=== PATIENT | female | born 1940 | race Caucasian/White ===

== ENCOUNTER 2021-09-15 10:25 | Outpatient (REF) | payer MEDICARE, SELFPAY ==
[2021-09-15 12:50] LABS: Folate 6.4 ng/mL (> or = 4.0); Vitamin B12 269 pg/mL (200-900)
== END 2021-09-15 10:26 | disposition home or self-care (01) ==
LOC: HO.LAB 10:25
PROVIDERS: PCP Physician Assistant; Visit Provider Psychiatry & Neurology Neurology
DX: I67.89 Other cerebrovascular disease (principal)
CPT/HCPCS: 36415; 82607; 82746; 84443

== ENCOUNTER 2023-06-29 12:28 | Inpatient (IN) | payer MEDICARE, SELFPAY ==
--- NOTE | ~2023-06-29 | CT_ITS ---
EXAMINATION: CT abdomen pelvis wo IV con CLINICAL INFORMATION: Reason for Exam L flank pain COMPARISON: No prior CT available for comparison. TECHNIQUE: Multidetector volumetric imaging was performed from the superior aspect of the liver through the pubic symphysis noncontrasted study Sagittal and coronal reformatted images were obtained on the technologist's workstation. This CT examination was performed using dose optimization techniques as appropriate, variously including the following: *Automated exposure control *Adjustment of mA and/or kV according to patient size (this includes techniques or standardized protocols for targeted exams where dose is matched to indication/reason for exam; i.e. extremities or head) *Use of iterative reconstruction technique DLP: 721 mGy-cm FINDINGS: Exam limited by breathing motion artifact. LOWER THORAX: Included lung bases are clear. HEPATOBILIARY: There is a 2 cm hypodense area adjacent to the gallbladder, not well characterized due to lack of contrast concerning for possible liver lesion, this may require correlation with follow-up imaging starting with ultrasound and/or contrast enhanced cross-sectional imaging. GALLBLADDER: Gallbladder is distended, there is thickening of gallbladder wall and pericystic fat stranding, combined raising concern for acute cholecystitis, this can be assessed with ultrasound or HIDA scan. SPLEEN: Spleen is normal in size. PANCREAS: No focal mass or ductal dilatation. STOMACH AND GASTROINTESTINAL TRACT: Stomach is grossly unremarkable. There is diverticulosis without evidence of acute diverticulitis. Appendix not well visualized no secondary sign to suggest acute appendicitis. ADRENALS: No adrenal nodules. KIDNEYS/URETERS: No hydronephrosis, stones or solid mass lesions. URINARY BLADDER: Partially decompressed. PELVIC VISCERA: There is a free fluid in the dependent portion of the pelvis PERITONEUM: There is no free air. LYMPH NODES: No lymphadenopathy. VASCULAR:Abdominal aorta normal in size, no aneurysm found. BONES, ABDOMINAL WALL AND SOFT TISSUES: Advanced spondylosis of the area lumbar spine with vacuum phenomenon at multiple levels. No fractures. CT/CT abdomen pelvis wo IV con IMPRESSION: Exam limited by motion artifact. 1. Gallbladder is very distended, there is thickening of gallbladder wall and pericystic fat stranding, combined raising CONCERN FOR ACUTE CHOLECYSTITIS, this can be assessed with ultrasound or HIDA scan, surgical evaluation recommended.. 2. Indeterminant 2 cm hypodense lesion in the right lobe of the liver for which additional imaging is warranted. Consider ultrasound and/or contrast enhanced dynamic MRI or CT scan.. 3. Diverticulosis without evidence of acute diverticulitis. 4. There is a small amount of free fluid in the dependent portion of the pelvis. (Referring physician staff is being called, by physician staff assistance, to be alerted of the above critical findings and recommendations.) 06/29/2023 5:37 PM
--- NOTE | ~2023-06-29 | XR_ITS ---
EXAMINATION: XR CHEST CLINICAL INFORMATION: Malaise COMPARISON: None available. TECHNIQUE: 2 views of the chest were obtained. FINDINGS: Lungs are clear. No pulmonary vascular congestion. There is no pleural effusion. The heart size is normal. The cardiac and mediastinal contours are normal. There are calcifications of the thoracic aorta. There are multilevel degenerative changes of dorsal spine. XR/XR chest 2V IMPRESSION: Unremarkable examination.
--- NOTE | ~2023-06-29 | US_ITS ---
EXAMINATION: US ABDOMEN LIMITED CLINICAL INFORMATION: Acalculus cholecystitis. COMPARISON: CT abdomen/pelvis earlier on same day. TECHNIQUE: Real-time imaging of the right upper quadrant abdominal viscera. FINDINGS: PANCREAS: Pancreatic tail is obscured secondary to shadowing from overlying bowel gas. The visualized portions of the head and body are within normal limits. LIVER: There is a 1.8 x 1 x 1.4 cm simple appearing right hepatic lobe cyst. The liver is normal in size. The liver contour is normal. Parenchymal echogenicity is normal. There is no intrahepatic biliary duct dilatation seen. GALLBLADDER: Cholelithiasis with diffuse gallbladder wall thickening measuring up to 0.9 cm. Trace pericholecystic free fluid. Negative Navarro's sign. COMMON BILE DUCT: Normal in caliber measuring 0.3 cm in diameter. RIGHT KIDNEY: Atrophic. No hydronephrosis. No renal calculi or focal parenchymal lesions. The kidney measures 8 cm in maximum dimension. FREE FLUID: None. US/US abdomen limited IMPRESSION: 1. Cholelithiasis with diffuse gallbladder wall thickening and trace pericholecystic free fluid suspicious for acute cholecystitis in the appropriate clinical setting. 2. Atrophic right kidney.
--- NOTE | ~2023-06-29 | IR_ITS ---
EXAMINATION: Cholecystostomy tube placement CLINICAL INFORMATION: cholecystitis COMPARISON: ct abdomen and pelvis 06/29/23 TECHNIQUE/FINDINGS: All elements of maximal sterile barrier technique followed including use of cap, mask, sterile gown, sterile gloves, a sterile full body drape and hand hygiene. The patient was placed supine on the fluoroscopy table. Preliminary ultrasound demonstrates distended gallbladder with thickened white in concordance with images on recent cross-sectional imaging. A site was marked and the right upper abdomen was sterilely prepped and draped. The gallbladder was accessed with a 21 gauge micropuncture needle under direct ultrasound guidance. The needle was exchanged for a transitional dilator. Contrast injection demonstrates distended gallbladder without with intraluminal filling defects compatible with known gallstones. A sample was obtained for culture and sensitivity. The tract was dilated and an 8 Marshallese pigtail drainage catheter was placed. The pigtails formed within the gallbladder. Contrast injection demonstrated satisfactory position of the tube. The contents of the gallbladder were aspirated. The external portion of the catheter was secured with 3-0 suture and the catheter was maintained to gravity bag drainage. The patient tolerated the procedure well with no immediate competitions. FLUOROSCOPY TIME: 1.5 minutes DOSE AREA PRODUCT: 18 uGy-m2 (microgray-meter squared) IR/IR drain peritoneum IMPRESSION: Cholecystostomy tube placement
--- NOTE | ~2023-06-29 | XR_ITS ---
EXAMINATION: XR HIP, RIGHT CLINICAL INFORMATION: Pain COMPARISON: None available. TECHNIQUE: Frontal view of pelvis. Two views of the right hip. FINDINGS: No fracture. No dislocation. No focal bone lesion. Mild joint narrowing of the hip joints bilateral. No bone erosions or periarticular calcification. Significant disc height narrowing vacuum disc changes at L3-L4 and L4-L5 with vertebral endplate spurs. XR/XR hip RT w PEL1V IMPRESSION: 1. No acute abnormality. 2. Mild degenerative joint narrowing of the hip joints bilateral.
[2023-06-29 13:11] VITALS: BP 127/54; PULSE 56; RESP 18; TEMP 37.6; O2SAT 98; BMI 33.5
--- NOTE | 2023-06-29 13:22 | ED.GENADULT ---
HPI - General Adult General Chief complaint: General Medical Stated complaint: R Side Pain X 2 Days Time Seen by Provider: 06/29/23 15:55 Source: patient Mode of arrival: ambulatory Limitations: no limitations History of Present Illness HPI narrative: Patient with history of hypertension high cholesterol 82 years old otherwise healthy noticed right upper quadrant right flank discomfort since yesterday feel nauseated vomited once in eat much when last 24 hours no fever no chills never had similar pain in the past no history of kidney stone no urinary discomfort Related Data Home Medications Medication Instructions Recorded Confirmed aspirin 81 mg chewable tablet 81 mg PO DAILY 06/29/23 06/29/23 atorvastatin 10 mg tablet 10 mg PO BEDTIME 06/29/23 06/29/23 hydrochlorothiazide 25 mg tablet 25 mg PO QAM 06/29/23 06/29/23 lisinopril 20 mg tablet 20 mg PO DAILY 06/29/23 06/29/23 metoprolol tartrate 50 mg tablet 50 mg PO BID 06/29/23 06/29/23 pantoprazole 20 mg tablet,delayed 20 mg PO DAILY 06/29/23 06/29/23 release Allergies Allergy/AdvReac Type Severity Reaction Status Date / Time No Known Allergies Allergy Verified 06/29/23 13:11 Review of Systems Review of Systems: Yes all other systems are reviewed and are negative PMFSH Past Medical History Medical History Hyperlipidemia Hypertension Social History Social History Advance Directives: No Advance Directives Information Provided: No Physical Exam ED Vital Signs: Vital Signs - 24 hr 06/29/23 13:11 06/29/23 16:07 06/29/23 17:15 Temperature 99.7 F 98.2 F 98.4 F Pulse Rate 56 59 Respiratory Rate 18 19 Blood Pressure 127/54 L 110/72 Pulse Oximetry 98 97 Oxygen Delivery Method Room Air Room Air 06/29/23 18:29 Temperature 99.4 F Pulse Rate 58 Respiratory Rate 20 Blood Pressure 124/40 L Pulse Oximetry 96 Oxygen Delivery Method Room Air BMI result Body Mass Index 33.5 Appearance: Alert. Oriented X3. No acute distress. Eyes: No pallor or icterus ENT: Pharynx normal. Oral Mucosa moist Neck: Normal inspection. Neck supple. CVS: Normal heart rate and rhythm. Pulses normal. Respiratory: No respiratory distress. Equal air entry bilateral, no wheezing/rales/rhonchi Abdomen: Soft tenderness in right upper quadrant with guarding no rebound tenderness Navarro sign positive+ Bowel sounds are present, no mass palpable, no CVA tenderness Skin: Skin warm and dry. Normal skin color. Normal skin turgor. Extremities: No lower extremity edema. No calf tenderness Neuro: Oriented X 3. No motor deficit. No sensory deficit.No cerebellar signs , cranial nerves II-XII intact Course Course Course Narrative: This is an RME: Additional HPI, ROS, PE not included below will be deferred to primary provider. This is a 82-year-old female, with a history of hypertension, hyperlipidemia, presenting to the emergency department with complaints of right hip pain x2 days. She also endorses decreased appetite, vomiting last night, general malaise. On arrival, vital signs within normal limits. She did take Tylenol prior to arrival. Temperature 99.7?. Denies urinary symptoms Plan: Labs, EKG, chest x-ray, right hip x-ray Medications Administered Discontinued Medications Generic Name Dose Route Start Last Admin Trade Name Freq PRN Reason Stop Dose Admin Sodium Chloride 1,000 mls @ 999 mls/hr 06/29/23 16:09 06/29/23 18:25 Ns IV 06/29/23 17:09 Infused .Q1H1M ONE Infusion Piperacillin Sod/Tazobactam 50 mls @ 100 mls/hr 06/29/23 16:35 06/29/23 18:25 Sod 3.375 gm/ Sodium Chloride IV 06/29/23 17:04 Infused ONCE ONE Infusion Magnesium Sulfate/Dextrose 1 gm in 100 mls @ 300 mls/hr 06/29/23 18:00 06/29/23 18:56 Magnesium Sulfate/D5w IV 06/29/23 18:19 300 mls/hr ONCE ONE Administration Medical Decision Making Medical Decision Making [facility] Narrative: Patient with acute cholecystitis elevated WBC count , case discussed with Dr. Jones surgeon will be admitting patient to her service for cholecystectomy in a.m.. Differential Diagnosis Differential Diagnoses: The differential diagnosis associated with the presentation includes Lab Data [facility] Lab Attestation statement: I reviewed the patient's lab results. 06/29/23 14:15 06/29/23 14:15 Labs: Lab Results 06/29/23 06/29/23 06/29/23 Range/Units 14:12 14:14 14:15 WBC 22.9 H (4.8-10.8) X10*3/uL RBC 3.93 L (4.20-5.50) X10*6/uL Hgb 11.8 L (12.0-16.0) g/dl Hct 35.6 L (37.0-47.0) % MCV 90.6 (80.0-98.0) fL MCH 30.0 (27.0-33.0) pg MCHC 33.1 (31.0-35.0) g/dl RDW 11.6 (11.0-16.0) % Plt Count 220 (160-400) X10*3/uL MPV 10.7 (9.4-12.3) fL Immature Gran % (Auto) 0.8 H (0.0-0.4) % Neut % (Auto) 84.9 H (45-73) % Lymph % (Auto) 3.8 L (20-40) % [place] % (Auto) 10.3 (2-11) % Eos % (Auto) 0.1 (0-4) % Baso % (Auto) 0.1 (0-2) % Lymph # (Auto) 0.9 L (1.2-4.9) X10*3/uL [place] # (Auto) 2.4 H (0.1-1.2) X10*3/uL Eos # (Auto) 0.0 (0.0-0.4) X10*3/uL Baso # (Auto) 0.0 (0.0-0.2) X10*3/uL Abs Immat Gran (auto) 0.18 H (0.00-0.03) X10*3/uL Absolute Neuts (auto) 19.4 H (2.0-8.3) x10*3/uL Absolute Nucleated RBC 0.000 (0.0-0.012) X10*3/uL Nucleated RBC % (auto) 0.0 (0.0-0.2) /100WBC Smear Tech's Comments VERIFIED Sodium 136 (135-145) mmol/L Potassium 4.0 (3.3-5.1) mmol/L Chloride 101 (96-108) mmol/L Carbon Dioxide 24 (22-29) mmol/L Anion Gap 15 (12-20) BUN 31 H (9-16) mg/dL Creatinine 1.85 H (0.5-1.4) mg/dL Estim Creat Clear Calc 24.3 Estimated GFR 26 Random Glucose 105 (60-115) mg/dL Lactic Acid (0.5-2.0) mmol/L Calcium 9.9 (8.4-10.2) mg/dL Magnesium 1.4 L* (1.6-2.6) mg/dL Total Bilirubin 1.1 H (0.0-1.0) mg/dL Direct Bilirubin 0.4 (0.0-0.5) mg/dL AST 19 (5-31) U/L ALT 12 (0-31) U/L Alkaline Phosphatase 57 (39-117) U/L Troponin I High Sens 45.3 H (<3.5-17.0) ng/L Total Protein 7.3 (6.5-8.0) g/dL Albumin 3.9 (3.5-5.0) g/dL Lipase 15 (8-78) U/L Urine Color Yellow Urine Appearance Cloudy Urine pH 5.5 (5.0-9.0) Ur Specific [place] 1.015 (1.005-1.025) Urine Protein Negative (Neg-Trace) mg/dL Urine Glucose (UA) Negative (Negative) mg/dL Urine Ketones Negative (Negative) mg/dL Urine Blood Trace H (Negative) Urine Nitrite Negative (Negative) Ur Leukocyte Esterase Trace H (Negative) Urine RBC 3-5 H (0-2) /HPF Urine WBC 0-5 (0-5) /HPF Ur Squamous Epith Cells >20 (0-2) /HPF Urine Bacteria 3+ (None Seen) Hyaline Casts 3-5 (0-2) /LPF Influenza Type A (PCR) NEGATIVE (Negative) Influenza Type B (PCR) NEGATIVE (Negative) RSV RNA Qual (PCR) NEGATIVE (Negative) SARS-CoV-2 RNA (RT-PCR) NEGATIVE (Negative) 06/29/23 Range/Units 16:57 WBC (4.8-10.8) X10*3/uL RBC (4.20-5.50) X10*6/uL Hgb (12.0-16.0) g/dl Hct (37.0-47.0) % MCV (80.0-98.0) fL MCH (27.0-33.0) pg MCHC (31.0-35.0) g/dl RDW (11.0-16.0) % Plt Count (160-400) X10*3/uL MPV (9.4-12.3) fL Immature Gran % (Auto) (0.0-0.4) % Neut % (Auto) (45-73) % Lymph % (Auto) (20-40) % [place] % (Auto) (2-11) % Eos % (Auto) (0-4) % Baso % (Auto) (0-2) % Lymph # (Auto) (1.2-4.9) X10*3/uL [place] # (Auto) (0.1-1.2) X10*3/uL Eos # (Auto) (0.0-0.4) X10*3/uL Baso # (Auto) (0.0-0.2) X10*3/uL Abs Immat Gran (auto) (0.00-0.03) X10*3/uL Absolute Neuts (auto) (2.0-8.3) x10*3/uL Absolute Nucleated RBC (0.0-0.012) X10*3/uL Nucleated RBC % (auto) (0.0-0.2) /100WBC Smear Tech's Comments Sodium (135-145) mmol/L Potassium (3.3-5.1) mmol/L Chloride (96-108) mmol/L Carbon Dioxide (22-29) mmol/L Anion Gap (12-20) BUN (9-16) mg/dL Creatinine (0.5-1.4) mg/dL Estim Creat Clear Calc Estimated GFR Random Glucose (60-115) mg/dL Lactic Acid 1.7 (0.5-2.0) mmol/L Calcium (8.4-10.2) mg/dL Magnesium (1.6-2.6) mg/dL Total Bilirubin (0.0-1.0) mg/dL Direct Bilirubin (0.0-0.5) mg/dL AST (5-31) U/L ALT (0-31) U/L Alkaline Phosphatase (39-117) U/L Troponin I High Sens (<3.5-17.0) ng/L Total Protein (6.5-8.0) g/dL Albumin (3.5-5.0) g/dL Lipase (8-78) U/L Urine Color Urine Appearance Urine pH (5.0-9.0) Ur Specific [place] (1.005-1.025) Urine Protein (Neg-Trace) mg/dL Urine Glucose (UA) (Negative) mg/dL Urine Ketones (Negative) mg/dL Urine Blood (Negative) Urine Nitrite (Negative) Ur Leukocyte Esterase (Negative) Urine RBC (0-2) /HPF Urine WBC (0-5) /HPF Ur Squamous Epith Cells (0-2) /HPF Urine Bacteria (None Seen) Hyaline Casts (0-2) /LPF Influenza Type A (PCR) (Negative) Influenza Type B (PCR) (Negative) RSV RNA Qual (PCR) (Negative) SARS-CoV-2 RNA (RT-PCR) (Negative) Independent Interpretation I performed an independent interpretation of an: EKG, Ultrasound and CT Scan Interpretation: Normal sinus rhythm heart rate 62 beats per minute normal interval normal axis no acute ST T wave changes no acute ischemia Radiology Impression Discussion of test interpretation with radiology: I have reviewed the radiologist's reading. Radiologist Impression: [place] [id number] Ultrasound Report Signed Patient: Fabiola Gilliam MR#: [id number] : 1940 Acct:[id number] Age/Sex: 82 / F ADM Date: 06/29/23 Loc: .ED Attending Dr: Ordering Physician: Aníbal San MD Date of Service: 06/29/23 Procedure(s): US abdomen limited Accession Number(s): [id number] cc: Anne Balderas MD; Aníbal San MD~ EXAMINATION: US ABDOMEN LIMITED CLINICAL INFORMATION: Acalculus cholecystitis. COMPARISON: CT abdomen/pelvis earlier on same day. TECHNIQUE: Real-time imaging of the right upper quadrant abdominal viscera. FINDINGS: PANCREAS: Pancreatic tail is obscured secondary to shadowing from overlying bowel gas. The visualized portions of the head and body are within normal limits. LIVER: There is a 1.8 x 1 x 1.4 cm simple appearing right hepatic lobe cyst. The liver is normal in size. The liver contour is normal. Parenchymal echogenicity is normal. There is no intrahepatic biliary duct dilatation seen. GALLBLADDER: Cholelithiasis with diffuse gallbladder wall thickening measuring up to 0.9 cm. Trace pericholecystic free fluid. Negative Navarro's sign. COMMON BILE DUCT: Normal in caliber measuring 0.3 cm in diameter. RIGHT KIDNEY: Atrophic. No hydronephrosis. No renal calculi or focal parenchymal lesions. The kidney measures 8 cm in maximum dimension. FREE FLUID: None. US/US abdomen limited IMPRESSION: 1. Cholelithiasis with diffuse gallbladder wall thickening and trace pericholecystic free fluid suspicious for acute cholecystitis in the appropriate clinical setting. 2. Atrophic right kidney. CT/CT abdomen pelvis wo IV con IMPRESSION: Exam limited by motion artifact. 1. Gallbladder is very distended, there is thickening of gallbladder wall and pericystic fat stranding, combined raising CONCERN FOR ACUTE CHOLECYSTITIS, this can be assessed with ultrasound or HIDA scan, surgical evaluation recommended.. 2. Indeterminant 2 cm hypodense lesion in the right lobe of the liver for which additional imaging is warranted. Consider ultrasound and/or contrast enhanced dynamic MRI or CT scan.. 3. Diverticulosis without evidence of acute diverticulitis. 4. There is a small amount of free fluid in the dependent portion of the pelvis. Discharge Plan Discharge Clinical Impression: Acute calculous cholecystitis Patient Disposition: Admitted As Inpatient
--- NOTE | 2023-06-29 13:23 | ECG_ITS ---
Test Reason : CP Blood Pressure : / mmHG Vent. Rate : 056 BPM Atrial Rate : 056 BPM P-R Int : 202 ms QRS Dur : 070 ms QT Int : 426 ms P-R-T Axes : 044 -14 037 degrees QTc Int : 411 ms Sinus bradycardia Possible Left atrial enlargement Minimal voltage criteria for LVH, may be normal variant ( R in aVL ) Borderline ECG No previous ECGs available Referred By: Zeynep Ornelas Electronically Signed By:ANA LUISA VÁZQUEZ
[2023-06-29 14:20] LABS: Basophils Percent Auto 0.1 % (0-2); Eosinophils Percent Auto 0.1 % (0-4); Hematocrit 35.6 % (37.0-47.0); Hemoglobin 11.8 g/dl (12.0-16.0); Imm Gran Abs Auto 0.18 X10*3/uL (0.00-0.03); Imm Gran Pct Auto 0.8 % (0.0-0.4); Lymphocytes Absolute Auto 0.9 X10*3/uL (1.2-4.9); Lymphocytes Percent Auto 3.8 % (20-40); MANUAL DIFF FLAG SCAN; Mean Corpuscular HGB Conc 33.1 g/dl (31.0-35.0); Mean Corpuscular Volume 90.6 fL (80.0-98.0); Mean Platelet Volume 10.7 fL (9.4-12.3); Monocytes Absolute Auto 2.4 X10*3/uL (0.1-1.2); Monocytes Percent Auto 10.3 % (2-11); Neutrophils Absolute Auto 19.4 x10*3/uL (2.0-8.3); Neutrophils Percent Auto 84.9 % (45-73); Platelet Count 220 X10*3/uL (160-400); Red Blood Count 3.93 X10*6/uL (4.20-5.50); Red Cell Distribution Width 11.6 % (11.0-16.0); SCAN SMEAR FLAG 1; White Blood Count 22.9 X10*3/uL (4.8-10.8)
[2023-06-29 14:27] LABS: Appearance Urine Cloudy; Color Urine Yellow; Glucose Urine UA Negative (Negative); Leukocyte Esterase Urine Trace (Negative); Nitrite Urine Negative (Negative); PH 5.5 (5.0-9.0); Specific Gravity - Urine 1.015 (1.005-1.025); UMIC TRIGGER UACC YES; Urine Blood Trace (Negative); Urine Ketones Negative (Negative); Urine Protein Negative (Neg-Trace)
[2023-06-29 14:40] LABS: Bacteria Urine 3+ (None Seen); Squamous Epithelial Cell Urine >20 /HPF (0-2); WBC Urine 0-5 /HPF (0-5)
[2023-06-29 14:40] LABS: SLIDE REVIEW VERIFIED
[2023-06-29 14:41] LABS: Alanine Aminotransferase 12 U/L (0-31); Albumin Level 3.9 g/dL (3.5-5.0); Alkaline Phosphatase 57 U/L (39-117); Anion Gap 15 (12-20); Aspartate Amino Transferase 19 U/L (5-31); Bilirubin Direct 0.4 mg/dL (0.0-0.5); Bilirubin Total 1.1 mg/dL (0.0-1.0); Blood Urea Nitrogen 31 mg/dL (9-16); Calcium 9.9 mg/dL (8.4-10.2); Carbon Dioxide 24 mmol/L (22-29); Chloride 101 mmol/L (96-108); Creatinine Clr Calc Pharmacy 24.3; Estimated Glomerular Filt Rate 26; Glucose Random 105 mg/dL (60-115); Lipase 15 U/L (8-78); Magnesium 1.4 mg/dL (1.6-2.6); Sodium 136 mmol/L (135-145); Total Protein 7.3 g/dL (6.5-8.0)
[2023-06-29 14:45] LABS: Troponin-I High Sensitivity 45.3 ng/L (<3.5-17.0)
[2023-06-29 15:10] LABS: Influenza A PCR NEGATIVE (Negative); Influenza B PCR NEGATIVE (Negative); Resp Syncy Virus RNA Qual PCR NEGATIVE (Negative); SARS COV2 PCR INHOUSE NEGATIVE (Negative)
[2023-06-29 16:07] VITALS: BP 110/72; PULSE 59; RESP 19; TEMP 36.8; O2SAT 97
[2023-06-29] MEDS: 0.9 % Sodium Chloride 1,000 ML 999 ML IV (17:08)
[2023-06-29] MEDS: Piperacillin Sodium/Tazobactam 3.375 GM in 0.9 % Sodium Chloride 50 ML IV (17:08)
[2023-06-29 17:15] VITALS: TEMP 36.9
[2023-06-29 17:15] LABS: Lactic Acid 1.7 mmol/L (0.5-2.0)
[2023-06-29 18:29] VITALS: BP 124/40; PULSE 58; RESP 20; TEMP 37.4; O2SAT 96
--- NOTE | 2023-06-29 18:38 | ECG_ITS ---
Test Reason : PREOP Blood Pressure : / mmHG Vent. Rate : 062 BPM Atrial Rate : 062 BPM P-R Int : 194 ms QRS Dur : 074 ms QT Int : 436 ms P-R-T Axes : 039 -07 028 degrees QTc Int : 442 ms Normal sinus rhythm Normal ECG When compared with ECG of 29-JUN-2023 13:56, No significant change was found Referred By: Aníbal San Electronically Signed By:ANA LUISA VÁZQUEZ
[2023-06-29] MEDS: Magnesium Sulfate/D5W 1 GM/100 ML PIGGYBACK IV (18:56)
--- NOTE | 2023-06-29 19:12 | PHA.MEDREC ---
Addendum entered by Sandie Cardoso RPh 06/29/23 20:13: Sister called to confirm all medications. Original Note: Pharmacy Consult ? Medication Reconciliation Pharmacy has completed the medication reconciliation. Patient's daughter confirmed medications by on claim history. Reports there are two medications that are BID but unsure about the other besides metoprolol. I entered all medications as prescribed, patient daughter will call to confirm if any changes if when she goes home. Sandie Cardoso, PharmD
--- NOTE | 2023-06-29 19:41 | PC.NURSE ---
assumed care of pt at 1900
[2023-06-29] MEDS: ondansetron HCL 4 MG/2 ML VIAL IVPUSH (20:13)
[2023-06-29] MEDS: Morphine Sulfate 4 MG/ML CARTRIDGE IVPUSH (20:13)
[2023-06-29 20:14] VITALS: BP 118/48; PULSE 60; RESP 22; TEMP 36.8; O2SAT 94
[2023-06-29 20:30] LABS: Troponin-I High Sensitivity 38.2 ng/L (<3.5-17.0)
--- NOTE | 2023-06-29 21:28 | PM.HPGS ---
History of Present Illness History of Present Illness Date of Service: 06/29/23 Chief complaint: Abdominal pain Narrative: Fabiola Gilliam is a 82 year old female who came into the emergency room because she was having right-sided abdominal pain with reported nausea and vomiting over the last several days. I discussed her case with the ER doctor who gave me some history but the patient herself is somewhat confused. Her sister was able to clarify some questions. Patient lives independently but her sister who is also her power of criminal defense attorney lives in the floor above and checks on her frequently. Patient has never had any significant abdominal pain like this before and so when she was brought here workup was carried out in her white count was noted to be elevated at 22 creatinine elevated 1.8 and her troponins elevated at 45. She was tender in the right upper quadrant. Imaging carried out consisted of CT scan of her abdomen and pelvis as well as right upper quadrant ultrasound which showed findings consistent with cholecystitis entailing thickening of the gallbladder wall some fatty stranding and pericholecystic fluid and tenderness. Patient has had potentially D&C in the past according to her sister. Patient is too confused to get a reliable history. She does have vascular dementia as per her sister Review of Systems Review of Systems: Yes Unobtainable due to mental status PMFSH Past Medical History Medical History Hyperlipidemia Hypertension Social History Social History Smoked in Last 30 Days: No Use of substances other than those prescribed or required for medical reasons: No Advance Directives: No Advance Directives Information Provided: No Meds Allergies Allergy/AdvReac Type Severity Reaction Status Date / Time No Known Allergies Allergy Verified 06/29/23 13:11 Active Medications: Current Medications Piperacillin Sod/Tazobactam (Sod 2.25 gm/ Sodium Chloride) 50 mls @ 100 mls/hr IV Q6H ANDREW Acetaminophen (Ofirmev) 1,000 mg in 100 mls @ 400 mls/hr IV Q6H PRN PRN Reason: Pain, Moderate(Pain Scale 4-6) Metoprolol Tartrate (Metoprolol Tartrate 50 Mg Tablet) 50 mg PO BID ANDREW; Protocol Ondansetron HCl (Ondansetron Hcl 4 Mg/2 Ml Vial) 4 mg IVPUSH RQ6H PRN PRN Reason: Nausea and Vomiting Sodium Chloride (0.9 % Sodium Chloride Flush 3 Ml Syringe) 3 ml IVFLUSH QSHIFT [facility] Home Medications Medication Instructions Recorded Confirmed Last Taken Type aspirin 81 mg chewable tablet 81 mg PO DAILY 06/29/23 06/29/23 06/29/23 History atorvastatin 10 mg tablet 10 mg PO BEDTIME 06/29/23 06/29/23 06/28/23 History hydrochlorothiazide 25 mg tablet 25 mg PO BEDTIME 06/29/23 06/29/23 06/28/23 History lisinopril 20 mg tablet 20 mg PO DAILY 06/29/23 06/29/23 06/29/23 History metoprolol tartrate 50 mg tablet 50 mg PO BID 06/29/23 06/29/23 06/29/23 History pantoprazole 20 mg tablet,delayed 20 mg PO DAILY 06/29/23 06/29/23 06/29/23 History release Physical Exam Vital Signs: Vital Signs: Last Vital Signs Temp 98.3 F 06/29/23 20:14 Pulse 60 06/29/23 20:14 Resp 22 H 06/29/23 20:14 BP 118/48 L 06/29/23 20:14 Pulse Ox 94 06/29/23 20:14 O2 Del Method Room Air 06/29/23 20:14 BMI result Body Mass Index 33.5 Const: General: cooperative, healthy appearing, comfortable, no acute distress and well developed HEENT: Head: Yes normal to inspection Eyes: Other: Nonicteric Neck: Neck: Yes normal visual inspection and Yes supple Resp: Effort & Inspection: normal respiratory effort Auscultation: clear to auscultation bilaterally Cardio: Rate: regular rate Rhythm: regular rhythm GI: Other: Abdomen is soft nondistended she is tendon the mid epigastric area to the right upper quadrant with some guarding no rebound no peritonitis. Skin: Other: Nonicteric Extrem: General: Yes normal to inspection Psych: Appearance: grossly normal Mental Status: other (Patient is confused but pleasant follows commands and is somewhat verbal ) Affect: normal affect Attitude: cooperative Thought process: Word salad present (speech) Insight: Limited insight present (Psych) Judgement: Limited judgement present (Psych) Results Results Labs: Short CBC 06/29/23 Range/Units 14:15 WBC 22.9 H (4.8-10.8) X10*3/uL Hgb 11.8 L (12.0-16.0) g/dl Hct 35.6 L (37.0-47.0) % Plt Count 220 (160-400) X10*3/uL BMP 06/29/23 14:15 Sodium 136 Potassium 4.0 Chloride 101 Carbon Dioxide 24 BUN 31 H Creatinine 1.85 H Calcium 9.9 Cardiac Enzymes 06/29/23 Range/Units 20:04 Total Creatine Kinase 66 (26-140) U/L Liver Function 06/29/23 Range/Units 14:15 Total Bilirubin 1.1 H (0.0-1.0) mg/dL Direct Bilirubin 0.4 (0.0-0.5) mg/dL AST 19 (5-31) U/L ALT 12 (0-31) U/L Alkaline Phosphatase 57 (39-117) U/L Albumin 3.9 (3.5-5.0) g/dL Urine 06/29/23 Range/Units 14:12 Urine Color Yellow Urine Appearance Cloudy Urine pH 5.5 (5.0-9.0) Ur Specific [place] 1.015 (1.005-1.025) Urine Protein Negative (Neg-Trace) mg/dL Urine Glucose (UA) Negative (Negative) mg/dL Abdomen CT scan report/results: report reviewed and image reviewed CT scan - pelvis: report reviewed and image reviewed Additional studies: [place] [id number] Ultrasound Report Signed Patient: Fabiola Gilliam MR#: [id number] : 1940 Acct:[id number] Age/Sex: 82 / F ADM Date: 06/29/23 Loc: .ED Attending Dr: Ordering Physician: Aníbal San MD Date of Service: 06/29/23 Procedure(s): US abdomen limited Accession Number(s): [id number] cc: Anne Balderas MD; Aníbal San MD~ EXAMINATION: US ABDOMEN LIMITED CLINICAL INFORMATION: Acalculus cholecystitis. COMPARISON: CT abdomen/pelvis earlier on same day. TECHNIQUE: Real-time imaging of the right upper quadrant abdominal viscera. FINDINGS: PANCREAS: Pancreatic tail is obscured secondary to shadowing from overlying bowel gas. The visualized portions of the head and body are within normal limits. LIVER: There is a 1.8 x 1 x 1.4 cm simple appearing right hepatic lobe cyst. The liver is normal in size. The liver contour is normal. Parenchymal echogenicity is normal. There is no intrahepatic biliary duct dilatation seen. GALLBLADDER: Cholelithiasis with diffuse gallbladder wall thickening measuring up to 0.9 cm. Trace pericholecystic free fluid. Negative Navarro's sign. COMMON BILE DUCT: Normal in caliber measuring 0.3 cm in diameter. RIGHT KIDNEY: Atrophic. No hydronephrosis. No renal calculi or focal parenchymal lesions. The kidney measures 8 cm in maximum dimension. FREE FLUID: None. US/US abdomen limited IMPRESSION: 1. Cholelithiasis with diffuse gallbladder wall thickening and trace pericholecystic free fluid suspicious for acute cholecystitis in the appropriate clinical setting. 2. Atrophic right kidney. [place] [address] CT Scan Report Signed with Addenda Patient: Fabiola Gilliam MR#: [id number] : 1940 Acct:[id number] Age/Sex: 82 / F ADM Date: 06/29/23 Loc: .ED Attending Dr: Ordering Physician: Aníbal San MD Date of Service: 06/29/23 Procedure(s): CT abdomen pelvis wo IV con Accession Number(s): [id number] cc: Anne Balderas MD; Aníbal San MD~ ADDENDUMThis critical result was discussed with Aníbal San by telephone at 06/29/2023 5:48 PM and it was ascertained that the content and urgency of the report was understood at the time of direct communication. Addendum Dictated By: Twin Hopkins MD Addendum Signed By: <Electronically signed by Twin Hopkins MD in OV> 06/29/23 2218 Addendum Cosigned By: DD/ TD/TT: / EXAMINATION: CT abdomen pelvis wo IV con CLINICAL INFORMATION: Reason for Exam L flank pain COMPARISON: No prior CT available for comparison. TECHNIQUE: Multidetector volumetric imaging was performed from the superior aspect of the liver through the pubic symphysis noncontrasted study Sagittal and coronal reformatted images were obtained on the technologist's workstation. This CT examination was performed using dose optimization techniques as appropriate, variously including the following: *Automated exposure control *Adjustment of mA and/or kV according to patient size (this includes techniques or standardized protocols for targeted exams where dose is matched to indication/reason for exam; i.e. extremities or head) *Use of iterative reconstruction technique DLP: 721 mGy-cm FINDINGS: Exam limited by breathing motion artifact. LOWER THORAX: Included lung bases are clear. HEPATOBILIARY: There is a 2 cm hypodense area adjacent to the gallbladder, not well characterized due to lack of contrast concerning for possible liver lesion, this may require correlation with follow-up imaging starting with ultrasound and/or contrast enhanced cross-sectional imaging. GALLBLADDER: Gallbladder is distended, there is thickening of gallbladder wall and pericystic fat stranding, combined raising concern for acute cholecystitis, this can be assessed with ultrasound or HIDA scan. SPLEEN: Spleen is normal in size. PANCREAS: No focal mass or ductal dilatation. STOMACH AND GASTROINTESTINAL TRACT: Stomach is grossly unremarkable. There is diverticulosis without evidence of acute diverticulitis. Appendix not well visualized no secondary sign to suggest acute appendicitis. ADRENALS: No adrenal nodules. KIDNEYS/URETERS: No hydronephrosis, stones or solid mass lesions. URINARY BLADDER: Partially decompressed. PELVIC VISCERA: There is a free fluid in the dependent portion of the pelvis PERITONEUM: There is no free air. LYMPH NODES: No lymphadenopathy. VASCULAR:Abdominal aorta normal in size, no aneurysm found. BONES, ABDOMINAL WALL AND SOFT TISSUES: Advanced spondylosis of the area lumbar spine with vacuum phenomenon at multiple levels. No fractures. CT/CT abdomen pelvis wo IV con IMPRESSION: Exam limited by motion artifact. 1. Gallbladder is very distended, there is thickening of gallbladder wall and pericystic fat stranding, combined raising CONCERN FOR ACUTE CHOLECYSTITIS, this can be assessed with ultrasound or HIDA scan, surgical evaluation recommended.. 2. Indeterminant 2 cm hypodense lesion in the right lobe of the liver for which additional imaging is warranted. Consider ultrasound and/or contrast enhanced dynamic MRI or CT scan.. 3. Diverticulosis without evidence of acute diverticulitis. 4. There is a small amount of free fluid in the dependent portion of the pelvis. (Referring physician staff is being called, by physician staff assistance, to be alerted of the above critical findings and recommendations.) 06/29/2023 5:37 PM Assessment and Plan (1) Acute calculous cholecystitis: Status: Acute (2) Elevated troponin: Status: Acute Plan 82-year-old female comes in with history of right upper quadrant pain tenderness and some nausea vomiting. She has vascular dementia and is confused that is hard to get a good story from her. Workup here revealed white count elevated 22,000 creatinine elevated and her troponins elevated. She is tender in the right upper quadrant. CT scan and ultrasound are consistent with findings of acute cholecystitis. In discussion with the ER physician as well as the hospitalist we decided to repeat the troponin of 45 and it was still elevated 38. This is somewhat improved. Patient denies any chest pain shortness for breath but she is also pleasantly confused although I think that she would be able to confirm if she did have the symptoms. Her sister agrees to this. In discussion with anesthesia it was decided that we would get another trending troponin tomorrow and treat her with IV resuscitation as well as IV antibiotics and reassess. Anesthesia is concerned about elevated demand for her surgery and I agree I think at this point tonight there has no emergent requirement for any surgical intervention. She may improve with antibiotics alone she may need more for cardiac workup and we may even consider the option of a cholecystostomy tube if her risks outweigh her benefits when it comes to surgery. An extensive discussion was had with patient's sister Danna who is her power of criminal defense attorney at phone number [phone]. At this point plan is to treat her medically get a hospitalist consultation re-evaluate her blood work and troponin tomorrow EKG is needed and continue with IV Zosyn overnight. Patient's sister understands and agrees with the above plan Quality Stroke Does the patient have a stroke diagnosis?: No VTE Prior VTE?: No VTE Risk Level:: Surgical - moderate VTE Device Contraindication: N/A - Device Ordered VTE Drug Contraindication: N/A - Med Ordered Procedures Date of Service Date of Service: 06/29/23
[2023-06-29] MEDS: Enoxaparin Sodium 30 MG/0.3 ML SYRINGE SUBCUT (21:55)
[2023-06-29] MEDS: Metoprolol Tartrate 50 MG TABLET PO (21:55)
[2023-06-29] MEDS: 0.9 % Sodium Chloride 500 ML 100 ML IV (21:57)
[2023-06-29 22:00] VITALS: BP 137/59; PULSE 71; RESP 16; TEMP 37.4; O2SAT 92
[2023-06-29] MEDS: Piperacillin Sodium/Tazobactam 2.25 GM in 0.9 % Sodium Chloride 50 ML IV (22:07)
--- NOTE | 2023-06-29 23:34 | MHC.EDTECH ---
pt continues to try to get out of bed. Camera 35 placed in room. Charge nurse Cintia jaimes.
--- NOTE | 2023-06-30 01:49 | PC.NURSE ---
pt is sleeping at this time, no sign of distress.
[2023-06-30] MEDS: Piperacillin Sodium/Tazobactam 2.25 GM in 0.9 % Sodium Chloride 50 ML IV ×3 (05:05→22:26)
[2023-06-30] MEDS: 0.9 % Sodium Chloride Flush 3 ML SYRINGE IVFLUSH ×3 (05:07→18:15)
--- NOTE | 2023-06-30 05:23 | PC.NURSE ---
pt repositioned and medicated per mar.
--- NOTE | 2023-06-30 06:09 | MHC.EDTECH ---
patient voided large amount
--- NOTE | 2023-06-30 06:10 | PC.NURSE ---
pt assisted to the bathroom, pt voided, assisted bathroom.
[2023-06-30] MEDS: 0.9 % Sodium Chloride 1,000 ML 999 ML IV (06:23)
--- NOTE | 2023-06-30 06:26 | PC.NURSE ---
Notifued Dr. De Jesus regarding pt low bp 80/50, fluid bolus ordered.
[2023-06-30 06:36] VITALS: BP 85/53; PULSE 62; RESP 18; TEMP 36.8; O2SAT 94
--- NOTE | 2023-06-30 06:46 | PC.NURSE ---
Notified provider of 02 being in the high 80's, O2 order placed by provider, pt placed on 2L
[2023-06-30 06:48] VITALS: BP 96/48; O2SAT 98
[2023-06-30 06:59] VITALS: BP 99/43
[2023-06-30 07:07] LABS: Hematocrit 30.6 % (37.0-47.0); Mean Corpuscular HGB Conc 32.7 g/dl (31.0-35.0); Mean Corpuscular Hemoglobin 30.4 pg (27.0-33.0); Mean Platelet Volume 11.8 fL (9.4-12.3); Platelet Count 170 X10*3/uL (160-400); Red Blood Count 3.29 X10*6/uL (4.20-5.50); Red Cell Distribution Width 11.9 % (11.0-16.0); White Blood Count 24.7 X10*3/uL (4.8-10.8)
[2023-06-30 07:33] LABS: Troponin-I High Sensitivity 36.6 ng/L (<3.5-17.0)
[2023-06-30 07:38] LABS: Alanine Aminotransferase 20 U/L (0-31); Albumin Level 3.1 g/dL (3.5-5.0); Alkaline Phosphatase 56 U/L (39-117); Anion Gap 15 (12-20); Aspartate Amino Transferase 29 U/L (5-31); Bilirubin Total 1.2 mg/dL (0.0-1.0); Blood Urea Nitrogen 33 mg/dL (9-16); Calcium 9.1 mg/dL (8.4-10.2); Carbon Dioxide 21 mmol/L (22-29); Chloride 104 mmol/L (96-108); Creatinine Clr Calc Pharmacy 26.4; Estimated Glomerular Filt Rate 28; Glucose Random 72 mg/dL (60-115); Potassium 3.4 mmol/L (3.3-5.1); Sodium 137 mmol/L (135-145); Total Protein 5.7 g/dL (6.5-8.0)
[2023-06-30 08:08] LABS: Band Neutrophils Percent 11 % (3-5); Lymphocytes Absolute Manual 1.2 X10*3/uL (1.2-4.9); Lymphocytes Percent Manual 5 % (20-40); Monocytes Absolute Manual 1.2 X10*3/uL (0.1-1.2); Monocytes Percent Manual 5 % (2-11); Neutrophils Absolute Manual 22.2 X10*3/uL (2.0-8.3); Neutrophils Percent Manual 79 % (45-73)
[2023-06-30 08:09] LABS: Acanthocytes 1+ (0-2) /OIF; Burr Cells 1+ (0-2) /OIF; Platelet Estimate NORMAL (NORMAL); Platelet Morphology Comment NORMAL; RBC Morphology NOTED
--- NOTE | 2023-06-30 08:11 | P.PNGS_ITS ---
Subjective Subjective Date of Service: 07/01/23 Interval history: state she is ok does have dementia answers some simple questions Physical Exam 2 Vital Signs: Vital Signs: Last Vital Signs Temp 98.2 F 06/30/23 06:36 Pulse 62 06/30/23 06:36 Resp 18 06/30/23 06:36 BP 99/43 L 06/30/23 06:59 Pulse Ox 98 06/30/23 06:48 O2 Del Method Nasal Cannula 06/30/23 06:48 O2 Flow Rate 2 06/30/23 06:48 BMI result Body Mass Index 33.5 Const: General: comfortable and no acute distress Resp: Effort & Inspection: normal respiratory effort Cardio: Rate: regular rate GI: Palpation (GI): Soft to palpation, not firm, Tenderness to palpation present (GI) (some tenderness on RUQ) and no guarding Objective Data Active Medications Enoxaparin Sodium (Enoxaparin Sodium 30 Mg/0.3 Ml Syringe) 30 mg SUBCUT Q24H [facility] Last Admin: 06/29/23 21:55 Dose: 30 mg Documented By: CHARLIE Famotidine (Famotidine/Pf 20 Mg/2 Ml Vial) 20 mg IVPUSH BID [facility] Piperacillin Sod/Tazobactam (Sod 2.25 gm/ Sodium Chloride) 50 mls @ 100 mls/hr IV Q6H [facility] Last Infusion: 06/30/23 06:28 Dose: Infused Documented By: JAVIER Acetaminophen (Ofirmev) 1,000 mg in 100 mls @ 400 mls/hr IV Q6H PRN PRN Reason: Pain, Moderate(Pain Scale 4-6) Metoprolol Tartrate (Metoprolol Tartrate 50 Mg Tablet) 50 mg PO BID [facility]; Protocol Last Admin: 06/29/23 21:55 Dose: 50 mg Documented By: CHARLIE Metoprolol Tartrate (Metoprolol Tartrate 50 Mg Tablet) 50 mg PO BID [facility]; Protocol Ondansetron HCl (Ondansetron Hcl 4 Mg/2 Ml Vial) 4 mg IVPUSH RQ6H PRN PRN Reason: Nausea and Vomiting Sodium Chloride (0.9 % Sodium Chloride Flush 3 Ml Syringe) 3 ml IVFLUSH QSHIFT [facility] Last Admin: 06/30/23 05:07 Dose: 3 ml Documented By: JAVIER Labs 07/01/23 06:22 07/01/23 06:22 Labs: Laboratory Results - last 24 hr 06/29/23 06/29/23 06/29/23 14:12 14:14 14:15 MCV 90.6 MCH 30.0 MCHC 33.1 RDW 11.6 Plt Count 220 MPV 10.7 Immature Gran % (Auto) 0.8 H Neut % (Auto) 84.9 H Lymph % (Auto) 3.8 L [place] % (Auto) 10.3 Eos % (Auto) 0.1 Baso % (Auto) 0.1 Lymph # (Auto) 0.9 L [place] # (Auto) 2.4 H Eos # (Auto) 0.0 Baso # (Auto) 0.0 Abs Immat Gran (auto) 0.18 H Absolute Neuts (auto) 19.4 H Absolute Nucleated RBC 0.000 Nucleated RBC % (auto) 0.0 Neutrophils % (Manual) Band Neutrophils % Lymphocytes % (Manual) Monocytes % (Manual) Abs Neuts (Manual) Lymphocytes # (Manual) Monocytes # (Manual) Platelet Estimate Plt Morphology Comment RBC Morphology [facility] [place] Cells Acanthocytes (Spur) Smear Tech's Comments VERIFIED Anion Gap 15 Estim Creat Clear Calc 24.3 Estimated GFR 26 Random Glucose 105 Lactic Acid Calcium 9.9 Magnesium 1.4 L* Total Bilirubin 1.1 H Direct Bilirubin 0.4 AST 19 ALT 12 Alkaline Phosphatase 57 Total Creatine Kinase Troponin I High Sens 45.3 H Total Protein 7.3 Albumin 3.9 Lipase 15 Urine Color Yellow Urine Appearance Cloudy Urine pH 5.5 Ur Specific [place] 1.015 Urine Protein Negative Urine Glucose (UA) Negative Urine Ketones Negative Urine Blood Trace H Urine Nitrite Negative Ur Leukocyte Esterase Trace H Urine RBC 3-5 H Urine WBC 0-5 Ur Squamous Epith Cells >20 Urine Bacteria 3+ Hyaline Casts 3-5 Influenza Type A (PCR) NEGATIVE Influenza Type B (PCR) NEGATIVE RSV RNA Qual (PCR) NEGATIVE SARS-CoV-2 RNA (RT-PCR) NEGATIVE Blood Type Antibody Screen 06/29/23 06/29/23 06/29/23 16:57 19:05 20:04 MCV MCH MCHC RDW Plt Count MPV Immature Gran % (Auto) Neut % (Auto) Lymph % (Auto) [place] % (Auto) Eos % (Auto) Baso % (Auto) Lymph # (Auto) [place] # (Auto) Eos # (Auto) Baso # (Auto) Abs Immat Gran (auto) Absolute Neuts (auto) Absolute Nucleated RBC Nucleated RBC % (auto) Neutrophils % (Manual) Band Neutrophils % Lymphocytes % (Manual) Monocytes % (Manual) Abs Neuts (Manual) Lymphocytes # (Manual) Monocytes # (Manual) Platelet Estimate Plt Morphology Comment RBC Morphology Chris Cells Acanthocytes (Spur) Smear Tech's Comments Anion Gap Estim Creat Clear Calc Estimated GFR Random Glucose Lactic Acid 1.7 Calcium Magnesium Total Bilirubin Direct Bilirubin AST ALT Alkaline Phosphatase Total Creatine Kinase 66 Troponin I High Sens 38.2 H Total Protein Albumin Lipase Urine Color Urine Appearance Urine pH Ur Specific [place] Urine Protein Urine Glucose (UA) Urine Ketones Urine Blood Urine Nitrite Ur Leukocyte Esterase Urine RBC Urine WBC Ur Squamous Epith Cells Urine Bacteria Hyaline Casts Influenza Type A (PCR) Influenza Type B (PCR) RSV RNA Qual (PCR) SARS-CoV-2 RNA (RT-PCR) Blood Type A Positive Antibody Screen NEGATIVE 06/30/23 06/30/23 04:46 06:54 MCV 93.0 MCH 30.4 MCHC 32.7 RDW 11.9 Plt Count 170 MPV 11.8 Immature Gran % (Auto) Cancelled Neut % (Auto) Cancelled Lymph % (Auto) Cancelled [place] % (Auto) Cancelled Eos % (Auto) Cancelled Baso % (Auto) Cancelled Lymph # (Auto) Cancelled [place] # (Auto) Cancelled Eos # (Auto) Cancelled Baso # (Auto) Cancelled Abs Immat Gran (auto) Cancelled Absolute Neuts (auto) Cancelled Absolute Nucleated RBC 0.000 Nucleated RBC % (auto) 0.0 Neutrophils % (Manual) 79 H Band Neutrophils % 11 H Lymphocytes % (Manual) 5 L Monocytes % (Manual) 5 Abs Neuts (Manual) 22.2 H Lymphocytes # (Manual) 1.2 Monocytes # (Manual) 1.2 Platelet Estimate NORMAL Plt Morphology Comment NORMAL RBC Morphology NOTED Chris Cells 1+ (0-2) Acanthocytes (Spur) 1+ (0-2) Smear Tech's Comments Anion Gap 15 Estim Creat Clear Calc 26.4 Estimated GFR 28 Random Glucose 72 Lactic Acid Calcium 9.1 D Magnesium Total Bilirubin 1.2 H Direct Bilirubin AST 29 ALT 20 Alkaline Phosphatase 56 Total Creatine Kinase Troponin I High Sens 36.6 H Total Protein 5.7 L Albumin 3.1 L Lipase Urine Color Urine Appearance Urine pH Ur Specific [place] Urine Protein Urine Glucose (UA) Urine Ketones Urine Blood Urine Nitrite Ur Leukocyte Esterase Urine RBC Urine WBC Ur Squamous Epith Cells Urine Bacteria Hyaline Casts Influenza Type A (PCR) Influenza Type B (PCR) RSV RNA Qual (PCR) SARS-CoV-2 RNA (RT-PCR) Blood Type Antibody Screen Procedures Date of Service Date of Service: 07/01/23 Progress Note: A&P Assessment and plan (1) Acute calculous cholecystitis: Status: Acute Assessment and Plan: I have reviewed her imaging studies - GB distended, wall thickened, c/w acute cholecystitis she does have some tenderness on RUQ troponin elevated dw her HCP Danna - best to avoid surgery for now will send for IR cholecystostomy explained to Danna this option - she says understands and agrees with this pt othewie comfortable IV abx Time Spent With Patient Time: Total time managing care of this patient today ____ minutes. Quality Stroke Does the patient have a stroke diagnosis?: No VTE Prior VTE?: No VTE Risk Level:: Surgical - moderate VTE Device Contraindication: N/A - Device Ordered VTE Drug Contraindication: N/A - Med Ordered
--- NOTE | 2023-06-30 08:43 | P.CONHOSP_ITS ---
History of Present Illness Data of Consult Service Date: 06/30/23 Primary Care Provider: Anne Solis MD HPI Reason for consult: pre-op eval The patient is an 82 year old female with a PMH of vascular dementia and HTN who presented to [facility] [place] [facility] on 06/28 with complaints of RUQ abdominal pain. She has been diagonsed with acute cholecystitis and been admitted under the general surgical services. Medical consult has been requested for pre-operative evaluation. Pt is seen and examined in the ED. She reports some RUQ soreness. She denies chest pain. She denies history of CAD/CA. D/w patients sister, Danna over the phone. No known history of CA/CAD. Was on metoprolol/lisinopril for BP for years. In the recent past few years, has been diagnosed with vascular dementia. Review of Systems 2 Review of Systems: Negative except HPI/interval history. PMFSH Medical History Hyperlipidemia Hypertension Social History Patient Tobacco Use Status: Never used Tobacco Smoked in Last 30 Days: No Use of substances other than those prescribed or required for medical reasons: No Advance Directives: No Advance Directives Information Provided: No Nutrition Risks: No Nutritional Risk Meds Allergies Allergy/AdvReac Type Severity Reaction Status Date / Time No Known Allergies Allergy Verified 06/29/23 13:11 Active Medications: Current Medications Enoxaparin Sodium (Enoxaparin Sodium 30 Mg/0.3 Ml Syringe) 30 mg SUBCUT Q24H [facility] Last Admin: 06/29/23 21:55 Dose: 30 mg Famotidine (Famotidine/Pf 20 Mg/2 Ml Vial) 20 mg IVPUSH BID [facility] Piperacillin Sod/Tazobactam (Sod 2.25 gm/ Sodium Chloride) 50 mls @ 100 mls/hr IV Q6H [facility] Last Infusion: 06/30/23 06:28 Dose: Infused Acetaminophen (Ofirmev) 1,000 mg in 100 mls @ 400 mls/hr IV Q6H PRN PRN Reason: Pain, Moderate(Pain Scale 4-6) Dextrose/Sodium Chloride (D5ns) 1,000 mls @ 100 mls/hr IVCONT .Q10H [facility] Metoprolol Tartrate (Metoprolol Tartrate 50 Mg Tablet) 50 mg PO BID [facility]; Protocol Last Admin: 06/29/23 21:55 Dose: 50 mg Ondansetron HCl (Ondansetron Hcl 4 Mg/2 Ml Vial) 4 mg IVPUSH RQ6H PRN PRN Reason: Nausea and Vomiting Sodium Chloride (0.9 % Sodium Chloride Flush 3 Ml Syringe) 3 ml IVFLUSH QSHIFT [facility] Last Admin: 06/30/23 05:07 Dose: 3 ml Home Medications Medication Instructions Recorded Confirmed Last Taken Type aspirin 81 mg chewable tablet 81 mg PO DAILY 06/29/23 06/29/23 06/29/23 History atorvastatin 10 mg tablet 10 mg PO BEDTIME 06/29/23 06/29/23 06/28/23 History hydrochlorothiazide 25 mg tablet 25 mg PO BEDTIME 06/29/23 06/29/23 06/28/23 History lisinopril 20 mg tablet 20 mg PO DAILY 06/29/23 06/29/23 06/29/23 History metoprolol tartrate 50 mg tablet 50 mg PO BID 06/29/23 06/29/23 06/29/23 History pantoprazole 20 mg tablet,delayed 20 mg PO DAILY 06/29/23 06/29/23 06/29/23 History release Physical Exam 2 Vital Signs and Narrative: Vital Signs: Last Vital Signs Temp 98.2 F 06/30/23 06:36 Pulse 62 06/30/23 06:36 Resp 18 06/30/23 06:36 BP 99/43 L 06/30/23 06:59 Pulse Ox 98 06/30/23 06:48 O2 Del Method Nasal Cannula 06/30/23 06:48 O2 Flow Rate 2 06/30/23 06:48 BMI result Body Mass Index 33.5 Const: Other: General - no acute distress, appears comfortable Cardiovascular - regular rate and rhythm, S1-S2 Lungs - normal respiratory effort, clear to auscultation bilaterally, no wheezing Abdomen - RUQ ttp without rebound Extremities - no edema bilaterally Neuro - awake and alert, no focal deficits; oriented to self at this time only Results Labs 06/30/23 04:46 06/30/23 06:54 Labs: Laboratory Results - last 24 hr 06/29/23 06/29/23 06/29/23 14:12 14:14 14:15 MCV 90.6 MCH 30.0 MCHC 33.1 RDW 11.6 Plt Count 220 MPV 10.7 Immature Gran % (Auto) 0.8 H Neut % (Auto) 84.9 H Lymph % (Auto) 3.8 L [place] % (Auto) 10.3 Eos % (Auto) 0.1 Baso % (Auto) 0.1 Lymph # (Auto) 0.9 L [place] # (Auto) 2.4 H Eos # (Auto) 0.0 Baso # (Auto) 0.0 Abs Immat Gran (auto) 0.18 H Absolute Neuts (auto) 19.4 H Absolute Nucleated RBC 0.000 Nucleated RBC % (auto) 0.0 Neutrophils % (Manual) Band Neutrophils % Lymphocytes % (Manual) Monocytes % (Manual) Abs Neuts (Manual) Lymphocytes # (Manual) Monocytes # (Manual) Platelet Estimate Plt Morphology Comment RBC Morphology Chris Cells Acanthocytes (Spur) Smear Tech's Comments VERIFIED Anion Gap 15 Estim Creat Clear Calc 24.3 Estimated GFR 26 Random Glucose 105 Lactic Acid Calcium 9.9 Magnesium 1.4 L* Total Bilirubin 1.1 H Direct Bilirubin 0.4 AST 19 ALT 12 Alkaline Phosphatase 57 Total Creatine Kinase Troponin I High Sens 45.3 H Total Protein 7.3 Albumin 3.9 Lipase 15 Urine Color Yellow Urine Appearance Cloudy Urine pH 5.5 Ur Specific [place] 1.015 Urine Protein Negative Urine Glucose (UA) Negative Urine Ketones Negative Urine Blood Trace H Urine Nitrite Negative Ur Leukocyte Esterase Trace H Urine RBC 3-5 H Urine WBC 0-5 Ur Squamous Epith Cells >20 Urine Bacteria 3+ Hyaline Casts 3-5 Influenza Type A (PCR) NEGATIVE Influenza Type B (PCR) NEGATIVE RSV RNA Qual (PCR) NEGATIVE SARS-CoV-2 RNA (RT-PCR) NEGATIVE Blood Type Antibody Screen 06/29/23 06/29/23 06/29/23 16:57 19:05 20:04 MCV MCH MCHC RDW Plt Count MPV Immature Gran % (Auto) Neut % (Auto) Lymph % (Auto) [place] % (Auto) Eos % (Auto) Baso % (Auto) Lymph # (Auto) [place] # (Auto) Eos # (Auto) Baso # (Auto) Abs Immat Gran (auto) Absolute Neuts (auto) Absolute Nucleated RBC Nucleated RBC % (auto) Neutrophils % (Manual) Band Neutrophils % Lymphocytes % (Manual) Monocytes % (Manual) Abs Neuts (Manual) Lymphocytes # (Manual) Monocytes # (Manual) Platelet Estimate Plt Morphology Comment RBC Morphology Chris Cells Acanthocytes (Spur) Smear Tech's Comments Anion Gap Estim Creat Clear Calc Estimated GFR Random Glucose Lactic Acid 1.7 Calcium Magnesium Total Bilirubin Direct Bilirubin AST ALT Alkaline Phosphatase Total Creatine Kinase 66 Troponin I High Sens 38.2 H Total Protein Albumin Lipase Urine Color Urine Appearance Urine pH Ur Specific [place] Urine Protein Urine Glucose (UA) Urine Ketones Urine Blood Urine Nitrite Ur Leukocyte Esterase Urine RBC Urine WBC Ur Squamous Epith Cells Urine Bacteria Hyaline Casts Influenza Type A (PCR) Influenza Type B (PCR) RSV RNA Qual (PCR) SARS-CoV-2 RNA (RT-PCR) Blood Type A Positive Antibody Screen NEGATIVE 06/30/23 06/30/23 04:46 06:54 MCV 93.0 MCH 30.4 MCHC 32.7 RDW 11.9 Plt Count 170 MPV 11.8 Immature Gran % (Auto) Cancelled Neut % (Auto) Cancelled Lymph % (Auto) Cancelled [place] % (Auto) Cancelled Eos % (Auto) Cancelled Baso % (Auto) Cancelled Lymph # (Auto) Cancelled [place] # (Auto) Cancelled Eos # (Auto) Cancelled Baso # (Auto) Cancelled Abs Immat Gran (auto) Cancelled Absolute Neuts (auto) Cancelled Absolute Nucleated RBC 0.000 Nucleated RBC % (auto) 0.0 Neutrophils % (Manual) 79 H Band Neutrophils % 11 H Lymphocytes % (Manual) 5 L Monocytes % (Manual) 5 Abs Neuts (Manual) 22.2 H Lymphocytes # (Manual) 1.2 Monocytes # (Manual) 1.2 Platelet Estimate NORMAL Plt Morphology Comment NORMAL RBC Morphology NOTED Chris Cells 1+ (0-2) Acanthocytes (Spur) 1+ (0-2) Smear Tech's Comments Anion Gap 15 Estim Creat Clear Calc 26.4 Estimated GFR 28 Random Glucose 72 Lactic Acid Calcium 9.1 D Magnesium Total Bilirubin 1.2 H Direct Bilirubin AST 29 ALT 20 Alkaline Phosphatase 56 Total Creatine Kinase Troponin I High Sens 36.6 H Total Protein 5.7 L Albumin 3.1 L Lipase Urine Color Urine Appearance Urine pH Ur Specific [place] Urine Protein Urine Glucose (UA) Urine Ketones Urine Blood Urine Nitrite Ur Leukocyte Esterase Urine RBC Urine WBC Ur Squamous Epith Cells Urine Bacteria Hyaline Casts Influenza Type A (PCR) Influenza Type B (PCR) RSV RNA Qual (PCR) SARS-CoV-2 RNA (RT-PCR) Blood Type Antibody Screen Imaging Radiologist's Impressions: Impressions Chest X-Ray 06/29/23 13:45 IMPRESSION: Unremarkable examination. Hip/Pelvis X-Ray 06/29/23 13:45 IMPRESSION: 1. No acute abnormality. 2. Mild degenerative joint narrowing of the hip joints bilateral. Abdomen/Pelvis CT 06/29/23 16:30 IMPRESSION: Exam limited by motion artifact. 1. Gallbladder is very distended, there is thickening of gallbladder wall and pericystic fat stranding, combined raising CONCERN FOR ACUTE CHOLECYSTITIS, this can be assessed with ultrasound or HIDA scan, surgical evaluation recommended.. 2. Indeterminant 2 cm hypodense lesion in the right lobe of the liver for which additional imaging is warranted. Consider ultrasound and/or contrast enhanced dynamic MRI or CT scan.. 3. Diverticulosis without evidence of acute diverticulitis. 4. There is a small amount of free fluid in the dependent portion of the pelvis. (Referring physician staff is being called, by physician staff assistance, to be alerted of the above critical findings and recommendations.) 06/29/2023 5:37 PM Abdomen Ultrasound 06/29/23 17:45 IMPRESSION: 1. Cholelithiasis with diffuse gallbladder wall thickening and trace pericholecystic free fluid suspicious for acute cholecystitis in the appropriate clinical setting. 2. Atrophic right kidney. Assessment and Plan (1) Acute calculous cholecystitis: Status: Acute Plan 82 yo F with vascular dementia admitted for acute camila. Medical consult requested for pre-op eval. 1. Acute cholecystitis Discussed with Dr. Guaman and patient's sister, Danna. The plan is for IR guided cholecystostomy tube. I think this is most appropriate given the patients underlying vascular dementia. continue antibiotics 2. HTN on multiple meds at home, will hold them for now given soft BP start IVF 3. Elevated trop Flat x 3; EKG without ischemic changes; no history of CAD per history likely demand mediated 4. NEAL vs CKD SCr 1.85 on admission, 1.71 today; no baseline for comparsion for now, hold DELORES IVF as above 5. Vascular dementia monitor for behavioral changes stable at this time Will follow with you.
[2023-06-30 09:06] VITALS: BP 91/46; PULSE 56; RESP 18; TEMP 37.1; O2SAT 98
--- NOTE | 2023-06-30 11:33 | MHC.CM.PN ---
CM MET WITH PT AND SISTER AT BEDSIDE PT LIVES ALONE, HER SISTER LIVES NEXT DOOR PT IS INDEPENDENT WITH CARE AND HAS NO DME OR SERVICES PT HAS A HCP NAMING HER SISTER AND FRIEND, SHANI, COPY REQUESTED PCP: JESSICA AYON IMM DELIVERED DCP: HOME NO SERVICES VIA [facility]
[2023-06-30] MEDS: Famotidine/PF 20 MG/2 ML VIAL IVPUSH ×2 (12:57→22:27)
[2023-06-30] MEDS: Dextrose 5 % and 0.9 % NaCl 1,000 ML 100 ML IVCONT (12:58)
--- NOTE | 2023-06-30 13:04 | PC.NURSE ---
patient resting quietly in room with even and unlabored respirations. IV in LAC had infiltrated - IV removed and site was wrapped. New IV established in patient's right forearm, medicated per the MAR w/ antibiotics infusing. no other complaints at this time, repositioned in bed. awaiting IR.
--- NOTE | 2023-06-30 14:33 | PC.NURSE ---
patient is off unit at this time, in IR. plan to return to ED
--- NOTE | 2023-06-30 15:47 | PC.NURSE ---
+ blood culture results called to this nurse from lab. gram+ cocci with chain. Results relayed to Dr. Forte.
--- NOTE | 2023-06-30 16:28 | PC.NURSE ---
patient back from IR, resting quietly in room. family at bedside, provided patient with ice chips
--- NOTE | 2023-06-30 16:35 | PM.EVENT ---
Event Note Date of Service: 06/30/23 Event Note: IR tube cholecystostomy done this afternoon she appears comfortable a little sore on tube site tube draining thin bilious fluid abd soft continue IV abx drain care ok to advance diet sister Danna at bedside Time Spent With Patient Time: Total time managing care of this patient today ____ minutes.
[2023-06-30] MEDS: vancomycin/NS 2,000 MG/500 ML PLAST..BAG 250 MG IV (18:16)
[2023-06-30 18:18] VITALS: BP 121/71; PULSE 63; RESP 16; TEMP 37; O2SAT 94
--- NOTE | 2023-06-30 18:22 | PC.NURSE ---
patient advanced to regular diet, eating dinner at this time. offering no complaints. iv antibiotics infusing, call tomas within reach
--- NOTE | 2023-06-30 19:30 | PC.NURSE ---
Assumed care of pt. Pt lying on stretcher, pleasantly confused, no acute distress. Pt IV access limited d/t difficult access and existing small gauge (22g R FA). Vanco on pump continuing to have issues. Additional access obtained as charted, Dextrose restarted, vanco continuing to run, Zosyn delayed d/t lack of additional access. Planning for report for admission.
--- NOTE | 2023-06-30 19:30 | PHA.PROG ---
Admission Date/Time: June 29, 2023 21:03 Indication: Bacteremia Weight in k.451 kg Adjusted body weight in K.2 kg [place] body weight in K.7 Obesity Dosing Indication % IBW: 162% Serum Creatinine - Last 168 Hours 06/29/23 06/30/23 14:15 06:54 Creatinine 1.85 H 1.71 H Estimated CrCl and GFR - Last 168 Hours 06/29/23 06/30/23 14:15 06:54 Estim Creat Clear Calc 24.3 26.4 Estimated GFR 26 28 Vancomycin Loading Dose: 2000 mg Current Vancomycin Dosing Regimen: 750 mg Q24H Date and Time for next Vancomycin Level to be drawn: 07/01 @ 1600 Pharmacist Comments on Vancomycin Plan: patient received an adequate load dose in the ER on 06/29 @ 1816 [place] dose vancomycin 750 mg Q24H is scheduled to start 06/30 @ 1800. Predicted AUC 456 with a trough of 15.6 level will be drawn prior to 3rd dose to access for safety and efficacy due to patient's age and renal function Pharmacy will monitor renal function daily Sandie Cardoso PharmD Vancomycin dosing will take advantage of [employer] as a clinical decision support tool that uses Bayesian modeling to calculate individual patient's pharmacokinetic parameters and forecast the patient's drug concentration time course with the target goal AUC 24 range of 400 - 600 mg/L/hr.
--- NOTE | 2023-06-30 20:56 | PC.NURSE ---
Addendum entered by Cristiano Harrison RN 06/30/23 21:05: Dextrose restarted on existing 22g IV, disconnected by previous shift d/t single IV access. Original Note: Vancomycin continuing to run d./t minimal IV access and 22g limitations on R FA. Second IV access obtained by this RN and Renan running at this time.
[2023-06-30] MEDS: Enoxaparin Sodium 30 MG/0.3 ML SYRINGE SUBCUT (22:26)
[2023-07-01 00:07] VITALS: BP 112/34; PULSE 68; RESP 24; TEMP 36.9; O2SAT 100
[2023-07-01 00:37] VITALS: BP 104/51; PULSE 70; RESP 18; TEMP 36.6; O2SAT 98
[2023-07-01] MEDS: Dextrose 5 % and 0.9 % NaCl 1,000 ML 100 ML IVCONT (00:55)
[2023-07-01 03:38] VITALS: BP 101/55; PULSE 66; RESP 16; TEMP 36.5; O2SAT 98
[2023-07-01] MEDS: Piperacillin Sodium/Tazobactam 2.25 GM in 0.9 % Sodium Chloride 50 ML IV ×4 (04:05→22:34)
[2023-07-01] MEDS: OLANZapine 10 MG VIAL 5 MG IM (05:32)
--- NOTE | 2023-07-01 06:12 | PC.NURSE ---
530 am pt trying to get out of bed uncooperative , refusing care little aggressive md notified and security because she has drain placed yesterday for safety . zyprexa 5 mg im ordered and given we will monitor .
[2023-07-01] MEDS: Acetaminophen 1,000 MG/100 ML PIGGYBACK 400 MG IV (06:29)
[2023-07-01 06:32] LABS: Hematocrit 31.1 % (37.0-47.0); Hemoglobin 10.3 g/dl (12.0-16.0); Mean Corpuscular HGB Conc 33.1 g/dl (31.0-35.0); Mean Corpuscular Hemoglobin 30.1 pg (27.0-33.0); Mean Corpuscular Volume 90.9 fL (80.0-98.0); Mean Platelet Volume 11.2 fL (9.4-12.3); Platelet Count 174 X10*3/uL (160-400); Red Blood Count 3.42 X10*6/uL (4.20-5.50); Red Cell Distribution Width 11.8 % (11.0-16.0); White Blood Count 17.7 X10*3/uL (4.8-10.8)
[2023-07-01 06:45] LABS: Anion Gap 12 (12-20); Blood Urea Nitrogen 33 mg/dL (9-16); Calcium 9.2 mg/dL (8.4-10.2); Carbon Dioxide 22 mmol/L (22-29); Chloride 105 mmol/L (96-108); Creatinine Clr Calc Pharmacy 29.6; Estimated Glomerular Filt Rate 33; Glucose Random 111 mg/dL (60-115); Potassium 3.2 mmol/L (3.3-5.1); Sodium 136 mmol/L (135-145)
[2023-07-01 07:38] VITALS: BP 95/53; PULSE 75; RESP 16; TEMP 36.1; O2SAT 98
--- NOTE | 2023-07-01 08:11 | P.PNGS_ITS ---
Subjective Subjective Date of Service: 07/02/23 Interval history: confused, with dementia IR tube cholecystostomy done yesterday otherwise seem comfortable Physical Exam 2 Vital Signs: Vital Signs: Last Vital Signs Temp 96.9 F 07/01/23 07:38 Pulse 75 07/01/23 07:38 Resp 16 07/01/23 07:38 BP 95/53 L 07/01/23 07:38 Pulse Ox 98 07/01/23 07:38 O2 Del Method Room Air 07/01/23 07:38 O2 Flow Rate 2 07/01/23 03:38 BMI result Body Mass Index 33.5 Const: Other: confused General: no acute distress Resp: Effort & Inspection: normal respiratory effort Cardio: Rate: regular rate GI: Other: tube cholecystostomy in place , output bilious Palpation (GI): Soft to palpation, not firm and no guarding Objective Data Active Medications Enoxaparin Sodium (Enoxaparin Sodium 30 Mg/0.3 Ml Syringe) 30 mg SUBCUT Q24H [facility] Last Admin: 06/30/23 22:26 Dose: 30 mg Documented By: RILEY Famotidine (Famotidine/Pf 20 Mg/2 Ml Vial) 20 mg IVPUSH BID [facility] Last Admin: 06/30/23 22:27 Dose: 20 mg Documented By: RILEY Acetaminophen (Ofirmev) 1,000 mg in 100 mls @ 400 mls/hr IV Q6H PRN PRN Reason: Pain, Moderate(Pain Scale 4-6) Last Admin: 07/01/23 06:29 Dose: 400 mls/hr Documented By: VIKY Dextrose/Sodium Chloride (D5ns) 1,000 mls @ 100 mls/hr IVCONT .Q10H [facility] Last Admin: 07/01/23 06:23 Dose: Not Given Documented By: VIKY Non-Admin Reason: IV Running Vancomycin HCl 750 mg/ Sodium (Chloride) 265 mls @ 265 mls/hr IV Q24H [facility] Piperacillin Sod/Tazobactam (Sod 2.25 gm/ Sodium Chloride) 50 mls @ 100 mls/hr IV Q6H [facility] Last Infusion: 07/01/23 04:48 Dose: Infused Documented By: VIKY Metoprolol Tartrate (Metoprolol Tartrate 50 Mg Tablet) 50 mg PO BID [facility]; Protocol Last Admin: 06/29/23 21:55 Dose: 50 mg Documented By: CHARLIE Ondansetron HCl (Ondansetron Hcl 4 Mg/2 Ml Vial) 4 mg IVPUSH RQ6H PRN PRN Reason: Nausea and Vomiting Pharmacy Consult (Consult Rx Vancomycin Dosing) 1 each MISCELLANE DAILY PRN PRN Reason: Consult order Sodium Chloride (0.9 % Sodium Chloride Flush 3 Ml Syringe) 3 ml IVFLUSH QSHIFT [facility] Last Admin: 07/01/23 01:05 Dose: Not Given Documented By: VIKY Non-Admin Reason: IV Running Labs 07/02/23 05:52 07/02/23 05:52 Labs: Laboratory Results - last 24 hr 07/01/23 06:22 MCV 90.9 MCH 30.1 MCHC 33.1 RDW 11.8 Plt Count 174 MPV 11.2 Absolute Nucleated RBC 0.000 Nucleated RBC % (auto) 0.0 Anion Gap 12 Estim Creat Clear Calc 29.6 Estimated GFR 33 Random Glucose 111 Calcium 9.2 Microbiology Microbiology Results: Microbiology 06/29/23 17:04 Blood Culture - Preliminary Blood - Venous Prelim: GPC Gram Stain only 06/29/23 16:53 Blood Culture - Preliminary Blood - Venous Prelim: GPC Gram Stain only Procedures Date of Service Date of Service: 07/02/23 Progress Note: A&P Assessment and plan (1) Acute calculous cholecystitis: Status: Acute Assessment and Plan: S/P tube cholecystostomy WBC down looks well has dementia IV abx blood cultures - positive for gm positive dw sister Danna Time Spent With Patient Time: Total time managing care of this patient today ____ minutes. Quality Stroke Does the patient have a stroke diagnosis?: No VTE Prior VTE?: No VTE Risk Level:: Surgical - moderate VTE Device Contraindication: N/A - Device Ordered VTE Drug Contraindication: N/A - Med Ordered
[2023-07-01] MEDS: Potassium Chloride ER 20 MEQ TAB.ER.PRT PO (08:55)
[2023-07-01] MEDS: Famotidine/PF 20 MG/2 ML VIAL IVPUSH ×2 (08:55→20:01)
[2023-07-01] MEDS: 0.9 % Sodium Chloride Flush 3 ML SYRINGE IVFLUSH ×3 (09:03→23:40)
--- NOTE | 2023-07-01 09:25 | HE.PHANOTE ---
Re: Vanco Based on current renal status continue dose at 750 mg q24h. Next trough 07/01 at 1600.
[2023-07-01] MEDS: Potassium Chloride Packet 20 MEQ PACKET 40 MEQ PO ×2 (10:41→12:12)
--- NOTE | 2023-07-01 13:32 | HO.PM.IMPN ---
Subjective Subjective Date of Service: 07/01/23 Interval History: Being followed for hypertension, elevated troponin and NEAL Patient with underlying vascular dementia sitting comfortably, denies pain eating breakfast, no nausea, no vomiting no acute events overnight. Review of Systems Unable to obtain review of system due to dementia. Physical Exam Vital Signs: Vital Signs: Last Vital Signs Temp 96.9 F 07/01/23 07:38 Pulse 75 07/01/23 07:38 Resp 16 07/01/23 07:38 BP 95/53 L 07/01/23 07:38 Pulse Ox 98 07/01/23 07:38 O2 Del Method Room Air 07/01/23 07:38 O2 Flow Rate 2 07/01/23 03:38 BMI result Body Mass Index 33.5 Const: Other: General patient resting comfortably in no acute distress. Neck supple, no JVD. CVS regular rate rhythm, Respiratory lungs clear to auscultation, no respiratory distress, no wheeze, no rhonchi. Gastrointestinal abdomen soft, non tender, bowel sounds audible, no right upper quadrant tenderness to palpation, SAVITA drain in place with serosanguineous drainage Extremities no edema. Neuro non focal,moving all 4 extremity speech clear. Skin no rash Impaired insight Objective Data Active Medications Enoxaparin Sodium (Enoxaparin Sodium 30 Mg/0.3 Ml Syringe) 30 mg SUBCUT Q24H [facility] Last Admin: 06/30/23 22:26 Dose: 30 mg Documented By: RILEY Famotidine (Famotidine/Pf 20 Mg/2 Ml Vial) 20 mg IVPUSH BID [facility] [place] Last Admin: 07/01/23 08:55 Dose: 20 mg Documented By: ELLIOT Acetaminophen (Ofirmev) 1,000 mg in 100 mls @ 400 mls/hr IV Q6H PRN PRN Reason: Pain, Moderate(Pain Scale 4-6) Last Infusion: 07/01/23 08:40 Dose: Infused Documented By: ELLIOT Dextrose/Sodium Chloride (D5ns) 1,000 mls @ 100 mls/hr IVCONT .Q10H [facility] [place] Last Infusion: 07/01/23 08:41 Dose: Infused Documented By: ELLIOT Vancomycin HCl 750 mg/ Sodium (Chloride) 265 mls @ 265 mls/hr IV Q24H [facility] [place] Piperacillin Sod/Tazobactam (Sod 2.25 gm/ Sodium Chloride) 50 mls @ 100 mls/hr IV Q6H [facility] Last Infusion: 07/01/23 11:56 Dose: Infused Documented By: DIONE Metoprolol Tartrate (Metoprolol Tartrate 50 Mg Tablet) 50 mg PO BID [facility]; Protocol Last Admin: 06/29/23 21:55 Dose: 50 mg Documented By: CHARLIE Ondansetron HCl (Ondansetron Hcl 4 Mg/2 Ml Vial) 4 mg IVPUSH RQ6H PRN PRN Reason: Nausea and Vomiting Pharmacy Consult (Consult Rx Vancomycin Dosing) 1 each MISCELLANE DAILY PRN PRN Reason: Consult order Sodium Chloride (0.9 % Sodium Chloride Flush 3 Ml Syringe) 3 ml IVFLUSH QSHIFT [facility] Last Admin: 07/01/23 09:03 Dose: 3 ml Documented By: ELLIOT Labs 07/01/23 06:22 07/01/23 06:22 Labs: Laboratory Results - last 24 hr 07/01/23 06:22 MCV 90.9 MCH 30.1 MCHC 33.1 RDW 11.8 Plt Count 174 MPV 11.2 Absolute Nucleated RBC 0.000 Nucleated RBC % (auto) 0.0 Anion Gap 12 Estim Creat Clear Calc 29.6 Estimated GFR 33 Random Glucose 111 Calcium 9.2 Microbiology Microbiology Results: Microbiology 06/29/23 17:04 Blood Culture - Preliminary Blood - Venous Streptococcus species 06/29/23 16:53 Blood Culture - Preliminary Blood - Venous Streptococcus species 06/30/23 15:00 Gram Stain - Final Gallbladder Routine Culture - Preliminary No growth to date. Assessment and Plan (1) Acute calculous cholecystitis: Status: Acute (2) Elevated troponin: Status: Acute Plan 82 yo F with vascular dementia admitted for acute camila. Medical consult requested for pre-op eval. 1. Acute cholecystitis with Streptococcus bacteremia. Denies pain tolerating diet, WBC trending down s/p IR guided cholecystostomy tube. continue iv antibiotics follow final blood culture report Continue IV vanco and Zosyn day 2 DC IV fluids 2. HTN BP remains soft will continue to hold antihypertensive 3. Elevated trop Flat x 3; EKG without ischemic changes; no history of CAD per history likely demand mediated 4. NEAL vs CKD SCr 1.85 on admission, slowly trending down 1.52 today ,no baseline for comparsion Continue to hold DELORES, avoid hypotension, DC IV fluid to avoid fluid overload Follow BMP. 5. Vascular dementia monitor for behavioral changes stable at this time Will continue to follow Quality Stroke Does the patient have a stroke diagnosis?: No VTE Prior VTE?: No VTE Risk Level:: Surgical - moderate VTE Device Contraindication: N/A - Device Ordered VTE Drug Contraindication: N/A - Med Ordered
[2023-07-01 15:03] VITALS: BP 106/66; PULSE 75; RESP 16; TEMP 36.4; O2SAT 96
[2023-07-01 18:39] VITALS: BP 137/58; PULSE 55; RESP 16; TEMP 36.4; O2SAT 96
[2023-07-01] MEDS: vancomycin HCL 750 MG in 0.9 % Sodium Chloride 250 ML 265 MG IV (20:01)
[2023-07-01] MEDS: Enoxaparin Sodium 30 MG/0.3 ML SYRINGE SUBCUT (22:35)
[2023-07-02 04:00] VITALS: BP 112/56; PULSE 65; RESP 16; TEMP 36.2; O2SAT 96
[2023-07-02] MEDS: Piperacillin Sodium/Tazobactam 2.25 GM in 0.9 % Sodium Chloride 50 ML IV (05:03)
[2023-07-02 06:30] LABS: Hematocrit 28.8 % (37.0-47.0); Hemoglobin 9.4 g/dl (12.0-16.0); Mean Corpuscular HGB Conc 32.6 g/dl (31.0-35.0); Mean Corpuscular Hemoglobin 29.7 pg (27.0-33.0); Mean Corpuscular Volume 91.1 fL (80.0-98.0); Mean Platelet Volume 11.5 fL (9.4-12.3); Platelet Count 187 X10*3/uL (160-400); Red Blood Count 3.16 X10*6/uL (4.20-5.50); Red Cell Distribution Width 11.9 % (11.0-16.0); White Blood Count 9.3 X10*3/uL (4.8-10.8)
[2023-07-02 06:59] LABS: Anion Gap 12 (12-20); Blood Urea Nitrogen 30 mg/dL (9-16); Calcium 9.5 mg/dL (8.4-10.2); Carbon Dioxide 22 mmol/L (22-29); Chloride 110 mmol/L (96-108); Creatinine Clr Calc Pharmacy 25.4; Estimated Glomerular Filt Rate 27; Glucose Random 90 mg/dL (60-115); Potassium 4.9 mmol/L (3.3-5.1); Sodium 139 mmol/L (135-145)
[2023-07-02 07:38] VITALS: BP 104/59; PULSE 63; RESP 18; TEMP 36.6; O2SAT 97
--- NOTE | 2023-07-02 07:49 | PM.PNGS ---
Subjective Subjective Date of Service: 07/02/23 <April Vinson PA-C - Last Filed: 07/02/23 07:52> 07/02/23 <Tadeo Guaman MD - Last Filed: 07/02/23 08:58> Interval history: No events overnight. Denies pain. <April Vinson PA-C - Last Filed: 07/02/23 07:52> Physical Exam Vital Signs: Vital Signs: Last Vital Signs Temp 97.8 F 07/02/23 07:38 Pulse 63 07/02/23 07:38 Resp 18 07/02/23 07:38 BP 104/59 L 07/02/23 07:38 Pulse Ox 97 07/02/23 07:38 O2 Del Method Room Air 07/02/23 07:38 O2 Flow Rate 2 07/01/23 03:38 BMI result Body Mass Index 33.5 <April Vinson PA-C - Last Filed: 07/02/23 07:52> Const: General: comfortable, no acute distress and alert <April Vinson PA-C - Last Filed: 07/02/23 07:52> Resp: Effort & Inspection: normal respiratory effort <April Vinson PA-C - Last Filed: 07/02/23 07:52> GI: Other: drain intact, dressing changed, scant bilious output <April Vinson PA-C - Last Filed: 07/02/23 07:52> Inspection: No distended <April Vinson PA-C - Last Filed: 07/02/23 07:52> Palpation (GI): Soft to palpation, nontender, no guarding and not rigid <April Vinson PA-C - Last Filed: 07/02/23 07:52> Skin: General skin exam: no rashes or lesions noted and no jaundice <April Vinson PA-C - Last Filed: 07/02/23 07:52> Objective Data Active Medications Enoxaparin Sodium (Enoxaparin Sodium 30 Mg/0.3 Ml Syringe) 30 mg SUBCUT Q24H [facility] Last Admin: 07/01/23 22:35 Dose: 30 mg Documented By: KATE Famotidine (Famotidine/Pf 20 Mg/2 Ml Vial) 20 mg IVPUSH BID [facility] Last Admin: 07/01/23 20:01 Dose: 20 mg Documented By: KATE Acetaminophen (Ofirmev) 1,000 mg in 100 mls @ 400 mls/hr IV Q6H PRN PRN Reason: Pain, Moderate(Pain Scale 4-6) Last Infusion: 07/01/23 08:40 Dose: Infused Documented By: ELLIOT Vancomycin HCl 750 mg/ Sodium (Chloride) 265 mls @ 265 mls/hr IV Q24H [facility] Last Infusion: 07/01/23 21:07 Dose: Infused Documented By: KATE Piperacillin Sod/Tazobactam (Sod 2.25 gm/ Sodium Chloride) 50 mls @ 100 mls/hr IV Q6H [facility] Last Infusion: 07/02/23 05:33 Dose: Infused Documented By: NORM Ondansetron HCl (Ondansetron Hcl 4 Mg/2 Ml Vial) 4 mg IVPUSH RQ6H PRN PRN Reason: Nausea and Vomiting Pharmacy Consult (Consult Rx Vancomycin Dosing) 1 each MISCELLANE DAILY PRN PRN Reason: Consult order Sodium Chloride (0.9 % Sodium Chloride Flush 3 Ml Syringe) 3 ml IVFLUSH QSHIFT [facility] Last Admin: 07/01/23 23:40 Dose: 3 ml Documented By: NORM <April Vinson PA-C - Last Filed: 07/02/23 07:52> Labs CBC & Chem 7: 07/02/23 05:52 07/02/23 05:52 <April Vinson PA-C - Last Filed: 07/02/23 07:52> Labs: Laboratory Results - last 24 hr 07/02/23 05:52 MCV 91.1 MCH 29.7 MCHC 32.6 RDW 11.9 Plt Count 187 MPV 11.5 Absolute Nucleated RBC 0.000 Nucleated RBC % (auto) 0.0 Anion Gap 12 Estim Creat Clear Calc 25.4 Estimated GFR 27 Random Glucose 90 Calcium 9.5 <April Vinson PA-C - Last Filed: 07/02/23 07:52> Microbiology Microbiology Results: Microbiology 06/29/23 17:04 Blood Culture - Final Blood - Venous Viridans streptococcus group 06/29/23 16:53 Blood Culture - Final Blood - Venous Viridans streptococcus group 06/30/23 15:00 Gram Stain - Final Gallbladder Routine Culture - Preliminary No growth to date. <April Vinson PA-C - Last Filed: 07/02/23 07:52> Procedures Date of Service Date of Service: 07/02/23 <April Vinson PA-C - Last Filed: 07/02/23 07:52> 07/02/23 <Tadeo Guaman MD - Last Filed: 07/02/23 08:58> Progress Note: A&P Assessment and plan (1) Acute calculous cholecystitis: Status: Acute <April Vinson PA-C - Last Filed: 07/02/23 07:52> Assessment and Plan: Feels comfortable Denies abdominal pain Tolerating diet Drain in place Continue IV antibiotics - blood cultures positive Looks well Has dementia as baseline Sister Danna motta Seen and examined independently <Tadeo Guaman MD - Last Filed: 07/02/23 08:58> Assessment and Plan: S/p cholecystostomy tube 06/30/23. Clinically improving, abd remains benign. WBC now normalized. 2 positive BC for strep. Await hospitalist input regarding abx. Cr trending back up this morning. Keep drain in place. <April Vinson PA-C - Last Filed: 07/02/23 07:52> Time Spent With Patient Time: Total time managing care of this patient today ____ minutes. <April Vinson PA-C - Last Filed: 07/02/23 07:52> Quality Stroke Does the patient have a stroke diagnosis?: No <April Vinson PA-C - Last Filed: 07/02/23 07:52> VTE Prior VTE?: No <April Vinson PA-C - Last Filed: 07/02/23 07:52> VTE Risk Level:: Surgical - moderate <April Vinson PA-C - Last Filed: 07/02/23 07:52> VTE Device Contraindication: N/A - Device Ordered <April Vinson PA-C - Last Filed: 07/02/23 07:52> VTE Drug Contraindication: N/A - Med Ordered <April Vinson PA-C - Last Filed: 07/02/23 07:52>
[2023-07-02] MEDS: cefTRIAXone sodium 2 GM in 0.9 % Sodium Chloride 50 ML IV (09:00)
[2023-07-02] MEDS: 0.9 % Sodium Chloride Flush 3 ML SYRINGE IVFLUSH ×3 (09:00→23:55)
[2023-07-02] MEDS: Famotidine/PF 20 MG/2 ML VIAL IVPUSH (09:01)
--- NOTE | 2023-07-02 13:32 | MHC.CM.PN ---
EMR REVIEWED AND PER MD, PT IS NOT MEDICALLY CLEARED FOR DC . CM MET WITH PT AND SISTERS WHO CHOOSE [facility] NEED[facility]. REFERRAL SENT. CM WILL CONTINUE TO FOLLOW FOR ANY CHANGE IN DC NEEDS/PLAN.
--- NOTE | 2023-07-02 14:09 | P.PNIM_ITS ---
Subjective Subjective Date of Service: 07/02/23 Interval History: Being followed for acute cholecystitis and bacteremia Patient complaining of abdominal pain, tolerating diet no nausea, no vomiting, no acute issues overnight. Review of Systems All other systems reviewed and negative. Physical Exam 2 Vital Signs: Vital Signs: Last Vital Signs Temp 97.8 F 07/02/23 07:38 Pulse 63 07/02/23 07:38 Resp 18 07/02/23 07:38 BP 104/59 L 07/02/23 07:38 Pulse Ox 97 07/02/23 07:38 O2 Del Method Room Air 07/02/23 07:38 O2 Flow Rate 2 07/01/23 03:38 BMI result Body Mass Index 33.5 Const: Other: General patient resting comfortably in no acute distress. Neck supple, no JVD. CVS regular rate rhythm, Respiratory lungs clear to auscultation, no respiratory distress, no wheeze, no rhonchi. Gastrointestinal abdomen soft, non tender, bowel sounds audible, no right upper quadrant tenderness to palpation, SAVITA drain in place with serosanguineous drainage Extremities no edema. Neuro non focal,moving all 4 extremity speech clear. Skin no rash Impaired insight Objective Data Active Medications Enoxaparin Sodium (Enoxaparin Sodium 30 Mg/0.3 Ml Syringe) 30 mg SUBCUT Q24H [facility] Last Admin: 07/01/23 22:35 Dose: 30 mg Documented By: KATE Famotidine (Famotidine/Pf 20 Mg/2 Ml Vial) 20 mg IVPUSH BID [facility] Last Admin: 07/02/23 09:01 Dose: 20 mg Documented By: DIVYA Acetaminophen (Ofirmev) 1,000 mg in 100 mls @ 400 mls/hr IV Q6H PRN PRN Reason: Pain, Moderate(Pain Scale 4-6) Last Infusion: 07/01/23 08:40 Dose: Infused Documented By: ELLIOT Ceftriaxone Sodium 2 gm/ (Sodium Chloride) 50 mls @ 100 mls/hr IV Q24H [facility] Last Infusion: 07/02/23 09:32 Dose: Infused Documented By: DIVYA Ondansetron HCl (Ondansetron Hcl 4 Mg/2 Ml Vial) 4 mg IVPUSH RQ6H PRN PRN Reason: Nausea and Vomiting Sodium Chloride (0.9 % Sodium Chloride Flush 3 Ml Syringe) 3 ml IVFLUSH QSHIFT [facility] Last Admin: 07/02/23 09:00 Dose: 3 ml Documented By: DIVYA Labs 07/02/23 05:52 07/02/23 05:52 Labs: Laboratory Results - last 24 hr 07/02/23 05:52 MCV 91.1 MCH 29.7 MCHC 32.6 RDW 11.9 Plt Count 187 MPV 11.5 Absolute Nucleated RBC 0.000 Nucleated RBC % (auto) 0.0 Anion Gap 12 Estim Creat Clear Calc 25.4 Estimated GFR 27 Random Glucose 90 Calcium 9.5 Microbiology Microbiology Results: Microbiology 06/30/23 15:00 Gram Stain - Final Gallbladder Routine Culture - Preliminary Culture in progress. 06/29/23 17:04 Blood Culture - Final Blood - Venous Viridans streptococcus group 06/29/23 16:53 Blood Culture - Final Blood - Venous Viridans streptococcus group Assessment and Plan (1) Elevated troponin: Status: Acute (2) Acute calculous cholecystitis: Status: Acute (3) Bacteremia: Status: Acute Plan 82 yo F with vascular dementia admitted for acute camila. Medical consult requested for pre-op eval. 1. Acute cholecystitis with Streptococcus viridans bacteremia Denies pain tolerating diet, WBC normalized s/p IR guided cholecystostomy tube. Will DC IV vanco and Zosyn day 3, will place on IV ceftriaxone Repeat blood cultures x2 2. HTN BP remains soft will continue to hold antihypertensive 3. Elevated trop Flat x 3; EKG without ischemic changes; no history of CAD per history likely demand mediated 4. NEAL vs CKD SCr 1.85 on admission, creatinine fluctuating and remains elevated 1.77 Continue to hold DELORES, avoid hypotension, DC IV fluid to avoid fluid overload Follow BMP. 5. Vascular dementia monitor for behavioral changes stable at this time 6. Mild acute hypokalemia repleted and normalized 7. Class 1 obesity recommend low-calorie diet. Will continue to follow Quality Stroke Does the patient have a stroke diagnosis?: No VTE Prior VTE?: No VTE Risk Level:: Surgical - moderate VTE Device Contraindication: N/A - Device Ordered VTE Drug Contraindication: N/A - Med Ordered
--- NOTE | 2023-07-02 14:43 | P.F2F_ITS ---
Service Date Service Date: 07/02/23 Encounter Date of encounter: 07/02/23 Reasons for Services Signs and symptoms assessed: has tube cholecystostomy dementia Reason for senior care: other (drain care) Homebound: Leaving the home is medically contraindicated at this time without the asist of a device and/or another person due th the listed conditions above and below. Reason homebound: unsteady gait / fall risk and cognitively impaired / unsafe Certification: Based on the above findings, I certify that this patient is confined to the home and needs intermittent senior care care, physical therapy and/or speech therapy, or continues to need occupational therapy. The patient is under my care, and I have initiated the establishment of the plan of care. The patient will be followed by a physician who will periodically review the plan of care. Time Spent With Patient Time: Total time managing care of this patient today ____ minutes.
[2023-07-02 15:42] VITALS: BP 126/79; PULSE 85; RESP 18; TEMP 36.9; O2SAT 100
[2023-07-02 23:59] VITALS: BP 140/64; PULSE 82; RESP 18; TEMP 36.6; O2SAT 95
[2023-07-03 03:28] VITALS: BP 136/63; PULSE 75; RESP 14; TEMP 36.4; O2SAT 95
[2023-07-03 06:28] LABS: Anion Gap 13 (12-20); Blood Urea Nitrogen 22 mg/dL (9-16); Calcium 9.3 mg/dL (8.4-10.2); Carbon Dioxide 22 mmol/L (22-29); Chloride 111 mmol/L (96-108); Estimated Glomerular Filt Rate 34; Glucose Random 86 mg/dL (60-115); Potassium 4.2 mmol/L (3.3-5.1); Sodium 142 mmol/L (135-145)
[2023-07-03 07:55] VITALS: BP 132/65; PULSE 86; RESP 16; TEMP 36.2; O2SAT 97
[2023-07-03] MEDS: Famotidine 20 MG TABLET PO (09:56)
[2023-07-03] MEDS: cefTRIAXone sodium 2 GM in 0.9 % Sodium Chloride 50 ML IV (09:56)
[2023-07-03] MEDS: 0.9 % Sodium Chloride Flush 3 ML SYRINGE IVFLUSH ×3 (10:25→23:50)
--- NOTE | 2023-07-03 11:40 | P.PNGS_ITS ---
Subjective Subjective Date of Service: 07/03/23 Interval history: pt is confused and not able to speak in a clear and consistent conversation she denies any abdominal pain Physical Exam 2 Vital Signs: Vital Signs: Last Vital Signs Temp 97.2 F 07/03/23 07:55 Pulse 86 07/03/23 07:55 Resp 16 07/03/23 07:55 BP 132/65 07/03/23 07:55 Pulse Ox 97 07/03/23 07:55 O2 Del Method Room Air 07/03/23 07:55 O2 Flow Rate 2 07/01/23 03:38 BMI result Body Mass Index 33.5 Const: General: cooperative, healthy appearing, comfortable and no acute distress Eyes: Other: nonicteric Resp: Effort & Inspection: normal respiratory effort and able to speak in complete sentences Auscultation: clear to auscultation bilaterally Cardio: Rate: regular rate Rhythm: regular rhythm GI: Other: abdomen is soft nondistended tender a little around the drain area - thin bilious material in the drain L Psych: Appearance: grossly normal Mental Status: other Affect: normal affect Attitude: cooperative Thought process: Word salad present (speech) Insight: Poor insight present (Psych) Judgement: Poor judgement present (Psych) Objective Data Active Medications Enoxaparin Sodium (Enoxaparin Sodium 30 Mg/0.3 Ml Syringe) 30 mg SUBCUT Q24H [facility] Last Admin: 07/02/23 22:03 Dose: Not Given Documented By: ALANA Non-Admin Reason: Patient Refused Famotidine (Famotidine 20 Mg Tablet) 20 mg PO DAILY [facility] Last Admin: 07/03/23 09:56 Dose: 20 mg Documented By: ANA LILIA Ceftriaxone Sodium 2 gm/ (Sodium Chloride) 50 mls @ 100 mls/hr IV Q24H [facility] Last Infusion: 07/03/23 10:26 Dose: Infused Documented By: ANA LILIA Ondansetron HCl (Ondansetron Hcl 4 Mg/2 Ml Vial) 4 mg IVPUSH RQ6H PRN PRN Reason: Nausea and Vomiting Sodium Chloride (0.9 % Sodium Chloride Flush 3 Ml Syringe) 3 ml IVFLUSH QSHIFT [facility] Last Admin: 07/03/23 10:25 Dose: 3 ml Documented By: ANA LILIA Labs 07/02/23 05:52 07/03/23 05:20 Labs: Laboratory Results - last 24 hr 07/03/23 05:20 Hold Purple Top SEE NOTE Anion Gap 13 Estim Creat Clear Calc 31.0 Estimated GFR 34 Random Glucose 86 Calcium 9.3 Microbiology Microbiology Results: Microbiology 07/02/23 08:59 Blood Culture - Preliminary Blood - Venous No growth after 24 hours. 07/02/23 08:59 Blood Culture - Preliminary Blood - Venous No growth after 24 hours. 06/30/23 15:00 Gram Stain - Final Gallbladder Routine Culture - Preliminary Culture in progress. 06/29/23 17:04 Blood Culture - Final Blood - Venous Viridans streptococcus group 06/29/23 16:53 Blood Culture - Final Blood - Venous Viridans streptococcus group Procedures Date of Service Date of Service: 07/03/23 Progress Note: A&P Assessment and plan (1) Acute calculous cholecystitis: Status: Acute Plan 82 year old female with acute cholecystitis and having elevated troponins at the time of presentation therefore dedcision was made to not undergo surgery but to treat with drainage and iv antibx. Pt doing better with wbc improved and earting and drinking. Med team changing antibx to ceftin to manage strep viridans bacteremia. I'm concerned with the pt going back to live on her own as she is markedly confused and will have to keep the drain in place for a few weeks before the next decision to either pull tube or carry out delayed lap camila. Discussed with the sister who says pt seemed to be functioning better before this episode. She may benefit from a stay in short term rehab. Will discuss with care management team Time Spent With Patient Time: Total time managing care of this patient today ____ minutes. Quality Stroke Does the patient have a stroke diagnosis?: No VTE Prior VTE?: No VTE Risk Level:: Surgical - moderate VTE Device Contraindication: N/A - Device Ordered VTE Drug Contraindication: N/A - Med Ordered
--- NOTE | 2023-07-03 12:17 | P.PNIM_ITS ---
Subjective Subjective Date of Service: 07/03/23 Interval History: Being followed for acute cholecystitis status post cholecyctostomy tube and bacteremia Patient is sitting on chair eating breakfast, underlying dementia, unable to obtain reliable history but patient denies pain, no fever chills noted, no nausea vomiting. Review of Systems Unable to obtain review of system due to dementia Physical Exam 2 Vital Signs: Vital Signs: Last Vital Signs Temp 97.2 F 07/03/23 07:55 Pulse 86 07/03/23 07:55 Resp 16 07/03/23 07:55 BP 132/65 07/03/23 07:55 Pulse Ox 97 07/03/23 07:55 O2 Del Method Room Air 07/03/23 07:55 O2 Flow Rate 2 07/01/23 03:38 BMI result Body Mass Index 33.5 Const: Other: General patient resting comfortably in no acute distress. Neck supple, no JVD. CVS regular rate rhythm, Respiratory lungs clear to auscultation, no respiratory distress, no wheeze, no rhonchi. Gastrointestinal abdomen soft, non tender, bowel sounds audible, no right upper quadrant tenderness to palpation, SAVITA drain in place with serosanguineous drainage Extremities no edema. Neuro non focal,moving all 4 extremity,speech clear. Skin no rash Impaired insight Objective Data Active Medications Enoxaparin Sodium (Enoxaparin Sodium 30 Mg/0.3 Ml Syringe) 30 mg SUBCUT Q24H [facility] Last Admin: 07/02/23 22:03 Dose: Not Given Documented By: ALANA Non-Admin Reason: Patient Refused Famotidine (Famotidine 20 Mg Tablet) 20 mg PO DAILY [facility] Last Admin: 07/03/23 09:56 Dose: 20 mg Documented By: ANA LILIA Ceftriaxone Sodium 2 gm/ (Sodium Chloride) 50 mls @ 100 mls/hr IV Q24H [facility] Last Infusion: 07/03/23 10:26 Dose: Infused Documented By: ANA LILIA Ondansetron HCl (Ondansetron Hcl 4 Mg/2 Ml Vial) 4 mg IVPUSH RQ6H PRN PRN Reason: Nausea and Vomiting Sodium Chloride (0.9 % Sodium Chloride Flush 3 Ml Syringe) 3 ml IVFLUSH QSHIFT [facility] Last Admin: 07/03/23 10:25 Dose: 3 ml Documented By: ANA LILIA Labs 07/02/23 05:52 07/03/23 05:20 Labs: Laboratory Results - last 24 hr 07/03/23 05:20 Hold Purple Top SEE NOTE Anion Gap 13 Estim Creat Clear Calc 31.0 Estimated GFR 34 Random Glucose 86 Calcium 9.3 Microbiology Microbiology Results: Microbiology 07/02/23 08:59 Blood Culture - Preliminary Blood - Venous No growth after 24 hours. 07/02/23 08:59 Blood Culture - Preliminary Blood - Venous No growth after 24 hours. 06/30/23 15:00 Gram Stain - Final Gallbladder Routine Culture - Preliminary Culture in progress. Assessment and Plan (1) Bacteremia: Status: Acute (2) Elevated troponin: Status: Acute (3) Acute calculous cholecystitis: Status: Acute Plan 82 yo F with vascular dementia admitted for acute camila. Medical consult requested for pre-op eval. 1. Acute cholecystitis with Streptococcus viridans bacteremia Denies pain tolerating diet, WBC normalized s/p IR guided cholecystostomy tube. s/p IV vanco and Zosyn day 3, now on IV ceftriaxone d2 Repeat blood cultures x2 neg x 24h, will transition to by mouth Ceftin 500mg bid for total 2 weeks 2. HTN BP trending up, will resume metoprolol 50 b.i.d. will continue to hold lisinopril and hydrochlorothiazide 3. Elevated trop Flat x 3; EKG without ischemic changes; no history of CAD per history likely demand mediated 4. NEAL vs CKD SCr 1.85 on admission, creatinine improved to 1.45. Continue to hold DELORES, avoid hypotension, DC IV fluid to avoid fluid overload Follow BMP. 5. Vascular dementia monitor for behavioral changes stable at this time 6. Mild acute hypokalemia repleted and normalized. 7. Class 1 obesity recommend low-calorie diet. Will continue to follow Quality Stroke Does the patient have a stroke diagnosis?: No VTE Prior VTE?: No VTE Risk Level:: Surgical - moderate VTE Device Contraindication: N/A - Device Ordered VTE Drug Contraindication: N/A - Med Ordered
[2023-07-03 15:06] VITALS: BP 157/72; PULSE 99; RESP 18; TEMP 36.1; O2SAT 98
[2023-07-03 20:00] VITALS: BP 145/67; PULSE 99; RESP 16; TEMP 36.4; O2SAT 98
[2023-07-03] MEDS: Haloperidol Lactate 5 MG/ML VIAL 3 MG IM (21:57)
--- NOTE | 2023-07-03 22:02 | PC.NURSE ---
Addendum entered by Rashida Bacon RN 07/03/23 22:24: Patient talking with sister,took her medications Addendum entered by Rashida Bacon RN 07/03/23 22:10: Patient sister Danna came in to visit,patient sitting in the chair at present,calm,talking with sister Original Note: Patient became anxious,restless,,uncooperative,barricaded door with chair ,would not let sitter open the door,RN was able to talk to patient open the door and called patient sister to talk with the patient ,patient started hitting staff with the phone,code assist was called,patient seen by Dr. Weinstein,IM Haldol was administered,sitter with patient,will monitor.
[2023-07-03] MEDS: Metoprolol Tartrate 50 MG TABLET PO (22:15)
[2023-07-03] MEDS: Enoxaparin Sodium 30 MG/0.3 ML SYRINGE SUBCUT (22:17)
[2023-07-04 04:00] VITALS: BP 135/62; PULSE 66; RESP 16; TEMP 36.3; O2SAT 94
--- NOTE | 2023-07-04 06:36 | PC.NURSE ---
0635- no further behavioral issues or episodes during 2300-0635time of this shift. Patient rested quietly in bed, sitter at bedside at all times. Patients sister also was visiting at start of this shift for comfort and left at approx., 2325. vss, cholecystostomy drain emptied for 10ml sanguineous drng.
[2023-07-04 06:44] LABS: Hematocrit 26.7 % (37.0-47.0); Hemoglobin 8.9 g/dl (12.0-16.0); Mean Corpuscular HGB Conc 33.3 g/dl (31.0-35.0); Mean Corpuscular Hemoglobin 30.7 pg (27.0-33.0); Mean Corpuscular Volume 92.1 fL (80.0-98.0); Mean Platelet Volume 10.4 fL (9.4-12.3); Platelet Count 216 X10*3/uL (160-400); Red Cell Distribution Width 11.9 % (11.0-16.0); White Blood Count 7.7 X10*3/uL (4.8-10.8)
[2023-07-04 06:53] LABS: Anion Gap 10 (12-20); Blood Urea Nitrogen 20 mg/dL (9-16); Calcium 9.5 mg/dL (8.4-10.2); Carbon Dioxide 24 mmol/L (22-29); Chloride 111 mmol/L (96-108); Estimated Glomerular Filt Rate 34; Glucose Random 79 mg/dL (60-115); Sodium 141 mmol/L (135-145)
[2023-07-04 07:50] LABS: Iron 29 mcg/dL (30-160); Percent Iron Saturation 19 % (15-50); Total Iron Binding Capacity 156 mcg/dL (228-428); Unsaturated Iron Binding 127 ug/dL
[2023-07-04 07:53] VITALS: BP 110/51; PULSE 66; RESP 16; TEMP 36.7; O2SAT 98
[2023-07-04 08:10] LABS: Ferritin 240 ng/mL (10-250)
[2023-07-04] MEDS: 0.9 % Sodium Chloride Flush 3 ML SYRINGE IVFLUSH ×3 (08:44→23:56)
[2023-07-04] MEDS: Famotidine 20 MG TABLET PO (08:44)
[2023-07-04] MEDS: cefTRIAXone sodium 2 GM in 0.9 % Sodium Chloride 50 ML IV (08:44)
[2023-07-04] MEDS: Metoprolol Tartrate 50 MG TABLET PO ×2 (08:44→19:27)
[2023-07-04] MEDS: Docusate Sodium 100 MG CAPSULE PO ×2 (11:01→19:27)
--- NOTE | 2023-07-04 13:41 | PM.PNGS ---
Subjective Subjective Date of Service: 07/04/23 Interval history: The patient says she is fine and not having any pain Physical Exam Vital Signs: Vital Signs: Last Vital Signs Temp 98.0 F 07/04/23 07:53 Pulse 66 07/04/23 07:53 Resp 16 07/04/23 07:53 BP 110/51 L 07/04/23 07:53 Pulse Ox 98 07/04/23 07:53 O2 Del Method Room Air 07/04/23 07:53 O2 Flow Rate 2 07/01/23 03:38 BMI result Body Mass Index 33.5 Const: General: cooperative, healthy appearing, comfortable, no acute distress and confusion Orientation/consciousness: confusion GI: Other: Abdomen is soft nondistended nontender drain has collection of pile and that is that looks clean Skin: Other: Nonicteric Neuro: General: confusion Objective Data Active Medications Acetaminophen (Acetaminophen 325 Mg Tablet) 650 mg PO Q6H PRN PRN Reason: Pain, Mild (Pain Scale 1-3) Docusate Sodium (Docusate Sodium 100 Mg Capsule) 100 mg PO BID [facility] Last Admin: 07/04/23 11:01 Dose: 100 mg Documented By: ANA LILIA Enoxaparin Sodium (Enoxaparin Sodium 30 Mg/0.3 Ml Syringe) 30 mg SUBCUT Q24H [facility] Last Admin: 07/03/23 22:17 Dose: 30 mg Documented By: RONALD Famotidine (Famotidine 20 Mg Tablet) 20 mg PO DAILY [facility] Last Admin: 07/04/23 08:44 Dose: 20 mg Documented By: ANA LILIA Ceftriaxone Sodium 2 gm/ (Sodium Chloride) 50 mls @ 100 mls/hr IV Q24H [facility] Last Infusion: 07/04/23 09:19 Dose: Infused Documented By: ANA LILIA Metoprolol Tartrate (Metoprolol Tartrate 50 Mg Tablet) 50 mg PO BID [facility]; Protocol Last Admin: 07/04/23 08:44 Dose: 50 mg Documented By: ANA LILIA Ondansetron HCl (Ondansetron Hcl 4 Mg/2 Ml Vial) 4 mg IVPUSH RQ6H PRN PRN Reason: Nausea and Vomiting Oxycodone HCl (Oxycodone Hcl Immed Release 5 Mg Tablet) 5 mg PO Q6H PRN PRN Reason: Pain, Moderate(Pain Scale 4-6) Polyethylene Glycol (Polyethylene Glycol 3350 17 Gm Powd.Pack) 17 gm PO DAILY [facility] Sodium Chloride (0.9 % Sodium Chloride Flush 3 Ml Syringe) 3 ml IVFLUSH QSHIFT [facility] Last Admin: 07/04/23 08:44 Dose: 3 ml Documented By: ANA LILIA Labs 07/04/23 05:28 07/04/23 05:28 Labs: Laboratory Results - last 24 hr 07/04/23 05:28 MCV 92.1 MCH 30.7 MCHC 33.3 RDW 11.9 Plt Count 216 MPV 10.4 Absolute Nucleated RBC 0.000 Nucleated RBC % (auto) 0.0 Anion Gap 10 L Estim Creat Clear Calc 31.0 Estimated GFR 34 Random Glucose 79 Calcium 9.5 Iron 29 L TIBC 156 L % Saturation 19 Unsat Iron Binding 127 Ferritin 240 Microbiology Microbiology Results: Microbiology 07/02/23 08:59 Blood Culture - Preliminary Blood - Venous No growth after 48 hours. 07/02/23 08:59 Blood Culture - Preliminary Blood - Venous No growth after 48 hours. 06/30/23 15:00 Gram Stain - Final Gallbladder Routine Culture - Final Haemophilus parainfluenzae Procedures Date of Service Date of Service: 07/04/23 Progress Note: A&P Assessment and plan (1) Acute calculous cholecystitis: Status: Acute Assessment and Plan: 82-year-old female doing very well status post interventional I placed cholecystostomy tube treated with antibiotics. Tolerating diet walking around. She may be at her baseline confusion were maybe a little worse but I do not think that it is safe for her to go home alone. Her she is under 1-1 observation so sure that she does not pull out her drain I discussion was had with case management and they will talk to her sister tomorrow and try to come up with a plan for her. her sister seems to think that she is fine and is at her baseline. She says that the patient had been driving and staying on her own in her apartment and cooking etc. I have significant concerns about this. From a medical perspective she is doing well and can be DC with a cholecystostomy tube in place and p.o. antibiotics and follow-up in the surgical clinic in a week Time Spent With Patient Time: Total time managing care of this patient today ____ minutes. Quality Stroke Does the patient have a stroke diagnosis?: No VTE Prior VTE?: No VTE Risk Level:: Surgical - moderate VTE Device Contraindication: N/A - Device Ordered VTE Drug Contraindication: N/A - Med Ordered
--- NOTE | 2023-07-04 13:54 | MHC.CM.PN ---
EMR REVIEWED, PER SURGICAL CONCERNS REGARDING DC PLAN TO HOME PT IS ALONE IN APT W/NEW CHOLEY TUBE, SURGICAL QUESTIONING IF PT SHOULD HAVE STR STAY, CM HAS PLACED A REFERRAL TO LOCAL SNF'S, PT NOT YET MEDICALLY CLEARED AND CM WILL FOLLOW UP W/FAMILY WEDNESDAY.
--- NOTE | 2023-07-04 14:01 | P.PNIM_ITS ---
Subjective Subjective Date of Service: 07/04/23 Interval History: Being followed for cholecystitis status post cholecystostomy tube placement and Streptococcus viridans bacteremia Patient with baseline dementia difficult to obtain history. Does complain of right upper quadrant abdominal pain, no fever documented, no nausea, no vomiting, no bowel movement. No acute events overnight. Review of Systems Unable to obtain due to underlying dementia. Physical Exam 2 Vital Signs: Vital Signs: Last Vital Signs Temp 98.0 F 07/04/23 07:53 Pulse 66 07/04/23 07:53 Resp 16 07/04/23 07:53 BP 110/51 L 07/04/23 07:53 Pulse Ox 98 07/04/23 07:53 O2 Del Method Room Air 07/04/23 07:53 O2 Flow Rate 2 07/01/23 03:38 BMI result Body Mass Index 33.5 Const: Other: General patient resting comfortably in no acute distress. Neck supple, no JVD. CVS regular rate rhythm, Respiratory lungs clear to auscultation, no respiratory distress, no wheeze, no rhonchi. Gastrointestinal abdomen soft, mild tender at site of kailash drain, bowel sounds audible, KAILASH drain in place with persistent serosanguineous drainage Extremities no edema. Neuro non focal,moving all 4 extremity,speech clear. Skin no rash Impaired insight Objective Data Active Medications Acetaminophen (Acetaminophen 325 Mg Tablet) 650 mg PO Q6H PRN PRN Reason: Pain, Mild (Pain Scale 1-3) Docusate Sodium (Docusate Sodium 100 Mg Capsule) 100 mg PO BID [facility] Last Admin: 07/04/23 11:01 Dose: 100 mg Documented By: ANA LILIA Enoxaparin Sodium (Enoxaparin Sodium 30 Mg/0.3 Ml Syringe) 30 mg SUBCUT Q24H [facility] Last Admin: 07/03/23 22:17 Dose: 30 mg Documented By: RONALD Famotidine (Famotidine 20 Mg Tablet) 20 mg PO DAILY [facility] Last Admin: 07/04/23 08:44 Dose: 20 mg Documented By: ANA LILIA Ceftriaxone Sodium 2 gm/ (Sodium Chloride) 50 mls @ 100 mls/hr IV Q24H [facility] Last Infusion: 07/04/23 09:19 Dose: Infused Documented By: ANA LILIA Metoprolol Tartrate (Metoprolol Tartrate 50 Mg Tablet) 50 mg PO BID [facility]; Protocol Last Admin: 07/04/23 08:44 Dose: 50 mg Documented By: ANA LILIA Ondansetron HCl (Ondansetron Hcl 4 Mg/2 Ml Vial) 4 mg IVPUSH RQ6H PRN PRN Reason: Nausea and Vomiting Oxycodone HCl (Oxycodone Hcl Immed Release 5 Mg Tablet) 5 mg PO Q6H PRN PRN Reason: Pain, Moderate(Pain Scale 4-6) Polyethylene Glycol (Polyethylene Glycol 3350 17 Gm Powd.Pack) 17 gm PO DAILY [facility] Sodium Chloride (0.9 % Sodium Chloride Flush 3 Ml Syringe) 3 ml IVFLUSH QSHIFT [facility] Last Admin: 07/04/23 08:44 Dose: 3 ml Documented By: ANA LILIA Labs 07/04/23 05:28 07/04/23 05:28 Labs: Laboratory Results - last 24 hr 07/04/23 05:28 MCV 92.1 MCH 30.7 MCHC 33.3 RDW 11.9 Plt Count 216 MPV 10.4 Absolute Nucleated RBC 0.000 Nucleated RBC % (auto) 0.0 Anion Gap 10 L Estim Creat Clear Calc 31.0 Estimated GFR 34 Random Glucose 79 Calcium 9.5 Iron 29 L TIBC 156 L % Saturation 19 Unsat Iron Binding 127 Ferritin 240 Microbiology Microbiology Results: Microbiology 07/02/23 08:59 Blood Culture - Preliminary Blood - Venous No growth after 48 hours. 07/02/23 08:59 Blood Culture - Preliminary Blood - Venous No growth after 48 hours. 06/30/23 15:00 Gram Stain - Final Gallbladder Routine Culture - Final Haemophilus parainfluenzae Assessment and Plan (1) Bacteremia: Status: Acute (2) Elevated troponin: Status: Acute (3) Acute calculous cholecystitis: Status: Acute Plan 82 yo F with vascular dementia admitted for acute camila. Medical consult requested for pre-op eval. 1. Acute cholecystitis with Streptococcus viridans bacteremia tolerating diet, WBC normalized s/p IR guided cholecystostomy tube. s/p IV vanco and Zosyn day 3, now on IV ceftriaxone d3/14 Repeat blood cultures x2 neg x 48h, will transition to by mouth Ceftin 500mg bid for total 2 weeks upon dc Continue Tylenol, added oxycodone for pain, added stool softeners recommend ambulation Disposition as per General surgery 2. HTN BP stable cont. metoprolol 50 b.i.d. will continue to hold lisinopril and hydrochlorothiazide due to NEAL/will DC lisinopril and hydrochlorothiazide upon discharge 3. Elevated trop Flat x 3; EKG without ischemic changes; no history of CAD per history likely demand mediated 4. NEAL vs CKD SCr 1.85 on admission, creatinine improved to 1.45 unchanged since yesterday. Continue to hold DELORES, avoid hypotension, DC IV fluid to avoid fluid overload Follow BMP. 5. Vascular dementia monitor for behavioral changes stable at this time 6. Mild acute hypokalemia repleted and normalized. 7. Class 1 obesity recommend low-calorie diet. 8. DVT prophylaxis with Lovenox Will continue to follow Quality Stroke Does the patient have a stroke diagnosis?: No VTE Prior VTE?: No VTE Risk Level:: Surgical - moderate VTE Device Contraindication: N/A - Device Ordered VTE Drug Contraindication: N/A - Med Ordered
[2023-07-04 15:25] VITALS: BP 132/60; PULSE 69; RESP 18; TEMP 36.7; O2SAT 97
[2023-07-04 18:50] VITALS: BP 143/90; PULSE 100; RESP 16; TEMP 36.2; O2SAT 98
[2023-07-04] MEDS: Enoxaparin Sodium 30 MG/0.3 ML SYRINGE SUBCUT (19:27)
[2023-07-05 04:00] VITALS: BP 165/72; PULSE 80; RESP 16; TEMP 36.1; O2SAT 97
[2023-07-05] MEDS: Omeprazole 20 MG CAPSULE.DR PO (05:30)
[2023-07-05 07:05] VITALS: BP 143/68; PULSE 92; RESP 17; TEMP 36.3; O2SAT 98
[2023-07-05] MEDS: polyethylene glycoL 3350 17 GM POWD.PACK PO (08:55)
[2023-07-05] MEDS: Docusate Sodium 100 MG CAPSULE PO ×2 (08:55→19:49)
[2023-07-05] MEDS: Metoprolol Tartrate 50 MG TABLET PO ×2 (08:55→19:49)
[2023-07-05] MEDS: 0.9 % Sodium Chloride Flush 3 ML SYRINGE IVFLUSH (08:55)
--- NOTE | 2023-07-05 11:35 | MHC.CM.PN ---
Addendum entered by Alicia Roberson RN 07/05/23 16:18: COPY OF HCP PLACED IN PAPER CHART AND UPLOADED TO [facility] Addendum entered by Alicia Roberson RN 07/05/23 16:16: PT rec trial of STR, eventual LTC vs home w/ private care. CM reviewed with sister Danna. STR prefereces are 1) [facility] and 2) [facility]. Referrals updated via [facility]. Danna is aware patient will need to be without a sitter for 24 hrs before a facility will accept. Danna will continue to work on setting up private in home care. Addendum entered by Alicia Roberson RN 07/05/23 15:43: Patient's sister's name is Danna. Original Note: CM met with patient's sister Tanya, who reports she is HCP and will bring in copy. Verbal consent received from patient to speak with Tanya. Patient w/ dx dementia, but lives alone and functions independently at baseline. Sister lives in same building. Patient now w/ increased confusion and some agitation. SAVITA drain in place. Family questioning need for [facility] MD to order eval. Additionally, discussed alternate plan to return home with new VNA. - sister to stay with patient, family looking into hiring [employer]. Referral placed to [facility]. Plan to follow up with family after PT eval.
--- NOTE | 2023-07-05 12:18 | P.PNIM_ITS ---
Subjective Subjective Date of Service: 07/05/23 Interval History: No acute issues overnight. Remains pleasantly confused Review of Systems Denies chest pain Denies shortness of breath Denies nausea vomiting diarrhea Denies fever chills Physical Exam 2 Vital Signs: Vital Signs: Last Vital Signs Temp 97.4 F 07/05/23 07:05 Pulse 92 07/05/23 07:05 Resp 17 07/05/23 07:05 BP 143/68 H 07/05/23 07:05 Pulse Ox 98 07/05/23 07:05 O2 Del Method Room Air 07/05/23 07:05 O2 Flow Rate 2 07/01/23 03:38 BMI result Body Mass Index 33.5 Const: Other: Awake alert confused no acute distress Resp: Other: Clear to auscultation bilaterally no rales rhonchi or wheezes Cardio: Other: No S4; positive S1-S2; no S3 murmurs rubs or gallops GI: Other: Soft nontender nondistended normoactive bowel sounds. Cholecystostomy site clean dry and intact Extrem: Other: No edema bilaterally Objective Data Active Medications Acetaminophen (Acetaminophen 325 Mg Tablet) 650 mg PO Q6H PRN PRN Reason: Pain, Mild (Pain Scale 1-3) Docusate Sodium (Docusate Sodium 100 Mg Capsule) 100 mg PO BID [facility] Last Admin: 07/05/23 08:55 Dose: 100 mg Documented By: ANA LILIA Enoxaparin Sodium (Enoxaparin Sodium 30 Mg/0.3 Ml Syringe) 30 mg SUBCUT Q24H [facility] Last Admin: 07/04/23 19:27 Dose: 30 mg Documented By: RONALD Ceftriaxone Sodium 2 gm/ (Sodium Chloride) 50 mls @ 100 mls/hr IV Q24H [facility] Last Admin: 07/05/23 11:48 Dose: Not Given Documented By: ANA LILIA Non-Admin Reason: No Access Metoprolol Tartrate (Metoprolol Tartrate 50 Mg Tablet) 50 mg PO BID [facility]; Protocol Last Admin: 07/05/23 08:55 Dose: 50 mg Documented By: ANA LILIA Omeprazole (Omeprazole 20 Mg Capsule.) 20 mg PO DAILY@0630 [facility] Last Admin: 07/05/23 05:30 Dose: 20 mg Documented By: ERLINDA Ondansetron HCl (Ondansetron Hcl 4 Mg/2 Ml Vial) 4 mg IVPUSH RQ6H PRN PRN Reason: Nausea and Vomiting Oxycodone HCl (Oxycodone Hcl Immed Release 5 Mg Tablet) 5 mg PO Q6H PRN PRN Reason: Pain, Moderate(Pain Scale 4-6) Polyethylene Glycol (Polyethylene Glycol 3350 17 Gm Powd.Pack) 17 gm PO DAILY [facility] Last Admin: 07/05/23 08:55 Dose: 17 gm Documented By: ANA LILIA Sodium Chloride (0.9 % Sodium Chloride Flush 3 Ml Syringe) 3 ml IVFLUSH QSHIFT [facility] Last Admin: 07/05/23 08:55 Dose: 3 ml Documented By: ANA LILIA Labs 07/04/23 05:28 07/04/23 05:28 Microbiology Microbiology Results: Microbiology 07/02/23 08:59 Blood Culture - Preliminary Blood - Venous No growth after 48 hours. 07/02/23 08:59 Blood Culture - Preliminary Blood - Venous No growth after 48 hours. 06/30/23 15:00 Gram Stain - Final Gallbladder Routine Culture - Final Haemophilus parainfluenzae Assessment and Plan (1) Acute calculous cholecystitis: Status: Acute (2) Elevated troponin: Status: Acute Plan 82 yo F with vascular dementia admitted for acute camila. Doing well post IR cholecystostomy tube 1. Acute cholecystitis -s/p IR guided cholecystostomy tube. -s/p IV vanco and Zosyn day 3; has lost IV access. Will switch to Ceftin 250 b.i.d. for 14 days -continue Tylenol, added oxycodone for pain, added stool softeners recommend ambulation 2. HTN -acceptable control on current therapies -at back DELORES inhibitor and thiazide when appropriate 3. NEAL vs CKD -responded to volume -IV fluids DC secondary to euvolemia -follow renals/divalents 5. Vascular dementia -at baseline -PT eval; hopeful short-term rehab Will continue to follow Quality Stroke Does the patient have a stroke diagnosis?: No VTE Prior VTE?: No VTE Risk Level:: Surgical - moderate VTE Device Contraindication: N/A - Device Ordered VTE Drug Contraindication: N/A - Med Ordered
--- NOTE | 2023-07-05 13:45 | PM.PNGS ---
Subjective Subjective Date of Service: 07/05/23 Interval history: Has been doing very well Good oral intake Denies abdominal pain Physical Exam Vital Signs: Vital Signs: Last Vital Signs Temp 97.4 F 07/05/23 07:05 Pulse 92 07/05/23 07:05 Resp 17 07/05/23 07:05 BP 143/68 H 07/05/23 07:05 Pulse Ox 98 07/05/23 07:05 O2 Del Method Room Air 07/05/23 07:05 O2 Flow Rate 2 07/01/23 03:38 BMI result Body Mass Index 33.5 Const: General: comfortable and no acute distress Resp: Effort & Inspection: normal respiratory effort Cardio: Rate: regular rate GI: Other: IR drain in place Palpation (GI): Soft to palpation, not firm and nontender Objective Data Active Medications Acetaminophen (Acetaminophen 325 Mg Tablet) 650 mg PO Q6H PRN PRN Reason: Pain, Mild (Pain Scale 1-3) Docusate Sodium (Docusate Sodium 100 Mg Capsule) 100 mg PO BID [facility] Last Admin: 07/05/23 08:55 Dose: 100 mg Documented By: ANA LILIA Enoxaparin Sodium (Enoxaparin Sodium 30 Mg/0.3 Ml Syringe) 30 mg SUBCUT Q24H [facility] Last Admin: 07/04/23 19:27 Dose: 30 mg Documented By: RONALD Ceftriaxone Sodium 2 gm/ (Sodium Chloride) 50 mls @ 100 mls/hr IV Q24H [facility] Last Admin: 07/05/23 11:48 Dose: Not Given Documented By: ANA LILIA Non-Admin Reason: No Access Metoprolol Tartrate (Metoprolol Tartrate 50 Mg Tablet) 50 mg PO BID [facility]; Protocol Last Admin: 07/05/23 08:55 Dose: 50 mg Documented By: ANA LILIA Omeprazole (Omeprazole 20 Mg Capsule.Dr) 20 mg PO DAILY@0630 [facility] Last Admin: 07/05/23 05:30 Dose: 20 mg Documented By: ERLINDA Ondansetron HCl (Ondansetron Hcl 4 Mg/2 Ml Vial) 4 mg IVPUSH RQ6H PRN PRN Reason: Nausea and Vomiting Oxycodone HCl (Oxycodone Hcl Immed Release 5 Mg Tablet) 5 mg PO Q6H PRN PRN Reason: Pain, Moderate(Pain Scale 4-6) Polyethylene Glycol (Polyethylene Glycol 3350 17 Gm Powd.Pack) 17 gm PO DAILY [facility] Last Admin: 07/05/23 08:55 Dose: 17 gm Documented By: ANA LILIA Sodium Chloride (0.9 % Sodium Chloride Flush 3 Ml Syringe) 3 ml IVFLUSH QSHIFT [facility] Last Admin: 07/05/23 08:55 Dose: 3 ml Documented By: ANA LILIA Labs 07/04/23 05:28 07/04/23 05:28 Microbiology Microbiology Results: Microbiology 07/02/23 08:59 Blood Culture - Preliminary Blood - Venous No growth after 48 hours. 07/02/23 08:59 Blood Culture - Preliminary Blood - Venous No growth after 48 hours. Procedures Date of Service Date of Service: 07/05/23 Progress Note: A&P Assessment and plan (1) Acute calculous cholecystitis: Status: Acute Assessment and Plan: Status post IR drain for cholecystostomy tube Doing very well Small amounts of bilious fluid and drain Tolerating diet well No fever Awaiting PT eval for discharge planning Possible DC tomorrow Discussed with Danna her sister Time Spent With Patient Time: Total time managing care of this patient today ____ minutes. Quality Stroke Does the patient have a stroke diagnosis?: No VTE Prior VTE?: No VTE Risk Level:: Surgical - moderate VTE Device Contraindication: N/A - Device Ordered VTE Drug Contraindication: N/A - Med Ordered
[2023-07-05 14:34] LABS: OBS Int Ctl Valid YES; OBS1 NEGATIVE (NEGATIVE)
--- NOTE | 2023-07-05 15:01 | PC.NURSE ---
IV to Rt AC kinked and difficult flush. IV was inserted by ultrasound. Dr. Sarabia notified. Ok to leave IV out. Plan to change antibiotics to PO.
[2023-07-05 15:28] VITALS: BP 151/71; PULSE 78; RESP 20; TEMP 36.4; O2SAT 98
--- NOTE | 2023-07-05 16:12 | MHC.CLN ---
NUTRITION CONSULT FOR FAMILY REQUEST TO SPEAK WITH RD. MET WITH PATIENT AND HER SISTER AVELINA. SISTER WANTED INFORMATION ABOUT GALLBLADDER NUTRITION. ADVISED THAT MD ORDERED REGULAR DIET FOR PATIENT AND APPEARS TO BE TOLERATING WELL. PROVIDED HANDOUT AND DISCUSSION ABOUT AVOIDING HIGHER FAT FOODS AND EATING SMALLER MEALS.
[2023-07-05 19:46] VITALS: BP 138/63; PULSE 95; RESP 16; TEMP 36.6; O2SAT 99
[2023-07-05] MEDS: Enoxaparin Sodium 30 MG/0.3 ML SYRINGE SUBCUT (19:49)
[2023-07-05] MEDS: Acetaminophen 325 MG TABLET 650 MG PO (20:59)
[2023-07-05] MEDS: Melatonin 3 MG TABLET 6 MG PO (20:59)
[2023-07-06 04:00] VITALS: BP 149/68; PULSE 65; RESP 17; TEMP 36; O2SAT 97
[2023-07-06 05:46] LABS: MANUAL DIFF FLAG NO
[2023-07-06 05:58] LABS: Basophils Absolute Auto 0.1 X10*3/uL (0.0-0.2); Basophils Percent Auto 0.5 % (0-2); Eosinophils Absolute Auto 0.6 X10*3/uL (0.0-0.4); Eosinophils Percent Auto 6.5 % (0-4); Hematocrit 29.7 % (37.0-47.0); Hemoglobin 9.9 g/dl (12.0-16.0); Imm Gran Abs Auto 0.18 X10*3/uL (0.00-0.03); Imm Gran Pct Auto 1.9 % (0.0-0.4); Lymphocytes Absolute Auto 2.3 X10*3/uL (1.2-4.9); Lymphocytes Percent Auto 24.2 % (20-40); Mean Corpuscular HGB Conc 33.3 g/dl (31.0-35.0); Mean Corpuscular Hemoglobin 30.3 pg (27.0-33.0); Mean Corpuscular Volume 90.8 fL (80.0-98.0); Mean Platelet Volume 9.8 fL (9.4-12.3); Monocytes Absolute Auto 1.2 X10*3/uL (0.1-1.2); Monocytes Percent Auto 12.1 % (2-11); Neutrophils Absolute Auto 5.2 x10*3/uL (2.0-8.3); Neutrophils Percent Auto 54.8 % (45-73); Platelet Count 271 X10*3/uL (160-400); Red Blood Count 3.27 X10*6/uL (4.20-5.50); White Blood Count 9.5 X10*3/uL (4.8-10.8)
[2023-07-06 06:18] LABS: Alanine Aminotransferase 13 U/L (0-31); Alkaline Phosphatase 54 U/L (39-117); Anion Gap 13 (12-20); Aspartate Amino Transferase 14 U/L (5-31); Bilirubin Total 0.4 mg/dL (0.0-1.0); Blood Urea Nitrogen 18 mg/dL (9-16); Carbon Dioxide 24 mmol/L (22-29); Chloride 108 mmol/L (96-108); Creatinine Clr Calc Pharmacy 31.7; Estimated Glomerular Filt Rate 35; Glucose Fasting 89 mg/dL (60-99); Potassium 4.1 mmol/L (3.3-5.1); Sodium 141 mmol/L (135-145); Total Protein 5.9 g/dL (6.5-8.0)
[2023-07-06 08:01] VITALS: BP 143/63; PULSE 62; RESP 20; TEMP 36.3; O2SAT 98
--- NOTE | 2023-07-06 08:27 | PC.NURSE ---
Pt steady on her feet. Okay to wonder in the room per MD Sarabia. VMT to alert staff if patient exits the room to notify staff.
[2023-07-06] MEDS: Metoprolol Tartrate 50 MG TABLET PO (08:47)
[2023-07-06] MEDS: cefuroxime axetiL 250 MG TABLET PO (08:48)
--- NOTE | 2023-07-06 09:01 | P.PNGS_ITS ---
Subjective Subjective Date of Service: 07/12/23 Interval history: Feels well Tolerating diet Denies complaints Has baseline dementia Physical Exam 2 Vital Signs: Vital Signs: Last Vital Signs Temp 97.3 F 07/06/23 08:01 Pulse 62 07/06/23 08:01 Resp 20 07/06/23 08:01 BP 143/63 H 07/06/23 08:01 Pulse Ox 98 07/06/23 08:01 O2 Del Method Room Air 07/06/23 08:01 O2 Flow Rate 2 07/01/23 03:38 BMI result Body Mass Index 33.5 Const: Other: Has dementia but does answer some questions General: comfortable and no acute distress Neck: Neck: Yes no lymphadenopathy Resp: Auscultation: clear to auscultation bilaterally Cardio: Rhythm: regular rhythm GI: Other: IR cholecystostomy tube in place, scanty output Palpation (GI): Soft to palpation, nontender and no guarding Objective Data Active Medications Acetaminophen (Acetaminophen 325 Mg Tablet) 650 mg PO Q6H PRN PRN Reason: Pain, Mild (Pain Scale 1-3) Last Admin: 07/05/23 20:59 Dose: 650 mg Documented By: MEEK Cefuroxime Axetil (Cefuroxime Axetil 250 Mg Tablet) 250 mg PO BID [facility] Last Admin: 07/06/23 08:48 Dose: 250 mg Documented By: JA Docusate Sodium (Docusate Sodium 100 Mg Capsule) 100 mg PO BID [facility] Last Admin: 07/06/23 08:49 Dose: Not Given Documented By: JA Non-Admin Reason: mult loose stools yestersay Enoxaparin Sodium (Enoxaparin Sodium 30 Mg/0.3 Ml Syringe) 30 mg SUBCUT Q24H [facility] Last Admin: 07/05/23 19:49 Dose: 30 mg Documented By: MEEK Melatonin (Melatonin 3 Mg Tablet) 6 mg PO BEDTIME PRN PRN Reason: insomnia Last Admin: 07/05/23 20:59 Dose: 6 mg Documented By: MEEK Metoprolol Tartrate (Metoprolol Tartrate 50 Mg Tablet) 50 mg PO BID [facility]; Protocol Last Admin: 07/06/23 08:47 Dose: 50 mg Documented By: JA Omeprazole (Omeprazole 20 Mg Capsule.) 20 mg PO DAILY@0630 [facility] Last Admin: 07/06/23 06:33 Dose: Not Given Documented By: MEEK Non-Admin Reason: Patient Refused Ondansetron HCl (Ondansetron Hcl 4 Mg/2 Ml Vial) 4 mg IVPUSH RQ6H PRN PRN Reason: Nausea and Vomiting Oxycodone HCl (Oxycodone Hcl Immed Release 5 Mg Tablet) 5 mg PO Q6H PRN PRN Reason: Pain, Moderate(Pain Scale 4-6) Polyethylene Glycol (Polyethylene Glycol 3350 17 Gm Powd.Pack) 17 gm PO DAILY [facility] Last Admin: 07/06/23 08:47 Dose: Not Given Documented By: JA Non-Admin Reason: mult loose stools yesterday Sodium Chloride (0.9 % Sodium Chloride Flush 3 Ml Syringe) 3 ml IVFLUSH QSHIFT [facility] Last Admin: 07/06/23 07:34 Dose: Not Given Documented By: JA Non-Admin Reason: No Access Labs 07/06/23 05:14 07/06/23 05:14 Labs: Laboratory Results - last 24 hr 07/05/23 07/06/23 14:07 05:14 MCV 90.8 MCH 30.3 MCHC 33.3 RDW 12.0 Plt Count 271 D MPV 9.8 Immature Gran % (Auto) 1.9 H Neut % (Auto) 54.8 Lymph % (Auto) 24.2 [place] % (Auto) 12.1 H Eos % (Auto) 6.5 H Baso % (Auto) 0.5 Lymph # (Auto) 2.3 [place] # (Auto) 1.2 Eos # (Auto) 0.6 H Baso # (Auto) 0.1 Abs Immat Gran (auto) 0.18 H Absolute Neuts (auto) 5.2 Absolute Nucleated RBC 0.000 Nucleated RBC % (auto) 0.0 Anion Gap 13 Estim Creat Clear Calc 31.7 Estimated GFR 35 Fasting Glucose 89 Calcium 10.0 Total Bilirubin 0.4 AST 14 ALT 13 Alkaline Phosphatase 54 Total Protein 5.9 L Albumin 3.0 L Stool Occult Blood NEGATIVE Procedures Date of Service Date of Service: 07/12/23 Progress Note: A&P Assessment and plan (1) Acute calculous cholecystitis: Status: Acute Assessment and Plan: Status post IR cholecystostomy tube Looks well Has baseline dementia Awaiting further eval for placement As per case management coordinator, if she does not require sitter for over 24 hours, may be able to transferred to rehab Her sister Danna was updated Time Spent With Patient Time: Total time managing care of this patient today ____ minutes. Quality Stroke Does the patient have a stroke diagnosis?: No VTE Prior VTE?: No VTE Risk Level:: Surgical - moderate VTE Device Contraindication: N/A - Device Ordered VTE Drug Contraindication: N/A - Med Ordered
--- NOTE | 2023-07-06 11:25 | MHC.CM.PN ---
EMR reviewed. Per MD rounds patient is medically cleared for dc. CM met with patient and sister/HCP Danna. Both prefer plan to dc home w02/11 family support and [facility]. MD aware and agreeable to plan. [facility] informed of dc. IMM delivered. Danna will provide transportation at 3pm. RN and aware.
--- NOTE | 2023-07-06 13:13 | PM.DS ---
DS: Providers Provider Date of Service: 07/06/23 Date of admission: 06/29/23 21:03 Date of discharge: 07/06/23 Primary care physician: Anne Solis MD Consults: 06/29/23 21:29 Consult to Hospitalist Routine Comment: Consulting Provider: Hospitalist Reason For Exam: preop clearance and elevated troponins DS: Diagnosis Discharge Diagnosis (1) Acute calculous cholecystitis: Status: Acute (2) Bacteremia: Status: Acute DS: Summary Hospital Course Hospital Course: 82-year-old female comes in with history of right upper quadrant pain tenderness and some nausea vomiting. She has vascular dementia and is confused that is hard to get a good story from her. Workup here revealed white count elevated 22,000 creatinine elevated and her troponins elevated. She is tender in the right upper quadrant. CT scan and ultrasound are consistent with findings of acute cholecystitis. In discussion with the ER physician as well as the hospitalist we decided to repeat the troponin of 45 and it was still elevated 38. This is somewhat improved. Patient denies any chest pain shortness for breath but she is also pleasantly confused although I think that she would be able to confirm if she did have the symptoms. Her sister agrees to this. In discussion with anesthesia it was decided that we would get another trending troponin tomorrow and treat her with IV resuscitation as well as IV antibiotics and reassess. Anesthesia is concerned about elevated demand for her surgery and I agree I think at this point tonight there has no emergent requirement for any surgical intervention. She may improve with antibiotics alone she may need more for cardiac workup and we may even consider the option of a cholecystostomy tube if her risks outweigh her benefits when it comes to surgery. An extensive discussion was had with patient's sister Danna who is her power of banking attorney at phone number [phone]. Hospital course Admitted to general medical floor and started on IV ceftriaxone. As per surgery as stated above patient underwent a percutaneous nephrostomy tube on 06/30/2023 without incident. She did well in the postprocedure. It maintained on ceftriaxone. She did demonstrate some generalized confusion and a moderate degree of aphasia during her course. Ultimately blood cultures grew out strep for adhesions it was sensitive to ceftriaxone. Long discussion with sister and patient and at this time she is medically acceptable for discharge to home given the support she can be provided by family. Discussed with surgery all in agreement. We will go home to complete 14 day course of Ceftin and follow-up in office with surgery for tube removal. Time Attestation Discharge Coordination Time (in mins): 35 Quality: Safe Use of Opioids Does Pt have an Active Cancer Diagnosis on the Problem List?: No Quality: Stroke Does the patient have a stroke diagnosis?: No Physical Exam Vital Signs: Vital Signs: Last Vital Signs Temp 97.3 F 07/06/23 08:01 Pulse 62 07/06/23 08:01 Resp 20 07/06/23 08:01 BP 143/63 H 07/06/23 08:01 Pulse Ox 98 07/06/23 08:01 O2 Del Method Room Air 07/06/23 08:01 O2 Flow Rate 2 07/01/23 03:38 BMI result Body Mass Index 33.5 Const: Other: Awake alert confused no acute distress Resp: Other: Clear to auscultation bilaterally no rales rhonchi or wheezes Cardio: Other: No S4; positive S1-S2; no S3 murmurs rubs or gallops GI: Other: Soft nontender nondistended normoactive bowel sounds. Cholecystostomy site clean dry and intact Extrem: Other: No edema bilaterally DS: Data Data Completed and Pending Labs on day of discharge: Laboratory Results - last 24 hr 07/05/23 07/06/23 14:07 05:14 WBC 9.5 RBC 3.27 L Hgb 9.9 L Hct 29.7 L MCV 90.8 MCH 30.3 MCHC 33.3 RDW 12.0 Plt Count 271 D MPV 9.8 Immature Gran % (Auto) 1.9 H Neut % (Auto) 54.8 Lymph % (Auto) 24.2 [place] % (Auto) 12.1 H Eos % (Auto) 6.5 H Baso % (Auto) 0.5 Lymph # (Auto) 2.3 [place] # (Auto) 1.2 Eos # (Auto) 0.6 H Baso # (Auto) 0.1 Abs Immat Gran (auto) 0.18 H Absolute Neuts (auto) 5.2 Absolute Nucleated RBC 0.000 Nucleated RBC % (auto) 0.0 Sodium 141 Potassium 4.1 Chloride 108 Carbon Dioxide 24 Anion Gap 13 BUN 18 H Creatinine 1.42 H Estim Creat Clear Calc 31.7 Estimated GFR 35 Fasting Glucose 89 Calcium 10.0 Total Bilirubin 0.4 AST 14 ALT 13 Alkaline Phosphatase 54 Total Protein 5.9 L Albumin 3.0 L Stool Occult Blood NEGATIVE Preliminary micro results at discharge 07/02/23 08:59 Blood Culture - Preliminary Blood - Venous No growth after 48 hours. 07/02/23 08:59 Blood Culture - Preliminary Blood - Venous No growth after 48 hours. Discharge Plan Discharge Anticipated Discharge Date/Time: 07/04/23 14:00 Patient Disposition: Home Health Service Discharge Diagnosis: cholecystitis, dementia Referrals: Tadeo Guaman MD [Physician] - 1 Week Discharge Medications: New amoxicillin-pot clavulanate 875-125 mg tablet 1 tab PO BID Qty: 14 0RF Continued atorvastatin 10 mg tablet 10 mg PO BEDTIME lisinopril 20 mg tablet 20 mg PO DAILY pantoprazole 20 mg tablet,delayed release (DR/EC) 20 mg PO DAILY metoprolol tartrate 50 mg tablet 50 mg PO BID aspirin 81 mg Tablet,Chewable 81 mg PO DAILY hydrochlorothiazide 25 mg tablet 25 mg PO BEDTIME Discharge Orders: Discharge Order (Routine); Ordered 07/06/23 Ordered By: Anthony Sarabia Diet: Advance to usual diet Activity on Discharge: No heavy lifting Stand Alone Forms: Patient Portal Discharge page Care Plan Goals: return to baseline treat cholecystitis Health Concerns: dementia cholecysititis Plan of Treatment: tube cholecystostomy oral abx Assessment: doing well
--- NOTE | 2023-07-06 13:24 | W.MHC.F2F ---
Service Date Service Date: 07/06/23 Encounter Date of encounter: 07/06/23 Encounter: Acute hospitalization Reasons for Services Signs and symptoms assessed: Underwent percutaneous cholecystostomy tube; dressing will need changes in tube will need to be monitored. Will also need home PT for increased strengthening Reason for long-term: other (Per acute he is drain dressing changes and monitoring site) Reason for physical therapy: home safety and mobility, gait/transfer training and ADL training Homebound: Leaving the home is medically contraindicated at this time without the asist of a device and/or another person due th the listed conditions above and below. Reason homebound: unsteady gait / fall risk, cognitively impaired / unsafe and unable to drive Certification: Based on the above findings, I certify that this patient is confined to the home and needs intermittent long-term care, physical therapy and/or speech therapy, or continues to need occupational therapy. The patient is under my care, and I have initiated the establishment of the plan of care. The patient will be followed by a physician who will periodically review the plan of care. Time Spent With Patient Time: Total time managing care of this patient today ____ minutes.
== END 2023-07-06 15:46 | disposition home health service (06) | DRG 445 ==
LOC: HO.ED 19:12 → HO.EDOVER 21:12 → HO.S3 06-30 19:37
PROVIDERS: Family Medicine; Hospitalist; Physician Assistant Medical; Student in an Organized Health Care Education/Training Program; Surgery; Admitting Provider Surgery; Emergency Provider Internal Medicine; PCP Internal Medicine; Visit Provider Surgery
DX: K80.00 Calculus of gallbladder with acute cholecystitis without obstruction (principal); N17.9 Acute kidney failure, unspecified; R78.81 Bacteremia; I12.9 Hypertensive chronic kidney disease with stage 1 through stage 4 chronic kidney disease, or unspecified chronic kidney disease; E87.6 Hypokalemia; E78.00 Pure hypercholesterolemia, unspecified; N18.9 Chronic kidney disease, unspecified; E66.8 Other obesity; Z68.33 Body mass index [BMI] 33.0-33.9, adult; Z71.3 Dietary counseling and surveillance; B95.4 Other streptococcus as the cause of diseases classified elsewhere; F01.50 Vascular dementia, unspecified severity, without behavioral disturbance, psychotic disturbance, mood disturbance, and anxiety; Z20.822 Contact with and (suspected) exposure to COVID-19; Z79.82 Long term (current) use of aspirin; Z79.899 Other long term (current) drug therapy
CPT/HCPCS: 0241U; 36415; 49406; 71046; 73502; 74176; 76705; 80048; 80053; 80076; 81001; 82272; 82550; 82728; 83540; 83605; 83690; 83735; 84484; 85007; 85025; 85027; 86850; 86900; 86901; 87040; 87070; 87077; 87185; 87186; 87205; 93005; 97162; 99285; C1729; C1894; J0131; J0696; J1630; J1650; J2270; J2359; J2405; J2543; J3370; J3475

== ENCOUNTER → 2023-06-29 13:23 | Outpatient (BNV) | payer MEDICARE, SELFPAY | PROVIDERS: Emergency Provider Internal Medicine; PCP Internal Medicine; Visit Provider Internal Medicine | DX: Z01.818 Encounter for other preprocedural examination (principal); R10.817 Generalized abdominal tenderness | CPT/HCPCS: 93010 ==

== ENCOUNTER 2023-06-29 21:03 | Outpatient (BNV) | payer MEDICARE, SELFPAY | END 2023-06-30 14:15 | PROVIDERS: Admitting Provider Surgery; Emergency Provider Internal Medicine; PCP Internal Medicine; Visit Provider Student in an Organized Health Care Education/Training Program | DX: K80.00 Calculus of gallbladder with acute cholecystitis without obstruction (principal) | CPT/HCPCS: 47490 ==

== ENCOUNTER → 2023-06-29 21:03 | Outpatient (BNV) | payer MEDICARE, SELFPAY | PROVIDERS: Admitting Provider Surgery; Emergency Provider Internal Medicine; PCP Internal Medicine; Visit Provider Family Medicine | DX: K80.00 Calculus of gallbladder with acute cholecystitis without obstruction (principal); R78.81 Bacteremia | CPT/HCPCS: 99223; 99232; 99233; 99239; G0180 ==

== ENCOUNTER → 2023-06-29 21:03 | Outpatient (BNV) | payer MEDICARE, SELFPAY | PROVIDERS: Admitting Provider Surgery; Emergency Provider Internal Medicine; PCP Internal Medicine; Visit Provider Surgery | DX: K80.00 Calculus of gallbladder with acute cholecystitis without obstruction (principal) | CPT/HCPCS: 99223; 99232; 99499; G0180 ==

== ENCOUNTER 2023-07-14 08:38 | Outpatient (AMB) | payer MEDICARE, SELFPAY ==
--- NOTE | 2023-07-14 08:39 | A.OFFVIS_ITS ---
Intake Vital Signs 07/14/23 08:46 Weight 187 lb BP 137/63 Blood Pressure Location Rt brachial Position Sitting Pulse 95 Intake Visit Reasons: cholecystitis, [facility] Inpatient Intake Note: This patient presents for cholecystitis, [facility] Inpatient follow-up. Pt c/o; reports no complaints at this time, reports [facility] nurse did wound care yesterday 07/13/2023. 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 She was admitted to the hospital last 06/29/2023 for acute cholecystitis with gallstones. She had elevated troponin at that time. She therefore had an IR gastrostomy tube placed. She did not have any problems during her admission and had been doing well. She was discharged on July 05. She had positive blood cultures with strep viridans on admission but repeat blood cultures on July 01 was negative. She has been doing well at home. There has been no fever. She has good oral intake. She has her cholecystostomy tube in place. She has cognitive issues from vascular dementia. She is able to ambulate and lives alone but her sister lives 1 floor above her. [facility] Medical History (Updated 07/14/23 @ 09:12 by Tadeo Guaman MD) Vascular dementia Cholecystitis Hyperlipidemia Hypertension Social History Household Members: Unknown / Unable to assess Housing: Unknown / Unable to assess Comment: 1:1 sitter Patient Tobacco Use Status: Never used Tobacco service: No Review of Systems Const Denies chills and Denies fever(s) Card Denies chest pain, Denies dyspnea and Denies dyspnea on exertion Resp Denies cough, Denies dyspnea and Denies dyspnea on exertion GI Denies hematochezia and Denies change in bowel habits Denies hematuria Musc Denies back pain and Denies limited range of motion Neuro Details: Has dementia Denies focal weakness and Denies convulsions Psych Denies depression and Denies mood swings Physical Exam Vital Signs: Last Vital Signs Pulse 95 07/14/23 08:46 BP 137/63 07/14/23 08:46 Const Other: Ambulating General: comfortable and no acute distress Neck Neck: Yes no lymphadenopathy Resp Auscultation: clear to auscultation bilaterally Cardio Rhythm: regular rhythm GI Other: Cholecystostomy tube in place, output clear, with a tinge of green Palpation (GI): Soft to palpation, nontender and no guarding Assessment & Plan Assessment & Plan (1) Cholecystitis: Code(s): K81.9 - Cholecystitis, unspecified Plan: She has a cholecystostomy tube in place by IR. I have I told the sister Danna that I would probably keep this a longer as would expect the output to have a deeper tinge of green. I explained to her care of the IR drain. She seems to be doing well and does not have any abdominal complaints. Her abdomen is soft and benign. Her sister also states that she would like to avoid any surgery for Fabiola as best as possible. I will see her again next week and hopefully remove the drain. Coding Level of Care Code Est Pt Level 3 (42312) Diagnoses Cholecystitis K81.9
[2023-07-14 08:46] VITALS: BP 137/63; PULSE 95
== END 2023-07-14 09:13 | disposition home or self-care (01) ==
PROVIDERS: PCP Internal Medicine; Visit Provider Surgery
DX: K81.9 Cholecystitis, unspecified (principal)
CPT/HCPCS: 99213

== ENCOUNTER → 2023-07-14 08:38 | Outpatient (BNVA) | payer MEDICARE, SELFPAY | PROVIDERS: PCP Internal Medicine; Visit Provider Surgery | DX: K81.9 Cholecystitis, unspecified (principal) | CPT/HCPCS: 99212 ==

== ENCOUNTER 2023-07-21 14:26 | Outpatient (AMB) | payer MEDICARE, SELFPAY ==
--- NOTE | 2023-07-21 14:31 | MHC.OFFVIS ---
Intake Vital Signs 07/21/23 14:42 Weight 184 lb BP 124/58 L Blood Pressure Location Rt brachial Position Sitting Pulse 69 Intake Visit Reasons: cholecystitis, 1 wk follow up Intake Note: This patient presents for a one week follow-up cholecystitis, possible drain removal. Pt c/o; reports no complaints. 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 She still has her IR cholecystostomy tube in place She feels well overall. She has good oral intake. She denies episodes of pain. Her sister Danna has brought monitoring of her drain output. There has been scanty output for the past few days and it appears to have some tinge of seen. [facility] Medical History Vascular dementia Cholecystitis Hyperlipidemia Hypertension Surgical History Hx of surgical procedure (~06/29/23) Social History Household Members: Unknown / Unable to assess Housing: Unknown / Unable to assess Comment: 1:1 sitter Patient Tobacco Use Status: Never used Tobacco service: No Review of Systems Const Denies chills and Denies fever(s) Card Denies chest pain, Denies dyspnea and Denies dyspnea on exertion Resp Denies cough, Denies dyspnea and Denies dyspnea on exertion GI Denies hematochezia and Denies change in bowel habits Denies hematuria Musc Denies back pain and Denies limited range of motion Neuro Details: Has dementia Denies focal weakness and Denies convulsions Psych Denies depression and Denies mood swings Physical Exam Vital Signs: Last Vital Signs Pulse 69 07/21/23 14:42 BP 124/58 L 07/21/23 14:42 Const Other: Ambulating General: comfortable and no acute distress Resp Effort & Inspection: normal respiratory effort Cardio Rate: regular rate GI Other: Drain in place, output scanty, with a little bit of thin greenish color Palpation (GI): Soft to palpation, not firm and nontender Assessment & Plan Assessment & Plan (1) Cholecystitis: Code(s): K81.9 - Cholecystitis, unspecified Plan: Status post IR cholecystostomy tube. She is doing very well. She is scanty thin, slightly bilious output. I therefore removed the cholecystostomy tube I advised her to stay away from fatty and oily food. She is significant cognitive difficulties so sister Danna says that she is going to check on her frequently. I will see her again in the office in about 3 weeks. Coding Level of Care Code Est Pt Level 2 (87346) Diagnoses Cholecystitis K81.9
[2023-07-21 14:42] VITALS: BP 124/58; PULSE 69
== END 2023-07-21 15:11 | disposition home or self-care (01) ==
PROVIDERS: PCP Internal Medicine; Visit Provider Surgery
DX: K81.9 Cholecystitis, unspecified (principal)
CPT/HCPCS: 99212

== ENCOUNTER → 2023-07-21 14:26 | Outpatient (BNVA) | payer MEDICARE, SELFPAY | PROVIDERS: PCP Internal Medicine; Visit Provider Surgery | DX: K81.9 Cholecystitis, unspecified (principal) | CPT/HCPCS: 99212 ==

== ENCOUNTER → 2023-08-04 13:39 | Outpatient (BNVA) | payer MEDICARE, SELFPAY | PROVIDERS: PCP Internal Medicine; Visit Provider Surgery ==

== ENCOUNTER 2023-08-05 10:29 | Outpatient (AMB) | payer MEDICARE, SELFPAY ==
--- NOTE | 2023-08-05 10:31 | A.OFFVIS_ITS ---
Intake Visit Reasons: cholecystitis, 2 wk follow up Intake Note: This patient presents for a two week follow-up for cholecystitis. Pt c/o; reports no changes. 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 She continues to do well at home. She has good oral intake. She denies any abdominal pain. She says she feels well overall. [facility] Medical History Vascular dementia Cholecystitis Hyperlipidemia Hypertension Surgical History Hx of surgical procedure (~06/29/23) Social History Household Members: Unknown / Unable to assess Housing: Unknown / Unable to assess Comment: 1:1 sitter Patient Tobacco Use Status: Never used Tobacco service: No Review of Systems Const Denies chills and Denies fever(s) Card Denies chest pain, Denies dyspnea and Denies dyspnea on exertion Resp Denies cough, Denies dyspnea and Denies dyspnea on exertion GI Denies hematochezia and Denies change in bowel habits Denies hematuria Musc Denies back pain and Denies limited range of motion Neuro Details: Has had difficulty with speaking, memory Denies focal weakness and Denies convulsions Psych Denies depression and Denies mood swings Physical Exam Const General: comfortable and no acute distress Eyes Sclerae: sclerae normal Resp Effort & Inspection: normal respiratory effort GI Palpation (GI): Soft to palpation, not firm, nontender and no guarding Assessment & Plan Assessment & Plan (1) Cholecystitis: Code(s): K81.9 - Cholecystitis, unspecified Category: Medical Plan: She continues to do well after I had pulled out her cholecystostomy tube. She denies any abdominal pain Her abdomen is soft and benign I will see her again in the office in about 2 months to see how she is doing. I also explained to her sister that she may need to take on a bigger role with care because of the patient's cognitive issues at this time. Coding Level of Care Code Est Pt Level 3 (59051) Diagnoses Cholecystitis K81.9
== END 2023-08-05 10:54 | disposition home or self-care (01) ==
PROVIDERS: PCP Internal Medicine; Visit Provider Surgery
DX: K81.9 Cholecystitis, unspecified (principal)
CPT/HCPCS: 99213

== ENCOUNTER → 2023-08-05 10:29 | Outpatient (BNVA) | payer MEDICARE, SELFPAY | PROVIDERS: PCP Internal Medicine; Visit Provider Surgery | DX: K81.9 Cholecystitis, unspecified (principal) | CPT/HCPCS: 99212 ==

== ENCOUNTER → 2023-09-13 10:25 | Outpatient (BNVA) | payer MEDICARE, SELFPAY | PROVIDERS: PCP Internal Medicine; Visit Provider Surgery ==

== ENCOUNTER 2023-09-16 08:55 | Outpatient (AMB) | payer MEDICARE, SELFPAY ==
--- NOTE | 2023-09-16 09:00 | A.OFFVIS_ITS ---
Vital Signs 09/16/23 09:03 Weight 177 lb 0.005 oz Intake Visit Reasons: cholecystitis, 2 month f/u Intake Note: This patient presents for a two month follow-up for cholecystitis. Patient c/o; reports no complaints. Program Clerk Required: No Accompanied by: Other Relationship Allergies No Known Allergies Allergy (Verified 09/16/23 09:03) Medication List - Last Reconciled 09/16/23 by Tadeo Guaman MD amoxicillin-pot clavulanate 875-125 mg 1 tab PO BID aspirin 81 mg PO DAILY atorvastatin 10 mg PO BEDTIME hydrochlorothiazide 25 mg PO BEDTIME lisinopril 20 mg PO DAILY metoprolol tartrate 50 mg PO BID pantoprazole 20 mg PO DAILY HPI HPI cholecystitis, 2 month f/u: Details: She is here for follow-up for a previous cholecystitis with a cholecystostomy tube in place. She has been doing well since I last saw her in 07/31/2023. Her sister says his she has had no abdominal complaints. She has good oral intake She still lives independently but continues to have significant cognitive issues. She seems to have aphasia as well and has difficulty expressing himself with words. [facility] Medical History Vascular dementia Cholecystitis Hyperlipidemia Hypertension Surgical History Hx of surgical procedure (~06/29/23) Social History Household Members: Unknown / Unable to assess Housing: Unknown / Unable to assess Comment: 1:1 sitter Patient Tobacco Use Status: Never used Tobacco service: No Review of Systems Const Denies chills and Denies fever(s) Card Denies chest pain at rest GI Denies abdominal pain Musc Denies abnormal gait Neuro Details: Difficulty with speech, Denies abnormal gait and Reports memory loss Psych Reports memory loss Physical Exam Const General: comfortable and no acute distress Resp Effort & Inspection: normal respiratory effort Cardio Rate: regular rate GI Palpation (GI): Soft to palpation, not firm, nontender and no guarding Assessment & Plan Assessment & Plan (1) Cholecystitis: Code(s): K81.9 - Cholecystitis, unspecified Category: Medical Plan: She continues to do well after cholecystostomy tube placement and removal for cholecystitis. She has good oral intake. He denies any GI complaints. She has no abdominal pain. She does continue to have significant cognitive issues with memory loss as well as difficulty with speech. Her sister says that she otherwise is independent but her sister lives next to her in the same building She wants to see me again in about 6 months. Coding Level of Care Code Est Pt Level 3 (74193) Diagnoses Cholecystitis K81.9
== END 2023-09-16 09:22 | disposition home or self-care (01) ==
PROVIDERS: PCP Internal Medicine; Visit Provider Surgery
DX: K81.9 Cholecystitis, unspecified (principal)
CPT/HCPCS: 99213

== ENCOUNTER → 2023-09-16 08:55 | Outpatient (BNVA) | payer MEDICARE, SELFPAY | PROVIDERS: PCP Internal Medicine; Visit Provider Surgery | DX: K81.9 Cholecystitis, unspecified (principal); Z90.49 Acquired absence of other specified parts of digestive tract | CPT/HCPCS: 99212 ==

== ENCOUNTER 2024-01-17 13:16 | Inpatient (IN) | payer MEDICARE, SELFPAY ==
--- NOTE | ~2024-01-17 | US_ITS ---
EXAMINATION: US ABDOMEN LIMITED CLINICAL INFORMATION: Elevated liver enzymes. COMPARISON: 06/29/[address] TECHNIQUE: Real-time imaging of the right upper quadrant abdominal viscera. FINDINGS: PANCREAS: The visualized pancreas is unremarkable. LIVER: There is a 1.7 cm cyst in the medial right lobe of the liver. The liver is normal in size. The liver contour is normal. There is diffusely increased liver parenchymal echogenicity. No focal hepatic lesion. There is no intrahepatic biliary duct dilatation seen. GALLBLADDER: The gallbladder is relatively decompressed with cholelithiasis present. COMMON BILE DUCT: Normal in caliber measuring 0.5 cm in diameter. RIGHT KIDNEY: No hydronephrosis. No renal calculi or focal parenchymal lesions. The kidney measures 7 cm in maximum dimension. FREE FLUID: None. US/US abdomen limited IMPRESSION: 1. Diffusely increased liver parenchymal echogenicity suggests underlying hepatocellular disease. No focal hepatic lesions. 2. Cholelithiasis. Electronically signed by: Stuart Gonzalez MD 01/17/2024 03:26 PM EDT
--- NOTE | ~2024-01-17 | CT_ITS ---
EXAMINATION: CT ABDOMEN AND PELVIS WITHOUT CONTRAST CLINICAL INFORMATION: Abnormal liver function tests. COMPARISON: Abdominal ultrasound 01/17/2024. TECHNIQUE: Multidetector volumetric imaging was performed from the superior aspect of the liver through the pubic symphysis. Sagittal and coronal reformatted images were obtained on the technologist's workstation. This CT examination was performed using dose optimization techniques as appropriate, variously including the following: *Automated exposure control *Adjustment of mA and/or kV according to patient size (this includes techniques or standardized protocols for targeted exams where dose is matched to indication/reason for exam; i.e. extremities or head) *Use of iterative reconstruction technique DLP: 614 mGy-cm FINDINGS: LUNG BASES: No pulmonary consolidation noted in the visualized lung bases LIVER, GALLBLADDER, AND BILIARY TREE: The liver is normal in size, shape, and attenuation. No focal hepatic lesion or biliary ductal dilatation is present. Gallbladder demonstrates diffuse mural thickening 2 with a 5 mm. No pericholecystic fluid collections identified. No radiodense gallstones noted. Benign-appearing 1.7 cm diameter cyst within the right lobe of the liver is partially visualized. No biliary duct dilatation noted. PANCREAS: Unremarkable. SPLEEN: Unremarkable. ADRENAL GLANDS: Unremarkable. KIDNEYS AND URETERS: The kidneys are normal in size, shape, and attenuation. No hydronephrosis, hydroureter, or calculi seen. No perinephric stranding. BLADDER: Unremarkable. GASTROINTESTINAL TRACT: Moderate sigmoid diverticulosis. Normal appearance of the appendix. No free intraperitoneal fluid or gas collections. Normal appearance of the stomach and duodenum ABDOMINAL WALL: No abdominal wall hernias. Mild chronic dermal thickening of the umbilicus unchanged compared with 06/29/2023. LYMPH NODES: Normal. VASCULAR: Moderate scattered calcific atherosclerosis PELVIC VISCERA: Unremarkable. OSSEOUS STRUCTURES: No suspicious skeletal lesions. Multilevel intervertebral disc space narrowing, vacuum phenomenon, endplate osteophytosis and facet hypertrophic changes of the visualized thoracic and lumbar spine. No vertebral body compression deformities. CT/CT abdomen pelvis wo IV con IMPRESSION: *Diffuse mural thickening of the gallbladder. In the correct clinical setting, findings could represent acute cholecystitis. Gallbladder wall thickening may also be secondary to hypoproteinemia and diffuse adenomyomatosis. No biliary duct dilatation noted. No pericholecystic fluid collections or inflammatory changes identified. *Moderate sigmoid diverticulosis. Fleischner guidelines were followed. Electronically signed by: Minh Rodriguez MD 01/18/2024 01:27 AM EDT RP
--- NOTE | ~2024-01-17 | MR_ITS ---
EXAMINATION: MR/MRCP ABDOMEN WITHOUT CONTRAST CLINICAL INFORMATION: Follow up abnormal CT and ultrasound with thick wall of the gallbladder and stones COMPARISON: CT and ultrasound from January 27, 2024 TECHNIQUE: Multiplanar multi sequential MRI /MRCP of the abdomen without contrast was obtained . FINDINGS: LUNG BASES: The visualized lung bases are unremarkable. GALLBLADDER: Gallbladder is abnormal, distended by multiple stones including single impacted stone measured 2.7 cm. CBD measured hepatic 1.3 cm with at least 4 stones seen in the CBD measured between 0.5-0.7 cm. LIVER AND BILIARY TREE: Liver revealed fatty infiltration with signal drop] out of phase sequence. No suspicious liver lesion. PANCREAS: Unremarkable SPLEEN: Unremarkable ADRENAL GLANDS: Unremarkable KIDNEYS AND URETERS: Unremarkable. GASTROINTESTINAL TRACT: Unremarkable. LYMPH NODES: No lymphadenopathy. VASCULAR: Unremarkable ABDOMINAL WALL: Unremarkable. OSSEOUS STRUCTURES: There are multilevel degenerative changes seen lumbar spine with mild dextroscoliosis. MR/MR MRCP IMPRESSION: 1. Cholelithiasis and choledocholithiasis. 2. Fatty infiltration of the liver. Electronically signed by: Jane Marquez MD 01/19/2024 04:07 PM EDT
[2024-01-17 13:23] VITALS: BP 98/50; PULSE 73; RESP 16; TEMP 36.6; O2SAT 98; BMI 29.3
--- NOTE | 2024-01-17 13:23 | ED.ABDPAIN ---
HPI - Abdominal Pain General Chief Complaint: Nausea/Vomiting/Diarrhea Stated Complaint: abnormal labs Time Seen by Provider: 01/17/24 22:31 Source: patient and family ( Sister) Mode of arrival: ambulatory Limitations: no limitations History of Present Illness ED Provider: DR. Rodriguez HPI narrative: 83 yo female with history of vascular dementia, CKD, cholecystitis s/p perc camila tube in June who presents to the ER for evaluation of elevated liver enzymes on outpatient labs, patient with her sister patient is a poor historian as per sister that is her baseline, declined abdominal pain had few episodes of vomiting over the past week, patient was managed by Dr. Guaman for acute cholecystitis using cholecystostomy tube that was discontinued now. Patient admitted that she has a decreased p.o. intake, normal bowel movement. Related Data Home Medications ?Medication ?Instructions ?Recorded ?Confirmed aspirin 81 mg chewable tablet 81 mg PO DAILY 06/29/23 09/16/23 atorvastatin 10 mg tablet 10 mg PO BEDTIME 06/29/23 09/16/23 hydrochlorothiazide 25 mg tablet 25 mg PO BEDTIME 06/29/23 09/16/23 lisinopril 20 mg tablet 20 mg PO DAILY 06/29/23 09/16/23 metoprolol tartrate 50 mg tablet 50 mg PO BID 06/29/23 09/16/23 pantoprazole 20 mg tablet,delayed 20 mg PO DAILY 06/29/23 09/16/23 release Previous Rx's ?Medication ?Instructions ?Recorded amoxicillin 875 mg-potassium 1 tab PO BID #14 tabs 07/02/23 clavulanate 125 mg tablet Allergies Allergy/AdvReac Type Severity Reaction Status Date / Time No Known Allergies Allergy Verified 01/17/24 13:25 Review of Systems Review of Systems All other systems are reviewed and are negative Constitutional: Reports as per HPI and Reports no additional constitutional complaints Eyes: Reports as per HPI and Reports no additional eye complaints Reports system reviewed and no additional complaints, except as documented Cardiovascular: Reports as per HPI and Reports no additional cardiovascular complaints Respiratory: Reports as per HPI and Reports no additional respiratory complaints Gastrointestinal: Reports as per HPI and Reports no additional gastrointestinal complaints Genitourinary: Reports no additional female genitourinary complaints Musculoskeletal: Reports no additional musculoskeletal complaints Skin/Breast: Reports system reviewed and no additional complaints, except as docu Psychiatric: Reports no additional psychiatric complaints Endocrine: Reports no additional endocrine complaints Hematologic/Lymphatic: Reports no additional hematologic/lymphatic complaints Allergic/Immunologic: Reports no additional allergic/immunologic complaints Reports system reviewed and no additional complaints, except as documented and Reports Abnormal speech present [facility] Past Medical History Medical History Vascular dementia Cholecystitis Hyperlipidemia Hypertension Surgical History Hx of surgical procedure (~06/29/23) Social History Social History Household Members: Unknown / Unable to assess Housing: Unknown / Unable to assess Comment: 1:1 sitter Patient Tobacco Use Status: Never used Tobacco Smoked in Last 30 Days: No Use of substances other than those prescribed or required for medical reasons: No Advance Directives: No Advance Directives Information Provided: No Do you have a plan to hurt others: No Plan service: No Physical Exam ED Vital Signs: Vital Signs - 24 hr 01/17/24 13:23 01/17/24 20:38 01/18/24 00:37 Temperature 98 F 98.1 F 98.1 F Pulse Rate 73 70 68 Respiratory Rate 16 18 16 Blood Pressure 98/50 L 118/40 L 105/29 L Pulse Oximetry 98 99 97 Oxygen Delivery Method Room Air Room Air BMI result Body Mass Index 29.3 Vital signs have been reviewed and appear to be correct. Blood pressure elevated. Heart rate normal. Respiratory rate normal. Temperature normal. Oxygen saturation normal. Appearance: Alert. Oriented X3. No acute distress. Head: Normal external exam. Normocephalic. Atraumatic. No Lane signs noted. No raccoon eyes noted Eyes: PERRLA. EOMI. Conjunctiva and sclera normal. Eyelids normal. ENT: TM's Normal. Pharynx normal. Uvula midline. Moist mucous membranes. No trismus noted. No drooling noted. No muffled voice noted. Neck: Normal inspection. Neck supple. FROM. No adenopathy. Thyroid Normal. No meningeal signs. No neck mass noted. CVS: Normal heart rate and rhythm. Heart sound normal. No murmurs noted. Pulses normal throughout. Respiratory: No respiratory distress. Painless inspiration. Breath sounds normal. No wheezes/rales/rhonchi noted. Chest nontender. No accessory muscle usage noted or decreased air movement noted. Abdomen: Soft and nontender. Bowel sounds normal in all 4 quadrants. No distention noted. No organomegaly noted. No visible injury noted. Back: No CVA tenderness. Full range of motion noted. Skin: Skin warm and dry. Normal skin color. Normal skin turgor. No rashes/lesions/lacerations noted. Extremities: No lower extremity edema. Extremities exhibit normal range of motion. Extremities nontender. Neuro: Oriented X 3. Cranial nerve exam: II-XII are grossly intact No motor deficit. No sensory deficit. Reflexes normal. Course Course Course Narrative: This is a Rapid Medical Examination (RME) performed by Marva Ferrara PA-C in triage. Full HPI, ROS, assessment and treatment plan per primary provider in the Main ED. 83 yo female with history of vascular dementia, CKD, cholecystitis s/p perc camila tube in June who presents to the ER for evaluation of elevated liver enzymes on outpatient labs. she has vomited a few times this week and she has had decreased PO intake. unclear if she had any pain, poor historian. Labs outpatient were T bili 1.7, AST/ALT 400/500 per provider at [place]. on exam her abd is soft and nontender. presents with her sister who helps provide history. Plan: labs, RUQ U/S Reevaluation(s) Reevaluation #1: 83-year-old female came in with decreased p.o. intake, found to have transaminitis with NEAL, UTI, cholecystitis. 1. Case discussed with Dr. Lantigua because the other medical comorbidity suggested to admit the patient to the medical service and he will consult. 2. Ceftriaxone for UTI. There is no sepsis or septic shock. Case discussed with Dr. De Jesus who will admit the patient. Time: 01:48 Medical Decision Making Differential Diagnosis Differential Diagnoses: The differential diagnosis associated with the presentation includes ( UTI, pyelonephritis, cholecystitis, sepsis, dehydration, electrolyte derangement, severe anemia, transaminitis, acute hepatitis.) Admission/Observation Consideration of admission/observation: Escalation of care including admission/observation considered Consult Healthcare Provider Management of the patient was discussed with: Hospitalist ( Dr. De Jesus) and Interface Engineer ( Dr. Lantigua) Lab Data MDM Lab Attestation statement: I reviewed the patient's lab results. 01/17/24 17:26 01/17/24 17:26 Labs: Lab Results 01/17/24 01/17/24 01/17/24 Range/Units 17:26 20:37 22:43 WBC 11.9 H (4.8-10.8) X10*3/uL RBC 3.57 L (4.20-5.50) X10*6/uL Hgb 10.6 L (12.0-16.0) g/dl Hct 32.6 L (37.0-47.0) % MCV 91.3 (80.0-98.0) fL MCH 29.7 (27.0-33.0) pg MCHC 32.5 (31.0-35.0) g/dl RDW 12.6 (11.0-16.0) % Plt Count 299 (160-400) X10*3/uL MPV 10.1 (9.4-12.3) fL Immature Gran % (Auto) 0.6 H (0.0-0.4) % Neut % (Auto) 66.3 (45-73) % Lymph % (Auto) 19.2 L (20-40) % [place] % (Auto) 8.3 (2-11) % Eos % (Auto) 5.1 H (0-4) % Baso % (Auto) 0.5 (0-2) % Lymph # (Auto) 2.3 (1.2-4.9) X10*3/uL [place] # (Auto) 1.0 (0.1-1.2) X10*3/uL Eos # (Auto) 0.6 H (0.0-0.4) X10*3/uL Baso # (Auto) 0.1 (0.0-0.2) X10*3/uL Abs Immat Gran (auto) 0.07 H (0.00-0.03) X10*3/uL Absolute Neuts (auto) 7.9 (2.0-8.3) x10*3/uL Absolute Nucleated RBC 0.000 (0.0-0.012) X10*3/uL Nucleated RBC % (auto) 0.0 (0.0-0.2) /100WBC PT 10.9 (10.9-12.4) SEC INR 0.9 (0.9-1.1) APTT 30.7 (26.0-36.8) SEC Sodium 140 (135-145) mmol/L Potassium 4.2 (3.3-5.1) mmol/L Chloride 103 (96-108) mmol/L Carbon Dioxide 27 (22-29) mmol/L Anion Gap 14 (12-20) BUN 40 H (9-16) mg/dL Creatinine 2.33 H (0.5-1.4) mg/dL Estim Creat Clear Calc 17.1 Estimated GFR 20 Random Glucose 119 H (60-115) mg/dL Calcium 10.6 H (8.4-10.2) mg/dL Magnesium 1.7 (1.6-2.6) mg/dL Total Bilirubin 1.6 H (0.0-1.0) mg/dL Direct Bilirubin 1.0 H (0.0-0.5) mg/dL AST 157 H (5-31) U/L ALT 207 H (0-31) U/L Alkaline Phosphatase 307 H (39-117) U/L Ammonia 35 (13-55) umol/L Total Protein 7.2 (6.5-8.0) g/dL Albumin 3.7 (3.5-5.0) g/dL Urine Color Dark Yellow Urine Appearance Cloudy Urine pH 5.5 (5.0-9.0) Ur Specific [place] 1.015 (1.005-1.025) Urine Protein Negative (Neg-Trace) mg/dL Urine Glucose (UA) Negative (Negative) mg/dL Urine Ketones Negative (Negative) mg/dL Urine Blood Negative (Negative) Urine Nitrite Positive H (Negative) Ur Leukocyte Esterase Moderate (2+) H (Negative) Urine RBC 0-2 (0-2) /HPF Urine WBC >50 H (0-5) /HPF Ur Squamous Epith Cells 6-10 (0-2) /HPF Urine Bacteria 4+ (None Seen) Hyaline Casts 3-5 (0-2) /LPF Independent Interpretation I performed an independent interpretation of an: Ultrasound ( Abdomen:. Diffusely increased liver parenchymal echogenicity suggests underlying hepatocellular disease. No focal hepatic lesions. 2. Cholelithiasis.) and CT Scan ( abdomen pelvis:*Diffuse mural thickening of the gallbladder. In the correct clinical setting, findings could represent acute cholecystitis. Gallbladder wall thickening may also be secondary to hypoproteinemia and diffuse adenomyomatosis. No biliary duct dilatation noted. No pericholecystic flui) Radiology Impression Discussion of test interpretation with radiology: I have reviewed the radiologist's reading. Medications Administered Discontinued Medications Generic Name Dose Route Start Last Admin Trade Name Freq PRN Reason Stop Dose Admin Sodium Chloride 1,000 mls @ 999 mls/hr 01/17/24 23:02 01/18/24 00:27 Ns IV 01/18/24 00:02 999 mls/hr .Q1H1M ONE Administration Ceftriaxone Sodium 1 gm/ 50 mls @ 100 mls/hr 01/18/24 00:12 01/18/24 01:03 Sodium Chloride IV 01/18/24 00:41 Infused ONCE ONE Infusion Discharge Plan Discharge Clinical Impression: NEAL (acute kidney injury), Acute UTI, Transaminitis, Acute cholecystitis Patient Disposition: Admitted As Inpatient Print Language: Palauan
[2024-01-17 17:32] LABS: MANUAL DIFF FLAG NO
[2024-01-17 17:33] LABS: Basophils Absolute Auto 0.1 X10*3/uL (0.0-0.2); Basophils Percent Auto 0.5 % (0-2); Eosinophils Absolute Auto 0.6 X10*3/uL (0.0-0.4); Eosinophils Percent Auto 5.1 % (0-4); Hematocrit 32.6 % (37.0-47.0); Hemoglobin 10.6 g/dl (12.0-16.0); Imm Gran Abs Auto 0.07 X10*3/uL (0.00-0.03); Imm Gran Pct Auto 0.6 % (0.0-0.4); Lymphocytes Absolute Auto 2.3 X10*3/uL (1.2-4.9); Lymphocytes Percent Auto 19.2 % (20-40); Mean Corpuscular HGB Conc 32.5 g/dl (31.0-35.0); Mean Corpuscular Hemoglobin 29.7 pg (27.0-33.0); Mean Corpuscular Volume 91.3 fL (80.0-98.0); Mean Platelet Volume 10.1 fL (9.4-12.3); Monocytes Percent Auto 8.3 % (2-11); Neutrophils Absolute Auto 7.9 x10*3/uL (2.0-8.3); Neutrophils Percent Auto 66.3 % (45-73); Platelet Count 299 X10*3/uL (160-400); Red Blood Count 3.57 X10*6/uL (4.20-5.50); Red Cell Distribution Width 12.6 % (11.0-16.0); White Blood Count 11.9 X10*3/uL (4.8-10.8)
[2024-01-17 17:49] LABS: Alanine Aminotransferase 207 U/L (0-31); Albumin Level 3.7 g/dL (3.5-5.0); Alkaline Phosphatase 307 U/L (39-117); Anion Gap 14 (12-20); Aspartate Amino Transferase 157 U/L (5-31); Bilirubin Total 1.6 mg/dL (0.0-1.0); Blood Urea Nitrogen 40 mg/dL (9-16); Calcium 10.6 mg/dL (8.4-10.2); Carbon Dioxide 27 mmol/L (22-29); Chloride 103 mmol/L (96-108); Creatinine Clr Calc Pharmacy 17.1; Estimated Glomerular Filt Rate 20; Glucose Random 119 mg/dL (60-115); Magnesium 1.7 mg/dL (1.6-2.6); Potassium 4.2 mmol/L (3.3-5.1); Sodium 140 mmol/L (135-145); Total Protein 7.2 g/dL (6.5-8.0)
[2024-01-17 18:11] LABS: INTERNATIONAL NORM RATIO 0.9 (0.9-1.1); Prothrombin Time 10.9 SEC (10.9-12.4)
[2024-01-17 18:14] LABS: Partial Thromboplastin Time 30.7 SEC (26.0-36.8)
[2024-01-17 20:38] VITALS: BP 118/40; PULSE 70; RESP 18; TEMP 36.7; O2SAT 99
[2024-01-17 20:59] LABS: Ammonia 35 umol/L (13-55)
--- NOTE | 2024-01-17 21:44 | PC.NURSE ---
Addendum entered by Rachael Arce RN 01/17/24 21:47: Given water to encourage urine sample. Original Note: Patient sitting quietly on stretcher w/ sister at bedside. Patient unable to explain why she is in the ED, does not answer questions appropriately, this is her baseline per sister at bedside ([facility] dementia). Does follow commands appropiately. Per sister, patient sent into ED by PCP d/t elevated lab values, patient previously complained to family about vague nausea symptoms. Sister states that patient lives in an apartment by herself, however is in the same building as her sister.
[2024-01-17 23:41] LABS: Appearance Urine Cloudy; Color Urine Dark Yellow; Glucose Urine UA Negative (Negative); Leukocyte Esterase Urine Moderate (2+) (Negative); Nitrite Urine Positive (Negative); PH 5.5 (5.0-9.0); Specific Gravity - Urine 1.015 (1.005-1.025); UMIC TRIGGER UACC YES; Urine Blood Negative (Negative); Urine Ketones Negative (Negative); Urine Protein Negative (Neg-Trace)
[2024-01-17 23:43] LABS: Bacteria Urine 4+ (None Seen); RBC Urine 0-2 /HPF (0-2); UACC Culture Trigger YES; WBC Urine >50 /HPF (0-5)
[2024-01-18] VITALS (8 sets, daily range): BP systolic 102–137; BP diastolic 29–63; PULSE 65–104; RESP 15–18; TEMP 36.6–37; O2SAT 97–99; BMI 29.3
[2024-01-18] MEDS: 0.9 % Sodium Chloride 1,000 ML 999 ML IV (00:27)
[2024-01-18] MEDS: cefTRIAXone sodium 1 GM in 0.9 % Sodium Chloride 50 ML IV (00:33)
--- NOTE | 2024-01-18 02:11 | PM.IMHP ---
History of Present Illness Date of Service: 01/18/24 Chief Complaint: Poor po intake This is a 83-year-old female with pertinent history of vascular dementia, hypertension, mixed hyperlipidemia, gastroesophageal reflux disease, history of acute cholecystitis status post cholecystostomy tube, chronic kidney disease presents to the emergency department for evaluation of abnormal labs. Patient states she has been feeling unwell for the last 1 week. She is a poor historian due to vascular dementia. History obtained with the help of sister at bedside and ER provider. Patient does report poor p.o. intake and episodes of nonbloody emesis. Unclear if she has any urinary symptoms. Patient got blood work done at PCP's office and she was told that her liver enzymes and kidney function is altered and hence she was asked to come to the ER. No chest pain, palpitations, shortness of breath. In the emergency department, CT with gallbladder wall thickening. Liver enzymes and creatinine found to be elevated. Review of Systems Constitutional: Constitutional: Reports fatigue, Reports malaise, Reports poor appetite and Reports weakness Cardiovascular: Cardiovascular: Reports no additional cardiovascular complaints Respiratory: Respiratory: Reports no additional respiratory complaints Gastrointestinal: Gastrointestinal: Reports nausea and Reports vomiting Neurologic: Reports weakness Endocrine: Endocrine: Reports fatigue [facility] Medical History Vascular dementia Cholecystitis Hyperlipidemia Hypertension Pertinent family history: Not significant due to age Surgical History Hx of surgical procedure (~06/29/23) Social History Household Members: Unknown / Unable to assess Housing: Unknown / Unable to assess Comment: 1:1 sitter Patient Tobacco Use Status: Never used Tobacco Smoked in Last 30 Days: No Use of substances other than those prescribed or required for medical reasons: No Advance Directives: No Advance Directives Information Provided: No Do you have a plan to hurt others: No Plan service: No Meds Allergies Allergy/AdvReac Type Severity Reaction Status Date / Time No Known Allergies Allergy Verified 01/17/24 13:25 Home Medications ?Medication ?Instructions ?Recorded ?Confirmed ?Last Taken ?Type aspirin 81 mg chewable tablet 81 mg PO DAILY 06/29/23 09/16/23 06/29/23 History atorvastatin 10 mg tablet 10 mg PO BEDTIME 06/29/23 09/16/23 06/28/23 History hydrochlorothiazide 25 mg tablet 25 mg PO BEDTIME 06/29/23 09/16/23 06/28/23 History lisinopril 20 mg tablet 20 mg PO DAILY 06/29/23 09/16/23 06/29/23 History metoprolol tartrate 50 mg tablet 50 mg PO BID 06/29/23 09/16/23 06/29/23 History pantoprazole 20 mg tablet,delayed 20 mg PO DAILY 06/29/23 09/16/23 06/29/23 History release Physical Exam Vital Signs and Narrative: Vital Signs: Last Vital Signs Temp 98.1 F 01/18/24 00:37 Pulse 68 01/18/24 00:37 Resp 16 01/18/24 00:37 BP 105/29 L 01/18/24 00:37 Pulse Ox 97 01/18/24 00:37 O2 Del Method Room Air 01/18/24 00:37 BMI result Body Mass Index 29.3 Elderly female lying in bed in no distress Neck supple, no JVD Regular rate and rhythm, S1-S2 heard Regular breath sounds bilaterally, no wheezing or crackles appreciated Abdomen soft nontender, no guarding, no rigidity Patient is awake, alert and oriented x2 ; no focal motor deficit Psych: Normal mood No pedal edema Results Labs 01/17/24 17:26 01/17/24 17:26 Labs: Laboratory Results - last 24 hr 01/17/24 01/17/24 01/17/24 17:26 20:37 22:43 MCV 91.3 MCH 29.7 MCHC 32.5 RDW 12.6 Plt Count 299 MPV 10.1 Immature Gran % (Auto) 0.6 H Neut % (Auto) 66.3 Lymph % (Auto) 19.2 L [place] % (Auto) 8.3 Eos % (Auto) 5.1 H Baso % (Auto) 0.5 Lymph # (Auto) 2.3 [place] # (Auto) 1.0 Eos # (Auto) 0.6 H Baso # (Auto) 0.1 Abs Immat Gran (auto) 0.07 H Absolute Neuts (auto) 7.9 Absolute Nucleated RBC 0.000 Nucleated RBC % (auto) 0.0 PT 10.9 INR 0.9 APTT 30.7 Anion Gap 14 Estim Creat Clear Calc 17.1 Estimated GFR 20 Random Glucose 119 H Calcium 10.6 H Magnesium 1.7 Total Bilirubin 1.6 H Direct Bilirubin 1.0 H AST 157 H ALT 207 H Alkaline Phosphatase 307 H Ammonia 35 Total Protein 7.2 Albumin 3.7 Urine Color Dark Yellow Urine Appearance Cloudy Urine pH 5.5 Ur Specific [place] 1.015 Urine Protein Negative Urine Glucose (UA) Negative Urine Ketones Negative Urine Blood Negative Urine Nitrite Positive H Ur Leukocyte Esterase Moderate (2+) H Urine RBC 0-2 Urine WBC >50 H Ur Squamous Epith Cells 6-10 Urine Bacteria 4+ Hyaline Casts 3-5 Imaging Radiologist's Impressions: Impressions Abdomen Ultrasound 01/17/24 14:24 IMPRESSION: 1. Diffusely increased liver parenchymal echogenicity suggests underlying hepatocellular disease. No focal hepatic lesions. 2. Cholelithiasis. Electronically signed by: Stuart Gonzalez MD 01/17/2024 03:26 PM EDT RP Abdomen/Pelvis CT 01/17/24 23:25 IMPRESSION: *Diffuse mural thickening of the gallbladder. In the correct clinical setting, findings could represent acute cholecystitis. Gallbladder wall thickening may also be secondary to hypoproteinemia and diffuse adenomyomatosis. No biliary duct dilatation noted. No pericholecystic fluid collections or inflammatory changes identified. *Moderate sigmoid diverticulosis. Fleischner guidelines were followed. Electronically signed by: Minh Rodriguez MD 01/18/2024 01:27 AM EDT RP Assessment and Plan (1) NEAL (acute kidney injury): Status: Acute (2) Acute UTI: Status: Acute Plan This is a 83-year-old female with pertinent history of vascular dementia, hypertension, mixed hyperlipidemia, gastroesophageal reflux disease, history of acute cholecystitis status post cholecystostomy tube, chronic kidney disease presents to the emergency department for evaluation of abnormal labs. #. Acute kidney injury on CKD: Resuscitated with IV crystalloids in the ER. Monitor creatinine and urine output. Avoid nephrotoxins. #. Acute UTI: Initiated IV Rocephin. No sepsis #. Gallbladder wall thickening on imaging: ?acute cholecystitis on imaging. General surgery consulted in the ER, appreciate assistance. On empiric IV antibiotics. Elevated liver enzymes including alk-phos, obtaining MRCP #. Hypertension: Hold hydrochlorothiazide and lisinopril in the setting of NEAL #. Vascular dementia: Maintain sleep-wake cycle #. Mixed hyperlipidemia: Hold statin in the setting of elevated liver enzymes #. Gastroesophageal reflux disease: On PPI Med rec pending DVT prophylaxis: Lovenox Full code. Discussed with sister and patient at bedside Admit as inpatient and will require two night minimum hospital stay for monitoring of kidney function, IV antibiotics (as above), which is not possible in a lesser acute setting. Quality Stroke Does the patient have a stroke diagnosis?: No VTE Prior VTE?: No VTE Risk Level:: Medical - moderate - high VTE Device Contraindication: Treatment Not Indicated VTE Drug Contraindication: N/A - Med Ordered
[2024-01-18] MEDS: metroNIDAZOLE/NS 500 MG/100 ML PIGGYBACK 100 MG IV ×3 (02:53→18:10)
[2024-01-18 04:54] LABS: MANUAL DIFF FLAG NO
[2024-01-18 04:55] LABS: Basophils Absolute Auto 0.1 X10*3/uL (0.0-0.2); Basophils Percent Auto 0.6 % (0-2); Eosinophils Absolute Auto 0.7 X10*3/uL (0.0-0.4); Eosinophils Percent Auto 7.4 % (0-4); Hematocrit 29.4 % (37.0-47.0); Hemoglobin 9.5 g/dl (12.0-16.0); Imm Gran Abs Auto 0.05 X10*3/uL (0.00-0.03); Imm Gran Pct Auto 0.5 % (0.0-0.4); Lymphocytes Percent Auto 19.7 % (20-40); Mean Corpuscular HGB Conc 32.3 g/dl (31.0-35.0); Mean Corpuscular Hemoglobin 29.5 pg (27.0-33.0); Mean Corpuscular Volume 91.3 fL (80.0-98.0); Mean Platelet Volume 10.7 fL (9.4-12.3); Monocytes Percent Auto 9.5 % (2-11); Neutrophils Absolute Auto 6.2 x10*3/uL (2.0-8.3); Neutrophils Percent Auto 62.3 % (45-73); Platelet Count 252 X10*3/uL (160-400); Red Blood Count 3.22 X10*6/uL (4.20-5.50); Red Cell Distribution Width 12.6 % (11.0-16.0)
--- NOTE | 2024-01-18 04:59 | PC.NURSE ---
pt ambulates to bathroom with steady gait, pt placed in hospital bed and bed alarm on for safety. pt is axoxself at baseline, follows commands appropriately. call tomas within reach.
[2024-01-18 05:16] LABS: Alanine Aminotransferase 153 U/L (0-31); Albumin Level 3.1 g/dL (3.5-5.0); Alkaline Phosphatase 263 U/L (39-117); Anion Gap 14 (12-20); Aspartate Amino Transferase 102 U/L (5-31); Bilirubin Total 1.1 mg/dL (0.0-1.0); Blood Urea Nitrogen 37 mg/dL (9-16); Calcium 9.7 mg/dL (8.4-10.2); Carbon Dioxide 24 mmol/L (22-29); Chloride 107 mmol/L (96-108); Creatinine Clr Calc Pharmacy 20.7; Estimated Glomerular Filt Rate 25; Glucose Random 96 mg/dL (60-115); Potassium 4.5 mmol/L (3.3-5.1); Sodium 140 mmol/L (135-145); Total Protein 6.2 g/dL (6.5-8.0)
--- NOTE | 2024-01-18 06:20 | PC.NURSE ---
pt previously calm/cooperative, following commands appropriately. now oob refusing to go back to room. attempt to ask if needs bathroom. pt only states no unable to redirect. made aware.
--- NOTE | 2024-01-18 06:31 | PC.NURSE ---
per MD approval offered pt pudding/apple sauce/juice/water/jello and pt refusing all po intake. refusing to take po zyprexa.
[2024-01-18] MEDS: LORazepam 2 MG/ML VIAL 0.5 MG IVPUSH (06:41)
[2024-01-18] MEDS: 0.9 % Sodium Chloride Flush 3 ML SYRINGE IVFLUSH ×3 (08:21→21:11)
--- NOTE | 2024-01-18 08:23 | PC.NURSE ---
Patient refusing to stay in room. Patient got dressed and was trying to leave. Have an elopement bracelet on her.
--- NOTE | 2024-01-18 08:40 | PM.CNGS ---
History of Present Illness Consult details Consult date: 01/18/24 <April Vinson PA-C - Last Filed: 01/18/24 09:26> Requesting physician: Jackson De Jesus <PRESTON Chiang Last Filed: 01/18/24 09:26> Narrative: 83-year-old female with PMH of vascular dementia, hypertension, mixed hyperlipidemia, chronic kidney disease presents to the emergency department for evaluation of abnormal labs. History is obtained from EMR. She was apparently found to have elevated liver enzymes on outpatient labs at her PCPs office and was asked to come to the ED. She had a few episodes of vomiting with poor PO intake over the past week per sister. The patient currently denies any abdominal pain. She has history of acute cholecystitis and requiring IR cholecystostomy tube placement here in June 2023. Work up in the ED included CBC, BMP, LFTs which was significant for mild leukocytosis of 11 which has normalized. Direct/indirect bilirubin of 1.6/1, AST/ALT 157/207. ABD US showed gallstones, decompressed gallbladder with diffusely increased liver parenchymal echogenicity suggests underlying hepatocellular disease, new from prior imaging in June 2023. CT abd/pelvis was also obtained which showed gallbladder demonstrates diffuse mural thickening, no biliary ductal dilatation. She was admitted to the hospitalist service for further treatment. She was also found to have NEAL, acute UTI. General surgery was consulted for possible acute cholecystitis, elevated LFTs. <PRESTON Chiang Last Filed: 01/18/24 09:26> Review of Systems Review of Systems: Yes Unobtainable due to mental condition <PRESTON Chiang Last Filed: 01/18/24 09:26> [facility] Past Medical History Medical History: Medical History Vascular dementia Cholecystitis Hyperlipidemia Hypertension <PRESTON Chiang Last Filed: 01/18/24 09:26> Surgical History Surgical History: Surgical History Hx of surgical procedure (~06/29/23) <PERSTON Chiang Last Filed: 01/18/24 09:26> Social History Social History: Social History Household Members: None Housing: House Do you presently have visiting nurse or other home services: No Comment: 1:1 sitter Patient Tobacco Use Status: Never used Tobacco service: No <April Vinson PA-C - Last Filed: 01/18/24 09:26> Meds Allergies/Adverse reactions: Allergies Allergy/AdvReac Type Severity Reaction Status Date / Time No Known Allergies Allergy Verified 01/17/24 13:25 <PRESTON Chiang Last Filed: 01/18/24 09:26> Active Medications: Current Medications Acetaminophen (Acetaminophen 325 Mg Tablet) 650 mg PO Q6H PRN PRN Reason: Pain, Mild (Pain Scale 1-3), fever or headache Calcium Carbonate (Calcium Carbonate 750 Mg Tab.Chew) 750 mg PO Q4H PRN PRN Reason: Heartburn Enoxaparin Sodium (Enoxaparin Sodium 30 Mg/0.3 Ml Syringe) 30 mg SUBCUT Q24H ANDREW Ceftriaxone Sodium 1 gm/ (Sodium Chloride) 50 mls @ 100 mls/hr IV Q24H ANDREW Metronidazole (Flagyl) 500 mg in 100 mls @ 100 mls/hr IV Q8H [facility] Last Infusion: 01/18/24 03:53 Dose: Infused Magnesium Hydroxide (Milk Of Magnesia 30 Ml Oral.Susp) 30 ml PO DAILY PRN PRN Reason: Constipation Melatonin (Melatonin 3 Mg Tablet) 6 mg PO BEDTIME PRN PRN Reason: Insomnia Ondansetron HCl (Ondansetron Hcl 4 Mg/2 Ml Vial) 4 mg IVPUSH Q8H PRN PRN Reason: Nausea and Vomiting Sodium Chloride (0.9 % Sodium Chloride Flush 3 Ml Syringe) 3 ml IVFLUSH QSHIFT [facility] Last Admin: 01/18/24 08:21 Dose: 3 ml <PRESTON Chiang Last Filed: 01/18/24 09:26> Home medications: Home Medications ?Medication ?Instructions ?Recorded ?Confirmed ?Last Taken ?Type atorvastatin 10 mg tablet 10 mg PO BEDTIME 06/29/23 01/18/2424 History hydrochlorothiazide 25 mg tablet 25 mg PO BEDTIME 06/29/23 01/18/24 06/28/23 History metoprolol tartrate 50 mg tablet 50 mg PO BID 06/29/23 01/18/24 06/29/23 History sertraline 25 mg tablet 25 mg PO DAILY 01/18/24 01/18/24 Unknown History <PRESTON Chiang Last Filed: 01/18/24 09:26> Physical Exam Vital Signs: Vital Signs: Last Vital Signs Temp 98.4 F 01/18/24 08:26 Pulse 104 H 01/18/24 08:26 Resp 16 01/18/24 08:26 BP 117/60 01/18/24 08:26 Pulse Ox 99 01/18/24 08:26 O2 Del Method Room Air 01/18/24 08:26 BMI result Body Mass Index 29.3 <PRESTON Chiang Last Filed: 01/18/24 09:26> Const: General: comfortable, no acute distress and alert <PRESTON Chiang Last Filed: 01/18/24 09:26> Resp: Effort & Inspection: normal respiratory effort <PRESTON Chiang Last Filed: 01/18/24 09:26> GI: Inspection: No distended <April Vinson PA-C Last Filed: 01/18/24 09:26> Palpation (GI): Soft to palpation, nontender and no guarding <PRESTON Chiang Last Filed: 01/18/24 09:26> Skin: General skin exam: no rashes or lesions noted and no jaundice <PRESTON Chiang Last Filed: 01/18/24 09:26> Neuro: General: moves all extremities <PRESTON Chiang Last Filed: 01/18/24 09:26> Results Labs Result diagrams: 01/18/24 04:21 01/18/24 04:21 <PRESTON Chiang Last Filed: 01/18/24 09:26> Labs: Abnormal lab results 01/17/24 01/17/24 01/18/24 Range/Units 17:26 22:43 04:21 WBC 11.9 H (4.8-10.8) X10*3/uL RBC 3.57 L 3.22 L (4.20-5.50) X10*6/uL Hgb 10.6 L 9.5 L (12.0-16.0) g/dl Hct 32.6 L 29.4 L (37.0-47.0) % Immature Gran % (Auto) 0.6 H 0.5 H (0.0-0.4) % Lymph % (Auto) 19.2 L 19.7 L (20-40) % Eos % (Auto) 5.1 H 7.4 H (0-4) % Eos # (Auto) 0.6 H 0.7 H (0.0-0.4) X10*3/uL Abs Immat Gran (auto) 0.07 H 0.05 H (0.00-0.03) X10*3/uL BUN 40 H 37 H (9-16) mg/dL Creatinine 2.33 H 1.92 H (0.5-1.4) mg/dL Random Glucose 119 H (60-115) mg/dL Calcium 10.6 H (8.4-10.2) mg/dL Total Bilirubin 1.6 H 1.1 H (0.0-1.0) mg/dL Direct Bilirubin 1.0 H (0.0-0.5) mg/dL AST 157 H 102 H (5-31) U/L ALT 207 H 153 H (0-31) U/L Alkaline Phosphatase 307 H 263 H (39-117) U/L Total Protein 6.2 L (6.5-8.0) g/dL Albumin 3.1 L (3.5-5.0) g/dL Urine Nitrite Positive H (Negative) Ur Leukocyte Esterase Moderate (2+) H (Negative) Urine WBC >50 H (0-5) /HPF Short CBC 01/17/24 01/18/24 Range/Units 17:26 04:21 WBC 11.9 H 10.0 (4.8-10.8) X10*3/uL Hgb 10.6 L 9.5 L (12.0-16.0) g/dl Hct 32.6 L 29.4 L (37.0-47.0) % Plt Count 299 252 (160-400) X10*3/uL BMP 01/17/24 01/18/24 17:26 04:21 Sodium 140 140 Potassium 4.2 4.5 Chloride 103 107 Carbon Dioxide 27 24 BUN 40 H 37 H Creatinine 2.33 H 1.92 H Calcium 10.6 H 9.7 D Liver Function 01/17/24 01/18/24 Range/Units 17:26 04:21 Total Bilirubin 1.6 H 1.1 H (0.0-1.0) mg/dL Direct Bilirubin 1.0 H (0.0-0.5) mg/dL AST 157 H 102 H (5-31) U/L ALT 207 H 153 H (0-31) U/L Alkaline Phosphatase 307 H 263 H (39-117) U/L Albumin 3.7 3.1 L (3.5-5.0) g/dL Urine 01/17/24 Range/Units 22:43 Urine Color Dark Yellow Urine Appearance Cloudy Urine pH 5.5 (5.0-9.0) Ur Specific [place] 1.015 (1.005-1.025) Urine Protein Negative (Neg-Trace) mg/dL Urine Glucose (UA) Negative (Negative) mg/dL All other labs normal. <April Vinson PA-C - Last Filed: 01/18/24 09:26> Imaging Abdomen CT scan report/results: report reviewed and image reviewed <April Vinson PA-C - Last Filed: 01/18/24 09:26> Assessment and Plan (1) Transaminitis: Status: Acute <April Vinson PA-C - Last Filed: 01/18/24 09:26> Patient is well known to me She had a previous cholecystostomy tube for question of cholecystitis She was sent to the ER for abnormal LFTs Current exam does not reveal any tenderness in her upper quadrant She had elevated transaminases Overall findings do not suggest CBD obstruction Follow LFTs Okay to have clear liquids Abdomen is soft and benign No surgical intervention planned at this time Pt has vascular dementia - does not provide any history Seen and examined independently dw sister Araceli <Tadeo Guaman MD - Last Filed: 01/18/24 12:42> 83-year-old female with PMH of vascular dementia, hypertension, mixed hyperlipidemia, chronic kidney disease presenting with elevated LFTs with CT scan showing diffuse mural gallbladder wall thickening without gallbladder distention, pericholecystic fluid. Unclear if wall thickening is secondary to acute cholecystitis as she is clinically appearing well with a benign, nontender abdomen. Can have clear liquids. Recommend just trending LFTs as they are already improving. Will continue to follow but currently would hold off on any further intervention. <April Vinson PA-C - Last Filed: 01/18/24 09:26> Procedures Date of Service Date of Service: 01/18/24 <April Vinson PA-C - Last Filed: 01/18/24 09:26> 01/18/24 <Tadeo Guaman MD - Last Filed: 01/18/24 12:42>
[2024-01-18] MEDS: Enoxaparin Sodium 30 MG/0.3 ML SYRINGE SUBCUT (10:21)
--- NOTE | 2024-01-18 11:41 | PM.EVENT ---
Event Note Date of Service: 01/18/24 Event Note: seen and evaluated this morning feels comfortable denies pain, nausea or vomiting to do MRCP GI following IVF Ceftriaxone and Flagyl pending Med rec Time Spent With Patient Time: Total time managing care of this patient today ____ minutes.
--- NOTE | 2024-01-18 12:33 | PHA.MEDREC ---
Addendum entered by Latrice Gale RPh 01/18/24 12:50: Reviewed by [facility]; med rec done based off claim history Original Note: Pharmacy Consult ? Medication Reconciliation Pharmacy has completed the medication reconciliation. Tried calling patient sister Danna a few times today and phone just kept on ringing and I was not able to leave a Voicemail for her to call back. I utilized pharmacy to confirm Atorvastatin 10mg 1 tab @bedtime filled 11/17 for 90 days, Hydrochlorothiazide 25mg 1 tab @bedtime filled 01/16 for 30 days, Metoprolol 50mg 1 tab BID filled 01/07 for 90 and Sertraline 25mg 1 tab daily filled 12/26 for 30 days. She had Pantoprazole 20mg 1 daily last filled 10/23 for 30 days, Lisinopril 20mg 1 tablet daily last filled 09/07 for 30 days, Aspirin 81mg 1 tab daily with no claims and Amoxicillin-Pot Clavulanate 875mg-125mg 1 BID filled 07/03 for 7 days, I did not add these to the med rec due to claims not being recent, but we will update if patient calls back or ends up coming in.
--- NOTE | 2024-01-18 13:21 | MHC.CM.PN ---
CM assessment completed w/ patient's sister/HCP, Danna, via telephone. Patient w/ dx dementia. IMM delivered. Copy left at bedside per request. Patient lives in an apartment alone. Danna lives in upstairs apartment and visits w/ patient daily, stays w/ patient PRN. Patient is independent in ADL's, sister assists w/ iADL's. No services at this time. Sister has reached out to [facility] to request services. Referral sent via [employer]. No DME. PCP Anne Solis MD HCP on file and verified. DP: Goal is home w/ family support. Family is not open to STR. Would be agreeable to [facility] services if recommended. Referral sent via [employer]. Sister to transport home. CM will continue to follow. Of note- sister reports they are touring [facility] for eventual move.
[2024-01-18] MEDS: Metoprolol Tartrate 50 MG TABLET PO (21:10)
[2024-01-19] MEDS: metroNIDAZOLE/NS 500 MG/100 ML PIGGYBACK 100 MG IV ×3 (01:52→17:41)
[2024-01-19 03:24] VITALS: BP 140/68; PULSE 59; RESP 16; TEMP 36.1; O2SAT 98
[2024-01-19 06:30] LABS: Hematocrit 29.5 % (37.0-47.0); Hemoglobin 9.8 g/dl (12.0-16.0); Mean Corpuscular HGB Conc 33.2 g/dl (31.0-35.0); Mean Corpuscular Hemoglobin 29.9 pg (27.0-33.0); Mean Corpuscular Volume 89.9 fL (80.0-98.0); Mean Platelet Volume 10.5 fL (9.4-12.3); Platelet Count 257 X10*3/uL (160-400); Red Blood Count 3.28 X10*6/uL (4.20-5.50); Red Cell Distribution Width 12.6 % (11.0-16.0); White Blood Count 8.4 X10*3/uL (4.8-10.8)
[2024-01-19 06:38] LABS: Alanine Aminotransferase 150 U/L (0-31); Albumin Level 3.1 g/dL (3.5-5.0); Alkaline Phosphatase 358 U/L (39-117); Anion Gap 13 (12-20); Aspartate Amino Transferase 124 U/L (5-31); Bilirubin Direct 0.7 mg/dL (0.0-0.5); Bilirubin Total 1.2 mg/dL (0.0-1.0); Blood Urea Nitrogen 29 mg/dL (9-16); Calcium 9.6 mg/dL (8.4-10.2); Carbon Dioxide 24 mmol/L (22-29); Chloride 107 mmol/L (96-108); Creatinine Clr Calc Pharmacy 26.4; Estimated Glomerular Filt Rate 33; Glucose Random 95 mg/dL (60-115); Sodium 140 mmol/L (135-145)
[2024-01-19 07:25] VITALS: BP 135/66; PULSE 62; RESP 18; TEMP 36; O2SAT 99
--- NOTE | 2024-01-19 08:16 | P.PNGS_ITS ---
Subjective Subjective Date of Service: 01/19/24 <April Vinson PA-C - Last Filed: 01/19/24 08:18> 01/20/24 <Tadeo Guaman MD - Last Filed: 01/20/24 08:06> Interval history: Sleeping. Denies pain. <April Vinson PA-C - Last Filed: 01/19/24 08:18> Physical Exam 2 Vital Signs: Vital Signs: Last Vital Signs Temp 96.8 F 01/19/24 07:25 Pulse 62 01/19/24 07:25 Resp 18 01/19/24 07:25 BP 135/66 01/19/24 07:25 Pulse Ox 99 01/19/24 07:25 O2 Del Method Room Air 01/19/24 07:25 BMI result Body Mass Index 29.3 <April Vinson PA-C - Last Filed: 01/19/24 08:18> Const: General: comfortable and no acute distress <DIDI Chiang - Last Filed: 01/19/24 08:18> GI: Inspection: No distended <April Vinson PA-C - Last Filed: 01/19/24 08:18> Palpation (GI): Soft to palpation, nontender and no guarding <April Vinson PA-C - Last Filed: 01/19/24 08:18> Skin: General skin exam: no rashes or lesions noted and no jaundice < April Vinson PA-C - Last Filed: 01/19/24 08:18> Objective Data Active Medications Acetaminophen (Acetaminophen 325 Mg Tablet) 650 mg PO Q6H PRN PRN Reason: Pain, Mild (Pain Scale 1-3), fever or headache Calcium Carbonate (Calcium Carbonate 750 Mg Tab.Chew) 750 mg PO Q4H PRN PRN Reason: Heartburn Enoxaparin Sodium (Enoxaparin Sodium 30 Mg/0.3 Ml Syringe) 30 mg SUBCUT Q24H [facility] Last Admin: 01/18/24 10:21 Dose: 30 mg Documented By: DIVYA Ceftriaxone Sodium 1 gm/ (Sodium Chloride) 50 mls @ 100 mls/hr IV Q24H ANDREW Metronidazole (Flagyl) 500 mg in 100 mls @ 100 mls/hr IV Q8H [facility] Last Infusion: 01/19/24 02:56 Dose: Infused Documented By: LIDIA Magnesium Hydroxide (Milk Of Magnesia 30 Ml Oral.Susp) 30 ml PO DAILY PRN PRN Reason: Constipation Melatonin (Melatonin 3 Mg Tablet) 6 mg PO BEDTIME PRN PRN Reason: Insomnia Metoprolol Tartrate (Metoprolol Tartrate 50 Mg Tablet) 50 mg PO BID [facility]; Protocol Last Admin: 01/18/24 21:10 Dose: 50 mg Documented By: LIDIA Ondansetron HCl (Ondansetron Hcl 4 Mg/2 Ml Vial) 4 mg IVPUSH Q8H PRN PRN Reason: Nausea and Vomiting Sertraline HCl (Sertraline Hcl 25 Mg Tablet) 25 mg PO DAILY [facility] Sodium Chloride (0.9 % Sodium Chloride Flush 3 Ml Syringe) 3 ml IVFLUSH QSHIFT [facility] Last Admin: 01/18/24 21:11 Dose: 3 ml Documented By: LIDIA <April Vinson PA-C - Last Filed: 01/19/24 08:18> Labs CBC & Chem 7: 01/20/24 05:57 01/20/24 05:57 <April Vinson PA-C - Last Filed: 01/19/24 08:18> Labs: Laboratory Results - last 24 hr 01/19/24 06:00 MCV 89.9 MCH 29.9 MCHC 33.2 RDW 12.6 Plt Count 257 MPV 10.5 Absolute Nucleated RBC 0.000 Nucleated RBC % (auto) 0.0 Anion Gap 13 Estim Creat Clear Calc 26.4 Estimated GFR 33 Random Glucose 95 Calcium 9.6 Total Bilirubin 1.2 H Direct Bilirubin 0.7 H AST 124 H ALT 150 H Alkaline Phosphatase 358 H Total Protein 6.0 L Albumin 3.1 L <PRESTON Chiang Last Filed: 01/19/24 08:18> Microbiology Microbiology Results: Microbiology 01/18/24 00:33 Blood Culture - Preliminary Blood - Venous No growth after 24 hours. 01/18/24 00:27 Blood Culture - Preliminary Blood - Venous No growth after 24 hours. <April Vinson PA-C - Last Filed: 01/19/24 08:18> Procedures Date of Service Date of Service: 01/19/24 <April Vinson PA-C - Last Filed: 01/19/24 08:18> 01/20/24 <Tadeo Guaman MD - Last Filed: 01/20/24 08:06> Progress Note: A&P Assessment and plan (1) Transaminitis: Status: Acute <April Vinson PA-C - Last Filed: 01/19/24 08:18> Assessment and Plan: Abdominal exam remains benign No significant tenderness right upper quadrant LFTs still elevated MRCP shows suggestion of CBD stone GI eval for ERCP Seen and examined independently <Tadeo Guaman MD - Last Filed: 01/20/24 08:06> Assessment and Plan: Abd overall benign. MRCP shows CBD stones on my review, LFTs worsening. Recommend GI consult for possible ERCP. <April Vinson PA-C - Last Filed: 01/19/24 08:18> Time Spent With Patient Time: Total time managing care of this patient today ____ minutes. <April Vinson PA-C - Last Filed: 01/19/24 08:18> Quality Stroke Does the patient have a stroke diagnosis?: No <April Vinson PA-C - Last Filed: 01/19/24 08:18> VTE Prior VTE?: No <April Vinson PA-C - Last Filed: 01/19/24 08:18> VTE Risk Level:: Medical - moderate - high <April Vinson PA-C - Last Filed: 01/19/24 08:18> VTE Device Contraindication: Treatment Not Indicated <April Vinson PA-C - Last Filed: 01/19/24 08:18> VTE Drug Contraindication: N/A - Med Ordered <April Vinson PA-C - Last Filed: 01/19/24 08:18>
[2024-01-19] MEDS: Metoprolol Tartrate 50 MG TABLET PO ×2 (08:28→20:40)
[2024-01-19] MEDS: Sertraline HCL 25 MG TABLET PO (08:28)
[2024-01-19] MEDS: 0.9 % Sodium Chloride Flush 3 ML SYRINGE IVFLUSH ×3 (08:28→20:45)
[2024-01-19] MEDS: Enoxaparin Sodium 30 MG/0.3 ML SYRINGE SUBCUT (08:31)
--- NOTE | 2024-01-19 10:20 | HO.PM.IMPN ---
Subjective Subjective Date of Service: 01/19/24 Review of Systems Review of Systems: Yes Unobtainable due to mental condition Physical Exam Vital Signs: Vital Signs: Last Vital Signs Temp 96.8 F 01/19/24 07:25 Pulse 62 01/19/24 07:25 Resp 18 01/19/24 07:25 BP 135/66 01/19/24 07:25 Pulse Ox 99 01/19/24 07:25 O2 Del Method Room Air 01/19/24 07:25 BMI result Body Mass Index 29.3 General: Alert, expressive aphasia Resp: CTA bilateral, no accessory muscles used CVS: S1,S2,RRR GI: soft, non tender, non distended Neuro: motor grossly intact, alert Psych: flat affect, poor insight Objective Data Active Medications Acetaminophen (Acetaminophen 325 Mg Tablet) 650 mg PO Q6H PRN PRN Reason: Pain, Mild (Pain Scale 1-3), fever or headache Calcium Carbonate (Calcium Carbonate 750 Mg Tab.Chew) 750 mg PO Q4H PRN PRN Reason: Heartburn Enoxaparin Sodium (Enoxaparin Sodium 30 Mg/0.3 Ml Syringe) 30 mg SUBCUT Q24H [facility] Last Admin: 01/19/24 08:31 Dose: 30 mg Documented By: GINNY Ceftriaxone Sodium 1 gm/ (Sodium Chloride) 50 mls @ 100 mls/hr IV Q24H [facility] Metronidazole (Flagyl) 500 mg in 100 mls @ 100 mls/hr IV Q8H [facility] Last Admin: 01/19/24 09:21 Dose: 100 mls/hr Documented By: GINNY Magnesium Hydroxide (Milk Of Magnesia 30 Ml Oral.Susp) 30 ml PO DAILY PRN PRN Reason: Constipation Melatonin (Melatonin 3 Mg Tablet) 6 mg PO BEDTIME PRN PRN Reason: Insomnia Metoprolol Tartrate (Metoprolol Tartrate 50 Mg Tablet) 50 mg PO BID [facility]CLUD[facility]; Protocol Last Admin: 01/19/24 08:28 Dose: 50 mg Documented By: GINNY Ondansetron HCl (Ondansetron Hcl 4 Mg/2 Ml Vial) 4 mg IVPUSH Q8H PRN PRN Reason: Nausea and Vomiting Sertraline HCl (Sertraline Hcl 25 Mg Tablet) 25 mg PO DAILY [facility]CLUD[facility] Last Admin: 01/19/24 08:28 Dose: 25 mg Documented By: GINNY Sodium Chloride (0.9 % Sodium Chloride Flush 3 Ml Syringe) 3 ml IVFLUSH QSHIFT [facility] Last Admin: 01/19/24 08:28 Dose: 3 ml Documented By: GINNY Labs 01/19/24 06:00 01/19/24 06:00 Labs: Laboratory Results - last 24 hr 01/19/24 06:00 MCV 89.9 MCH 29.9 MCHC 33.2 RDW 12.6 Plt Count 257 MPV 10.5 Absolute Nucleated RBC 0.000 Nucleated RBC % (auto) 0.0 Anion Gap 13 Estim Creat Clear Calc 26.4 Estimated GFR 33 Random Glucose 95 Calcium 9.6 Total Bilirubin 1.2 H Direct Bilirubin 0.7 H AST 124 H ALT 150 H Alkaline Phosphatase 358 H Total Protein 6.0 L Albumin 3.1 L Microbiology Microbiology Results: Microbiology 01/18/24 00:33 Blood Culture - Preliminary Blood - Venous No growth after 24 hours. 01/18/24 00:27 Blood Culture - Preliminary Blood - Venous No growth after 24 hours. Assessment and Plan (1) NEAL (acute kidney injury): Status: Acute Plan 83F PMH vascular dementia, htn, hld, gerd, ckd III, presented with NEAL, elevated LFTs, lethargy, poor appetite NEAL on CKD III improved with ivf, monitor gb wall thickening, lfts elevated follow up gi, mrcp, labs vascular dementia at baseline dvt prophylaxis - lovenox full code reason for continued hospitalization:monitoring lfts Quality Stroke Does the patient have a stroke diagnosis?: No VTE Prior VTE?: No VTE Risk Level:: Medical - moderate - high VTE Device Contraindication: Treatment Not Indicated VTE Drug Contraindication: N/A - Med Ordered
--- NOTE | 2024-01-19 13:11 | MHC.CM.PN ---
EMR reviewed and per MD rounds, pt is not medically cleared for discharge due to management of NEAL.
--- NOTE | 2024-01-19 15:26 | MHC.SHP ---
Pre-Procedural Eval Section A - 24 Hr Update-Section A only Date of Service: 01/19/24 The patient is an INPATIENT: Yes Changes since office visit: No Cold of Flu in the past 2 weeks, No New Medical Problems, No Changes in Medication and No Patient answered all questions The patient has been examined within 24 hours of the surgical procedure. The History & Physical has been completed within 30 days and I have reviewed it.: Yes Section B - Complete if H&P > 30 days Chief Complaint: Feeling Unwell Allergies: Allergies Allergy/AdvReac Type Severity Reaction Status Date / Time No Known Allergies Allergy Verified 01/17/24 13:25 Plan I have reviewed the history and physical and performed a pertinent physical examination on my patient. No changes have occurred unless specified. Time Spent With Patient Time: Total time managing care of this patient today ____ minutes.
--- NOTE | 2024-01-19 15:27 | PM.EVENT ---
Event Note Date of Service: 01/19/24 Event Note: GI consult dictated MRI appears to show multiple CBD stones. Final reading pending ERCP planned for 01/19. Risks and benefits discussed with patient and sister Danna Gilliam. Time Spent With Patient Time: Total time managing care of this patient today ____ minutes.
[2024-01-19 15:48] VITALS: BP 108/57; PULSE 68; RESP 18; TEMP 36.6; O2SAT 98
--- NOTE | 2024-01-19 16:22 | CONS_ITS ---
DATE OF SERVICE: 01/19/2024 REFERRING PHYSICIAN: April Vinson PA-C REASON FOR CONSULTATION: Common bile duct stones. HISTORY OF PRESENT ILLNESS: The patient is a pleasant 83-year-old woman, who was admitted to the hospital after presenting to the emergency room on January 17 with a 1-week history of feeling unwell with poor p.o. intake and vomiting. She was evaluated by her primary care provider with lab work showing elevated liver function tests as well as kidney functions and was sent to the emergency department. Imaging in the emergency department showed gallbladder wall thickening on CT. She did have a history of cholecystostomy tube placement in June, but never underwent cholecystectomy. Because of her elevated liver function tests, she underwent MRI imaging. The official reading is pending, but this does appear to show multiple filling defects consistent with common bile duct stones. The patient tolerated lunch today and has no complaints of abdominal pain. She provides very little history because of her underlying vascular dementia and the history is obtained from the chart and her sister, who was present. PAST MEDICAL HISTORY: 1. Vascular dementia. 2. Hypertension. 3. Hyperlipidemia. 4. Cholecystitis with cholecystostomy tube as above. CURRENT MEDICATIONS: Her current medication list is reviewed in the chart. ALLERGIES: THERE ARE NONE REPORTED. FAMILY HISTORY: This is reviewed in the electronic medical record and is noncontributory. SOCIAL HISTORY: There is no current tobacco, alcohol, or substance abuse. REVIEW OF SYSTEMS: SKIN: No pruritus. HEENT: Negative. CARDIOPULMONARY: She denies shortness of breath or chest pain. GASTROINTESTINAL: As above. GENITOURINARY: Negative. NEUROPSYCHIATRIC: Negative. PHYSICAL EXAMINATION: GENERAL: Shows a pleasant female, sitting in a chair. VITAL SIGNS: Reviewed in the electronic medical record and are stable. SKIN: Anicteric. HEENT: Shows no scleral icterus. NECK: Without lymphadenopathy or thyromegaly. LUNGS: Clear. HEART: Shows regular rate and rhythm. S1, S2. No murmur. ABDOMEN: Soft without focal masses or tenderness. Bowel sounds are present. No organomegaly is noted. EXTREMITIES: Without edema. LABORATORY DATA: Reviewed as are her imaging studies. IMPRESSION: Common bile duct stones. I have discussed ERCP with the patient and her sister. They appeared understand the risks and benefits and agreed to proceed. This will be arranged tentatively for tomorrow. Thanks for asking me to see her. I will follow her in the hospital with you. MD MARLON Jung/JAMARCUS / [phone]
[2024-01-19 20:00] VITALS: BP 118/60; PULSE 85; RESP 18; TEMP 36.6; O2SAT 98
[2024-01-19] MEDS: cefTRIAXone sodium 1 GM in 0.9 % Sodium Chloride 50 ML IV (20:38)
[2024-01-20] VITALS (11 sets, daily range): BP systolic 120–139; BP diastolic 55–67; PULSE 61–80; RESP 12–20; TEMP 36–36.9; O2SAT 95–98
[2024-01-20] MEDS: metroNIDAZOLE/NS 500 MG/100 ML PIGGYBACK 100 MG IV ×3 (02:15→17:51)
[2024-01-20 06:25] LABS: Alanine Aminotransferase 113 U/L (0-31); Alkaline Phosphatase 282 U/L (39-117); Anion Gap 12 (12-20); Aspartate Amino Transferase 66 U/L (5-31); Bilirubin Direct 0.5 mg/dL (0.0-0.5); Bilirubin Total 0.8 mg/dL (0.0-1.0); Blood Urea Nitrogen 27 mg/dL (9-16); Calcium 9.5 mg/dL (8.4-10.2); Carbon Dioxide 24 mmol/L (22-29); Chloride 107 mmol/L (96-108); Estimated Glomerular Filt Rate 32; Glucose Fasting 99 mg/dL (60-99); Magnesium 1.6 mg/dL (1.6-2.6); Sodium 139 mmol/L (135-145); Total Protein 5.8 g/dL (6.5-8.0)
[2024-01-20 06:44] LABS: Hematocrit 29.1 % (37.0-47.0); Hemoglobin 9.5 g/dl (12.0-16.0); Mean Corpuscular HGB Conc 32.6 g/dl (31.0-35.0); Mean Corpuscular Hemoglobin 29.8 pg (27.0-33.0); Mean Corpuscular Volume 91.2 fL (80.0-98.0); Mean Platelet Volume 10.6 fL (9.4-12.3); Platelet Count 280 X10*3/uL (160-400); Red Blood Count 3.19 X10*6/uL (4.20-5.50); Red Cell Distribution Width 12.9 % (11.0-16.0); White Blood Count 9.9 X10*3/uL (4.8-10.8)
[2024-01-20] MEDS: 0.9 % Sodium Chloride Flush 3 ML SYRINGE IVFLUSH ×3 (08:54→21:01)
--- NOTE | 2024-01-20 09:01 | HO.PM.IMPN ---
Subjective Subjective Date of Service: 01/20/24 Review of Systems Review of Systems: Yes Unobtainable due to mental condition Physical Exam Vital Signs: Vital Signs: Last Vital Signs Temp 97.0 F 01/20/24 07:34 Pulse 65 01/20/24 07:34 Resp 18 01/20/24 07:34 BP 134/61 01/20/24 07:34 Pulse Ox 97 01/20/24 07:34 O2 Del Method Room Air 01/20/24 07:34 BMI result Body Mass Index 29.3 General: Alert, expressive aphasia Resp: CTA bilateral, no accessory muscles used CVS: S1,S2,RRR GI: soft, non tender, non distended Neuro: motor grossly intact, alert Psych: flat affect, poor insight Objective Data Active Medications Acetaminophen (Acetaminophen 325 Mg Tablet) 650 mg PO Q6H PRN PRN Reason: Pain, Mild (Pain Scale 1-3), fever or headache Calcium Carbonate (Calcium Carbonate 750 Mg Tab.Chew) 750 mg PO Q4H PRN PRN Reason: Heartburn Enoxaparin Sodium (Enoxaparin Sodium 30 Mg/0.3 Ml Syringe) 30 mg SUBCUT Q24H [facility] Last Admin: 01/19/24 08:31 Dose: 30 mg Documented By: GINNY Ceftriaxone Sodium 1 gm/ (Sodium Chloride) 50 mls @ 100 mls/hr IV Q24H [facility] Last Infusion: 01/19/24 21:08 Dose: Infused Documented By: LEO Metronidazole (Flagyl) 500 mg in 100 mls @ 100 mls/hr IV Q8H [facility] Last Infusion: 01/20/24 03:17 Dose: Infused Documented By: LEO Magnesium Hydroxide (Milk Of Magnesia 30 Ml Oral.Susp) 30 ml PO DAILY PRN PRN Reason: Constipation Melatonin (Melatonin 3 Mg Tablet) 6 mg PO BEDTIME PRN PRN Reason: Insomnia Metoprolol Tartrate (Metoprolol Tartrate 50 Mg Tablet) 50 mg PO BID [facility]; Protocol Last Admin: 01/20/24 08:50 Dose: Not Given Documented By: BRODERICK Non-Admin Reason: NPO Ondansetron HCl (Ondansetron Hcl 4 Mg/2 Ml Vial) 4 mg IVPUSH Q8H PRN PRN Reason: Nausea and Vomiting Sertraline HCl (Sertraline Hcl 25 Mg Tablet) 25 mg PO DAILY [facility] Last Admin: 01/20/24 08:50 Dose: Not Given Documented By: BRODERICK Non-Admin Reason: NPO Sodium Chloride (0.9 % Sodium Chloride Flush 3 Ml Syringe) 3 ml IVFLUSH QSHIFT [facility] Last Admin: 01/20/24 08:54 Dose: 3 ml Documented By: BRODERICK Labs 01/20/24 05:57 01/20/24 05:57 Labs: Laboratory Results - last 24 hr 01/20/24 05:57 MCV 91.2 MCH 29.8 MCHC 32.6 RDW 12.9 Plt Count 280 MPV 10.6 Absolute Nucleated RBC 0.000 Nucleated RBC % (auto) 0.0 Anion Gap 12 Estim Creat Clear Calc 26.0 Estimated GFR 32 Fasting Glucose 99 Calcium 9.5 Magnesium 1.6 Total Bilirubin 0.8 Direct Bilirubin 0.5 AST 66 H ALT 113 H Alkaline Phosphatase 282 H Total Protein 5.8 L Albumin 3.0 L Microbiology Microbiology Results: Microbiology 01/17/24 Unknown Urine Culture - Final Urine clean catch - Clean Catch Midstream Klebsiella oxytoca 01/18/24 00:33 Blood Culture - Preliminary Blood - Venous No growth after 48 hours. 01/18/24 00:27 Blood Culture - Preliminary Blood - Venous No growth after 48 hours. Assessment and Plan (1) NEAL (acute kidney injury): Status: Acute Plan 83F PMH vascular dementia, htn, hld, gerd, ckd III, presented with NEAL, elevated LFTs, lethargy, poor appetite NEAL on CKD III Appears back to baseline gb wall thickening, lfts elevated, choledocholithiasis Plan for ERCP today vascular dementia at baseline dvt prophylaxis - lovenox full code reason for continued hospitalization: ERCP today Quality Stroke Does the patient have a stroke diagnosis?: No VTE Prior VTE?: No VTE Risk Level:: Medical - moderate - high VTE Device Contraindication: Treatment Not Indicated VTE Drug Contraindication: N/A - Med Ordered
--- NOTE | 2024-01-20 13:11 | P.CONAN_ITS ---
HPI - Anesthesia Eval Consult details Narrative: 83 yo F presenting for ERCP secondary to choledocholithiasis. Hx of expressive aphasia and dementia. PMFSH Active Problems Active Problems: All Active Problems Acute cholecystitis (Acute) Transaminitis (Acute) Acute UTI (Acute) NEAL (acute kidney injury) (Acute) Vascular dementia (Acute) Cholecystitis (Acute) Bacteremia (Acute) Elevated troponin (Acute) Past Medical History Medical History Vascular dementia Cholecystitis Hyperlipidemia Hypertension Family History Family history of problems with anesthesia: No Surgical History Surgical History Hx of surgical procedure (~06/29/23) History of Problems with Anesthesia: No Social History Social History Household Members: None Housing: House Do you presently have visiting nurse or other home services: No Comment: 1:1 sitter Patient Tobacco Use Status: Never used Tobacco service: No Meds Allergies Allergy/AdvReac Type Severity Reaction Status Date / Time No Known Allergies Allergy Verified 01/17/24 13:25 Active Medications: Current Medications Acetaminophen (Acetaminophen 325 Mg Tablet) 650 mg PO Q6H PRN PRN Reason: Pain, Mild (Pain Scale 1-3), fever or headache Calcium Carbonate (Calcium Carbonate 750 Mg Tab.Chew) 750 mg PO Q4H PRN PRN Reason: Heartburn Enoxaparin Sodium (Enoxaparin Sodium 30 Mg/0.3 Ml Syringe) 30 mg SUBCUT Q24H [facility] Last Admin: 01/19/24 08:31 Dose: 30 mg Ceftriaxone Sodium 1 gm/ (Sodium Chloride) 50 mls @ 100 mls/hr IV Q24H [facility] Last Infusion: 01/19/24 21:08 Dose: Infused Metronidazole (Flagyl) 500 mg in 100 mls @ 100 mls/hr IV Q8H [facility] Last Infusion: 01/20/24 11:43 Dose: Infused Magnesium Hydroxide (Milk Of Magnesia 30 Ml Oral.Susp) 30 ml PO DAILY PRN PRN Reason: Constipation Melatonin (Melatonin 3 Mg Tablet) 6 mg PO BEDTIME PRN PRN Reason: Insomnia Metoprolol Tartrate (Metoprolol Tartrate 50 Mg Tablet) 50 mg PO BID [facility]; Protocol Last Admin: 01/20/24 08:50 Dose: Not Given Ondansetron HCl (Ondansetron Hcl 4 Mg/2 Ml Vial) 4 mg IVPUSH Q8H PRN PRN Reason: Nausea and Vomiting Sertraline HCl (Sertraline Hcl 25 Mg Tablet) 25 mg PO DAILY [facility] Last Admin: 01/20/24 08:50 Dose: Not Given Sodium Chloride (0.9 % Sodium Chloride Flush 3 Ml Syringe) 3 ml IVFLUSH QSHIFT [facility] Last Admin: 01/20/24 08:54 Dose: 3 ml Home Medications ?Medication ?Instructions ?Recorded ?Confirmed ?Last Taken ?Type atorvastatin 10 mg tablet 10 mg PO BEDTIME 06/29/23 01/18/24 06/28/23 History hydrochlorothiazide 25 mg tablet 25 mg PO DAILY 06/29/23 01/18/24 06/28/23 History metoprolol tartrate 50 mg tablet 50 mg PO BID 06/29/23 01/18/24 06/29/23 History sertraline 25 mg tablet 25 mg PO DAILY 01/18/24 01/18/24 Unknown History Exam Exam Date and Time: 01/20/24 1300 Height,Weight and Vital Signs: Height 5 ft 3 in Weight 75 kg Last Vital Signs Temp 98.4 F 01/20/24 12:59 Pulse 80 01/20/24 12:59 Resp 18 01/20/24 12:59 BP 133/67 01/20/24 12:59 Pulse Ox 96 01/20/24 12:59 O2 Del Method Room Air 01/20/24 12:59 Pertinent Lab Results Pertinent Lab Results: Laboratory Tests 01/17/24 01/17/24 01/17/24 17:26 20:37 22:43 WBC 11.9 H RBC 3.57 L Hgb 10.6 L Hct 32.6 L MCV 91.3 MCH 29.7 MCHC 32.5 RDW 12.6 Plt Count 299 MPV 10.1 Immature Gran % (Auto) 0.6 H Neut % (Auto) 66.3 Lymph % (Auto) 19.2 L [place] % (Auto) 8.3 Eos % (Auto) 5.1 H Baso % (Auto) 0.5 Lymph # (Auto) 2.3 [place] # (Auto) 1.0 Eos # (Auto) 0.6 H Baso # (Auto) 0.1 Abs Immat Gran (auto) 0.07 H Absolute Neuts (auto) 7.9 Absolute Nucleated RBC 0.000 Nucleated RBC % (auto) 0.0 PT 10.9 INR 0.9 APTT 30.7 Sodium 140 Potassium 4.2 Chloride 103 Carbon Dioxide 27 Anion Gap 14 BUN 40 H Creatinine 2.33 H Estim Creat Clear Calc 17.1 Estimated GFR 20 Random Glucose 119 H Fasting Glucose Calcium 10.6 H Magnesium 1.7 Total Bilirubin 1.6 H Direct Bilirubin 1.0 H AST 157 H ALT 207 H Alkaline Phosphatase 307 H Ammonia 35 Total Protein 7.2 Albumin 3.7 Urine Color Dark Yellow Urine Appearance Cloudy Urine pH 5.5 Ur Specific [place] 1.015 Urine Protein Negative Urine Glucose (UA) Negative Urine Ketones Negative Urine Blood Negative Urine Nitrite Positive H Ur Leukocyte Esterase Moderate (2+) H Urine RBC 0-2 Urine WBC >50 H Ur Squamous Epith Cells 6-10 Urine Bacteria 4+ Hyaline Casts 3-5 01/18/24 01/19/24 01/20/24 04:21 06:00 05:57 WBC 10.0 8.4 9.9 RBC 3.22 L 3.28 L 3.19 L Hgb 9.5 L 9.8 L 9.5 L Hct 29.4 L 29.5 L 29.1 L MCV 91.3 89.9 91.2 MCH 29.5 29.9 29.8 MCHC 32.3 33.2 32.6 RDW 12.6 12.6 12.9 Plt Count 252 257 280 MPV 10.7 10.5 10.6 Immature Gran % (Auto) 0.5 H Neut % (Auto) 62.3 Lymph % (Auto) 19.7 L [place] % (Auto) 9.5 Eos % (Auto) 7.4 H Baso % (Auto) 0.6 Lymph # (Auto) 2.0 [place] # (Auto) 1.0 Eos # (Auto) 0.7 H Baso # (Auto) 0.1 Abs Immat Gran (auto) 0.05 H Absolute Neuts (auto) 6.2 Absolute Nucleated RBC 0.000 0.000 0.000 Nucleated RBC % (auto) 0.0 0.0 0.0 PT INR APTT Sodium 140 140 139 Potassium 4.5 4.0 4.0 Chloride 107 107 107 Carbon Dioxide 24 24 24 Anion Gap 14 13 12 BUN 37 H 29 H 27 H Creatinine 1.92 H 1.51 H 1.53 H Estim Creat Clear Calc 20.7 26.4 26.0 Estimated GFR 25 33 32 Random Glucose 96 95 Fasting Glucose 99 Calcium 9.7 D 9.6 9.5 Magnesium 1.6 Total Bilirubin 1.1 H 1.2 H 0.8 Direct Bilirubin 0.7 H 0.5 AST 102 H 124 H 66 H ALT 153 H 150 H 113 H Alkaline Phosphatase 263 H 358 H 282 H Ammonia Total Protein 6.2 L 6.0 L 5.8 L Albumin 3.1 L 3.1 L 3.0 L Urine Color Urine Appearance Urine pH Ur Specific [place] Urine Protein Urine Glucose (UA) Urine Ketones Urine Blood Urine Nitrite Ur Leukocyte Esterase Urine RBC Urine WBC Ur Squamous Epith Cells Urine Bacteria Hyaline Casts Airway Mallampati Class: II TM Dist: >3cm Neck ROM: Full Denture: Upper and Lower Heart: S1S2 Lungs: CTAB Assessment and Plan Assessment Anesthesia Assessment: Anesthesia Plan Discussed and Chart Reviewed Final Anesthetic Review Family History of Problems with Anesthesia: No History of Problems with Anesthesia: No NPO: Yes ASA Class: III Final Preanesthetic Review: No Changes in Pt Med Stat, Meds/Allgs Chart Reviewed, Consent Obtained/Reviewed (HCP phone consent - sister, Danna Gilliam) and Anes Risks/Benef Reviewed Patient Risk: Low Procedure Risk: Low Anesthetic Plan Anesthetic Plan: GA and Agree w/ Assess. and Plan Disposition: Standard PACU
--- NOTE | 2024-01-20 13:33 | MHC.SHP ---
Pre-Procedural Eval Section A - 24 Hr Update-Section A only Date of Service: 01/20/24 The patient is an INPATIENT: Yes The patient has been examined within 24 hours of the surgical procedure. The History & Physical has been completed within 30 days and I have reviewed it.: Yes Section B - Complete if H&P > 30 days Chief Complaint: Feeling Unwell Allergies: Allergies Allergy/AdvReac Type Severity Reaction Status Date / Time No Known Allergies Allergy Verified 01/17/24 13:25 Plan I have reviewed the history and physical and performed a pertinent physical examination on my patient. No changes have occurred unless specified. Time Spent With Patient Time: Total time managing care of this patient today ____ minutes.
--- NOTE | 2024-01-20 15:03 | PM.OP ---
Brief Operative Note Date of Service: 01/20/24 Pre-op diagnosis: CBD stones Post-op diagnosis: same Procedure: ERCP with sphincterotomy and removal of CBD stones Surgeon: Stuart Snow MD Anesthesia: GETA Was an Teacher Of Family And Consumer Science used for this Procedure?: No Estimated blood loss (mL): 2.0 Pathology: none sent Condition: stable Disposition: PACU
--- NOTE | 2024-01-20 15:12 | PM.EVENT ---
Event Note Date of Service: 01/20/24 Event Note: [id number] note dictated Findings: 1. Normal major papilla 2. Selective cholangiograms revealed multiple filling defects c/w stones in the extrahepatic bile duct.The intrahepatic ducts appeared normal. 3. Performed an approx. 10mm sphincterotomy 4. Multiple, > 6 stones pulled into the duodenum with a balloon catheter. There was no purulence. 5. F/U cholangiograms were negative for any filling defects and there was good drainage of bile and dye into the duodenum 6. The Pancreatic duct was cannulated with a wire but no dye was injected 7. 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 Rec: Observe. F/U labs in the AM. Start liquids 01/21/24 if stable.Continue antibiotics for another 24 hours but they can be discontinued after tomorrow from my standpoint. Hold Lovenox and all other blood thinners for 1 week. Call me if problems. D/W her sister, Danna. Thanks Time Spent With Patient Time: Total time managing care of this patient today ____ minutes.
--- NOTE | 2024-01-20 15:23 | P.PNGS_ITS ---
Subjective Subjective Date of Service: 01/21/24 Interval history: Underwent ERCP - CBD stones removed Appears comfortable Physical Exam 2 Vital Signs: Vital Signs: Last Vital Signs Temp 98.2 F 01/20/24 14:55 Pulse 71 01/20/24 15:15 Resp 16 01/20/24 15:15 BP 120/66 01/20/24 15:15 Pulse Ox 95 01/20/24 15:15 O2 Del Method Room Air 01/20/24 15:15 BMI result Body Mass Index 29.3 Const: General: comfortable and no acute distress Resp: Effort & Inspection: normal respiratory effort GI: Palpation (GI): Soft to palpation, not firm, nontender and no guarding Objective Data Active Medications Acetaminophen (Acetaminophen 325 Mg Tablet) 650 mg PO Q6H PRN PRN Reason: Pain, Mild (Pain Scale 1-3), fever or headache Calcium Carbonate (Calcium Carbonate 750 Mg Tab.Chew) 750 mg PO Q4H PRN PRN Reason: Heartburn Enoxaparin Sodium (Enoxaparin Sodium 30 Mg/0.3 Ml Syringe) 30 mg SUBCUT Q24H [facility] Last Admin: 01/19/24 08:31 Dose: 30 mg Documented By: GINNY Fentanyl (Fentanyl Citrate/Pf 100 Mcg/2 Ml Vial) 25 mcg IVPUSH Q5M PRN PRN Reason: Pain, Moderate to Severe (Pain Scale 4-10) Stop: 01/20/24 19:16 Haloperidol Lactate (Haloperidol Lactate 5 Mg/Ml Vial) 0.5 mg IVPUSH ONCE PRN PRN Reason: intractable nausea Stop: 01/20/24 19:16 Ceftriaxone Sodium 1 gm/ (Sodium Chloride) 50 mls @ 100 mls/hr IV Q24H [facility] Last Infusion: 01/19/24 21:08 Dose: Infused Documented By: LEO Metronidazole (Flagyl) 500 mg in 100 mls @ 100 mls/hr IV Q8H [facility] Last Infusion: 01/20/24 11:43 Dose: Infused Documented By: BRODERICK Magnesium Hydroxide (Milk Of Magnesia 30 Ml Oral.Susp) 30 ml PO DAILY PRN PRN Reason: Constipation Melatonin (Melatonin 3 Mg Tablet) 6 mg PO BEDTIME PRN PRN Reason: Insomnia Metoprolol Tartrate (Metoprolol Tartrate 50 Mg Tablet) 50 mg PO BID [facility]; Protocol Last Admin: 01/20/24 08:50 Dose: Not Given Documented By: BRODERICK Non-Admin Reason: NPO Naloxone HCl (Naloxone Hcl 0.4 Mg/Ml Vial) 0.04 mg IVPUSH Q5M PRN PRN Reason: Excessive sedation or RR < 8 Ondansetron HCl (Ondansetron Hcl 4 Mg/2 Ml Vial) 4 mg IVPUSH Q8H PRN PRN Reason: Nausea and Vomiting Sertraline HCl (Sertraline Hcl 25 Mg Tablet) 25 mg PO DAILY [facility] Last Admin: 01/20/24 08:50 Dose: Not Given Documented By: BRODERICK Non-Admin Reason: NPO Sodium Chloride (0.9 % Sodium Chloride Flush 3 Ml Syringe) 3 ml IVFLUSH QSHIFT [facility] Last Admin: 01/20/24 08:54 Dose: 3 ml Documented By: BRODERICK Labs 01/21/24 05:40 01/21/24 05:40 Labs: Laboratory Results - last 24 hr 01/20/24 05:57 MCV 91.2 MCH 29.8 MCHC 32.6 RDW 12.9 Plt Count 280 MPV 10.6 Absolute Nucleated RBC 0.000 Nucleated RBC % (auto) 0.0 Anion Gap 12 Estim Creat Clear Calc 26.0 Estimated GFR 32 Fasting Glucose 99 Calcium 9.5 Magnesium 1.6 Total Bilirubin 0.8 Direct Bilirubin 0.5 AST 66 H ALT 113 H Alkaline Phosphatase 282 H Total Protein 5.8 L Albumin 3.0 L Microbiology Microbiology Results: Microbiology 01/17/24 Unknown Urine Culture - Final Urine clean catch - Clean Catch Midstream Klebsiella oxytoca 01/18/24 00:33 Blood Culture - Preliminary Blood - Venous No growth after 48 hours. 01/18/24 00:27 Blood Culture - Preliminary Blood - Venous No growth after 48 hours. Procedures Date of Service Date of Service: 01/21/24 Progress Note: A&P Assessment and plan (1) Choledocholithiasis: Status: Acute Assessment and Plan: ERCP done - stones retrieved I have discussed excision of cholecystectomy with the patient's sister Danna She wants have the patient discharge with current admission She says she will have discussions with me about the option of cholecystectomy down the line She understands benefits, risks and alternatives of cholecystectomy Time Spent With Patient Time: Total time managing care of this patient today ____ minutes. Quality Stroke Does the patient have a stroke diagnosis?: No VTE Prior VTE?: No VTE Risk Level:: Medical - moderate - high VTE Device Contraindication: Treatment Not Indicated VTE Drug Contraindication: N/A - Med Ordered
--- NOTE | 2024-01-20 16:07 | PC.NURSE ---
Pt arrived back to [facility]3 at approximately 1545, at this time pt drowsy but alert to voice. Vital signs stable, all safety measures in place.
[2024-01-20] MEDS: cefTRIAXone sodium 1 GM in 0.9 % Sodium Chloride 50 ML IV (21:00)
[2024-01-20] MEDS: Metoprolol Tartrate 50 MG TABLET PO (21:01)
--- NOTE | 2024-01-20 21:35 | OP_ITS ---
DATE OF SERVICE: 01/20/2024 SURGEON: Stuart Snow MD INDICATIONS: The patient presents for evaluation of choledocholithiasis. Full consent has been obtained from the patient's sister Danna, including risks of bleeding, perforation, cholangitis, and pancreatitis. PREOPERATIVE DIAGNOSIS: Choledocholithiasis. POSTOPERATIVE DIAGNOSIS: Choledocholithiasis. PROCEDURE PERFORMED: ERCP with sphincterotomy and removal of common duct stones. ESTIMATED BLOOD LOSS: COMPLICATIONS: ANESTHESIA: General anesthesia and glucagon 0.5 mg IV x1 dose. ASSISTANTS: SPECIMENS: DESCRIPTION OF PROCEDURE: The patient was placed in the semiprone position. The [employer] therapeutic video duodenoscope was passed in the posterior oropharynx and upper esophagus. Advancement past the upper esophageal sphincter was difficult, and I felt she probably had a component of cricopharyngeal achalasia given her age of 83. However, I was able to past this with the scope. The scope was entered into the stomach and advanced to the pylorus. The duodenum was cannulated to the descending portion. The region of the major papilla was visualized and appeared normal, although the papilla was initially in a downward orientation. The papilla itself appeared normal without any mass or ulceration. Using a [employer] triple lumen sphincterotome over a straight guidewire I was able to achieve a selective cannulation of the biliary tree after a several millimeter precut sphincterotomy with the sphincterotome. Initial attempts at cannulation of the biliary tree yielded entry only into the pancreatic duct with the guidewire judging fluoroscopically. At that point, the precut sphincterotomy was performed yielding flow of bile. I then achieved a selective cannulation of the biliary tree over the guidewire without difficulty. Selective cholangiograms revealed multiple filling defects in the distal and mid-common bile duct. There was good filling of the intrahepatic ducts, which appeared normal and without any filling defects. The common hepatic duct had some relative narrowing but not a stricture. I felt this was probably in relation to her previous history of cholecystitis with placement of a cholecystostomy tube earlier in the year. At that point, I did extend the sphincterotomy to completion of approximately 10 mm. There was excellent drainage of bile and dye noted but without any purulence. There was no sign of any bleeding or perforation. I then used 12 and 15 mm balloons to sweep the bile duct and remove multiple, greater than 6, intact common duct stones, as well as some fragments. The 12 mm balloon pulled easily into the duodenum. Followup cholangiograms with good filling of the bile duct did not reveal any further filling defects. There was excellent drainage of bile and dye coming into the duodenum and the 12 mm balloon pulled easily into the duodenum as well. At that point, with no further filling defects noted, the scope was withdrawn from the patient. She tolerated the procedure well and was returned to the recovery area in stable condition. IMPRESSION: 1. Choledocholithiasis. 2. 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 PLAN: The patient will be observed. Her diet will be slowly advanced over the next day or 2. She will have followup laboratories tomorrow. All blood thinners including Lovenox should be held for at least a week. She has been evaluated by surgery but given her age and other comorbidities the plan is to hold off on cholecystectomy at this time. This has all been discussed with the patient's sister, Danna, in detail. She is comfortable with this plan. MD IGNACIO Delacruz/JAMARCUS / [id number] MTDD
[2024-01-21] MEDS: metroNIDAZOLE/NS 500 MG/100 ML PIGGYBACK 100 MG IV ×3 (01:48→17:12)
[2024-01-21 03:27] VITALS: BP 121/59; PULSE 60; RESP 16; TEMP 36.5; O2SAT 97
[2024-01-21 06:41] LABS: Hematocrit 31.4 % (37.0-47.0); Hemoglobin 10.2 g/dl (12.0-16.0); Mean Corpuscular HGB Conc 32.5 g/dl (31.0-35.0); Mean Corpuscular Hemoglobin 29.8 pg (27.0-33.0); Mean Corpuscular Volume 91.8 fL (80.0-98.0); Mean Platelet Volume 10.7 fL (9.4-12.3); Platelet Count 304 X10*3/uL (160-400); Red Blood Count 3.42 X10*6/uL (4.20-5.50); Red Cell Distribution Width 12.7 % (11.0-16.0); White Blood Count 12.4 X10*3/uL (4.8-10.8)
[2024-01-21 07:10] LABS: Alanine Aminotransferase 92 U/L (0-31); Albumin Level 3.1 g/dL (3.5-5.0); Alkaline Phosphatase 258 U/L (39-117); Anion Gap 14 (12-20); Aspartate Amino Transferase 51 U/L (5-31); Bilirubin Direct 0.5 mg/dL (0.0-0.5); Bilirubin Total 0.9 mg/dL (0.0-1.0); Blood Urea Nitrogen 32 mg/dL (9-16); Calcium 9.6 mg/dL (8.4-10.2); Carbon Dioxide 22 mmol/L (22-29); Chloride 108 mmol/L (96-108); Creatinine Clr Calc Pharmacy 25.1; Estimated Glomerular Filt Rate 31; Glucose Fasting 113 mg/dL (60-99); Potassium 4.3 mmol/L (3.3-5.1); Sodium 140 mmol/L (135-145); Total Protein 6.2 g/dL (6.5-8.0)
[2024-01-21 07:12] VITALS: BP 106/53; PULSE 71; RESP 16; TEMP 36.8; O2SAT 96
--- NOTE | 2024-01-21 08:29 | P.PNIM_ITS ---
Subjective Subjective Date of Service: 01/21/24 Interval History: no complaints Physical Exam 2 Vital Signs: Vital Signs: Last Vital Signs Temp 98.3 F 01/21/24 07:12 Pulse 71 01/21/24 07:12 Resp 16 01/21/24 07:12 BP 106/53 L 01/21/24 07:12 Pulse Ox 96 01/21/24 07:12 O2 Del Method Room Air 01/21/24 07:12 BMI result Body Mass Index 29.3 General: Alert, expressive aphasia Resp: CTA bilateral, no accessory muscles used CVS: S1,S2,RRR GI: soft, non tender, non distended Neuro: motor grossly intact, alert Psych: flat affect, poor insight Objective Data Active Medications Acetaminophen (Acetaminophen 325 Mg Tablet) 650 mg PO Q6H PRN PRN Reason: Pain, Mild (Pain Scale 1-3), fever or headache Calcium Carbonate (Calcium Carbonate 750 Mg Tab.Chew) 750 mg PO Q4H PRN PRN Reason: Heartburn Ceftriaxone Sodium 1 gm/ (Sodium Chloride) 50 mls @ 100 mls/hr IV Q24H [facility] Last Infusion: 01/20/24 21:46 Dose: Infused Documented By: JAYNA Metronidazole (Flagyl) 500 mg in 100 mls @ 100 mls/hr IV Q8H [facility] Last Infusion: 01/21/24 03:00 Dose: Infused Documented By: JAYNA Magnesium Hydroxide (Milk Of Magnesia 30 Ml Oral.Susp) 30 ml PO DAILY PRN PRN Reason: Constipation Melatonin (Melatonin 3 Mg Tablet) 6 mg PO BEDTIME PRN PRN Reason: Insomnia Metoprolol Tartrate (Metoprolol Tartrate 50 Mg Tablet) 50 mg PO BID [facility]; Protocol Last Admin: 01/20/24 21:01 Dose: 50 mg Documented By: JAYNA Naloxone HCl (Naloxone Hcl 0.4 Mg/Ml Vial) 0.04 mg IVPUSH Q5M PRN PRN Reason: Excessive sedation or RR < 8 Ondansetron HCl (Ondansetron Hcl 4 Mg/2 Ml Vial) 4 mg IVPUSH Q8H PRN PRN Reason: Nausea and Vomiting Sertraline HCl (Sertraline Hcl 25 Mg Tablet) 25 mg PO DAILY [facility] Last Admin: 01/20/24 08:50 Dose: Not Given Documented By: BRODERICK Non-Admin Reason: NPO Sodium Chloride (0.9 % Sodium Chloride Flush 3 Ml Syringe) 3 ml IVFLUSH QSHIFT [facility] Last Admin: 01/20/24 21:01 Dose: 3 ml Documented By: JAYNA Labs 01/21/24 05:40 01/21/24 05:40 Labs: Laboratory Results - last 24 hr 01/21/24 05:40 MCV 91.8 MCH 29.8 MCHC 32.5 RDW 12.7 Plt Count 304 MPV 10.7 Absolute Nucleated RBC 0.000 Nucleated RBC % (auto) 0.0 Anion Gap 14 Estim Creat Clear Calc 25.1 Estimated GFR 31 Fasting Glucose 113 H Calcium 9.6 Total Bilirubin 0.9 Direct Bilirubin 0.5 AST 51 H ALT 92 H Alkaline Phosphatase 258 H Total Protein 6.2 L Albumin 3.1 L Microbiology Microbiology Results: Microbiology 01/17/24 Unknown Urine Culture - Final Urine clean catch - Clean Catch Midstream Klebsiella oxytoca Assessment and Plan (1) NEAL (acute kidney injury): Status: Acute Plan 83F PMH vascular dementia, htn, hld, gerd, ckd III, presented with NEAL, elevated LFTs, lethargy, poor appetite NEAL on CKD III Appears back to baseline gb wall thickening, lfts elevated, choledocholithiasis s/p ERCP with sphincterotomy on 01/20/24 continue rocephin/flagyl, advanced to clears on 01/22/24 if stable plan to advance to solids and dc antibiotics outpatient follow up with surgery for possible elective cholecystectomy vascular dementia at baseline dvt prophylaxis - mechanical due to post ercp dispo - home with sister in same building 01/22/24 if stable full code reason for continued hospitalization: post ercp monitoring Quality Stroke Does the patient have a stroke diagnosis?: No VTE Prior VTE?: No VTE Risk Level:: Medical - moderate - high VTE Device Contraindication: Treatment Not Indicated VTE Drug Contraindication: N/A - Med Ordered
[2024-01-21] MEDS: Sertraline HCL 25 MG TABLET PO (08:46)
[2024-01-21] MEDS: 0.9 % Sodium Chloride Flush 3 ML SYRINGE IVFLUSH ×3 (08:48→20:28)
[2024-01-21 08:50] VITALS: BP 108/54; PULSE 68
--- NOTE | 2024-01-21 08:50 | HO.POSTANES ---
Post Anesthesia Evaluation Post Anesthesia Evaluation Date of Service: 01/20/24 Vital Signs: Vital Signs Temp Pulse Resp BP Pulse Ox O2 Del Method 01/21/24 07:12 98.3 F 71 16 106/53 L 96 Room Air 01/21/24 03:27 97.7 F 60 16 121/59 L 97 Room Air 01/20/24 21:01 80 125/60 Anesthesia: General Endotracheal-GETA Mental Status: Awake Pain Control: Satisfactory Nausea/Vomiting: None Hydration: Adequate Anesthesia-Related Issues: No Anes. Related Issues
--- NOTE | 2024-01-21 10:12 | MHC.CM.PN ---
Per MD rounds patient not medically cleared for dc. Advancing diet. Plan remains home w/ family support and VNA if indicated. CM will continue to follow.
[2024-01-21 11:51] VITALS: BP 111/52; PULSE 72
--- NOTE | 2024-01-21 12:04 | P.PNGS_ITS ---
Subjective Subjective Date of Service: 01/21/24 Interval history: Says she feels well No events reported after ERCP last night Has been tolerating diet - liquids Physical Exam 2 Vital Signs: Vital Signs: Last Vital Signs Temp 98.3 F 01/21/24 07:12 Pulse 72 01/21/24 11:51 Resp 16 01/21/24 07:12 BP 111/52 L 01/21/24 11:51 Pulse Ox 96 01/21/24 07:12 O2 Del Method Room Air 01/21/24 07:12 BMI result Body Mass Index 29.3 Const: General: comfortable and no acute distress Resp: Effort & Inspection: normal respiratory effort Cardio: Rate: regular rate GI: Palpation (GI): Soft to palpation, not firm, nontender and no guarding Objective Data Active Medications Acetaminophen (Acetaminophen 325 Mg Tablet) 650 mg PO Q6H PRN PRN Reason: Pain, Mild (Pain Scale 1-3), fever or headache Benzocaine (Throat Lozenge, Medicated Lozenge) 1 lozenge MUCOUS MEM Q2H PRN PRN Reason: Sore Throat Calcium Carbonate (Calcium Carbonate 750 Mg Tab.Chew) 750 mg PO Q4H PRN PRN Reason: Heartburn Ceftriaxone Sodium 1 gm/ (Sodium Chloride) 50 mls @ 100 mls/hr IV Q24H [facility] Last Infusion: 01/20/24 21:46 Dose: Infused Documented By: JAYNA Metronidazole (Flagyl) 500 mg in 100 mls @ 100 mls/hr IV Q8H [facility] Last Infusion: 01/21/24 11:44 Dose: Infused Documented By: BRODERICK Magnesium Hydroxide (Milk Of Magnesia 30 Ml Oral.Susp) 30 ml PO DAILY PRN PRN Reason: Constipation Melatonin (Melatonin 3 Mg Tablet) 6 mg PO BEDTIME PRN PRN Reason: Insomnia Metoprolol Tartrate (Metoprolol Tartrate 50 Mg Tablet) 50 mg PO BID [facility]; Protocol Last Admin: 01/21/24 08:50 Dose: Not Given Documented By: BRODERICK Non-Admin Reason: held for low BP Naloxone HCl (Naloxone Hcl 0.4 Mg/Ml Vial) 0.04 mg IVPUSH Q5M PRN PRN Reason: Excessive sedation or RR < 8 Ondansetron HCl (Ondansetron Hcl 4 Mg/2 Ml Vial) 4 mg IVPUSH Q8H PRN PRN Reason: Nausea and Vomiting Sertraline HCl (Sertraline Hcl 25 Mg Tablet) 25 mg PO DAILY [facility] Last Admin: 01/21/24 08:46 Dose: 25 mg Documented By: BRODERICK Sodium Chloride (0.9 % Sodium Chloride Flush 3 Ml Syringe) 3 ml IVFLUSH QSHIFT [facility] Last Admin: 01/21/24 08:48 Dose: 3 ml Documented By: BRODERICK Labs 01/21/24 05:40 01/21/24 05:40 Labs: Laboratory Results - last 24 hr 01/21/24 05:40 MCV 91.8 MCH 29.8 MCHC 32.5 RDW 12.7 Plt Count 304 MPV 10.7 Absolute Nucleated RBC 0.000 Nucleated RBC % (auto) 0.0 Anion Gap 14 Estim Creat Clear Calc 25.1 Estimated GFR 31 Fasting Glucose 113 H Calcium 9.6 Total Bilirubin 0.9 Direct Bilirubin 0.5 AST 51 H ALT 92 H Alkaline Phosphatase 258 H Total Protein 6.2 L Albumin 3.1 L Procedures Date of Service Date of Service: 01/21/24 Progress Note: A&P Assessment and plan (1) Choledocholithiasis: Status: Acute Assessment and Plan: Doing well after ERCP Bilirubin now normal Diet as tolerated Okay to discharge home - will follow as an outpatient Sister does not feel patient should have cholecystectomy at this time Time Spent With Patient Time: Total time managing care of this patient today ____ minutes. Quality Stroke Does the patient have a stroke diagnosis?: No VTE Prior VTE?: No VTE Risk Level:: Medical - moderate - high VTE Device Contraindication: Treatment Not Indicated VTE Drug Contraindication: N/A - Med Ordered
[2024-01-21 15:16] VITALS: BP 125/57; PULSE 80; RESP 16; TEMP 36.3; O2SAT 99
[2024-01-21 19:49] VITALS: BP 130/61; PULSE 81; RESP 16; TEMP 36.7; O2SAT 99
[2024-01-21] MEDS: Metoprolol Tartrate 50 MG TABLET PO (20:27)
[2024-01-21] MEDS: cefTRIAXone sodium 1 GM VIAL IVPUSH (20:27)
[2024-01-22] MEDS: metroNIDAZOLE/NS 500 MG/100 ML PIGGYBACK 100 MG IV (01:31)
[2024-01-22] MEDS: ondansetron HCL 4 MG/2 ML VIAL IVPUSH (02:29)
[2024-01-22 03:25] VITALS: BP 115/56; PULSE 65; RESP 16; TEMP 36.7; O2SAT 97
[2024-01-22 07:05] LABS: Hematocrit 28.1 % (37.0-47.0); Mean Corpuscular Hemoglobin 29.5 pg (27.0-33.0); Mean Corpuscular Volume 92.1 fL (80.0-98.0); Mean Platelet Volume 10.6 fL (9.4-12.3); Platelet Count 272 X10*3/uL (160-400); Red Blood Count 3.05 X10*6/uL (4.20-5.50); Red Cell Distribution Width 13.2 % (11.0-16.0); White Blood Count 11.7 X10*3/uL (4.8-10.8)
[2024-01-22 07:15] LABS: Alanine Aminotransferase 69 U/L (0-31); Alkaline Phosphatase 199 U/L (39-117); Anion Gap 12 (12-20); Aspartate Amino Transferase 38 U/L (5-31); Bilirubin Direct 0.5 mg/dL (0.0-0.5); Bilirubin Total 0.7 mg/dL (0.0-1.0); Blood Urea Nitrogen 30 mg/dL (9-16); Calcium 9.4 mg/dL (8.4-10.2); Carbon Dioxide 24 mmol/L (22-29); Chloride 107 mmol/L (96-108); Creatinine Clr Calc Pharmacy 27.1; Estimated Glomerular Filt Rate 34; Glucose Fasting 90 mg/dL (60-99); Potassium 3.6 mmol/L (3.3-5.1); Sodium 139 mmol/L (135-145); Total Protein 5.6 g/dL (6.5-8.0)
[2024-01-22 07:25] LABS: Magnesium 1.5 mg/dL (1.6-2.6)
[2024-01-22 07:34] VITALS: BP 121/58; PULSE 63; RESP 18; TEMP 36.4; O2SAT 99
[2024-01-22 07:45] VITALS: BP 121/58; PULSE 63
[2024-01-22] MEDS: Sertraline HCL 25 MG TABLET PO (07:45)
[2024-01-22] MEDS: Metoprolol Tartrate 50 MG TABLET PO (07:45)
[2024-01-22] MEDS: 0.9 % Sodium Chloride Flush 3 ML SYRINGE IVFLUSH (07:49)
--- NOTE | 2024-01-22 08:00 | HO.PM.IMPN ---
Subjective Subjective Date of Service: 01/22/24 Interval History: seen and examined no complaints Physical Exam Vital Signs: Vital Signs: Last Vital Signs Temp 97.5 F 01/22/24 07:34 Pulse 63 01/22/24 07:45 Resp 18 01/22/24 07:34 BP 121/58 L 01/22/24 07:45 Pulse Ox 99 01/22/24 07:34 O2 Del Method Room Air 01/22/24 07:34 BMI result Body Mass Index 29.3 Const: Other: General - no acute distress, appears comfortable Cardiovascular - regular rate and rhythm, S1-S2 Lungs - normal respiratory effort, clear to auscultation bilaterally, no wheezing Abdomen - soft, nontender, no rebound or guarding Extremities - no edema bilaterally Neuro - awake and alert, no focal deficits Objective Data Active Medications Acetaminophen (Acetaminophen 325 Mg Tablet) 650 mg PO Q6H PRN PRN Reason: Pain, Mild (Pain Scale 1-3), fever or headache Benzocaine (Throat Lozenge, Medicated Lozenge) 1 lozenge MUCOUS MEM Q2H PRN PRN Reason: Sore Throat Calcium Carbonate (Calcium Carbonate 750 Mg Tab.Chew) 750 mg PO Q4H PRN PRN Reason: Heartburn Ceftriaxone Sodium (Ceftriaxone Sodium 1 Gm Vial) 1 gm IVPUSH Q24H [facility] Last Admin: 01/21/24 20:27 Dose: 1 gm Documented By: ARNOLD Metronidazole (Flagyl) 500 mg in 100 mls @ 100 mls/hr IV Q8H [facility] Last Infusion: 01/22/24 02:37 Dose: Infused Documented By: ARNOLD Magnesium Hydroxide (Milk Of Magnesia 30 Ml Oral.Susp) 30 ml PO DAILY PRN PRN Reason: Constipation Melatonin (Melatonin 3 Mg Tablet) 6 mg PO BEDTIME PRN PRN Reason: Insomnia Metoprolol Tartrate (Metoprolol Tartrate 50 Mg Tablet) 50 mg PO BID [facility]; Protocol Last Admin: 01/22/24 07:45 Dose: 50 mg Documented By: JA Naloxone HCl (Naloxone Hcl 0.4 Mg/Ml Vial) 0.04 mg IVPUSH Q5M PRN PRN Reason: Excessive sedation or RR < 8 Ondansetron HCl (Ondansetron Hcl 4 Mg/2 Ml Vial) 4 mg IVPUSH Q8H PRN PRN Reason: Nausea and Vomiting Last Admin: 01/22/24 02:29 Dose: 4 mg Documented By: ARNOLD Sertraline HCl (Sertraline Hcl 25 Mg Tablet) 25 mg PO DAILY [facility] Last Admin: 01/22/24 07:45 Dose: 25 mg Documented By: JA Sodium Chloride (0.9 % Sodium Chloride Flush 3 Ml Syringe) 3 ml IVFLUSH QSHIFT [facility] Last Admin: 01/22/24 07:49 Dose: 3 ml Documented By: JA Labs 01/22/24 06:14 01/22/24 06:14 Labs: Laboratory Results - last 24 hr 01/22/24 06:14 MCV 92.1 MCH 29.5 MCHC 32.0 RDW 13.2 Plt Count 272 MPV 10.6 Absolute Nucleated RBC 0.000 Nucleated RBC % (auto) 0.0 Anion Gap 12 Estim Creat Clear Calc 27.1 Estimated GFR 34 Fasting Glucose 90 Calcium 9.4 Magnesium 1.5 L Total Bilirubin 0.7 Direct Bilirubin 0.5 AST 38 H ALT 69 H Alkaline Phosphatase 199 H Total Protein 5.6 L Albumin 3.0 L Assessment and Plan (1) NEAL (acute kidney injury): Status: Acute Plan 83F PMH vascular dementia, htn, hld, gerd, ckd III, presented with NEAL, elevated LFTs, lethargy, poor appetite NEAL on CKD III at baseline gb wall thickening, lfts elevated, choledocholithiasis s/p ERCP with sphincterotomy on 01/20/24 will advance to full liquids and solids today will d/c iv abx per gi recs vascular dementia at baseline dvt prophylaxis - mechanical due to post ercp dispo - home with sister in same building 01/22/24 if stable full code possible home today if tolerating diet Quality Stroke Does the patient have a stroke diagnosis?: No VTE Prior VTE?: No VTE Risk Level:: Medical - moderate - high VTE Device Contraindication: Treatment Not Indicated VTE Drug Contraindication: N/A - Med Ordered
--- NOTE | 2024-01-22 14:31 | P.DS_ITS ---
DS: Providers Provider Date of Service: 01/22/24 Date of admission: 01/18/24 02:08 Date of discharge: 01/22/24 Primary care physician: Anne Solis MD Consults: 01/18/24 02:20 Consult to General Surgery Routine Consulting Provider: [facility] Reason for consultation: ?acute cholecystitis 01/19/24 08:14 Consult to Gastroenterology Routine Consulting Provider: Stuart Snow Reason for consultation: CBD stones Has provider been notified: No DS: Diagnosis Discharge Diagnosis (1) NEAL (acute kidney injury): Status: Acute (2) Choledocholithiasis: Status: Acute (3) Vascular dementia: Status: Acute DS: Summary Hospital Course Hospital Course: HPI From admission H&P: This is a 83-year-old female with pertinent history of vascular dementia, hypertension, mixed hyperlipidemia, gastroesophageal reflux disease, history of acute cholecystitis status post cholecystostomy tube, chronic kidney disease presents to the emergency department for evaluation of abnormal labs. Patient states she has been feeling unwell for the last 1 week. She is a poor historian due to vascular dementia. History obtained with the help of sister at bedside and ER provider. Patient does report poor p.o. intake and episodes of nonbloody emesis. Unclear if she has any urinary symptoms. Patient got blood work done at PCP's office and she was told that her liver enzymes and kidney function is altered and hence she was asked to come to the ER. No chest pain, palpitations, shortness of breath. In the emergency department, CT with gallbladder wall thickening. Liver enzymes and creatinine found to be elevated. Hospital Course: Patient was started on intravenous fluids and was given supportive care for NEAL. She was noted to have abnormal LFTs and hence workup was pursued. Imaging studies showed gallbladder wall thickening and subsequently an MRCP was ordered which showed choledocholithiasis. Gastroenterology was consulted and the patient underwent an ERCP with stone removal. Post ERCP, the patient was initiate her on clear liquids and has now been advanced to solids which he is tolerating. She is pain-free. She was empirically treated with IV antibiotics. Of note, the patient did have Klebsiella growing in her urine which is sensitive to ceftriaxone. She has completed treatment in the hospital and will not require antibiotics at time of discharge. She should follow-up with the general surgeon for consideration of elective cholecystectomy. A referral to [facility] general surgery has been given. The patient will be discharged home per patient and family (sister) preference with VNA services. Time Attestation Discharge Coordination Time (in mins): 40 Quality: Safe Use of Opioids Does Pt have an Active Cancer Diagnosis on the Problem List?: No Quality: Stroke Does the patient have a stroke diagnosis?: No Physical Exam Vital Signs: Vital Signs: Last Vital Signs Temp 97.5 F 01/22/24 07:34 Pulse 63 01/22/24 07:45 Resp 18 01/22/24 07:34 BP 121/58 L 01/22/24 07:45 Pulse Ox 99 01/22/24 07:34 O2 Del Method Room Air 01/22/24 07:34 BMI result Body Mass Index 29.3 Const: Other: General - no acute distress, appears comfortable Cardiovascular - regular rate and rhythm, S1-S2 Lungs - normal respiratory effort, clear to auscultation bilaterally, no wheezing Abdomen - soft, nontender, no rebound or guarding Extremities - no edema bilaterally Neuro - awake and alert, no focal deficits DS: Data Data Completed and Pending Completed studies during hospitalization [Text1]: Procedures Drainage of Gallbladder with Drainage Device, Percutaneous Approach (06/29/23) Labs on day of discharge: Laboratory Results - last 24 hr 01/22/24 06:14 WBC 11.7 H RBC 3.05 L Hgb 9.0 L Hct 28.1 L MCV 92.1 MCH 29.5 MCHC 32.0 RDW 13.2 Plt Count 272 MPV 10.6 Absolute Nucleated RBC 0.000 Nucleated RBC % (auto) 0.0 Sodium 139 Potassium 3.6 Chloride 107 Carbon Dioxide 24 Anion Gap 12 BUN 30 H Creatinine 1.47 H Estim Creat Clear Calc 27.1 Estimated GFR 34 Fasting Glucose 90 Calcium 9.4 Magnesium 1.5 L Total Bilirubin 0.7 Direct Bilirubin 0.5 AST 38 H ALT 69 H Alkaline Phosphatase 199 H Total Protein 5.6 L Albumin 3.0 L Preliminary micro results at discharge 01/18/24 00:33 Blood Culture - Preliminary Blood - Venous No growth after 48 hours. 01/18/24 00:27 Blood Culture - Preliminary Blood - Venous No growth after 48 hours. Discharge Plan Discharge Anticipated Discharge Date/Time: 01/22/24 14:28 Patient Disposition: Home Health Service Discharge Diagnosis: Choledocholithiasis Referrals: Zah[facility] GEORGE [Outside] Trenton Lantigua MD [Physician] - 1 Week (call office for appt) Anne Balderas MD [Primary Care Provider] - 1 Week Discharge Medications: Continued atorvastatin 10 mg tablet 10 mg PO BEDTIME metoprolol tartrate 50 mg tablet 50 mg PO BID hydrochlorothiazide 25 mg tablet 25 mg PO DAILY sertraline 25 mg tablet 25 mg PO DAILY Discharge Orders: Discharge Order (Routine); Ordered 01/22/24 Ordered By: Good Forte Diet: Low fat, low cholesterol Activity on Discharge: As tolerated Stand Alone Forms: Patient Portal Discharge page Print Language: Iranian Care Plan Goals: To stay healthy and out of the hospital. Health Concerns: Gallstones Plan of Treatment: Eat a low fat diet Call surgical office for evaluation for possible cholecystectomy (removal of gall bladder) Assessment: see discharge summary
--- NOTE | 2024-01-22 14:36 | MHC.CM.PN ---
PT CLEARED TO DC [facility] SISTER WILL TRANSPORT
--- NOTE | 2024-01-22 15:02 | P.F2F_ITS ---
Service Date Service Date: 01/22/24 Encounter Date of encounter: 01/22/24 Reasons for Services Signs and symptoms assessed: GI assessment Reason for senior living: GI/ assessment MD Overseeing Care: Anne Solis Homebound: Leaving the home is medically contraindicated at this time without the asist of a device and/or another person due th the listed conditions above and below. Reason homebound: cognitively impaired / unsafe Certification: Based on the above findings, I certify that this patient is confined to the home and needs intermittent senior living care, physical therapy and/or speech therapy, or continues to need occupational therapy. The patient is under my care, and I have initiated the establishment of the plan of care. The patient will be followed by a physician who will periodically review the plan of care. Time Spent With Patient Time: Total time managing care of this patient today ____ minutes.
[2024-01-22 15:24] VITALS: BP 115/52; PULSE 74; RESP 18; TEMP 36.6; O2SAT 97
== END 2024-01-22 16:51 | disposition home health service (06) | DRG 445 ==
LOC: HO.ED 01-18 00:13 → HO.EDOVER 01-18 02:13 → HO.S3 01-18 07:42
PROVIDERS: Internal Medicine; Physician Assistant; Student in an Organized Health Care Education/Training Program; Admitting Provider Student in an Organized Health Care Education/Training Program; Emergency Provider Emergency Medicine; PCP Internal Medicine; Visit Provider Family Medicine
PROC: 0FC98ZZ Extirpation of Matter from Common Bile Duct, Via Natural or Artificial Opening Endoscopic (ICD-10-PCS; CPT 43260; principal; 2024-01-20 13:30)
DX: K80.50 Calculus of bile duct without cholangitis or cholecystitis without obstruction (principal); N17.9 Acute kidney failure, unspecified; N39.0 Urinary tract infection, site not specified; B96.1 Klebsiella pneumoniae [K. pneumoniae] as the cause of diseases classified elsewhere; K22.0 Achalasia of cardia; F01.50 Vascular dementia, unspecified severity, without behavioral disturbance, psychotic disturbance, mood disturbance, and anxiety; E78.2 Mixed hyperlipidemia; K21.9 Gastro-esophageal reflux disease without esophagitis; I12.9 Hypertensive chronic kidney disease with stage 1 through stage 4 chronic kidney disease, or unspecified chronic kidney disease; N18.30 Chronic kidney disease, stage 3 unspecified; Z79.899 Other long term (current) drug therapy
CPT/HCPCS: 36415; 74176; 74181; 76705; 80048; 80053; 80076; 81001; 81003; 82140; 83735; 85025; 85027; 85610; 85730; 87040; 87086; 87088; 87186; 99285; J0696; J1100; J1610; J1650; J1836; J2003; J2060; J2405; J2704; J3010; Q9967

== ENCOUNTER → 2024-01-18 02:08 | Outpatient (BNV) | payer MEDICARE, SELFPAY | PROVIDERS: Admitting Provider Student in an Organized Health Care Education/Training Program; Emergency Provider Emergency Medicine; PCP Internal Medicine; Visit Provider Student in an Organized Health Care Education/Training Program | DX: N17.9 Acute kidney failure, unspecified (principal); K80.50 Calculus of bile duct without cholangitis or cholecystitis without obstruction; F01.50 Vascular dementia, unspecified severity, without behavioral disturbance, psychotic disturbance, mood disturbance, and anxiety | CPT/HCPCS: 99223; 99232; 99239; 99499; G0180 ==

== ENCOUNTER → 2024-01-18 02:08 | Outpatient (BNV) | payer MEDICARE, SELFPAY | PROVIDERS: Admitting Provider Student in an Organized Health Care Education/Training Program; Emergency Provider Emergency Medicine; PCP Internal Medicine; Visit Provider Physician Assistant Surgical | DX: K80.50 Calculus of bile duct without cholangitis or cholecystitis without obstruction (principal) | CPT/HCPCS: 99222; 99231; 99232 ==

== ENCOUNTER 2024-02-02 14:41 | Outpatient (AMB) | payer MEDICARE, SELFPAY ==
--- NOTE | 2024-02-02 14:44 | A.OFFVIS_ITS ---
Vital Signs 02/02/24 14:46 Height 5 ft 5 in Weight 163 lb BMI 27.1 BP 128/72 Blood Pressure Location Rt brachial Position Sitting Intake Visit Reasons: Acute cholecystitis, hospital follow-up Intake Note: This patient presents for hospital follow-up for acute cholecystitis. Pt c/o; reports no complaints at this time. 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 She was admitted for weakness at that time and was noted to have elevated bilirubin. She underwent an ERCP because of a CBD stone She does not have any significant complaints at this time. She denies any abdominal pain. She does have significant dementia as well as aphasia. Her sister comes to her appointments with her. [facility] Medical History (Updated 02/02/24 @ 16:07 by Tadeo Guaman MD) Choledocholithiasis Acute cholecystitis Transaminitis Acute UTI NEAL (acute kidney injury) Vascular dementia Cholecystitis Hyperlipidemia Hypertension Surgical History Hx of surgical procedure (~06/29/23) Social History Household Members: None Housing: House Do you presently have visiting nurse or other home services: No Comment: 1:1 sitter Patient Tobacco Use Status: Never used Tobacco service: No Review of Systems Const Denies chills and Denies fever(s) Card Denies chest pain Resp Denies cough GI Denies abdominal pain Physical Exam Vital Signs: Last Vital Signs BP 128/72 02/02/24 14:46 BMI result Body Mass Index 27.1 Const Other: Appears comfortable but does have obvious dementia; she has aphasia and does not seem to answer questions appropriately Resp Effort & Inspection: normal respiratory effort Cardio Rate: regular rate GI Palpation (GI): Soft to palpation, not firm, nontender and no guarding Assessment & Plan Assessment & Plan (1) Choledocholithiasis: Code(s): K80.50 - Calculus of bile duct without cholangitis or cholecystitis without obstruction Category: Medical Plan: Status post ERCP and retrieval of CBD stones. She has been doing well since her hospital discharge. She has had no episode of the abdominal pain. I had a long discussion with her sister about the option of laparoscopic cholecystectomy possible open cholecystectomy. I reviewed the risks including but not limited to bleeding, infections, injury to other organs, inherent risks of anesthesia. She is hesitant to proceed with cholecystectomy at this time. I told him that they can think about it as there does not seem to be any urgency for now. She has another follow up with me in March. I will see her again at that time. Coding Level of Care Code Est Pt Level 3 (16694) Diagnoses Choledocholithiasis K80.50
[2024-02-02 14:46] VITALS: BP 128/72; BMI 27.1
== END 2024-02-02 16:06 | disposition home or self-care (01) ==
PROVIDERS: PCP Internal Medicine; Visit Provider Surgery
DX: K80.50 Calculus of bile duct without cholangitis or cholecystitis without obstruction (principal)
CPT/HCPCS: 99213

== ENCOUNTER → 2024-02-02 14:41 | Outpatient (BNVA) | payer MEDICARE, SELFPAY | PROVIDERS: PCP Internal Medicine; Visit Provider Surgery | DX: K80.50 Calculus of bile duct without cholangitis or cholecystitis without obstruction (principal) | CPT/HCPCS: 99212 ==

== ENCOUNTER 2024-03-15 10:51 | Outpatient (AMB) | payer MEDICARE, SELFPAY ==
--- NOTE | 2024-03-15 11:01 | MHC.OFFVIS ---
Vital Signs 03/15/24 11:02 Height 5 ft 5 in Weight 164 lb 2 oz BMI 27.3 BP 145/67 H Blood Pressure Location Rt brachial Position Sitting Pulse 55 Intake Visit Reasons: 6 month follow up cholecystitis Intake Note: This patient presents for six month follow up cholecystitis. Pt c/o; reports no complaints. 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 She had a drain placed at that time and this had been pulled out She continues to do well. She has had no episodes according to the sister Danna. She has had good oral intake. She continues to live in her own apartment although she has had steady cognitive decline. [facility] Medical History (Updated 03/15/24 @ 11:23 by Tadeo Guaman MD) Gallbladder disease Choledocholithiasis Acute cholecystitis Transaminitis Acute UTI NEAL (acute kidney injury) Vascular dementia Cholecystitis Hyperlipidemia Hypertension Surgical History Hx of surgical procedure (~06/29/23) Social History Household Members: None Housing: House Do you presently have visiting nurse or other home services: No Comment: 1:1 sitter Patient Tobacco Use Status: Never used Tobacco service: No Review of Systems Const Denies chills and Denies fever(s) Card Denies chest pain, Denies dyspnea and Denies dyspnea on exertion Resp Denies cough, Denies dyspnea and Denies dyspnea on exertion GI Denies hematochezia and Denies change in bowel habits Denies hematuria Musc Denies back pain and Denies limited range of motion Neuro Details: Memory loss Denies focal weakness and Denies convulsions Psych Denies depression and Denies mood swings Physical Exam Vital Signs: Last Vital Signs Pulse 55 03/15/24 11:02 BP 145/67 H 03/15/24 11:02 BMI result Body Mass Index 27.3 Const Other: Answers very simple questions although seems to have significant aphasia General: comfortable and no acute distress Resp Effort & Inspection: normal respiratory effort Cardio Rate: regular rate GI Palpation (GI): Soft to palpation, not firm and nontender Assessment & Plan Assessment & Plan (1) Gallbladder disease: Code(s): K82.9 - Disease of gallbladder, unspecified Category: Medical Plan: She had acute cholecystitis as June, treated with cholecystostomy tube drain. She has been doing well since that time after removal She has good oral intake. She denies any pain. She seems to be coming along although she has this steady decline with her cognitive functions She came with her sister Danna who criteria with decision making. We will continue with current management without any surgical intervention for now. She will come back to the office in about 3 months to be checked. Coding Level of Care Code Est Pt Level 3 (24192) Diagnoses Gallbladder disease K82.9
[2024-03-15 11:02] VITALS: BP 145/67; PULSE 55; BMI 27.3
--- OUTSIDE RECORDS SUMMARY | 2024-03-21 17:48 | XMS_ITS ---
Author Organization [facility] Address [address] [place] [address] Care Team Providers Care Coater Helper Name Role Phone Anne Balderas M.D. Primary Care Provider Unavailable Wilmer Mathews Jr Unavailable [phone] Stuart Snow Unavailable [phone] REASON FOR VISIT COMMONBILE DUCT STONE Encounters Encounter Location Date Provider Diagnosis [facility] Inpatient [address] [place], [place] [id number] 01/20/2024 Stuart Snow PLAN OF TREATMENT No Information
--- OUTSIDE RECORDS SUMMARY | 2024-03-21 17:48 | XMS_ITS | Patient Health Record ---
Author Organization [facility] Address [address] [place] [address] Care Team Providers Care Recovery Advocate Name Role Phone Anne Balderas M.D. Primary Care Provider Unavailable Wilmer Mathews Jr Unavailable Stuart Snow Unavailable [phone] REASON FOR REFERRAL No Information SOCIAL HISTORY Sex Assigned At : Social History Observation Description Sex Assigned At Unknown Encounters Encounter Location Date Provider Diagnosis [facility] [place] [address] [place], [place] [id number] 01/20/2024 Stuart Snow PLAN OF TREATMENT No Information Insurance Providers Payer Name Payer Address Payer Phone Subscriber Number Group Number Insured Name Patient Relationship to Insured Coverage Start Date Coverage End Date MEDICARE OF [place] [address] [place] [address] [id number] GERRY NEFF Self - patient is the insured MEDEX ATTN CLAIMS [address] [place] [address] [phone] [id number] GERRY NEFF Self - patient is the insured
== END 2024-03-15 11:23 | disposition home or self-care (01) ==
PROVIDERS: PCP Internal Medicine; Visit Provider Surgery
DX: K82.9 Disease of gallbladder, unspecified (principal)
CPT/HCPCS: 99213

== ENCOUNTER → 2024-03-15 10:51 | Outpatient (BNVA) | payer MEDICARE, SELFPAY | PROVIDERS: PCP Internal Medicine; Visit Provider Surgery | DX: K82.9 Disease of gallbladder, unspecified (principal) | CPT/HCPCS: 99212 ==

== ENCOUNTER 2024-06-15 13:18 | Outpatient (AMB) | payer MEDICARE, SELFPAY ==
[2024-06-15 13:19] VITALS: BMI 26.8
--- NOTE | 2024-06-15 13:19 | A.OFFVIS_ITS ---
Vital Signs 06/15/24 13:19 Height 5 ft 5 in Weight 161 lb BMI 26.8 Intake Visit Reasons: 3 month follow-up cholecystitis Intake Note: This patient presents for three month follow-up for Cholecystitis. Pt c/o; reports no complaints. 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 She denies complaints. She denies any pain or tenderness. According to her sister, she has good oral intake. She seems to be doing ?great?. She continues to have significant expressive aphasia. She has following a neurologist as well. [facility] Medical History Gallbladder disease Choledocholithiasis Acute cholecystitis Transaminitis Acute UTI NEAL (acute kidney injury) Vascular dementia Cholecystitis Hyperlipidemia Hypertension Surgical History Hx of surgical procedure (~06/29/23) Social History Household Members: None Housing: House Do you presently have visiting nurse or other home services: No Comment: 1:1 sitter Patient Tobacco Use Status: Never used Tobacco service: No Review of Systems Const Denies chills and Denies fever(s) Card Denies chest pain at rest Resp Denies cough GI Denies abdominal pain and Denies vomiting Physical Exam Const Other: Has expressive aphasia so with very limited responses to questions General: comfortable and no acute distress Resp Effort & Inspection: normal respiratory effort Cardio Rate: regular rate GI Palpation (GI): Soft to palpation, not firm, nontender and no guarding Assessment & Plan Assessment & Plan (1) Gallbladder disease: Code(s): K82.9 - Disease of gallbladder, unspecified Category: Medical Plan: She remains asymptomatic. According to her sister, she does not seem to have any GI complaints. She has expressive aphasia from her vascular dementia Her sister Danna has has expressed referenced for avoiding any surgical intervention as much as possible. I told Danna that they can see me in the office on a p.r.n. basis. They are welcome to call me if they have any concerns and if the want me to re-evaluate her. Coding Level of Care Code Est Pt Level 3 (62353) Diagnoses Gallbladder disease K82.9
--- OUTSIDE RECORDS SUMMARY | 2024-06-15 16:08 | XMS_ITS | Patient Health Record ---
Author Organization [facility] Address [address] [place] [address] Care Team Providers Care Conveyor Console Operator Name Role Phone Anne Balderas M.D. Primary Care Provider Unavailable Wilmer Mathews Jr Unavailable [phone] Stuart Snow Unavailable [phone] Results Component Value Reference Range Notes FL guidance in OR (Not yet r eviewed by provider) Interpretation: Performing Lab: Notes/Report: [facility] [address] [place] [address] Fluoroscopy Report Signed Patient: Fabiola Gilliam MR#: [id number] : 1940 Acct:[id number] Age/Sex: 83 / F ADM Date: 01/18/24 Loc: .S3 385-[address]: Good Forte MD Ordering Physician: Stuart Snow MD Date of Service: 01/20/24 Procedure(s): FL guidance in OR Accession Number(s): [id number] cc: Anne Balderas MD; Stuart Snow MD EXAMINATION: FLUORO GUIDANCE IN OR CLINICAL INFORMATION: ERCP. COMPARISON: None available. TECHNIQUE: Fluoroscopy supervised by: Dr. Stuart Snow. Fluoroscopy time: 5 minutes 0.9 seconds. Cumulative Dose: 43.794 mGy. DAP: 19.050 Gy-cm2 (maria-centimeter squared). Images: 7. FINDINGS: ERCP and stent placement FL/FL guidance in OR IMPRESSION: Fluoroscopy during procedure. Please see procedure report for additional information. Electronically signed by: Elizabeth Rivera MD 05/08/2024 04:50 PM [facility] Dictated By: Elizabeth Rivera MD Signed By: <Electronically signed by Elizabeht Rivera MD in OV> 05/08/24 1650 DD/ 1353 TD/TT: 01/20/24 145 Drawer In Jacquard Loom: ROB [address] [address] Fluoroscopy Report Signed Patient: Mohinder Gilliam MR#: [id number] : 1940 Acct:[id number] Age/Sex: 83 / F ADM Date: 01/18/24 Loc: [facility] 385-[address]: Good Forte MD Ordering Physician: Stuart Snow MD Date of Service: 01/20/24 Procedure(s): FL guidance in OR Accession Number(s): [id number] cc: Anne Balderas MD; Stuart Snow MD EXAMINATION: FLUORO GUIDANCE IN OR CLINICAL INFORMATION: ERCP. COMPARISON: None available. TECHNIQUE: Fluoroscopy supervis ed by: Dr. Stuart Snow. Fluoroscopy time: 5 minutes 0.9 seconds. Cumulative Dose: 43.794 mGy. DAP: 19.050 Gy-cm2 (maria-centimeter squared). Images: 7. FINDINGS: ERCP and stent placement F L/FL guidance in OR IMPRESSION: Fluoroscopy during p rocedure. Please see procedure report for additional information. Electronically lakeisha d by: Elizabeth Rivera MD 05/08/2024 04:50 PM EST Dictated By: Elizabeth Rivera MD Signed By: <Electron ically signed by Elizabeth Rivera MD in OV> 05/08/24 1650 DD/ 1353 TD/TT: 01/20/24 145 Drawer In Jacquard Loom: ROB Reason For Referral No Information Encounters Encounter Location Date Provider Diagnosis [facility] [place] [address] [place] [id number] 01/20/2024 Stuart Snow Plan Of Treatment Pending Test Test Name Order Date FL guidance in OR 01/20/2024 Insurance Providers Payer Name Payer Address Payer Phone Subscriber Number Group Number Insured Name Patient Relationship to Insured Coverage Start Date Coverage End Date MEDICARE OF [facility] [address] [address] [phone] [id number] FABILOA GILLIAM Self - patient is the insured MEDEX ATTN CLAIMS [address] [place] [address] [phone] [id number] FABIOLA GILLIAM Self - patient is the insured
--- OUTSIDE RECORDS SUMMARY | 2024-06-15 16:08 | XMS_ITS ---
Author Organization [facility] Address [address] [place] [address] Care Team Providers Care Gusset Folder Name Role Phone Harmony Solis M.D., Anne Primary Care Provider Unavailable Wilmer Mathews Jr Unavailable [phone] Stuart Snow Unavailable [phone] REASON FOR VISIT COMMONBILE DUCT STONE Encounters Encounter Location Date Provider Diagnosis [facility] Inpatient [address], [place] [phone] 01/20/2024 Stuart Snow Plan Of Treatment No Information Progress Notes * MACARIO NEFFANCEDOB: [birth year] (83 yo F)Acc No.[id number]:01/20/2024 Progress Notes Patient:?GERRY NEFF Provider:?Stuart Snow MD :1940???Age:83 Y???Sex:Female D ate:01/20/2024 Address:[address] [place], [place] [phone] Pcp:Radha Astudillo Subjective: * Chief Complaints: * ???1. COMMONBILE DUCT STONE. * Medical History:? Objective: * Vitals:? Assessment: Plan: * Treatment: * * The named appointment provid er may or may not be the originator of this progress note, and it is not deemed complete until electronically signed by the appointment provider. Sign off status: Pending * Provider:?Stuart Snow MD Date:? 024 Generated for Trent benitez/Brittany/eTransmitting on:?06/15/2024 04:07 PM EST
--- OUTSIDE RECORDS SUMMARY | 2024-06-15 16:08 | XMS_ITS | Clinical Summary ---
Author Organization [facility] [address] [place] [address] [address] [place] [address] Phone Care Team Providers Care Whiting Machine Operator Name Role Phone Anne Benavides MD Primary Care Prov ider Allergies No known active allergies Medications atorvastatin (LIPITOR) 10 mg tablet Take 1 tablet (10 mg total) by mouth 1 (one) time each day. 01/10/20 24 Active sertraline (ZOLOFT) 25 mg tablet TAKE ONE TABLET BY MOUTH EVERY DAY 12/27/19 24 Active metoprolol tartrate (LOPRESSOR) 50 mg tablet TAKE ONE TABLET BY MOUTH TWICE A DAY 12/28/19 24 Active menthol (Biofreeze, menthol,) 10 % cream Apply 1 Applicator topically daily. Apply topically twice a day as needed left foot pain 07/15/19 24 Active hydroCHLOROthi azide (HYDRODIURIL) 25 mg tablet 07/06/19 24 Active aspirin 81 mg EC tablet Take 1 Tablet by mouth daily. Active UNABLE TO FIND APOAEQUORIN 10 MG CAP Take by mouth. Active TURMERIC ORAL Take by mouth. A ctive memantine (NAMENDA) 5 mg tablet Take 1 tablet (5 mg total) by mouth 2 (two) times a day. for 90 days 04/03/20 24 Active lisinopriL (PRINIVIL,ZEST RIL) 10 mg tablet TAKE ONE TABLET BY MOUTH EVERY DAY 90 tablet 1 05/19/19 25 Active lisinopriL (PRINIVIL,ZEST RIL) 10 mg tablet Take 1 Tablet by mouth daily. 02/08/20 24 025 Discontinued Active Problems Problem Noted Date Diagnosed Date Urinary tract infection, site not specified 03/14 Other cholelithiasis with obstruction 04/11/2024 Klebsiella pneumoniae (k. pn eumoniae) as the cause of diseases classified elsewhere 04/11/2024 Hypertensive kidney disease with CKD (chronic kidney disease), stage 1-4 or unspecified chronic kidney disease 04/11/2024 Vascular dementia, uncomplicated 04/11/2024 Assessment & Plan (04/18/2024 4:12 PM EST): Patient already established with neurology. Currently on memantine, and sertraline. Patient lives by herself, her sister who lives in the same building visit her, however patient would benefit of a PAINTER SPRAY who can help her with the daily activities at home, supervision of medications and feeding. Patient has been reluctant to it, however because of her cognitive decline I think this is highly recommended. Resources were given to the patient and her sister to contact the agencies to get an evaluation at home for a PAINTER SPRAY. 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 Dementia panel completed. MRI pending. Neurology consult pending. Hyperlipidemia 10/09/2020 Assessment & Plan (04/18/2024 4:12 PM EST): Currently on atorvastatin 10 mg a day. Last LDL 44. We will continue same regimen. CKD (chronic kidney disease) stage 4, GFR 15-29 ml/min 06/09/2019 Assessment & Plan (04/18/2024 4:12 PM EST): Last GFR was 21, stable. Patient is encouraged to avoid any nephrotoxic medications. Encouraged to keep her appointments with the residential sales executive. Will recheck labs before her next visit. Angelo's esophagus 11/07/2018 Tubular adenoma 11/07/2018 Overview (03/01/2024): 20 mm polyp. Advised repeat colonoscopy in 2 yr. Pt declines at this time, wants annual FIT test. Somatic dysfunction of pelvic region 01/10/2018 Sprain of sacroiliac ligament 01/10/2018 Sprain of lumbosacral joint or ligament 01/11/20 18 Obesity (BMI 30.0-34.9) 07/19/2017 Osteopenia 03/04/2016 Overview (03/01/2024): Vitamin D supplementation being held for now given vitamin D level of 99. Recheck at subsequent visit and consider restarting at low-dose. Osteoarthrosis, localized, primary, involving lo wer leg 09/18/2009 Overview (03/01/2024): IMO Update Fall 2015 Essential hypertension, benign 09/08/2007 Assessment & Plan (04/18/2024 4:12 PM EST): Today 106/60, We will continue lisinopril 20 mg a day, metoprolol 50 mg twice daily. Encouraged to follow a low-salt diet and be as active as she can. We discussed about regular exercise, walking at her building, drinking water. Orders: Basic metabolic panel; Future CBC and differential; Future Encounters Date Type Department Care Team Description 04/18/2024 11:00 AM EST Office Visit Adult Medicine [address] [phone] Anne Osorio MD Essential hypertension, benign (Primary Dx); Mixed hyperlipidemia; CKD (chronic kidney disease) stage 4, GFR 15-29 ml/min (CMS/HCC); Vascular dementia, uncomplicated (CMS/HCC) 04/11/2024 Billing Patient Not Present Adult Medicine [address] [phone] Anne Osorio MD Hypertensive kidney disease with CKD (chronic kidney disease), stage 1-4 or unspecified chronic kidney disease (Primary Dx); Urinary tract infection without hematuria, site unspecified; Other cholelithiasis with obstruction; Vascular dementia, uncomplicated ([facility]/HCC); Stage 3 chronic kidney disease, unspecified whether stage 3a or 3b CKD ([facility]); Mixed hyperlipidemia; Gastroesophageal reflux disease without esophagitis from Last 3 Months Immunizations Name Administration Dates Next Due Influenza trivalent, 0.5mL ( Fluad) 65yo and older 01/21/2021,12/20/2019,01/22/2019,01/04,01/05/2017,02/14/2016,01/14/2016 Influenza trivalent, 0.5mL, preservative free (Fluarix; FluLaval; Fluzone) ages 6mo and older (Afluria) 3 years and older 02/16/2015,01/05/2013 Influenza trivalent, with pr eservative (Fluzone; Afluria) 6mo and older 01/22/2014 Influenza, Unspecified 01/07/2024,01/19/2023 [place] SARS-CoV-2 COVID-19, mRNA, LNP-S, preservative free 01/07/2024,08/09/2020,07/15/2020 Pneumococcal conjugate 13 va lent (Prevnar 13, PCV13) 2mo and older 12/20/2019,01/09/2016 Pneumococcal polysaccharide 23 valent (Pneumovax 23) 2yo and older 12/05/2003 Td Tetanus diptheria (Tdvax) 7yo and older 12/05/2003 Td, Unspecified 12/05/2003 Tdap Tetanus diptheria acell ular pertussis (Boostrix; Adacel) 7yo and older 12/09/2022,07/21/2012,12/05/2003 Zoster recombinant (Shingrix ) 19yo and older 09/13/2018,06/07/2018 Surgical History Surgery Date Site/Laterality Comments OTHER SURGICAL HISTORY 10/17/2018 PROCEDURE: OUTSIDE ENDOSCOPY; COMMENT: Angelo's. Repeat in 3 years COLONOSCOPY 10/17/2018 PROCEDURE: HISTORICAL COLONOSCOPY; COMMENT: 20 mm polyp. Repeat in 2 years Medical History Medical History Date Comments Osteopenia 03/04/2016 DX:Osteopenia Angelo's esophagus 11/07/2018 DX:Angelo's esophagus Tubular adenoma 11/07/2018 DX:Tubular adeno ma Social History Tobacco Use Types Packs/Day Years Used Date Smoking Tobacco: Former Smokeless Tobacco: Never Tobacco Cessation:Counseling Given: Not Answered Alcohol Use Standard Drinks/Week Comments Yes 0 (1 standard drink = 0.6 oz pur e alcohol) Comments No Sex and Gender Information Value Date Recorded Sex Assigned at Not on file Legal Sex Female 6:52 PM EST Gender Identity Not on file Sexual Orientation Not on file Obstetrics History Last Filed Vital Signs Vital Sign Reading Time Taken Comments Blood Pressure 106/60 04/18/2024 10:57 AM EST Pulse 67 04/18/2024 10:57 AM EST Temperature 36.2 ??C (97.1 ??F) 04/18/2024 10:[address] Respiratory Rate 16 04/18/2024 10:57 AM EST Oxygen Saturation - - Inhaled Oxygen Concentration - - Weight 70.9 kg (156 lb 3.2 oz) 04/18/2024 10:57 AM EST Height 160 cm (5' 3 ) 10/18/2023 10:40 AM EDT Body Mass Index 27.67 10/18/2023 10:40 AM EDT Plan of Treatment Upcoming Encounters Date Type Department Care Team (Late st Contact Info) Description 08/30/2024 9:45 AM EDT Office Visit Adult Medicine [address] [phone] Anne Benavides MD [address] [place] [phone] Health Maintenance Due Date Last Done Comments Hepatitis A Vaccines (1 of 2 - Risk 2-dose series) 1959 Hepatitis B Vaccines (1 of 3 - Risk 3-dose series) 1998 Medicare Annual Wellness Visit 03/21/2022 Social Influencers of Health Screening 03/21/2022 COVID-19 Vaccine ( season) 2024 01/07/2024, 01/19/2023, 01/23/2022, Additional history exists Depression Screening 01/09/2025 01/10/2024 Falls Risk Assessment 01/09/2025 01/10/2024 Hypertension/CHF/CAD Annual BMP Blood Test 01/12/2025 01/13/2024, 01/13/2024 Cholesterol Screening (Lipid Panel) 01/12/2029 01/13/2024, 01/13/2024 Osteoporosis Screening (Bone Density Screening) 04/29/2032 04/29/2022, 06/15/2019 DTaP,Tdap,and Td Vaccines (6 - Td or Tdap) 12/09/2032 12/09/2022, 07/21/2012, 12/05/2003, Additional history exists Zoster Vaccines Completed 09/13/2018, 05/14, 01/22/2014 Pneumococcal Vaccine: 50+ Years Completed 12/20/2019, 01/09/2016, 12/05/2003 RSV Immunization Patients 60+ Years Old Completed 02/16/2023 Influenza Vaccine Completed 01/07/2024, , 01/23/2022, Additional history exists HIB Vaccines Aged Out No longer eligi ble based on patient's age to complete this topic HPV Vaccines Aged Out No longer eligi ble based on patient's age to complete this topic IPV Vaccines Aged Out No longer eligi ble based on patient's age to complete this topic MMR Vaccines Aged Out No longer eligi ble based on patient's age to complete this topic Meningococcal ACWY Vaccine Aged Out N o longer eligible based on patient's age to complete this topic Meningococcal B Vacine Aged Out No lo nger eligible based on patient's age to complete this topic RSV Immunization Patients Under 20 months Aged Out No longer eligible based on patient's age to complete this topic Varicella Vaccines Aged Out No longer eligible based on patient's age to complete this topic Procedures Procedure Name Priority Date/Time Associated Diagnosis Comments ANNUAL BMP BLOOD TEST Routine 01/13/2024 LIPID PANEL Routine 01/13/2024 DEPRESSION SCREENING Routine 01/10/2024 FALLS RISK ASSESSMENT Routine 01/10/2024 DXA BONE DENSITY STUDY 1+ SITS AXIAL SKEL Routine 04/29/2022 9:30 AM EST Other specified disorders of bone density and structure, unspecified site from Last 3 Months or Most Recently Relevant to Health Maintenance Results * Annual BMP Blood Test (01/13/2024) [facility] Annual BMP Blood Test abstracted [facility] Provider HEALTH MAINTENANCE Final Result * Lipid panel (01/13/2024) [facility] LDL/HDL Ratio 2 0 - 4 Triglycerides 123 0 - 150 mg/dL Cholesterol 120 0 - 200 mg/dL HDL 52 >=40 mg/dL LDL Cholesterol 44 0 - 100 mg/dL Blood Venous blood specimen / Unknown Result [facility] Provider LAB BLOOD ORDERABLES Erin l Result * Falls Risk Assessment (01/10/2024) [facility] Falls Risk Assessment abstracted [facility] Provider HEALTH MAINTENANCE Final Result * Depression Screening (01/10/2024) [facility] Depression Screening abstracted [facility] Provider HEALTH MAINTENANCE Final Result * DXA BONE DENSITY STUDY 1+ SITS AXIAL SKEL (04/29/2022 9:30 AM EST) Anatomical Region Laterality Modality Bone Densitometr y 12/02/2021 3:57 PM EDT Narrative 04/30/2022 8:43 AM EST BONE DENSITY (DEXA) ? Lumbar Spine T-score is 3.6. ?? (SD relative to 20-29 y/o adult) Z-score is weeks 0.4. ??(SD relative to age matched peers) This is considered normal by WHO criteria. Left Hip T-score is -1.6. Z-score is 0.9. This is considered osteopenia by WHO criteria. There is mild dextroscoliosis of the lumbar spine. Lateral view of spine demonstrates vertebral heights to be maintained. IMPRESSION: This patient is considered have osteopenia by WHO criteria. This patient has a 12% risk of major osteoporotic fracture and a 3.1% risk of hip fracture over the next 10 years. (World Health Organization Fracture Risk Assessment) [facility] Department of Internal Medicine recommends using National Osteoporosis Foundation (NOF) guidelines in treatment decisions related to osteoporosis. NOF guidelines suggest considering treatment for postmenopausal women and men aged 50 or older presenting with the following: History of hip or vertebral fracture. T-score = -2.5 (DXA) at the femoral neck, total hip, or spine, after appropriate evaluation to exclude secondary causes. Low bone mass (T-score between -1.0 and -2.5 at the femoral neck or spine) AND a 10-year probability of a hip fracture = 3% OR a 10-year probability of a major osteoporosis-related fracture = 20% based on the [place]-adapted WHO algorithm Please note that all treatment decisions require clinical judgment and consideration of individual patient factors, including patient preferences, co-morbidities, previous drug use, risk factors not captured in the FRAX model (e.g., frailty, falls, vitamin D deficiency, increased bone turnover, interval significant decline in bone density) and possible under- or over-estimation of fracture risk by FRAX. Optional alternative screening schedule based on brooks Mathew., [facility] April 30, 2011 for patients with osteopenia (based on hip BMD T-score) is as follows: * ??advanced osteopenia (T scores -2.00 to -2.49), BMD testing every year * ??moderate osteopenia (T scores -1.50 to -1.99), BMD testing every 5 years mild osteopenia or normal BMD (T scores -1.50 and higher), BMD testing every 15 years Procedure Note Na Sellers MD - 05/18/2023 BONE DENSITY (DEXA) Lumbar Spine T-score is 3.6. (SD relative to 20-29 y/o adult) Z-score is weeks 0.4. (SD relative to age matched peers) This is considered normal by WHO criteria. Left Hip T-score is -1.6. Z-score is 0.9. This is considered osteopenia by WHO criteria. There is mild dextroscoliosis of the lumbar spine. Lateral view of spine demonstrates vertebral heights to be maintained. IMPRESSION: This patient is considered have osteopenia by WHO criteria. This patienthas a 12% risk of major osteoporotic fracture and a 3.1% risk of hip fracture over the next10 years. (World Health Organization Fracture Risk Assessment) [facility] Department of Internal Medicine recommendsusing National Osteoporosis Foundation (NOF) guidelines in treatment decisions related toosteoporosis. NOF guidelines suggest considering treatment for postmenopausal women and menaged 50 or older presenting with the following: History of hip or vertebral fracture. T-score = -2.5 (DXA) at the femoral neck, total hip, or spine, afterappropriate evaluation to exclude secondary causes. Low bone mass (T-score between -1.0 and -2.5 at the femoral neck or spine)AND a 10-year probability of a hip fracture = 3% OR a 10-year probability of a majorosteoporosis-related fracture = 20% based on the [place]-adapted WHO algorithm Please note that all treatment decisions require clinical judgment andconsideration of individual patient factors, including patient preferences, co- morbidities,previous drug use, risk factors not captured in the FRAX model (e.g., frailty, falls, vitaminD deficiency, increased bone turnover, interval significant decline in bone density) andpossible under- or over-estimation of fracture risk by FRAX. Optional alternative screening schedule based on brooks Mathew., NEJMJanuary 2011 for patients with osteopenia (based on hip BMD T-score) is as follows: * advanced osteopenia (T scores -2.00 to -2.49), BMD testing every year * moderate osteopenia (T scores -1.50 to -1.99), BMD testing every 5years mild osteopenia or normal BMD (T scores -1.50 and higher), BMD testingevery 15 years Glendy [facility] DXA PROCEDURES Final Result from Last 3 Months or Most Recently Relevant to Health Maintenance Insurance [facility] MEDICARE Care Teams Whiting Machine Operator Relationship Specialty Start Date End Date Anne Benavides MD [address] [place] [phone] PCP - General Internal Medicine 11/10/21
--- OUTSIDE RECORDS SUMMARY | 2024-06-15 16:08 | XMS_ITS | Clinical Summary ---
Author Organization [facility], Address [address] [address] Phone Care Team Providers Care Facing End Trimmer Name Role Phone Anne Balderas MD Primary Care Provider + Allergies No known active allergies Medications pantoprazole (PROTONIX) 20 MG EC tablet Take 20 mg by mouth 1 (one) time each day 11/20/2020 Active metoprolol tartrate (LOPRESSOR) 50 MG tablet 12/03/2020 Active lisinopril 20 MG tablet 11/16/2020 Active atorvastatin (LIPITOR) 10 MG tablet Take 10 mg by mouth 1 (one) time each day 12/12/2020 Active acetaminophen (Tylenol 8 Hour) 650 MG 8 hr tablet 2 TABLETS EVERY 8 HOURS NEEDED Active TURMERIC PO Take by mouth Active Cholecalciferol 10 MCG (400 UNIT) capsule Take by mouth Active Na Sulfate-K Sulfate-Mg Sulf 17.5-3.13-1.6 GM/177ML solution Take 2 Bottles by mouth 04/16/2021 Active Apoaequorin 10 MG capsule Take by mouth Active aspirin (ST GO) 81 MG EC tablet Take 1 tablet by mouth 1 (one) time each day Active Active Problems Problem Noted Date Diagnosed Date Memory loss 02/04/2021 Overview (10/08/2021): MMSE 27. Dementia panel ordered. Neurology consult placed. Hyperlipidemia 10/09/2020 Chronic kidney disease stage 4 06/09/2019 Angelo's esophagus 11/07/2018 Obese class I 07/19/2017 Osteopenia 03/04/2016 Benign essential hypertension 09/08/2007 Encounters Date Type Department Care Team Description 05/16/2024 3:00 PM EST Office Visit [facility] [address] [place] [address] Shamir Paul MD Chronic kidney disease stage 4 (HCC) (Primary Dx) from Last 3 Months Immunizations Name Administration Dates Next Due Influenza (IM) Preservative Free 02/16/2015 Influenza Split High Dose Pr eservative Free IM 01/21/2021,12/20/2019,01/22/2019,01/04,01/05/2017,02/14/2016,01/14/2016 Influenza TIV (IM) 02/16/2015,01/22/2014, 013 Pfizer SARS-COV-2 01/09/2021,,07/15/2020,06/03,05/12/2020 Pneumococcal Conjugate 13-Valent 12/20/2019,12/12 Pneumococcal Polysaccharide 12/05/2003 Shingrix 09/13/2018,06/07/2018 Tdap 07/21/2012,12/05/2003 Zoster 01/22/2014 Social History Tobacco Use Types Packs/Day Years Used Date Smoking Tobacco: Never Smokeless Tobacco: Never Tobacco Cessation:Counseling Given: Not Answered Comments Unknown Sex and Gender Information Value Date Recorded Sex Assigned at Not on file Legal Sex Female 9:28 AM EDT Gender Identity Not on file Sexual Orientation Not on file Last Filed Vital Signs Vital Sign Reading Time Taken Comments Blood Pressure 115/74 12/30/2022 10:26 AM EDT Pulse - - Temperature - - Respiratory Rate - - Oxygen Saturation - - Inhaled Oxygen Concentration - - Weight - - Height - - Body Mass Index - - Plan of Treatment Upcoming Encounters Date Type Department Care Team (Late st Contact Info) Description 08/29/2024 10:50 AM EDT Office Visit [facility] [place], [address] [place] [place] [address] Shamir Paul MD [address] [place] [address] [place] [address] Health Maintenance Due Date Last Done Comments Pneumococcal Vaccine: 65+ Years Completed 12/20/2019, 01/09/2016, 12/05/2003 Influenza Vaccine Completed 01/07/2024, , 01/21/2021, Additional history exists Hepatitis B Vaccine Aged Out No longe r eligible based on patient's age to complete this topic Insurance MEDICARE [facility] Care Teams Facing End Trimmer Relationship Specialty Start Date End Date Anne Balderas MD [address] [place] [address] [phone] PCP - General 05/16/24
--- OUTSIDE RECORDS SUMMARY | 2024-06-15 16:08 | XMS_ITS | Encounter Summary ---
Author Organization [facility] Address [address] [place] [address] Phone Care Team Providers Care Manager Scheduling Name Role Phone Anne Balderas MD Primary Care Provider + Encounter Details Date Type Department Care Team (Late st Contact Info) Description 04/28/2022 Documentation Only [facility] [address] [place] [address] Shamir Paul MD [address] [place] [address] [place] [address] Social History Tobacco Use Types Packs/Day Years Used Date Smoking Tobacco: Never Smokeless Tobacco: Never Comments Unknown Sex and Gender Information Value Date Recorded Sex Assigned at Not on file Legal Sex Female 9:28 AM EDT Gender Identity Not on file Sexual Orientation Not on file documented as of this encounter Plan of Treatment Upcoming Encounters Date Type Department Care Team (Late st Contact Info) Description 08/29/2024 10:50 AM EDT Office Visit [facility] [address] [place] [address] Shamir Paul MD [address] [facility] [address] [place] [address] documented as of this encounter Visit Diagnoses Not on filedocumented in this encounter Care Teams Manager Scheduling Relationship Specialty Start Date End Date Anne Balderas MD [address] [place] [phone] PCP - General 05/16/24 documented as of this encounter
--- OUTSIDE RECORDS SUMMARY | 2024-06-15 16:08 | XMS_ITS | Encounter Summary ---
Author Organization [facility] Address [address] [place] [address] Phone Care Team Providers Care Crew Lead Name Role Phone Anne Balderas MD Primary Care Provider + Encounter Details Date Type Department Care Team (Late st Contact Info) Description 04/29/2022 Documentation Only [facility] [address] [place] [address] Shamir Paul MD [address] [place] [address] [place] [address] Social History Tobacco Use Types [...] Visit [facility] [address] [place] [address] Shamir Paul MD [address] [facility] [place] [address] documented as of this encounter Visit Diagnoses Not on filedocumented in this encounter Care Teams Crew Lead Relationship Specialty Start Date End Date Anne Balderas MD [address] [place] [phone] PCP - General 05/16/24 documented as of this encounter
--- OUTSIDE RECORDS SUMMARY | 2024-06-15 16:08 | XMS_ITS | Encounter Summary ---
Author Organization [facility] Address [address] [place] [address] Phone Care Team Providers Care Laundrette Owner Name Role Phone Anne Balderas MD Primary Care Provider + Encounter Details Date Type Department Care Team (Late st Contact Info) Description 10/14/2021 Documentation Only [facility] [address] [place] [address] Shamir Paul MD [address] [place] [address] [place] [address] Social History Tobacco Use Types [...] Visit [facility] [address] [place] [address] Shamir Paul MD [address] [place] [address] [place] [address] documented as of this encounter Visit Diagnoses Not on filedocumented in this encounter Care Teams Laundrette Owner Relationship Specialty Start Date End Date Anne Balderas MD [address] [place] [phone] PCP - General 05/16/24 documented as of this encounter
--- OUTSIDE RECORDS SUMMARY | 2024-06-15 16:08 | XMS_ITS | Encounter Summary ---
Author Organization [facility], Address [address] [place] [address] Phone Care Team Providers Care Humane Officer Name Role Phone Anne Balderas MD Primary Care Provider + Encounter Details Date Type Department Care Team (Late st Contact Info) Description 05/16/2024 3:00 PM EST Office Visit [facility], [address] [phone] Shamir Paul MD [address] [place] [address] [place] [phone] Chronic kidney disease stage 4 (HCC) (Primary Dx) Social History Tobacco Use Types Packs/Day Years Used Date Smoking Tobacco: Never Smokeless Tobacco: Never Comments Unknown Sex and Gender Information Value Date Recorded Sex Assigned at Not on file Legal Sex Female 9:28 AM EDT Gender Identity Not on file Sexual Orientation Not on file documented as of this encounter Progress Notes * Shamir Paul MD - 05/16/2024 3:00 PM EST Images from the original note were not included. PATIENT: Fabiola Gilliam : 1940 ENCOUNTER: 05/16/2024 PCP: Anne Balderas MD HPI: Fabiola Gilliam is a 83 y.o. year old female with a history of Chronic kidney disease stage IIIb in the setting of longstanding hypertension now presents for further evaluation. Since her last visit, the patient has a hospitalization for cholelithiasis and choledocholithiasis for which she is gradually recovered. Her diet has been somewhat off but she otherwise states that her energy is reasonabl e. Her sister is quite supportive. ROS: Constitutional: No fever. Respiratory: No shortness of breath. Cardiovascular: No chest pain. Gastrointestinal: No abdominal pain, nausea or vomiting. Genitourinary: No hematuria. All other systems reviewed and are negative. PAST MEDICAL HISTORY: Patient Active Problem List Diagnosis Date Noted Memory loss 02/04/2021 Hyperlipidemia 10/09/2020 Chronic kidney disease stage 4 (HCC) 06/09/2019 Angelo's esophagus 11/07/2018 Obese class I 07/19/2017 Osteopenia 03/04/2016 Benign essential hypertension 09/08/2007 PAST SURGICAL HISTORY: No past surgical history on file. SOCIAL HISTORY: Social History Tobacco Use Smoking status: Never Smokeless tobacco: Never Substance Use Topics Alcohol use: Not on file FAMILY HISTORY: Family History Family history unknown: Yes MEDICATIONS: Outpatient Encounter Medications as of 05/16/2024 Medication Sig Dispense Refill acetaminophen (Tylenol 8 Hour) 650 MG 8 hr tablet 2 TABLETS EVERY 8 HOURS NEEDED Apoaequorin 10 MG capsule Take by mouth aspirin (ST GO) 81 MG EC tablet Take 1 tablet by mouth 1 (one) time each day atorvastatin (LIPITOR) 10 MG tablet Take 10 mg by mouth 1 (one) time each day Cholecalciferol 10 MCG (400 UNIT) capsule Take by mouth lisinopril 20 MG tablet metoprolol tartrate (LOPRESSOR) 50 MG tablet Na Sulfate-K Sulfate-Mg Sulf 17.5-3.13-1.6 GM/177ML solution Take 2 Bottles by mouth pantoprazole (PROTONIX) 20 MG EC tablet Take 20 mg by mouth 1 (one) time each day TURMERIC PO Take by mouth No facility-administered encounter medications on file as of 05/16/2024. MEDICATION REVIEW: I have reviewed the patient's current medications. ALLERGIES: has No Known Allergies. PHYSICAL EXAM: There were no vitals taken for this visit. Constitutional: No apparent distress Cardiovascular: No friction rub. Pulmonary/Chest: No rales. Abdominal: Soft and non-tender. Extremities: Edema None LABORATORY REVIEW: I have reviewed the labs noted above as well as in the chart, in [facility] and in Care Everywhere. DOCUMENTATION REVIEW: I have reviewed the applicable outside notes located in the chart, in [facility] and in Care Everywhere. ASSESSMENT: 1. Chronic kidney disease stage 4 (HCC) Kind 83-year-old female with history of longstanding chronic kidney disease likely stage IIIb with recent acute kidney injury now presents for further evaluation. At this point her current medical issues include 1. Chronic kidney disease likely on the basis of ischemia and hypertension. From a renal standpointthe patient remains quite stable but at this point my main concern is regarding her nutrition. To properly recover from her past hospitalization, the patient was encouraged to increase her protein intake and her caloric intake. We discussed the utility of nutritional supplements as well as appetitestimulants. At this point it does not appear that appetite is preventing the patient from eating its more availability. I tried to give her instruction as to how to manage her caloric intake throughout the day. Hopefully this will help. I appreciate your allowing me to participate in this kind patient's care. I hope all is well. No orders of the defined types were placed in this encounter. documented in this encounter Plan of Treatment Upcoming Encounters Date Type Department Care Team (Late st Contact Info) Description 08/29/2024 10:50 AM EDT Office Visit [facility] [address] [place] [phone] Shamir Paul MD [address] [place] [address] [place] [phone] documented as of this encounter Visit Diagnoses Diagnosis Chronic kidney disease stage 4 (HCC)- Primary documented in this encounter Care Teams Humane Officer Relationship Specialty Start Date End Date Anne Balderas MD [address] [place] [phone] PCP - General 05/16/24 documented as of this encounter
== END 2024-06-15 13:34 | disposition home or self-care (01) ==
PROVIDERS: PCP Internal Medicine; Visit Provider Surgery
DX: K82.9 Disease of gallbladder, unspecified (principal)
CPT/HCPCS: 99213

== ENCOUNTER → 2024-06-15 13:18 | Outpatient (BNVA) | payer MEDICARE, SELFPAY | PROVIDERS: PCP Internal Medicine; Visit Provider Surgery | DX: K82.9 Disease of gallbladder, unspecified (principal) | CPT/HCPCS: 99212 ==

== ENCOUNTER 2025-02-08 05:45 | Outpatient (REF) | payer MEDICARE, SELFPAY ==
--- OUTSIDE RECORDS SUMMARY | 2024-01-20 09:30 | XMS_ITS ---
Author Organization [facility] Address [address] [place] [address] Care Team Providers Care Transmissions Systems Operator Name Role Phone Harmony Solis M.D., Anne Primary Care Provider Unavailable Wilmer Mathews Jr Unavailable [phone] Stuart Snow Unavailable [phone] REASON FOR VISIT COMMONBILE DUCT STONE Encounters Encounter Location Date Provider Diagnosis [facility] [place] [address] [place], [place] [phone] 01/20/2024 Stuart Snow Plan Of Treatment No Information Progress Notes * MAMIE NEFFOB: [birth year] (84 yo F)Acc No.[id number]:01/20/2024 Progress Notes Patient: GERRY ALMONTE Provider: Kaitlin Snow MD :1940 A ge:83 Y S ex:Female Date:01/20/2024 Address:[address] [place], [place] [phone] Pcp:Radha Astudillo Subjective: * Chief Complaints: * [...] MD Date: Generated for Trent benitez/Brittany/eTransmitting on: 05:48 AM EDT
[2025-02-08 05:48] LABS: MANUAL DIFF FLAG NO
--- OUTSIDE RECORDS SUMMARY | 2025-02-08 05:48 | XMS_ITS | Encounter Summary ---
Author Organization [facility], Address [address] [place] [address] Phone Care Team Providers Care Zinc Plater Name Role Phone Anne Balderas MD Primary Care Provider + Encounter Details Date Type Department Care Team (Late st Contact Info) Description 04/28/2022 Documentation Only [facility], [address] [place] [phone] Shamir Paul MD [address] [place] [address] [place] [phone] Social History Tobacco Use Types [...] Care Team (Late st Contact Info) Description 03/27/2025 11:00 AM EST Office Visit [facility] [address] [place] [phone] Shamir Paul MD [address] [place] [phone] documented as of this encounter Visit Diagnoses Not on filedocumented in this encounter Care Teams Zinc Plater Relationship Specialty Start Date End Date Anne Balderas MD [address] [place] [phone] PCP - General 05/16/24 documented as of this encounter
--- OUTSIDE RECORDS SUMMARY | 2025-02-08 05:48 | XMS_ITS | Clinical Summary ---
Author Organization [address] Address [address] [place] [phone] Phone Care Team Providers Care Pattern Developer Name Role Phone Anne Benavides MD Primary Care Prov ider Allergies No known active allergies Medications atorvastatin (LIPITOR) 10 mg tablet Take 1 tablet (10 mg total) by mouth 1 (one) time each day. 01/10/2024 Active sertraline (ZOLOFT) 25 mg tablet TAKE ONE TABLET BY MOUTH EVERY DAY 12/27/2023 Active hydroCHLOROthiaz girma (HYDRODIURIL) 25 mg tablet 07/06/2023 Active memantine (NAMENDA) 5 mg tablet Take 1 tablet (5 mg total) by mouth 2 (two) times a day. for 90 days 04/03/2024 Active cyanocobalamin (VITAMIN B-12) 1,000 mcg tablet Take 1 tablet (1,000 mcg total) by mouth 1 (one) time each day. 90 each 3 08/30/2024 6 Active lisinopriL (PRINIVIL,ZESTRI L) 10 mg tablet TAKE ONE TABLET BY MOUTH EVERY DAY 90 tablet 1 11/06/2024 Active metoprolol tartrate (LOPRESSOR) 25 mg tablet Take 1 tablet (25 mg total) by mouth 2 (two) times a day. 180 each 12/25/2024 5 Active Active Problems Problem Noted Date Diagnosed Date Hypertensive kidney disease with CKD (chronic kidney disease), stage 1-4 or unspecified chronic kidney disease 04/11/2024 Vascular dementia, uncomplicated ([facility] V24, [facility] [place] V28) 04/11/2024 Assessment & Plan (12/25/2024 9:43 AM EDT): Patient already established with neurology for dementia. Currently on memantine, and sertraline. Assessment & Plan (08/30/2024 10:51 AM EDT): Assessment & Plan (04/18/2024 4:12 PM EST): Patient already established with neurology. Currently on memantine, and sertraline. Patient lives by herself, her sister who lives in the same building visit her, however patient would benefit of a PODIATRIST ASSISTANT who can help her with the daily activities at home, supervision of medications and feeding. Patient has been reluctant to it, however because of her cognitive decline I think this is highly recommended. Resources were given to the patient and her sister to contact the agencies to get an evaluation at home for a PODIATRIST ASSISTANT. Mixed hyperlipidemia 04/11/2024 Gastroesophageal reflux disease without esophagi tis 04/11/2024 penitentiary (current) use of aspirin 04/11/2024 Polyp of colon 08/15/2021 Memory loss 02/04/2021 Overview (03/01/2024): MMSE 27. Dementia panel completed. MRI pending. Neurology consult pending. Hyperlipidemia 10/09/2020 Assessment & Plan (12/25/2024 9:43 AM EDT): Currently on atorvastatin 10 mg a day. Last LDL 44. We will continue same regimen. Assessment & Plan (08/30/2024 10:51 AM EDT): Assessment & Plan (04/18/2024 4:12 PM EST): Currently on atorvastatin 10 mg a day. Last LDL 44. We will continue same regimen. CKD (chronic kidney disease) stage 4, GFR 15-29 ml/min ([facility] V24, [facility] V28) 06/09/2019 Assessment & Plan (12/25/2024 1:25 PM EDT): Last GFR was 23, stable. Patient is encouraged to avoid any nephrotoxic medications. Following with nephro. Assessment & Plan (08/30/2024 10:51 AM EDT): Assessment & Plan (04/18/2024 4:12 PM EST): Last GFR was 21, stable. Patient is encouraged to avoid any nephrotoxic medications. Encouraged to keep her appointments with the plant specialist. Will recheck labs before her next visit. Angelo's esophagus 11/07/2018 Tubular adenoma 11/07/2018 Overview (03/01/2024): 20 mm polyp. Advised repeat colonoscopy in 2 yr. Pt declines at this time, wants annual FIT test. Osteopenia 03/04/2016 Overview (03/01/2024): Vitamin D supplementation being held for now given vitamin D level of 99. Recheck at subsequent visit and consider restarting at low-dose. Osteoarthrosis, localized, primary, involving lo wer leg 09/18/2009 Overview (03/01/2024): IMO Update Fall 2015 Essential hypertension, benign 09/08/2007 Assessment & Plan (12/25/2024 1:25 PM EDT): BP today 99/58, HR 52. We will continue lisinopril 10 mg a day, and decrease metoprolol to 25 mg twice daily for low BP and HR. Encouraged to follow a low- salt diet and be as active as she can. We discussed about regular exercise. Assessment & Plan (04/18/2024 4:12 PM EST): Today 106/60, We will continue lisinopril 20 mg a day, metoprolol 50 mg twice daily. Encouraged to follow a low-salt diet and be as active as she can. We discussed about regular exercise, walking at her building, drinking water. Orders: Basic metabolic panel; Future CBC and differential; Future Resolved Problems Problem Noted Date Diagnosed Date Resolved Date Urinary tract infection, site not specified 04/11/2024 08/30/2024 Other cholelithiasis with obstruction 04/11/2024 08/30/2024 Klebsiella pneumoniae (k. pn eumoniae) as the cause of diseases classified elsewhere 04/11/2024 0 08/30/2024 Somatic dysfunction of pelvic region 01/10/2018 08/30/2024 Sprain of sacroiliac ligament 01/10/2018 08/30/2024 Sprain of lumbosacral joint or ligament 01/10/2018 08/30/2024 Obesity (BMI 30.0-34.9) 07/19/201708/11 Encounters Date Type Department Care Team Description 01/01/2025 Telephone Adult Medicine [address] [phone] Anne Osorio MD 12/28/2024 Telephone Adult Medicine [address] [phone] Latrell Alvarez LPN 12/26/2024 Telephone Adult Medicine [address] [phone] Latrell Alvarez LPN 12/25/2024 9:51 AM EDT - 12/25/2024 11:59 PM EDT Hospital Encounter [address] [phone] Acute left ankle pain Discharge Disposition: Home or Self Care 12/25/2024 9:00 AM EDT Office Visit Adult Medicine [address] [phone] Anne Osorio MD Encounter for annual general medical examination with abnormal findings in adult (Primary Dx); Essential hypertension, benign; Mixed hyperlipidemia; CKD (chronic kidney disease) stage 4, GFR 15-29 ml/min (CMS/HCC V24, CMS/HCC V28); Vascular dementia, uncomplicated (CMS/HCC V24, CMS/HCC V28); Acute left ankle pain; Advance care planning 11/08/2024 Telephone Adult Medicine [address] [phone] Evan carlton, Anne Prince MD from Last 3 Months Immunizations Immunization Administration Dates Next Due Influenza trivalent, 0.5mL ( Fluad) 65yo and older 01/21/2021,12/20/2019,01/22/2019,01/04,01/05/2017,02/14/2016,01/14/2016 Influenza trivalent, 0.5mL, preservative free (Fluarix; FluLaval; Fluzone) ages 6mo and older (Afluria) 3 years and older 02/16/2015,01/05/2013 Influenza trivalent, with pr eservative (Fluzone; Afluria) 6mo and older 01/22/2014 Influenza, Unspecified 01/07/2024,01/19/2023 JumpStart SARS-CoV-2 COVID-19, mRNA, LNP-S, preservative free 01/07/2024,08/09/2020,07/15/2020 Pneumococcal conjugate 13 va lent (Prevnar 13, PCV13) 2mo and older 12/20/2019,01/09/2016 Pneumococcal polysaccharide 23 valent (Pneumovax 23) 2yo and older 12/05/2003 RSV, bivalent, protein subun it RSVpreF, 0.5mL, Preservative Free (Arexvy) 50yo and older 02/16/2023 Td Tetanus diptheria (Tdvax) 7yo and older 12/05/2003 Td, Unspecified 12/05/2003 Tdap Tetanus diptheria acell ular pertussis (Boostrix; Adacel) 7yo and older 12/09/2022,07/21/2012,12/05/2003 Zoster Live 01/22/2014 Zoster recombinant (Shingrix ) 19yo and older 09/13/2018,06/07/2018 Surgical History Surgery Date Site/Laterality Comments OTHER SURGICAL HISTORY 10/17/2018 PROCEDURE: OUTSIDE ENDOSCOPY; COMMENT: Angelo's. Repeat in 3 years COLONOSCOPY 10/17/2018 PROCEDURE: HISTORICAL COLONOSCOPY; COMMENT: 20 mm polyp. Repeat in 2 years Medical History Medical History Date Comments Osteopenia 03/04/2016 DX:Osteopenia Angelo's esophagus 11/07/2018 DX:Angelo's esophagus Tubular adenoma 11/07/2018 DX:Tubular adeno ma Klebsiella pneumoniae (k. pn eumoniae) as the cause of diseases classified elsewhere 04/11/2024 Obesity (BMI 30.0-34.9) 07/19/2017 Sprain of lumbosacral joint or ligament 01/11/20 18 Sprain of sacroiliac ligament 01/10/2018 Somatic dysfunction of pelvic region 01/10/2018 Urinary tract infection, site not specified 03/14 Other cholelithiasis with obstruction 04/11/2024 Social History Tobacco Use Types Packs/Day Years Used Date Smoking Tobacco: Former Smokeless Tobacco: Never Tobacco Cessation:Counseling Given: Not Answered Alcohol Use Standard Drinks/Week Comments Yes 0 (1 standard drink = 0.6 oz pur e alcohol) Housing Instability Answer Date Recorde d Are you worried that in the next 2 months you may not have stable housing? No 12/25/2024 Food Access & Nutrition Answer Date Rec orded Do you have access to a vari ety of food including fruits and vegetables? Yes 12/25/2024 Health Literacy Answer Date Recorded How often do you need to hav e someone help you when you read instructions, pamphlets, or other written material from your doctor or pharmacy? Never 12/25/2024 Caregiver: How often do you need to have someone help you when you read instructions, pamphlets, or other written material from your doctor or pharmacy? Not on file 12/25/2024 Financial Risk Answer Date Recorded How hard is it for you to pa y for the very basics like food, housing, medical care, and air conditioning / heating? Not very hard 12/25/2024 Transportation Answer Date Recorded Has the lack of transportati on kept you from meetings, work, or from getting things needed for daily living? No Has the lack of transportati on kept you from medical appointments or from getting medications? No 12/25/2024 Social Isolation Answer Date Recorded How often do you feel lonely or isolated from th ose around you? Never 12/25/2024 Food Risk Answer Date Recorded Within the past 12 months we worried whether our food would run out before we got money to buy more. Never true 12/25/2024 Within the past 12 months th e food we bought just didn't last and we didn't have money to get more. Never true 12/25/2024 Dependent Care Answer Date Recorded Do you need help finding or paying for care for your loved ones. For example, child care counselor or elderly care for an older adult? No 12/25/2024 Education Answer Date Recorded Do you think completing more education or training, like finishing a GED, going to college, or learning a trade, would be helpful for you? No 12/25/2024 Employment and Income Answer Date Recor ded During the last four weeks, have you been actively looking for work? No 12/25/2024 Living Situation Answer Date Recorded What is your living situation? Unrecognized valu e 12/25/2024 Comments No Sex and Gender Information Value Date Recorded Sex Assigned at Not on file Legal Sex Female 6:52 PM EST Gender Identity Not on file Sexual Orientation Not on file Obstetrics History Last Filed Vital Signs Vital Sign Reading Time Taken Comments Blood Pressure 99/58 12/25/2024 9:06 AM EDT Pulse 52 12/25/2024 9:06 AM EDT Temperature 35.9 C (96.6 F) 12/25/2024 9:02 AM EDT Respiratory Rate 14 12/25/2024 9:02 AM EDT Oxygen Saturation 99% 12/25/2024 9:02 AM EDT Inhaled Oxygen Concentration - - Weight 71.1 kg (156 lb 12.8 oz) 12/25/2024 9:02 AM EDT Height 160 cm (5' 3 ) 12/25/2024 9:02 AM EDT Body Mass Index 27.78 12/25/2024 9:02 AM EDT Plan of Treatment Upcoming Encounters Date Type Department Care Team (Late st Contact Info) Description 02/21/2025 10:15 AM EST Office Visit Orthopedic Surgery - [address] [phone] Tc Higginbotham DPM [address] [place] [phone] 06/26/2025 11:00 AM EDT Office Visit Adult Medicine [address] [phone] Anne Benavides MD [address] [place], [place] Health Maintenance Due Date Last Done Comments COVID-19 Vaccine ( season) 2024 01/07/2024, 01/19/2023, 01/23/2022, Additional history exists Hypertension/CHF/CAD Annual BMP Blood Test 08/24/2025 08/24/2024, 01/13/2024, 01/13/2024 Falls Risk Assessment 12/25/2025 12/25/2024, 024 Medicare Annual Wellness Visit 12/25/2025 12/25/2024 Social Influencers of Health Screening 12/25/2025 12/25/2024 Cholesterol Screening (Lipid Panel) 01/12/2029 01/13/2024, 01/13/2024 Osteoporosis Screening (Bone Density Screening) 04/29/2032 04/29/2022, 06/15/2019 DTaP,Tdap,and Td Vaccines (6 - Td or Tdap) 12/09/2032 12/09/2022, 07/21/2012, 12/05/2003, Additional history exists Zoster Vaccines Completed 09/13/2018, 05/14, 01/22/2014 Pneumococcal Vaccine: 50+ Years Completed 12/20/2019, 01/09/2016, 12/05/2003 RSV Immunization Adult Patients Completed 02/16/2023 Influenza Vaccine Discontinued 01/07/2024, , 01/21/2021, Additional history exists Depression Screening Completed 12/25/2024, 01/10/20 24 HIB Vaccines Aged Out No longer eligi ble based on patient's age to complete this topic HPV Vaccines Aged Out No longer eligi ble based on patient's age to complete this topic Hepatitis A Vaccines Discontinued Hepatitis B Vaccines Discontinued IPV Vaccines Aged Out No longer eligi ble based on patient's age to complete this topic MMR Vaccines Aged Out No longer eligi ble based on patient's age to complete this topic Meningococcal ACWY Vaccine Aged Out N o longer eligible based on patient's age to complete this topic Meningococcal B Vaccine Aged Out No l onger eligible based on patient's age to complete this topic RSV Immunization Patients Under 20 months Aged Out No longer eligible based on patient's age to complete this topic Varicella Vaccines Aged Out No longer eligible based on patient's age to complete this topic Procedures Procedure Name Priority Date/Time Associated Diagnosis Comments XR ANKLE 3+ VIEWS LEFT Routine 12/25/2024 9:59 AM EDT Acute left ankle pain BASIC METABOLIC PANEL Routine 08/24/2024 9:50 AM EDT Essential hypertension, benign LIPID PANEL Routine 01/13/2024 DEPRESSION SCREENING Routine 01/10/2024 FALLS RISK ASSESSMENT Routine 01/10/2024 DXA BONE DENSITY STUDY 1+ SITS AXIAL SKEL Routine 04/29/2022 9:30 AM EST Other specified disorders of bone density and structure, unspecified site from Last 3 Months or Most Recently Relevant to Health Maintenance Results * XR Ankle 3+ Views Left (12/25/2024 9:59 AM EDT) Anatomical Region Laterality Modality Lower Extremities, Ankle Left Radiogr aphic Imaging 12/25/2024 11:2 6 PM EDT Narrative 12/25/2024 11:27 PM EDT Left ankle, 3 views. History pain. There is no evidence of displaced fractures or dislocations. There is mild anterior spurring in the mid foot. There is no soft tissue swelling. CONCLUSIONS: Mild degenerative changes. No visible fractures or dislocations. -------- FINAL REPORT -------- Dictated By: Amber Man Dictated Date: 12/25/2024 23:26 ET Assigned Physician: Amber Man Reviewed and Electronically Signed By: Amber Man Signed Date: 12/25/2024 23:27 ET Workstation ID: [id number] Transcribed By: Self Edit Transcribed Date: 12/25/2024 23:26 ET Procedure Note Amber Man MD - 12/25/2024 Left ankle, 3 views. History pain. There is no evidence of displaced fractures or dislocations. There is mildanterior spurring in the mid foot. There is no soft tissue swelling. CONCLUSIONS: Mild degenerative changes. No visible fractures ordislocations. -------- FINAL REPORT -------- Dictated By: Amber Man Dictated Date: 12/25/2024 23:26 ET Assigned Physician: Amber Man Reviewed and Electronically Signed By: Amber Man Signed Date: 12/25/2024 23:27 ET Workstation ID: [id number] Transcribed By: Self Edit Transcribed Date: 12/25/2024 23:26 ET Anne Benavides MD IMG XR PROCEDURES Final Result * (ABNORMAL) Basic metabolic panel (08/24/2024 9:50 AM EDT) Sodium 142 133 - 145 mmol/L LAB CHEMISTRY METHOD 08/24/2024 12:41 PM [facility] Potassium 4.4 3.5 - 5.5 mmol/L LAB CHEMISTRY METHOD 08/24/2024 12:41 PM [facility] Chloride 110 96 - 110 mmol/L LAB CHEMISTRY METHOD 08/24/2024 12:41 PM [facility] CO2 28 21 - 32 mmol/L LAB CHEMISTRY METHOD 08/24/2024 12:41 PM [facility] Anion Gap 4 3 - 11 LAB CHEMISTRY METHOD 08/24/2024 12:41 PM [facility] Glucose 92 70 - 100 mg/dL LAB CHEMISTRY METHOD 08/24/2024 12:41 PM [facility] BUN 35(H) 5 - 25 mg/dL LAB CHEMISTRY METHOD 08/24/2024 12:41 PM [facility] Creatinine 2.11(H) 0.50 - 1.10 mg/dL LAB CHEMISTRY METHOD 08/24/2024 12:41 PM EDT [facility] eGFR 23(L) >=60 mL/min/1. 73m2 LAB CHEMISTRY METHOD 08/24/2024 12:41 PM EDT [facility] Comment:Calculation based on the Chronic Kidney Disease Epidemiology Collaboration (CKD-EPI) equation refit without adjustment for race. BUN/Creatinine Ratio 16.6 LAB CHEMISTRY METHOD 08/24/2024 12:41 PM EDT [facility] Calcium 9.7 8.5 - 10.5 mg/dL LAB CHEMISTRY METHOD 08/24/2024 12:41 PM EDT [facility] Blood Venous blood specimen / Unknown Venipuncture / Unknown 08/24/2024 9:50 AM EDT 08/24/2024 9:50 AM EDT Anne Benavides MD LAB BLOOD ORDERABL ES Final Result [facility] [address] [place] [address], * Lipid panel (01/13/2024) [facility] LDL/HDL Ratio 2 0 - 4 Triglycerides 123 0 - 150 mg/dL Cholesterol 120 0 - 200 mg/dL HDL 52 >=40 mg/dL LDL Cholesterol 44 0 - 100 mg/dL Blood Venous blood specimen / Unknown Historical Provider LAB BLOOD ORDERABLES Erin l Result * Falls Risk Assessment (01/10/2024) [facility] Falls Risk Assessment abstracted Historical Provider HEALTH MAINTENANCE Final Result * Depression Screening (01/10/2024) [facility] Depression Screening abstracted Historical Provider HEALTH MAINTENANCE Final Result * DXA BONE DENSITY STUDY 1+ SITS AXIAL SKEL (04/29/2022 9:30 AM EST) Anatomical Region Laterality Modality Bone Densitometr y 12/02/2021 3:57 PM EDT Narrative 04/30/2022 8:43 AM EST BONE DENSITY (DEXA) Lumbar Spine T-score is [...] (World Health Organization Fracture Risk Assessment) [facility] [employer] Department of Internal Medicine recommends using National [...] alternative screening schedule based on brooks Mathew., [facility] April 30, 2011 for patients with osteopenia [...] (World Health Organization Fracture Risk Assessment) [facility] [employer] [facility] [employer] Department of Internal Medicine recommendsusing National Osteoporosis [...] alternative screening schedule based on brooks Mathew., [place] for patients with osteopenia (based on hip BMD T-score) is as follows: * advanced osteopenia (T scores -2.00 to -2.49), BMD testing every year * moderate osteopenia (T scores -1.50 to -1.99), BMD testing every 5years mild osteopenia or normal BMD (T scores -1.50 and higher), BMD testingevery 15 years Gl[facility]y [facility] IMG DXA PROCEDURES Final Result from Last 3 Months or Most Recently Relevant to Health Maintenance Insurance MEDICARE Advance Directives Documents on File Type Date Recorded Patient Supervisor Customer Records Division Expl anation Advance Directives and Living Will 12/29/2024 3:10 PM Health Care Proxy Care Teams Pattern Developer Relationship Specialty Start Date End Date Anne Benavides MD [address] [place] [phone] PCP - General Internal Medicine 11/10/21
--- OUTSIDE RECORDS SUMMARY | 2025-02-08 05:48 | XMS_ITS | Patient Health Record ---
Author Organization [facility] Address [address] [place] [address] Care Team Providers Care Base Engineer Name Role Phone nAne Balderas M.D. Primary Care Provider Unavailable Wilmer Mathews Jr Unavailable Reason For Referral No Information Plan Of Treatment Pending Test Test Name Order Date [place] guidance in [place] 01/20/2024 Insurance Providers Payer Name Payer Address Payer Phone Subscriber Number Group Number Insured Name Patient Relationship to Insured Coverage Start Date Coverage End Date MEDICARE OF [place] [address] [place] [address] [id number] GERRY NEFF Self - patient is the insured MED[employer] ATTN CLAIMS [address] [place] [address] [id number] GERRY NEFF Self - patient is the insured
--- OUTSIDE RECORDS SUMMARY | 2025-02-08 05:48 | XMS_ITS | Clinical Summary ---
Author Organization [facility], Address [address] [place] [address] [place] [address] Phone Care Team Providers Care Speed Winder Name Role Phone Anne Balderas MD Primary Care Provider + Allergies No known active allergies Medications metoprolol tartrate (LOPRESSOR) 50 MG tablet 12/03/2020 [...] 10 MG capsule Take by mouth Active hydroCHLOROthia zide 25 MG tablet Take 25 mg by mouth every morning Active sertraline (ZOLOFT) 25 MG tablet Take 25 mg by mouth 1 (one) time each day Active memantine (NAMENDA) 5 MG tablet Take 5 mg by mouth in the morning and 5 mg in the evening. Active Active Problems Problem Noted Date Diagnosed Date Memory loss 02/04/2021 Overview (10/08/2021): MMSE 27. Dementia panel ordered. Neurology consult placed. Hyperlipidemia 10/09/2020 Chronic kidney disease stage 4 06/09/2019 Angelo's esophagus 11/07/2018 Obese class I 07/19/2017 Osteopenia 03/04/2016 Benign essential hypertension 09/08/2007 Encounters Date Type Department Care Team Description 01/23/2025 3:40 PM EDT Office Visit [facility] [address] [place] [address] Shamir Paul MD Chronic kidney disease stage 4 (HCC) (Primary Dx) 12/05/2024 10:40 AM EDT Office Visit [facility] [address] [place] [address] Shamir Paul MD Chronic kidney disease stage 4 (HCC) (Primary Dx) 11/17/2024 Orders Only [facility], [facility] [address] [place] [address] Caity Spain Chronic kidney disease stage 4 (HCC) from Last 3 Months Immunizations Immunization Administration Dates Next Due Influenza (IM) Preservative [...] Visit [facility], [address] [place] [phone] Shamir Paul MD [address] [place] [phone] Health Maintenance Due Date Last Done Comments Influenza Vaccine (#1) 2024 4, 01/19/2023, 01/21/2021, Additional history exists Pneumococcal Vaccine: 50+ Years Completed 12/20/2019, 01/09/2016, 12/05/2003 Hepatitis B Vaccine Aged Out No longe r eligible based on patient's age to complete this topic Insurance Medicare [facility] Care Teams Speed Winder Relationship Specialty Start Date End Date Anne Balderas MD [address] [place] [phone] PCP - General 05/16/24
--- OUTSIDE RECORDS SUMMARY | 2025-02-08 05:48 | XMS_ITS | Encounter Summary ---
Author Organization [facility], Address [address] [place] [address] Phone Care Team Providers Care Property And Supply Officer Name Role Phone Anne Balderas MD Primary Care Provider + Encounter Details Date Type Department Care Team (Late st Contact Info) Description 10/14/2021 Documentation Only [facility], [address] [place] [address] Shamir Paul MD [address] [place] [address] [place] [address] Social History Tobacco Use Types [...] Visit [facility] [address] [place] [address] Shamir Paul MD [address] [facility] [address] [place] [address] documented as of this encounter Visit Diagnoses Not on filedocumented in this encounter Care Teams Property And Supply Officer Relationship Specialty Start Date End Date Anne Balderas MD [address] [place] [phone] PCP - General 05/16/24 documented as of this encounter
--- OUTSIDE RECORDS SUMMARY | 2025-02-08 05:48 | XMS_ITS | Encounter Summary ---
Author Organization [facility], Address [address] [place] [address] Phone Care Team Providers Care Lead Miner Blasting Name Role Phone Anne Balderas MD Primary Care Provider + Encounter Details Date Type Department Care Team (Late st Contact Info) Description 04/29/2022 Documentation Only [facility], [address] [place] [address] Shamir Paul MD [address] [place] [address] [place] [address] Social History Tobacco Use Types [...] Visit [facility] [address] [place] [address] Shamir Paul MD [address] [facility] [place] [address] documented as of this encounter Visit Diagnoses Not on filedocumented in this encounter Care Teams Lead Miner Blasting Relationship Specialty Start Date End Date Anne Balderas MD [address] [place] [phone] PCP - General 05/16/24 documented as of this encounter
--- OUTSIDE RECORDS SUMMARY | 2025-02-08 05:48 | XMS_ITS | Encounter Summary ---
Author Organization [facility] [place] [facility], Address [address] [place] [address] Phone Care Team Providers Care Welding Machine Tender Name Role Phone Anne Balderas MD Primary Care Provider + Encounter Details Date Type Department Care Team (Late st Contact Info) Description 08/31/2024 Documentation Only [facility] [place], [address] [place] [address] [place] [address] [place] [address] Social History Tobacco Use Types Packs/Day Years [...] Visit [facility] [address] [place] [address] Shamir Paul MD [address] [facility] [place] [phone] documented as of this encounter Visit Diagnoses Not on filedocumented in this encounter Care Teams Welding Machine Tender Relationship Specialty Start Date End Date Antunez Solis, Anne, MD [address] [place] [phone] PCP - General 05/16/24 documented as of this encounter
--- OUTSIDE RECORDS SUMMARY | 2025-02-08 05:48 | XMS_ITS | Encounter Summary ---
Author Organization [facility] Address [address] [place] [address] Phone Care Team Providers Care Flight Security Specialist Name Role Phone Anne Balderas MD Primary Care Provider + Encounter Details Date Type Department Care Team (Late st Contact Info) Description 11/17/2024 Orders Only [facility] [address] [place] [address] [place] [address] Caity Spain [address] [place] [address] Chronic kidney disease stage 4 (HCC) Social History Tobacco Use Types Packs/Day Years [...] Visit [facility] [address] [place] [address] Shamir Paul MD [address] [place] [address] [place] [address] documented as of this encounter Visit Diagnoses Diagnosis Chronic kidney disease stage 4 (HCC) documented in this encounter Care Teams Flight Security Specialist Relationship Specialty Start Date End Date Anne Balderas MD [address] [place] [phone] PCP - General 05/16/24 documented as of this encounter
--- OUTSIDE RECORDS SUMMARY | 2025-02-08 05:48 | XMS_ITS ---
Author Organization [address] Address [address] [place] [phone] Phone Care Team Providers Care Crystal Lapper Name Role Phone Anne Benavides MD Primary Care Prov ider Post Acute Care Coordination Status:Ongoing (Active) Start date:02/07/2025 Enrollment date:02/07/2025 Enrollment reason:Post acute care coordination Case Team Name Relationship Phone Arianne Sanabria RN(Responsible Staff) Post Acute Offset Press Operator Helper Continued Care and Services Coordination
[2025-02-08 06:37] LABS: Alanine Aminotransferase 6 U/L (0-31); Albumin Level 2.8 g/dL (3.5-5.0); Alkaline Phosphatase 63 U/L (39-117); Anion Gap 13 (12-20); Aspartate Amino Transferase 31 U/L (5-31); Blood Urea Nitrogen 32 mg/dL (9-16); Calcium 9.6 mg/dL (8.4-10.2); Carbon Dioxide 24 mmol/L (22-29); Chloride 108 mmol/L (96-108); Estimated Glomerular Filt Rate 35; Potassium 5.3 mmol/L (3.3-5.1); Sodium 140 mmol/L (135-145); Total Protein 5.9 g/dL (6.5-8.0)
[2025-02-08 07:32] LABS: Hematocrit 26.3 % (37.0-47.0); Hemoglobin 8.1 g/dl (12.0-16.0); Imm Gran Abs Auto 0.05 X10*3/uL (0.00-0.03); Imm Gran Pct Auto 0.5 % (0.0-0.4); Lymphocytes Absolute Auto 2.9 X10*3/uL (1.2-4.9); Mean Corpuscular HGB Conc 30.8 g/dl (31.0-35.0); Mean Corpuscular Hemoglobin 28.7 pg (27.0-33.0); Mean Corpuscular Volume 93.3 fL (80.0-98.0); NRBC Abs Auto 0.000 X10*3/uL (0.0-0.012); NRBC Pct Auto 0.0 /100WBC (0.0-0.2); Platelet Count 242 X10*3/uL (160-400); Red Blood Count 2.82 X10*6/uL (4.20-5.50); White Blood Count 10.7 X10*3/uL (4.8-10.8)
== END 2025-02-08 05:46 | disposition home or self-care (01) ==
LOC: HO.MMNH1L 05:45
PROVIDERS: Visit Provider Physician Assistant Medical
DX: Z13.1 Encounter for screening for diabetes mellitus (principal)
CPT/HCPCS: 36415; 80053; 83036; 85025

== ENCOUNTER 2025-02-12 05:42 | Outpatient (REF) | payer MEDICARE, SELFPAY ==
--- OUTSIDE RECORDS SUMMARY | 2024-01-20 08:30 | XMS_ITS ---
Author Organization [facility] Address [address] [place] [address] Care Team Providers Care Beef Cattle Farmer Name Role Phone Harmony Solis M.D., Anne Primary Care Provider Unavailable Wilmer Mathews Jr Unavailable Stuart Snow Unavailable [phone] REASON FOR VISIT COMMONBILE DUCT STONE Encounters Encounter Location Date Provider Diagnosis [facility] Inpatient [address] [place], [place] [id number] 01/20/2024 Stuart Snow Plan Of Treatment No Information Progress Notes * MAMIE NEFFOB: [birth year] (84 yo F)Acc No.[id number]:01/20/2024 Progress Notes Patient: GERRY ALMONTE Provider: Kaitlin Snow MD :1940 A ge:83 Y S ex:Female Date:01/20/2024 Address:[address] [place], [place] [phone] Pcp:Radha Astudillo Subjective: * Chief Complaints: * [...] MD Date: Generated for Trent benitez/Brittany/eTsonjasmitting on: 04/14/2024 05:45 AM EST
[2025-02-12 05:38] LABS: MANUAL DIFF FLAG NO
--- OUTSIDE RECORDS SUMMARY | 2025-02-12 05:45 | XMS_ITS | Encounter Summary ---
Author Organization [facility] [place], Address [address] [place] [address] Phone Care Team Providers Care Certified Residential Medication Aide Name Role Phone Anne Balderas MD Primary Care Provider + Encounter Details Date Type Department Care Team (Late st Contact Info) Description 04/29/2022 Documentation Only [facility] [place], [address] [place] [address] Shamir Paul MD [address] [place] [address] [place] [address] Social History Tobacco Use Types [...] [facility] [address] [place] [address] Shamir Paul MD [address] [facility] [place] [address] documented as of this encounter Visit Diagnoses Not on filedocumented in this encounter Care Teams Certified Residential Medication Aide Relationship Specialty Start Date End Date Anne Balderas MD [address] [place] [phone] PCP - General 05/16/24 documented as of this encounter
--- OUTSIDE RECORDS SUMMARY | 2025-02-12 05:45 | XMS_ITS | Patient Health Record ---
Author Organization [facility] Address [address] [place] [address] Care Team Providers Care Grinder Needle Tip Name Role Phone Anne Balderas M.D. Primary Care Provider Unavailable Wilmer [place] Jr Unavailable [phone] Reason For Referral No Information Plan Of Treatment Pending Test Test Name Order Date [place] guidance in [place] 01/20/2024 Insurance Providers Payer Name Payer Address Payer Phone Subscriber Number Group Number Insured Name Patient Relationship to Insured Coverage Start Date Coverage End Date MEDICARE OF [place] [address] [place] [address] [id number] GERRY NEFF Self - patient is the insured MED[employer] ATTN CLAIMS [address] [place] [address] [id number] GERRY NEFF Self - patient is the insured
--- OUTSIDE RECORDS SUMMARY | 2025-02-12 05:45 | XMS_ITS | Encounter Summary ---
Author Organization [facility], Address [address] [place] [address] Phone Care Team Providers Care Document Clerk Name Role Phone Anne Balderas MD Primary Care Provider + Encounter Details Date Type Department Care Team (Late st Contact Info) Description 04/28/2022 Documentation Only [facility], [address] [place] [address] Shamir Paul MD [address] [place] [address] [place] [address] Social History Tobacco Use Types [...] Visit [facility] [address] [place] [address] Shamir Paul MD [address] [facility] [place] [address] documented as of this encounter Visit Diagnoses Not on filedocumented in this encounter Care Teams Document Clerk Relationship Specialty Start Date End Date Anne Balderas MD [address] [place] [phone] PCP - General 05/16/24 documented as of this encounter
--- OUTSIDE RECORDS SUMMARY | 2025-02-12 05:45 | XMS_ITS | Encounter Summary ---
Author Organization [facility] [place], Address [address] [place] [address] Phone Care Team Providers Care Cigar Wrapper Name Role Phone Anne Balderas MD Primary Care Provider + Encounter Details Date Type Department Care Team (Late st Contact Info) Description 10/14/2021 Documentation Only [facility] [place], [address] [place] [address] Shamir Paul MD [address] [place] [address] [place] [address] Social History Tobacco Use Types [...] Visit [facility] [address] [place] [address] Shamir Paul MD [address] [facility] [place] [address] documented as of this encounter Visit Diagnoses Not on filedocumented in this encounter Care Teams Cigar Wrapper Relationship Specialty Start Date End Date Anne Balderas MD [address] [place] [phone] PCP - General 05/16/24 documented as of this encounter
--- OUTSIDE RECORDS SUMMARY | 2025-02-12 05:45 | XMS_ITS | Clinical Summary ---
Author Organization [address] Address [address] [place] [phone] Phone Care Team Providers Care Financial Accounting Manager Name Role Phone Anne Benavides MD Primary [...] chronic kidney disease 04/11/2024 Vascular dementia, uncomplicated ([facility] V24, [facility] [place] V28) 04/11/2024 Assessment & Plan (12/25/2024 [...] her, however patient would benefit of a TANK SETTER who can help her with the daily activities at home, supervision of medications and feeding. Patient has been reluctant to it, however because of her cognitive decline I think this is highly recommended. Resources were given to the patient and her sister to contact the agencies to get an evaluation at home for a TANK SETTER. Mixed hyperlipidemia 04/11/2024 Gastroesophageal reflux disease without [...] kidney disease) stage 4, GFR 15-29 ml/min ([facility] V24, [facility] V28) 06/09/2019 Assessment & Plan (12/25/2024 1:25 PM EDT): Last GFR was 23, stable. Patient is encouraged to avoid any nephrotoxic medications. Following with nephro. Assessment & Plan (08/30/2024 10:51 AM EDT): Assessment & Plan (04/18/2024 4:12 PM EST): Last GFR was 21, stable. Patient is encouraged to avoid any nephrotoxic medications. Encouraged to keep her appointments with the cyber forensic specialist. Will recheck labs before her next [...] Care Team Description 01/01/2025 Telephone Adult Medicine [address] [phone] Anne Osorio MD 12/28/2024 Telephone Adult Medicine [address] [phone] Latrell Alvarez LPN 12/26/2024 Telephone Adult Medicine [address] [phone] Latrell Alvarez, STEFANY 12/25/2024 9:51 AM EDT - 12/25/2024 11:59 PM EDT Hospital Encounter [address] [phone] Acute left ankle pain Discharge Disposition: Home or Self Care 12/25/2024 9:00 AM EDT Office Visit Adult Medicine [address] [phone] Anne Osorio MD Encounter for annual general medical examination with abnormal findings in adult (Primary Dx); Essential hypertension, benign; Mixed hyperlipidemia; CKD (chronic kidney disease) stage 4, GFR 15-29 ml/min (CMS/HCC V24, CMS/HCC V28); Vascular dementia, uncomplicated (CMS/HCC V24, CMS/HCC V28); Acute left ankle pain; Advance care planning from Last 3 Months Immunizations Immunization Administration Dates Next Due Influenza trivalent, 0.5mL ( Fluad) 65yo and older 01/21/2021,12/20/2019,01/22/2019,01/04,01/05/2017,02/14/2016,01/14/2016 Influenza trivalent, 0.5mL, preservative free (Fluarix; FluLaval; Fluzone) ages 6mo and older (Afluria) 3 years and older 02/16/2015,01/05/2013 Influenza trivalent, with pr eservative (Fluzone; Afluria) 6mo and older 01/22/2014 Influenza, Unspecified 01/07/2024,01/19/2023 Pfizer SARS-CoV-2 COVID-19, mRNA, LNP-S, preservative free 01/07/2024,08/09/2020,07/15/2020 [...] care for your loved ones. For example, early childhood coordinator or elderly care for an older adult? [...] AM EST Office Visit Orthopedic Surgery - [address] [phone] Tc Higginbotham DPM [address] [place] [address] 06/26/2025 11:00 AM EDT Office Visit Adult Medicine [address] [phone] Anne Benavides MD [address] [place] [address] Health Maintenance Due Date Last Done Comments [...] Signed Date: 12/25/2024 23:27 ET Workstation ID: [id number] Transcribed By: Self Edit Transcribed Date: 12/25/2024 [...] Signed Date: 12/25/2024 23:27 ET Workstation ID: [id number] Transcribed By: Self Edit Transcribed Date: 12/25/2024 23:26 ET us Anne Benavides MD IMG XR PROCEDURES Final Result * (ABNORMAL) Basic metabolic panel (08/24/2024 9:50 AM EDT) Sodium 142 133 - 145 mmol/L LAB CHEMISTRY METHOD 08/24/2024 12:41 PM [facility] Potassium 4.4 3.5 - 5.5 mmol/L LAB CHEMISTRY METHOD 08/24/2024 12:41 PM [facility] Chloride 110 96 - 110 mmol/L LAB CHEMISTRY METHOD 08/24/2024 12:41 PM [facility] CO2 28 21 - 32 mmol/L LAB CHEMISTRY METHOD 08/24/2024 12:41 PM [facility] Anion Gap 4 3 - 11 LAB CHEMISTRY METHOD 08/24/2024 12:41 PM [facility] Glucose 92 70 - 100 mg/dL LAB CHEMISTRY METHOD 08/24/2024 12:41 PM [facility] BUN 35(H) 5 - 25 mg/dL LAB CHEMISTRY METHOD 08/24/2024 12:41 PM [facility] Creatinine 2.11(H) 0.50 - 1.10 mg/dL LAB CHEMISTRY METHOD 08/24/2024 12:41 PM [facility] eGFR 23(L) >=60 mL/min/1. 73m2 LAB CHEMISTRY METHOD 08/24/2024 12:41 PM EDT [facility] Comment:Calculation based on the Chronic Kidney Disease Epidemiology Collaboration (CKD-EPI) equation refit without adjustment for race. BUN/Creatinine Ratio 16.6 LAB CHEMISTRY METHOD 08/24/2024 12:41 PM EDT [facility] Calcium 9.7 8.5 - 10.5 mg/dL LAB CHEMISTRY METHOD 08/24/2024 12:41 PM EDT [facility] Blood Venous blood specimen / Unknown Venipuncture / Unknown 08/24/2024 9:50 AM EDT 08/24/2024 9:50 AM EDT Anne Benavides MD LAB BLOOD ORDERABL ES Final Result [facility] [address] [place] [address], * Lipid panel (01/13/2024) Pathologist [facility] [place] LDL/HDL Ratio 2 0 - 4 Triglycerides 123 0 - 150 mg/dL Cholesterol 120 0 - 200 mg/dL HDL 52 >=40 mg/dL LDL Cholesterol 44 0 - 100 mg/dL Blood Venous blood specimen / Unknown Historical Provider LAB BLOOD ORDERABLES Erin l Result * Falls Risk Assessment (01/10/2024) Pathologist [facility] [place] Falls Risk Assessment abstracted Historical Provider HEALTH MAINTENANCE Final Result * Depression Screening (01/10/2024) Pathologist [facility] Depression Screening abstracted Historical Provider HEALTH MAINTENANCE [...] (World Health Organization Fracture Risk Assessment) [facility] Department of Internal Medicine recommends using National [...] alternative screening schedule based on brooks Mathe[place]., [facility] April 30, 2011 for patients [...] (World Health Organization Fracture Risk Assessment) [facility] Department of Internal Medicine recommendsusing National Osteoporosis [...] alternative screening schedule based on brooks Mathew., NEJJanuary 2011 for patients with osteopenia (based on [...] Most Recently Relevant to Health Maintenance Insurance [facility] MEDICARE Advance Directives Documents on File Type Date Recorded Patient Medical Imaging Tech Expl anation Advance Directives and Living Will 12/29/2024 3:10 PM Health Care Proxy Care Teams Financial Accounting Manager Relationship Specialty Start Date End Date Anne Benavides MD [address] [place] [phone] PCP - General Internal Medicine 11/10/21
--- OUTSIDE RECORDS SUMMARY | 2025-02-12 05:46 | XMS_ITS | Encounter Summary ---
Author Organization [facility], Address [address] [place] [address] Phone Care Team Providers Care Continuous Still Operator Name Role Phone Anne Balderas MD Primary Care Provider + Encounter Details Date Type Department Care Team (Late st Contact Info) Description 08/31/2024 Documentation Only [facility] [place], [address] [address] [place] [address] [place], [place] [address] [place] [address] Social History Tobacco Use Types [...] [facility] [address] [place] [address] Shamir Paul MD [address] [facility] [place] [phone] documented as of this encounter Visit Diagnoses Not on filedocumented in this encounter Care Teams Continuous Still Operator Relationship Specialty Start Date End Date Antunez Solis, Anne, MD [address] [place] [phone] PCP - General 05/16/24 documented as of this encounter
--- OUTSIDE RECORDS SUMMARY | 2025-02-12 05:46 | XMS_ITS ---
Author Organization [address] Address [address] [place] [phone] Phone Care Team Providers Care Import Manager Name Role Phone Anne Benavides MD Primary Care Prov ider Post Acute Care Coordination Status:Ongoing (Active) Start date:02/07/2025 Enrollment date:02/07/2025 Enrollment reason:Post acute care coordination Case Team Name Relationship Phone Arianne Sanabria RN(Responsible Staff) Post Acute Sql Application Developer Continued Care and Services Coordination
--- OUTSIDE RECORDS SUMMARY | 2025-02-12 05:46 | XMS_ITS | Encounter Summary ---
Author Organization [facility] Address [address] [place] [address] Phone Care Team Providers Care Audiology Director Name Role Phone Anne Balderas MD Primary Care Provider + Encounter Details Date Type Department Care Team (Late st Contact Info) Description 02/09/2025 Orders Only [facility] [address] [place] [address] [place] [address] Caity Spain [address] [place] [address] Chronic kidney disease stage 4 [...] Visit [facility] [address] [place] [address] Shamir Paul MD [address] [place] [address] [place] [address] documented as of this encounter Visit Diagnoses Diagnosis Chronic kidney disease stage 4 (HCC) documented in this encounter Care Teams Audiology Director Relationship Specialty Start Date End Date Anne Balderas MD [address] [place] [phone] PCP - General 05/16/24 documented as of this encounter
--- OUTSIDE RECORDS SUMMARY | 2025-02-12 05:46 | XMS_ITS | Clinical Summary ---
Author Organization [facility] [place], Address [address] [place] [address] [place] [address] Phone Care Team Providers Care Terrazzo Worker Apprentice Name Role Phone Anne Balderas MD Primary [...] Encounters Date Type Department Care Team Description 02/09/2025 Orders Only [facility] Access [address] [place] [address] Caity Spain Chronic kidney disease stage 4 (HCC) 01/23/2025 3:40 PM EDT Office Visit [facility] [address] [place] [address] Shamir Paul MD Chronic kidney disease stage 4 (HCC) (Primary Dx) 12/05/2024 10:40 AM EDT Office Visit [facility] [address] [place] [address] Shamir Paul MD Chronic kidney disease stage 4 (HCC) (Primary Dx) 11/17/2024 Orders Only [facility] Access [address] [place] [address] Caity Spain Chronic kidney disease stage 4 [...] Visit [facility] [address] [place] [address] Shamir Paul MD [address] [place] [address] [place] [phone] Health Maintenance Due Date Last Done Comments Influenza Vaccine (#1) 2024 4, 01/19/2023, 01/21/2021, Additional history exists Pneumococcal Vaccine: 50+ Years Completed 12/20/2019, 01/09/2016, 12/05/2003 Hepatitis B Vaccine Aged Out No longe r eligible based on patient's age to complete this topic Insurance Medicare [facility] Care Teams Terrazzo Worker Apprentice Relationship Specialty Start Date End Date Anne Balderas MD [address] [place] [phone] PCP - General 05/16/24
--- OUTSIDE RECORDS SUMMARY | 2025-02-12 05:46 | XMS_ITS | Encounter Summary ---
Author Organization [facility] Address [address] [place] [address] Phone Care Team Providers Care Rail Crew Member Name Role Phone Anne Balderas MD Primary Care Provider + Encounter Details Date Type Department Care Team (Late st Contact Info) Description 11/17/2024 Orders Only [facility] Center [address] [place] [address] [place] [address] Caity Spain [address] [place] [address] Chronic kidney disease stage 4 [...] Visit [facility] [address] [place] [address] Shamir Paul MD [address] [place] [address] [place] [address] documented as of this encounter Visit Diagnoses Diagnosis Chronic kidney disease stage 4 (HCC) documented in this encounter Care Teams Rail Crew Member Relationship Specialty Start Date End Date Anne Balderas MD [address] [place] [phone] PCP - General 05/16/24 documented as of this encounter
[2025-02-12 06:23] LABS: Hematocrit 24.7 % (37.0-47.0); Hemoglobin 7.6 g/dl (12.0-16.0); Imm Gran Abs Auto 0.03 X10*3/uL (0.00-0.03); Imm Gran Pct Auto 0.4 % (0.0-0.4); Lymphocytes Absolute Auto 2.2 X10*3/uL (1.2-4.9); Mean Corpuscular HGB Conc 30.8 g/dl (31.0-35.0); Mean Corpuscular Hemoglobin 28.8 pg (27.0-33.0); Mean Corpuscular Volume 93.6 fL (80.0-98.0); NRBC Abs Auto 0.000 X10*3/uL (0.0-0.012); NRBC Pct Auto 0.0 /100WBC (0.0-0.2); Platelet Count 267 X10*3/uL (160-400); Red Blood Count 2.64 X10*6/uL (4.20-5.50); White Blood Count 7.2 X10*3/uL (4.8-10.8)
[2025-02-12 06:46] LABS: Anion Gap 10 (12-20); Blood Urea Nitrogen 29 mg/dL (9-16); Calcium 9.3 mg/dL (8.4-10.2); Carbon Dioxide 27 mmol/L (22-29); Chloride 107 mmol/L (96-108); Estimated Glomerular Filt Rate 37; Potassium 4.1 mmol/L (3.3-5.1); Sodium 140 mmol/L (135-145)
== END 2025-02-12 05:43 | disposition home or self-care (01) ==
LOC: HO.MMNH2L 05:42
PROVIDERS: Visit Provider Physician Assistant Medical
DX: G93.40 Encephalopathy, unspecified (principal)
CPT/HCPCS: 36415; 80048; 85025

== ENCOUNTER 2025-02-19 05:27 | Outpatient (REF) | payer MEDICARE, SELFPAY ==
--- OUTSIDE RECORDS SUMMARY | 2024-01-20 08:30 | XMS_ITS ---
Author Organization [facility] Address [address] [place] [address] Care Team Providers Care Fountain Server Name Role Phone Harmony Solis M.D., Anne Primary Care Provider Unavailable Wilmer Mathews Jr Unavailable [phone] Stuart Snow Unavailable [phone] REASON FOR VISIT COMMONBILE DUCT STONE Encounters Encounter Location Date Provider Diagnosis [facility] Inpatient [address] [place], [place] [id number] 01/20/2024 Stuart Snow Plan Of Treatment No Information Progress Notes * MAMIE NEFFOB: [birth year] (84 yo F)Acc No.[id number]:01/20/2024 Progress Notes Patient: GERRY ALMONTE Provider: Kaitlin Snow MD :1940 A ge:83 Y S ex:Female Date:01/20/2024 Address:[address] [place], [place] [phone] Pcp:Radha Astudillo Subjective: * Chief Complaints: * [...] Kaitlin Snow MD Date: Generated for Trent benitez/Brittany/eTransmitting on: 04/21/2024 05:34 AM EST
[2025-02-19 05:24] LABS: MANUAL DIFF FLAG NO
--- OUTSIDE RECORDS SUMMARY | 2025-02-19 05:34 | XMS_ITS | Encounter Summary ---
Author Organization [facility] [place], Address [address] [place] [address] Phone Care Team Providers Care Instructor Substitute Cosmetology Name Role Phone Anne Balderas MD Primary Care Provider + Encounter Details Date Type Department Care Team (Late st Contact Info) Description 04/29/2022 Documentation Only [facility] [place], [address] [address] Shamir Paul MD [address] [place] [address] [place] [address] Social History Tobacco Use Types [...] Visit [facility] [address] [address] Shamir Paul MD [address] [facility] [place] [address] documented as of this encounter Visit Diagnoses Not on filedocumented in this encounter Care Teams Instructor Substitute Cosmetology Relationship Specialty Start Date End Date Anne Balderas MD [address] [place] [phone] PCP - General 05/16/24 documented as of this encounter
--- OUTSIDE RECORDS SUMMARY | 2025-02-19 05:34 | XMS_ITS | Encounter Summary ---
Author Organization [facility] [place], Address [address] [place] [address] Phone Care Team Providers Care Clinic Receptionist Name Role Phone Anne Balderas MD Primary Care Provider + Encounter Details Date Type Department Care Team (Late st Contact Info) Description 10/14/2021 Documentation Only [facility] [place], [address] [place] [address] Shamir Paul MD [address] [place] [address] [place] [address] Social History Tobacco Use Types [...] Visit [facility] [address] [place] [address] Shamir Paul MD [address] [facility] [address] [place] [address] documented as of this encounter Visit Diagnoses Not on filedocumented in this encounter Care Teams Clinic Receptionist Relationship Specialty Start Date End Date Anne Balderas MD [address] [place] [phone] PCP - General 05/16/24 documented as of this encounter
--- OUTSIDE RECORDS SUMMARY | 2025-02-19 05:34 | XMS_ITS | Encounter Summary ---
Author Organization [facility], Address [address] [place] [address] Phone Care Team Providers Care Dispute Coordinator Name Role Phone Anne Balderas MD Primary Care Provider + Encounter Details Date Type Department Care Team (Late st Contact Info) Description 04/28/2022 Documentation Only [facility], [address] [address] Shamir Paul MD [address] [place] [address] [place] [address] Social History Tobacco Use Types [...] [facility] [address] [place] [address] Shamir Paul MD [address] [place] [address] documented as of this encounter Visit Diagnoses Not on filedocumented in this encounter Care Teams Dispute Coordinator Relationship Specialty Start Date End Date Anne Balderas MD [address] [place] [phone] PCP - General 05/16/24 documented as of this encounter
--- OUTSIDE RECORDS SUMMARY | 2025-02-19 05:34 | XMS_ITS | Patient Health Record ---
Author Organization [facility] Address [address] [place] [address] Care Team Providers Care Service Station Attendant Name Role Phone Anne Balderas M.D. Primary Care Provider Unavailable Wilmer Mathews Jr Unavailable [phone] Reason For Referral No Information Plan Of Treatment Pending Test Test Name Order Date [place] guidance in [place] 01/20/2024 Insurance Providers Payer Name Payer Address Payer Phone Subscriber Number Group Number Insured Name Patient Relationship to Insured Coverage Start Date Coverage End Date MEDICARE OF [place] [address] [place] [address] [id number] GERRY NEFF Self - patient is the insured [employer] ATT[employer] CLAIMS [address] [place] [address] [id number] GERRY NEFF Self - patient is the insured
--- OUTSIDE RECORDS SUMMARY | 2025-02-19 05:35 | XMS_ITS | Clinical Summary ---
Author Organization [address] Address [address] [place] [phone] Phone Care Team Providers Care Scrap Sawyer Name Role Phone Anne Benavides MD Primary [...] chronic kidney disease 04/11/2024 Vascular dementia, uncomplicated ([facility] V24, [facility] [place] V28) 04/11/2024 Assessment & Plan (12/25/2024 9:43 [...] her, however patient would benefit of a CHILDREN'S AUTHOR who can help her with the daily activities at home, supervision of medications and feeding. Patient has been reluctant to it, however because of her cognitive decline I think this is highly recommended. Resources were given to the patient and her sister to contact the agencies to get an evaluation at home for a CHILDREN'S AUTHOR. 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 Patient is encouraged to avoid any nephrotoxic medications. Following with nephro. Assessment & Plan (08/30/2024 10:51 AM EDT): Assessment & Plan (04/18/2024 4:12 PM EST): Last GFR was 21, stable. Patient is encouraged to avoid any nephrotoxic medications. Encouraged to keep her appointments with the shooting gallery operator. Will recheck labs before her next visit. [...] Care Team Description 01/01/2025 Telephone Adult Medicine [address] [phone] Anne Osorio MD 12/28/2024 Telephone Adult Medicine [address] [phone] Latrell Alvarez LPN 12/26/2024 Telephone Adult Medicine [address] [phone] Latrell Alvarez, STEFANY 12/25/2024 9:51 AM EDT - 12/25/2024 11:59 PM EDT Hospital Encounter [address] [phone] Acute left ankle pain Discharge Disposition: Home or Self Care 12/25/2024 9:00 AM EDT Office Visit Adult Medicine [address] [phone] Anne Osorio MD Encounter for annual general [...] your loved ones. For example, early childhood education specialist or elderly care for an older adult? [...] Care Team (Late st Contact Info) Description 06/26/2025 11:00 AM EDT Office Visit Adult Medicine [address] [phone] Anne Benavides MD [address] [place] [address] Health Maintenance Due Date Last Done Comments [...] Signed Date: 12/25/2024 23:27 ET Workstation ID: [id number] Transcribed By: Self Edit Transcribed Date: 12/25/2024 [...] Man Reviewed and Electronically Signed By: Amber Mna Signed Date: 12/25/2024 23:27 ET Workstation ID: [id number] Transcribed By: Self Edit Transcribed Date: 12/25/2024 [...] 73m2 LAB CHEMISTRY METHOD 08/24/2024 12:41 PM [facility] Comment:Calculation based on the Chronic Kidney Disease Epidemiology Collaboration (CKD-EPI) equation refit without adjustment for race. BUN/Creatinine Ratio 16.6 LAB CHEMISTRY METHOD 08/24/2024 12:41 PM [facility] Calcium 9.7 8.5 - 10.5 mg/dL LAB CHEMISTRY METHOD 08/24/2024 12:41 PM EDT [facility] Blood Venous blood specimen / Unknown Venipuncture / Unknown 08/24/2024 9:50 AM EDT 08/24/2024 9:50 AM EDT Result [facility] Anne Benavides MD LAB BLOOD ORDERABL ES Final Result [facility]) [facility] [address] [place] [address], [place] [phone] * Lipid panel (01/13/2024) [facility] LDL/HDL Ratio 2 0 - 4 Triglycerides 123 0 - 150 mg/dL Cholesterol 120 0 - 200 mg/dL HDL 52 >=40 mg/dL LDL Cholesterol 44 0 - 100 mg/dL Blood Venous blood specimen / Unknown Result [facility] Provider LAB BLOOD ORDERABLES Erin l Result * Falls Risk Assessment (01/10/2024) [facility] Falls Risk Assessment abstracted Result [facility] Provider HEALTH MAINTENANCE Final Result * Depression Screening (01/10/2024) [facility] Depression Screening abstracted Result [facility] Provider HEALTH MAINTENANCE Final Result * [...] (World Health Organization Fracture Risk Assessment) [facility] Department of Internal Medicine recommends [...] alternative screening schedule based on brooks Mathew., [facility] April 30, 2011 for patients with osteopenia [...] (World Health Organization Fracture Risk Assessment) [facility] Department of Internal Medicine recommendsusing [...] FRAX. Optional alternative screening schedule based on jf Mathew al., NEJMJanuary 2011 for patients with osteopenia (based on hip BMD T-score) is as follows: * advanced osteopenia (T scores -2.00 to -2.49), BMD testing every year * moderate osteopenia (T scores -1.50 to -1.99), BMD testing every 5years mild osteopenia or normal BMD (T scores -1.50 and higher), BMD testingevery 15 years Glendy COTE IMSimon DXA PROCEDURES Final Result from Last 3 Months or Most Recently Relevant to Health Maintenance Insurance [facility] MEDICARE Advance Directives Documents on File Type Date Recorded Patient Freight Loading Supervisor Expl anation Advance Directives and Living Will 12/29/2024 3:10 PM Health Care Proxy Care Teams Scrap Sawyer Relationship Specialty Start Date End Date Anne Benavides MD [address] [place] [phone] PCP - General Internal Medicine 11/10/21
--- OUTSIDE RECORDS SUMMARY | 2025-02-19 05:35 | XMS_ITS | Encounter Summary ---
Author Organization [facility] Address [address] [place] [address] Phone Care Team Providers Care Regulatory Administrator Name Role Phone Anne Balderas MD Primary Care Provider + Encounter Details Date Type Department Care Team (Late st Contact Info) Description 11/17/2024 Orders Only [facility] [address] [place] [address] [place] [address] Caity Spain [address] [place] [address] Chronic kidney disease stage 4 [...] Visit [facility] [address] [address] Shamir Paul MD [address] [place] [address] [place] [address] documented as of this encounter Visit Diagnoses Diagnosis Chronic kidney disease stage 4 (HCC) documented in this encounter Care Teams Regulatory Administrator Relationship Specialty Start Date End Date Anne Balderas MD [address] [place] [phone] PCP - General 05/16/24 documented as of this encounter
--- OUTSIDE RECORDS SUMMARY | 2025-02-19 05:35 | XMS_ITS | Clinical Summary ---
Author Organization [facility], Address [address] [place] [address] [place] [address] Phone Care Team Providers Care Mud Mixer Helper Name Role Phone Anne Balderas MD Primary [...] Only [facility], [facility] Center [address] [place] [address] Caity Spain Chronic kidney disease stage 4 (HCC) 01/23/2025 3:40 PM EDT Office Visit [facility] [address] [place] [address] Shamir Paul MD Chronic kidney disease stage 4 (HCC) (Primary Dx) 12/05/2024 10:40 AM EDT Office Visit [facility] [address] [place] [place] [address] Shamir Paul MD Chronic kidney disease stage 4 (HCC) (Primary Dx) from Last 3 Months Immunizations Immunization Administration [...] Visit [facility], [address] [place] [phone] Shamir Paul MD [address] [place] [phone] Health Maintenance Due Date Last Done Comments Influenza Vaccine (#1) 2024 4, 01/19/2023, 01/21/2021, Additional history exists Pneumococcal Vaccine: 50+ Years Completed 12/20/2019, 01/09/2016, 12/05/2003 Hepatitis B Vaccine Aged Out No longe r eligible based on patient's age to complete this topic Insurance Medicare [facility] Care Teams Mud Mixer Helper Relationship Specialty Start Date End Date Anne Baldersa MD [address] [place] [phone] PCP - General 05/16/24
--- OUTSIDE RECORDS SUMMARY | 2025-02-19 05:35 | XMS_ITS | Encounter Summary ---
Author Organization [facility], Address [address] [place] [address] Phone Care Team Providers Care Medical Technologist Clinical Name Role Phone Anne Balderas MD Primary Care Provider + Encounter Details Date Type Department Care Team (Late st Contact Info) Description 08/31/2024 Documentation Only [facility], [address] [place] [address] Candice Hart[place]ILL[place], [place] [address] [place] [address] Social History Tobacco Use Types [...] Visit [facility] [address] [place] [address] Shamir Paul MD [address] [place] [phone] documented as of this encounter Visit Diagnoses Not on filedocumented in this encounter Care Teams Medical Technologist Clinical Relationship Specialty Start Date End Date Antunez Solis, Anne, MD [address] [place] [phone] PCP - General 05/16/24 documented as of this encounter
--- OUTSIDE RECORDS SUMMARY | 2025-02-19 05:35 | XMS_ITS | Encounter Summary ---
Author Organization [facility] Address [address] [place] [address] Phone Care Team Providers Care Reliability Engineer Name Role Phone Anne Balderas MD Primary Care Provider + Encounter Details Date Type Department Care Team (Late st Contact Info) Description 02/09/2025 Orders Only [facility] [address] [place] [address] [place] [address] Caity Spain [address] [place] [address] Chronic kidney disease stage 4 [...] Visit [facility] [address] [place] [address] Shamir Paul MD [address] [place] [address] [place] [address] documented as of this encounter Visit Diagnoses Diagnosis Chronic kidney disease stage 4 (HCC) documented in this encounter Care Teams Reliability Engineer Relationship Specialty Start Date End Date Anne Balderas MD [address] [place] [phone] PCP - General 05/16/24 documented as of this encounter
--- OUTSIDE RECORDS SUMMARY | 2025-02-19 05:35 | XMS_ITS ---
Author Organization [address] Address [address] [place] [phone] Phone Care Team Providers Care Public Safety Teacher Name Role Phone Anne Benavides MD Primary Care Prov ider Post Acute Care Coordination Status:Ongoing (Active) Start date:02/07/2025 Enrollment date:02/07/2025 Enrollment reason:Post acute care coordination Case Team Name Relationship Phone Arianne Sanabria RN(Responsible Staff) Post Acute [place] Continued Care and Services Coordination
[2025-02-19 05:55] LABS: Hematocrit 26.2 % (37.0-47.0); Hemoglobin 8.0 g/dl (12.0-16.0); Imm Gran Abs Auto 0.03 X10*3/uL (0.00-0.03); Imm Gran Pct Auto 0.3 % (0.0-0.4); Lymphocytes Absolute Auto 2.2 X10*3/uL (1.2-4.9); Mean Corpuscular HGB Conc 30.5 g/dl (31.0-35.0); Mean Corpuscular Hemoglobin 28.3 pg (27.0-33.0); Mean Corpuscular Volume 92.6 fL (80.0-98.0); NRBC Abs Auto 0.000 X10*3/uL (0.0-0.012); NRBC Pct Auto 0.0 /100WBC (0.0-0.2); Platelet Count 349 X10*3/uL (160-400); Red Blood Count 2.83 X10*6/uL (4.20-5.50); White Blood Count 8.7 X10*3/uL (4.8-10.8)
[2025-02-19 06:14] LABS: Anion Gap 12 (12-20); Blood Urea Nitrogen 21 mg/dL (9-16); Calcium 9.4 mg/dL (8.4-10.2); Carbon Dioxide 24 mmol/L (22-29); Chloride 109 mmol/L (96-108); Estimated Glomerular Filt Rate 30; Potassium 4.0 mmol/L (3.3-5.1); Sodium 141 mmol/L (135-145)
== END 2025-02-19 05:28 | disposition home or self-care (01) ==
LOC: HO.MMNH1L 05:27
PROVIDERS: Visit Provider Physician Assistant Medical
DX: Z13.89 Encounter for screening for other disorder (principal)
CPT/HCPCS: 36415; 80048; 85025

== ENCOUNTER 2025-02-21 06:38 | Outpatient (REF) | payer MEDICARE, SELFPAY ==
--- OUTSIDE RECORDS SUMMARY | 2024-01-20 08:30 | XMS_ITS ---
Author Organization [facility] Address [address] [place] [address] Care Team Providers Care Manager Lean Name Role Phone Harmony Solis M.D., Anne Primary Care Provider Unavailable Wilmer Mathews Jr Unavailable [phone] Stuart Snow Unavailable [phone] REASON FOR VISIT COMMONBILE DUCT STONE Encounters Encounter Location Date Provider Diagnosis [facility] [place] [address] [place], [place] [id number] 01/20/2024 Stuart Snow Plan Of Treatment No Information Progress Notes * MAMIE NEFFOB: [birth year] (84 yo F)Acc No.[id number]:01/20/2024 Progress Notes Patient: GERRY ALMONTE Provider: Kaitlin Snow MD :1940 A ge:83 Y S ex:Female Date:01/20/2024 Address:[address] [place], [place] [phone] Pcp:Radha Astudillo Subjective: * Chief Complaints: * [...] MD Date: Generated for Trent benitez/Brittany/eTransmitting on: 04/23/2024 06:43 AM EST
--- OUTSIDE RECORDS SUMMARY | 2025-02-21 06:43 | XMS_ITS | Encounter Summary ---
Author Organization [facility] Address [address] [place] [address] Phone Care Team Providers Care Loan Review Officer Name Role Phone Anne Balderas MD Primary Care Provider + Encounter Details Date Type Department Care Team (Late st Contact Info) Description 10/14/2021 Documentation Only [facility] [address] [place] [address] Shamir Paul MD [address] [place] [place] [address] Social History Tobacco Use Types Packs/Day Years Used Date Smoking Tobacco: Never Smokeless Tobacco: Never Comments Unknown Sex and Gender Information Value Date Recorded Sex Assigned at Not on file Legal Sex Female 9:28 AM EDT Gender Identity Not on file Sexual Orientation Not on file documented as of this encounter Functional Status documented as of this encounter Plan of Treatment Upcoming Encounters Date Type Department Care Team (Late st Contact Info) Description 03/27/2025 11:00 AM EST Office Visit [facility] [address] [place] [address] Shamir Paul MD [address] [place] [address] documented as of this encounter Visit Diagnoses Not on filedocumented in this encounter Care Teams Loan Review Officer Relationship Specialty Start Date End Date Anne Balderas MD [address] [place] [phone] PCP - General 05/16/24 documented as of this encounter
--- OUTSIDE RECORDS SUMMARY | 2025-02-21 06:43 | XMS_ITS | Encounter Summary ---
Author Organization [facility] [place] [facility], Address [address] [place] [address] Phone Care Team Providers Care Division Plant Engineer Name Role Phone Anne Balderas MD Primary Care Provider + Encounter Details Date Type Department Care Team (Late st Contact Info) Description 04/28/2022 Documentation Only [facility] [place], [address] [place] [address] Shamir Paul MD [address] [place] [address] [place] [address] Social History Tobacco Use Types [...] Visit [facility] [address] [place] [address] Shamir Paul MD [address] [place] [address] documented as of this encounter Visit Diagnoses Not on filedocumented in this encounter Care Teams Division Plant Engineer Relationship Specialty Start Date End Date Anne Balderas MD [address] [place] [phone] PCP - General 05/16/24 documented as of this encounter
--- OUTSIDE RECORDS SUMMARY | 2025-02-21 06:43 | XMS_ITS | Encounter Summary ---
Author Organization [facility] Address [address] [place] [address] Phone Care Team Providers Care Gyroscopic Instrument Mechanic Name Role Phone Anne Balderas MD Primary Care Provider + Encounter Details Date Type Department Care Team (Late st Contact Info) Description 02/09/2025 Orders Only [facility] [address] [place] [address] [place] [address] Caity Spain [address] [place] [address] Chronic kidney disease stage 4 [...] Visit [facility] [address] [place] [address] Shamir Paul MD [address] [place] [address] [place] [address] documented as of this encounter Visit Diagnoses Diagnosis Chronic kidney disease stage 4 (HCC) documented in this encounter Care Teams Gyroscopic Instrument Mechanic Relationship Specialty Start Date End Date Anne Balderas MD [address] [place] [phone] PCP - General 05/16/24 documented as of this encounter
--- OUTSIDE RECORDS SUMMARY | 2025-02-21 06:43 | XMS_ITS ---
Author Organization [address] Address [address] [place] [phone] Phone Care Team Providers Care Brass Instrument Repair Technician Name Role Phone Anne Benavides MD Primary Care Prov ider Post Acute Care Coordination Status:Ongoing (Active) Start date:02/07/2025 Enrollment date:02/07/2025 Enrollment reason:Post acute care coordination Case Team Name Relationship Phone Arianne Sanabria RN(Responsible Staff) Post Acute Cross Cut Saw Operator Continued Care and Services Coordination
--- OUTSIDE RECORDS SUMMARY | 2025-02-21 06:43 | XMS_ITS | Clinical Summary ---
Author Organization [address] Address [address] [place] [phone] Phone Care Team Providers Care Industrial Garage Servicer Name Role Phone Anne Benavides MD Primary [...] chronic kidney disease 04/11/2024 Vascular dementia, uncomplicated ([facility] V24, [place]/[facility] V28) 04/11/2024 Assessment & Plan (12/25/2024 9:43 [...] her, however patient would benefit of a BUSINESS AREA DIRECTOR who can help her with the daily activities at home, supervision of medications and feeding. Patient has been reluctant to it, however because of her cognitive decline I think this is highly recommended. Resources were given to the patient and her sister to contact the agencies to get an evaluation at home for a BUSINESS AREA DIRECTOR. 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 Patient is encouraged to avoid any nephrotoxic medications. Following with nephro. Assessment & Plan (08/30/2024 10:51 AM EDT): Assessment & Plan (04/18/2024 4:12 PM EST): Last GFR was 21, stable. Patient is encouraged to avoid any nephrotoxic medications. Encouraged to keep her appointments with the podiatrist. Will recheck labs before her next visit. [...] Care Team Description 01/01/2025 Telephone Adult Medicine [address] [phone] Anne Osorio MD 12/28/2024 Telephone Adult Medicine [address] [phone] Latrell Alvarez LPN 12/26/2024 Telephone Adult Medicine [address] [phone] Latrell Alvarez, STEFANY 12/25/2024 9:51 AM EDT - 12/25/2024 11:59 PM EDT Hospital Encounter [address] [phone] Acute left ankle pain Discharge Disposition: Home or Self Care 12/25/2024 9:00 AM EDT Office Visit Adult Medicine [address] [phone] Anne Osorio MD Encounter for annual general [...] for your loved ones. For example, child adolescent psychiatrist or elderly care for an older adult? [...] 11:00 AM EDT Office Visit Adult Medicine [address] [phone] Anne Benavides MD [address] [place] [address] Health Maintenance Due Date Last Done Comments [...] Man Reviewed and Electronically Signed By: Amber aMn Signed Date: 12/25/2024 23:27 ET Workstation ID: [id number] Transcribed By: Self Edit Transcribed Date: 12/25/2024 [...] Signed Date: 12/25/2024 23:27 ET Workstation ID: [id number] Transcribed By: Self Edit Transcribed Date: 12/25/2024 23:26 ET us Anne Benavides MD IMG XR PROCEDURES Final Result * (ABNORMAL) Basic metabolic panel (08/24/2024 9:50 AM EDT) Sodium 142 133 - 145 mmol/L LAB CHEMISTRY METHOD 08/24/2024 12:41 PM [facility] Potassium 4.4 3.5 - 5.5 mmol/L LAB CHEMISTRY METHOD 08/24/2024 12:41 PM [facility] Chloride 110 96 - 110 mmol/L LAB CHEMISTRY METHOD 08/24/2024 12:41 PM [facility] CO2 28 21 - 32 mmol/L LAB CHEMISTRY METHOD 08/24/2024 12:41 PM [facility] Anion Gap 4 3 - 11 LAB CHEMISTRY METHOD 08/24/2024 12:41 PM [facility] Glucose 92 70 - 100 mg/dL LAB CHEMISTRY METHOD 08/24/2024 12:41 PM [facility] BUN 35(H) 5 - 25 mg/dL LAB CHEMISTRY METHOD 08/24/2024 12:41 PM [facility] Creatinine 2.11(H) 0.50 - 1.10 mg/dL LAB CHEMISTRY METHOD 08/24/2024 12:41 PM [facility] eGFR 23(L) >=60 mL/min/1. 73m2 LAB CHEMISTRY METHOD 08/24/2024 12:41 PM [facility] Comment:Calculation based on the Chronic Kidney Disease Epidemiology Collaboration (CKD-EPI) equation refit without adjustment for race. BUN/Creatinine Ratio 16.6 LAB CHEMISTRY METHOD 08/24/2024 12:41 PM [facility] Calcium 9.7 8.5 - 10.5 mg/dL LAB CHEMISTRY METHOD 08/24/2024 12:41 PM EDT [facility] Blood Venous blood specimen / Unknown Venipuncture / Unknown 08/24/2024 9:50 AM EDT 08/24/2024 9:50 AM EDT Result [facility] Anne Benavides MD LAB BLOOD ORDERABL ES Final Result [facility] [address] [place] [address], [place] [phone] * Lipid panel (01/13/2024) [facility] LDL/HDL Ratio 2 0 - 4 Triglycerides 123 0 - 150 mg/dL Cholesterol 120 0 - 200 mg/dL HDL 52 >=40 mg/dL LDL Cholesterol 44 0 - 100 mg/dL Blood Venous blood specimen / Unknown Result [facility] Provider LAB BLOOD ORDERABLES Erin l Result * Falls Risk Assessment (01/10/2024) [facility] Falls Risk Assessment abstracted Result [facility] Provider HEALTH MAINTENANCE Final Result * Depression Screening (01/10/2024) [facility] Depression Screening abstracted Result [facility] Provider HEALTH MAINTENANCE Final Result * [...] (World Health Organization Fracture Risk Assessment) [facility] Department of Internal Medicine recommends using [...] alternative screening schedule based on brooks Mathew., [facility] April 30, 2011 for patients with [...] (World Health Organization Fracture Risk Assessment) [facility] Department of Internal Medicine recommendsusing National [...] Most Recently Relevant to Health Maintenance Insurance [facility] MEDICARE Advance Directives Documents on File Type Date Recorded Patient Sewer Line Photo Inspector Expl anation Advance Directives and Living Will 12/29/2024 3:10 PM Health Care Proxy Care Teams Industrial Garage Servicer Relationship Specialty Start Date End Date Anne Benavides MD [address] [place] [phone] PCP - General Internal Medicine 11/10/21
--- OUTSIDE RECORDS SUMMARY | 2025-02-21 06:43 | XMS_ITS | Encounter Summary ---
Author Organization [facility], Address [address] [place] [address] Phone Care Team Providers Care Senior Java Data Architect Name Role Phone Anne Balderas MD Primary Care Provider + Encounter Details Date Type Department Care Team (Late st Contact Info) Description 04/29/2022 Documentation Only [facility] [place] [facility], [address] [place] [address] Shaimr Paul MD [address] [place] [address] [place] [address] Social History Tobacco Use Types [...] Visit [facility] [address] [place] [address] Shamir Paul MD [address] [place] [address] documented as of this encounter Visit Diagnoses Not on filedocumented in this encounter Care Teams Senior Java Data Architect Relationship Specialty Start Date End Date Anne Balderas MD [address] [place] [phone] PCP - General 05/16/24 documented as of this encounter
--- OUTSIDE RECORDS SUMMARY | 2025-02-21 06:43 | XMS_ITS | Clinical Summary ---
Author Organization [facility] [place], Address [address] [place] [address] [place] [address] Phone Care Team Providers Care Ceramic Engineering Professor Name Role Phone Anne Balderas MD Primary [...] Only [facility] [place], [facility] V[facility] Access Center [address] [place] [address] Caity Spain Chronic kidney disease stage 4 (HCC) 01/23/2025 3:40 PM EDT Office Visit [facility] [address] [place] [address] Shamir aPul MD Chronic kidney disease stage 4 (HCC) (Primary Dx) 12/05/2024 10:40 AM EDT Office Visit [facility] [address] [place] [address] Shamir Paul MD Chronic kidney disease stage [...] Visit [facility] [place], [address] [place] [phone] Shamir Paul MD [address] [facility] [address] [facility] [place] [phone] Health Maintenance Due Date Last Done Comments Influenza Vaccine (#1) 2024 4, 01/19/2023, 01/21/2021, Additional history exists Pneumococcal Vaccine: 50+ Years Completed 12/20/2019, 01/09/2016, 12/05/2003 Hepatitis B Vaccine Aged Out No longe r eligible based on patient's age to complete this topic Insurance Medicare [facility] Care Teams Ceramic Engineering Professor Relationship Specialty Start Date End Date Anne Balderas MD [address] [place] [phone] PCP - General 05/16/24
--- OUTSIDE RECORDS SUMMARY | 2025-02-21 06:43 | XMS_ITS | Encounter Summary ---
Author Organization [facility], Address [address] [place] [address] Phone Care Team Providers Care Wool Carder Name Role Phone Anne Balderas MD Primary Care Provider + Encounter Details Date Type Department Care Team (Late st Contact Info) Description 08/31/2024 Documentation Only [facility] [place], [address] [place] [address] [place], [place] [address] [place] [address] Social History Tobacco Use Types [...] Visit [facility] [address] [place] [address] Shamir Paul MD [address] [facility] [place] [phone] documented as of this encounter Visit Diagnoses Not on filedocumented in this encounter Care Teams Wool Carder Relationship Specialty Start Date End Date Antunez Solis, Anne, MD [address] [place] [phone] PCP - General 05/16/24 documented as of this encounter
--- OUTSIDE RECORDS SUMMARY | 2025-02-21 06:43 | XMS_ITS | Encounter Summary ---
Author Organization [facility] Address [address] [place] [address] Phone Care Team Providers Care Swager Operator Name Role Phone Anne Balderas MD Primary Care Provider + Encounter Details Date Type Department Care Team (Late st Contact Info) Description 11/17/2024 Orders Only [facility] Center [address] [place] [address] [place] [address] Caity Spain [address] [place] [address] Chronic kidney disease stage 4 [...] Visit [facility] [address] [place] [address] Shamir Paul MD [address] [place] [address] [place] [address] documented as of this encounter Visit Diagnoses Diagnosis Chronic kidney disease stage 4 (HCC) documented in this encounter Care Teams Swager Operator Relationship Specialty Start Date End Date Anne Balderas MD [address] [place] [phone] PCP - General 05/16/24 documented as of this encounter
--- OUTSIDE RECORDS SUMMARY | 2025-02-21 06:43 | XMS_ITS | Patient Health Record ---
Author Organization [facility] Address [address] [place] [address] Care Team Providers Care Hoisting Machine Operator Name Role Phone Anne Balderas M.D. [...] OF [place] [address] [place] [address] [id number] GERRY NEFF Self - patient is the insured [employer] ATT[employer] CLAIMS [address] [place] [address] [id number] 1 GERRY NEFF Self - patient is the insured
[2025-02-21 07:41] LABS: Anion Gap 9 (12-20); Blood Urea Nitrogen 20 mg/dL (9-16); Calcium 9.0 mg/dL (8.4-10.2); Carbon Dioxide 26 mmol/L (22-29); Chloride 110 mmol/L (96-108); Estimated Glomerular Filt Rate 32; Potassium 3.7 mmol/L (3.3-5.1); Sodium 141 mmol/L (135-145)
== END 2025-02-21 06:39 | disposition home or self-care (01) ==
LOC: HO.MMNH1L 06:38
PROVIDERS: Visit Provider Physician Assistant Medical
DX: N17.9 Acute kidney failure, unspecified (principal)
CPT/HCPCS: 36415; 80048

== ENCOUNTER 2025-02-23 06:18 | Outpatient (REF) | payer MEDICARE, SELFPAY ==
--- OUTSIDE RECORDS SUMMARY | 2024-01-20 08:30 | XMS_ITS ---
Author Organization [facility] Address [address] [place] [address] Care Team Providers Care Oracle Software Engineer Name Role Phone Harmony Solis M.D., Anne Primary Care Provider Unavailable Wilmer Mathews Jr Unavailable [phone] Stuart Snow Unavailable [phone] REASON FOR VISIT COMMONBILE DUCT STONE Encounters Encounter Location Date Provider Diagnosis [facility] [place] [facility] [address], [place] [id number] 01/20/2024 Stuart Snow Plan Of Treatment No Information Progress Notes * MACARIO NEFFANCEDOB: [birth year] (84 yo F)Acc No.[id number]:01/20/2024 Progress Notes Patient: GERRY ALMONTE Provider: Kaitlin Snow MD :1940 A ge:83 Y S ex:Female Date:01/20/2024 Address:[address] [place], [place] [id number] Pcp:Radha Astudillo Subjective: * Chief Complaints: * 1 . COMMONBILE DUCT STONE. * Medical History: Objective: * Vitals: Assessment: Plan: * Treatment: * * The named appointment provid er may or may not be the originator of this progress note, and it is not deemed complete until electronically signed by the appointment provider. Sign off status: Pending * Provider: Kaitlin Snow MD Date: Generated for Trent benitez/Brittany/eTsonjasmitting on: 04/25/2024 06:22 AM EST
--- OUTSIDE RECORDS SUMMARY | 2025-02-23 06:22 | XMS_ITS | Clinical Summary ---
Author Organization [address] Address [address] [place] [phone] Phone Care Team Providers Care Slab Lifting Engineer Name Role Phone Anne Benavides MD Primary [...] chronic kidney disease 04/11/2024 Vascular dementia, uncomplicated ([facility] V24, [facility] V28) 04/11/2024 Assessment & Plan (12/25/2024 9:43 [...] her, however patient would benefit of a CURATORIAL ASSISTANT who can help her with the daily activities at home, supervision of medications and feeding. Patient has been reluctant to it, however because of her cognitive decline I think this is highly recommended. Resources were given to the patient and her sister to contact the agencies to get an evaluation at home for a CURATORIAL ASSISTANT. Mixed hyperlipidemia 04/11/2024 Gastroesophageal reflux disease without esophagi tis 04/11/2024 meterman (current) use of aspirin 04/11/2024 Polyp of [...] kidney disease) stage 4, GFR 15-29 ml/min ([facility] V24, [facility] V28) 06/09/2019 Assessment & Plan (12/25/2024 1:25 PM EDT): Last GFR was 23, stable. Patient is encouraged to avoid any nephrotoxic medications. Following with nephro. Assessment & Plan (08/30/2024 10:51 AM EDT): Assessment & Plan (04/18/2024 4:12 PM EST): Last GFR was 21, stable. Patient is encouraged to avoid any nephrotoxic medications. Encouraged to keep her appointments with the tensile tester. Will recheck labs before her next visit. [...] Care Team Description 01/01/2025 Telephone Adult Medicine [address] [phone] Anne Osorio MD 12/28/2024 Telephone Adult Medicine [address] [phone] Latrell Alvarez LPN 12/26/2024 Telephone Adult Medicine [address] [phone] Latrell Alvarez, STEFANY 12/25/2024 9:51 AM EDT - 12/25/2024 11:59 PM EDT Hospital Encounter [address] [phone] Acute left ankle pain Discharge Disposition: Home or Self Care 12/25/2024 9:00 AM EDT Office Visit Adult Medicine [address] [phone] Anne Osorio MD Encounter for annual general [...] 11:00 AM EDT Office Visit Adult Medicine [address] [phone] Anne Benavides MD [address] [place] [address] Health Maintenance Due Date Last Done Comments [...] Signed Date: 12/25/2024 23:27 ET Workstation ID: [id number] Transcribed By: Self Edit Transcribed Date: 12/25/2024 [...] Signed Date: 12/25/2024 23:27 ET Workstation ID: [id number] Transcribed By: Self Edit Transcribed Date: 12/25/2024 23:26 ET us Anne Benavides MD IMG XR PROCEDURES Final Result * (ABNORMAL) Basic metabolic panel (08/24/2024 9:50 AM EDT) Sodium 142 133 - 145 mmol/L LAB CHEMISTRY METHOD 08/24/2024 12:[address] [facility] Potassium 4.4 3.5 - 5.5 mmol/L LAB CHEMISTRY METHOD 08/24/2024 12:[address] [facility] Chloride 110 96 - 110 mmol/L LAB CHEMISTRY METHOD 08/24/2024 12:[address] [facility] CO2 28 21 - 32 mmol/L LAB CHEMISTRY METHOD 08/24/2024 12:[address] [facility] Anion Gap 4 3 - 11 LAB CHEMISTRY METHOD 08/24/2024 12:[address] [facility] Glucose 92 70 - 100 mg/dL LAB CHEMISTRY METHOD 08/24/2024 12:[address] [facility] BUN 35(H) 5 - 25 mg/dL LAB CHEMISTRY METHOD 08/24/2024 12:[address] [facility] Creatinine 2.11(H) 0.50 - 1.10 mg/dL LAB CHEMISTRY METHOD 08/24/2024 12:[address] [facility] eGFR 23(L) >=60 mL/min/1. 73m2 LAB CHEMISTRY METHOD 08/24/2024 12:[address] [facility] Comment:Calculation based on the Chronic Kidney Disease Epidemiology Collaboration (CKD-EPI) equation refit without adjustment for race. BUN/Creatinine Ratio 16.6 LAB CHEMISTRY METHOD 08/24/2024 12:[address] [facility] Calcium 9.7 8.5 - 10.5 mg/dL LAB CHEMISTRY METHOD 08/24/2024 12:41 PM EDT [facility] Blood Venous blood specimen / Unknown Venipuncture / Unknown 08/24/2024 9:50 AM EDT 08/24/2024 9:50 AM EDT Result [facility] Anne Benavides MD LAB BLOOD ORDERABL ES Final Result [facility] [address] [place] [address], [place] [phone] * Lipid panel (01/13/2024) [facility] LDL/HDL Ratio 2 0 - 4 Triglycerides 123 0 - 150 mg/dL Cholesterol 120 0 - 200 mg/dL HDL 52 >=40 mg/dL LDL Cholesterol 44 0 - 100 mg/dL Blood Venous blood specimen / Unknown Result [facility] Provider LAB BLOOD ORDERABLES Erin l Result * Falls Risk Assessment (01/10/2024) [facility] Falls Risk Assessment abstracted Result [facility] Provider HEALTH MAINTENANCE Final Result * Depression Screening (01/10/2024) [facility] Depression Screening abstracted Result [facility] Provider HEALTH MAINTENANCE Final Result * [...] (World Health Organization Fracture Risk Assessment) [facility] Department of Internal Medicine recommends using National [...] alternative screening schedule based on brooks Mathew., [facility] April 30, 2011 for patients with [...] (World Health Organization Fracture Risk Assessment) [facility] Department of Internal Medicine recommendsusing National Osteoporosis [...] Most Recently Relevant to Health Maintenance Insurance [facility] [[email or web address] MEDICARE Advance Directives Documents on File Type Date Recorded Patient Hydrography Teacher Expl anation Advance Directives and Living Will 12/29/2024 3:10 PM Health Care Proxy Care Teams Slab Lifting Engineer Relationship Specialty Start Date End Date Anne Benavides MD [address] [place] [phone] PCP - General Internal Medicine 11/10/21
--- OUTSIDE RECORDS SUMMARY | 2025-02-23 06:22 | XMS_ITS | Encounter Summary ---
Author Organization [facility] [place], Address [address] [place] [address] Phone Care Team Providers Care Construction Supervisor Name Role Phone Anne Balderas MD Primary Care Provider + Encounter Details Date Type Department Care Team (Late st Contact Info) Description 08/31/2024 Documentation Only [facility] [place], [address] [place] [address] Candice [place], [place] [address] [place] [address] Social History Tobacco Use Types [...] Visit [facility] [address] [place] [address] Shamir Paul MD [address] [facility] [place] [phone] documented as of this encounter Visit Diagnoses Not on filedocumented in this encounter Care Teams Construction Supervisor Relationship Specialty Start Date End Date Antunez Solis, Anne, MD [address] [place] [phone] PCP - General 05/16/24 documented as of this encounter
--- OUTSIDE RECORDS SUMMARY | 2025-02-23 06:22 | XMS_ITS | Encounter Summary ---
Author Organization [facility] Address [address] [place] [address] Phone Care Team Providers Care Freight Broker Agent Name Role Phone Anne Balderas MD Primary Care Provider + Encounter Details Date Type Department Care Team (Late st Contact Info) Description 10/14/2021 Documentation Only [facility] [address] [place] [address] Shamir Paul MD [address] [facility] [place] [address] Social History Tobacco Use Types [...] Visit [facility] [address] [facility] [place] [address] Shamir Paul MD [address] [facility] [place] [address] documented as of this encounter Visit Diagnoses Not on filedocumented in this encounter Care Teams Freight Broker Agent Relationship Specialty Start Date End Date Anne Balderas MD [address] [place] [phone] PCP - General 05/16/24 documented as of this encounter
--- OUTSIDE RECORDS SUMMARY | 2025-02-23 06:22 | XMS_ITS | Patient Health Record ---
Author Organization [facility] Address [address] [place] [address] Care Team Providers Care Bus Matron Name Role Phone Anne Balderas M.D. Primary [...] OF [place] [address] [place] [address] [id number] GERRY NEFF Self - patient is the insured [employer] ATT[employer] CLAIMS [address] [place] [address] [id number] 1 GERRY NEFF Self - patient is the insured
--- OUTSIDE RECORDS SUMMARY | 2025-02-23 06:22 | XMS_ITS | Clinical Summary ---
Author Organization [facility] [place], Address [address] [place] [address] [place] [address] Phone Care Team Providers Care Gauge Controller Name Role Phone Anne Balderas MD Primary [...] Only [facility] [place], [facility] Vascular Access Center [address] [place] [address] Caity Spain Chronic kidney disease stage 4 (HCC) 01/23/2025 3:40 PM EDT Office Visit [facility] [address] [place] [address] Shamir Paul MD Chronic kidney disease stage 4 (HCC) (Primary Dx) 12/05/2024 10:40 AM EDT Office Visit [facility] [address] [place] [address] Shamir Paul MD Chronic kidney disease stage [...] [facility] [place], [address] [place] [address] Shamir Paul MD [address] [address] [place] [phone] Health Maintenance Due Date Last Done Comments Influenza Vaccine (#1) 2024 4, 01/19/2023, 01/21/2021, Additional history exists Pneumococcal Vaccine: 50+ Years Completed 12/20/2019, 01/09/2016, 12/05/2003 Hepatitis B Vaccine Aged Out No longe r eligible based on patient's age to complete this topic Insurance Medicare [facility] Care Teams Gauge Controller Relationship Specialty Start Date End Date Anne Balderas MD [address] [place] [phone] PCP - General 05/16/24
--- OUTSIDE RECORDS SUMMARY | 2025-02-23 06:22 | XMS_ITS | Encounter Summary ---
Author Organization [facility] [place], Address [address] [place] [address] Phone Care Team Providers Care Crop Specialist Name Role Phone Anne Balderas MD Primary Care Provider + Encounter Details Date Type Department Care Team (Late st Contact Info) Description 04/28/2022 Documentation Only [facility] [place], [address] [place] [address] Shamir Paul MD [address] [place] [address] [place] [address] Social History Tobacco Use Types [...] Visit [facility] [address] [place] [address] Shamir Paul MD [address] [facility] [place] [address] documented as of this encounter Visit Diagnoses Not on filedocumented in this encounter Care Teams Crop Specialist Relationship Specialty Start Date End Date Anne Balderas MD [address] [place] [phone] PCP - General 05/16/24 documented as of this encounter
--- OUTSIDE RECORDS SUMMARY | 2025-02-23 06:22 | XMS_ITS ---
Author Organization [address] Address [address] [place] [phone] Phone Care Team Providers Care Portuguese Tutor Name Role Phone Anne Benavides MD Primary Care Prov ider Post Acute Care Coordination Status:Ongoing (Active) Start date:02/07/2025 Enrollment date:02/07/2025 Enrollment reason:Post acute care coordination Case Team Name Relationship Phone Arianne Sanabria RN(Responsible Staff) Post Acute Form Grader Operator Continued Care and Services Coordination
--- OUTSIDE RECORDS SUMMARY | 2025-02-23 06:22 | XMS_ITS | Encounter Summary ---
Author Organization [facility] Address [address] [place] [address] Phone Care Team Providers Care Catcher Filter Tip Name Role Phone Anne Balderas MD Primary Care Provider + Encounter Details Date Type Department Care Team (Late st Contact Info) Description 11/17/2024 Orders Only [facility] [address] [place] [address] [place] [address] Caity Spain [address] [place] [address] Chronic kidney disease stage 4 [...] Visit [facility] [address] [place] [address] Shamir Paul MD [address] [place] [address] [place] [address] documented as of this encounter Visit Diagnoses Diagnosis Chronic kidney disease stage 4 (HCC) documented in this encounter Care Teams Catcher Filter Tip Relationship Specialty Start Date End Date Anne Balderas MD [address] [place] [phone] PCP - General 05/16/24 documented as of this encounter
--- OUTSIDE RECORDS SUMMARY | 2025-02-23 06:22 | XMS_ITS | Encounter Summary ---
Author Organization [facility] Address [address] [place] [address] Phone Care Team Providers Care Automatic Drilling Machine Operator Name Role Phone Anne Balderas MD Primary Care Provider + Encounter Details Date Type Department Care Team (Late st Contact Info) Description 02/09/2025 Orders Only [facility] Center [address] [place] [address] [place] [address] Caity Spain [address] [place] [address] Chronic kidney disease stage 4 [...] Visit [facility] [address] [place] [address] Shamir Paul MD [address] [place] [address] [place] [address] documented as of this encounter Visit Diagnoses Diagnosis Chronic kidney disease stage 4 (HCC) documented in this encounter Care Teams Automatic Drilling Machine Operator Relationship Specialty Start Date End Date Anne Balderas MD [address] [place] [phone] PCP - General 05/16/24 documented as of this encounter
--- OUTSIDE RECORDS SUMMARY | 2025-02-23 06:22 | XMS_ITS | Encounter Summary ---
Author Organization [facility] Address [address] [place] [address] Phone Care Team Providers Care Seo Specialist Name Role Phone Anne Balderas MD Primary Care Provider + Encounter Details Date Type Department Care Team (Late st Contact Info) Description 04/29/2022 Documentation Only [facility], [address] [place] [address] Shamir Paul MD [address] [place] [address] [place] [address] Social History Tobacco Use Types [...] [facility] [address] [place] [address] Shamir Paul MD [address] [place] [address] documented as of this encounter Visit Diagnoses Not on filedocumented in this encounter Care Teams Seo Specialist Relationship Specialty Start Date End Date Anne Balderas MD [address] [place] [phone] PCP - General 05/16/24 documented as of this encounter
[2025-02-23 07:46] LABS: Anion Gap 10 (12-20); Blood Urea Nitrogen 22 mg/dL (9-16); Calcium 9.2 mg/dL (8.4-10.2); Carbon Dioxide 26 mmol/L (22-29); Chloride 111 mmol/L (96-108); Estimated Glomerular Filt Rate 32; Potassium 4.0 mmol/L (3.3-5.1); Sodium 143 mmol/L (135-145)
== END 2025-02-23 06:19 | disposition home or self-care (01) ==
LOC: HO.MMNH1L 06:18
PROVIDERS: Visit Provider Physician Assistant Medical
DX: Z13.89 Encounter for screening for other disorder (principal)
CPT/HCPCS: 36415; 80048